=== PATIENT | male | born 1945 | race Caucasian/White ===

== ENCOUNTER 2024-11-07 07:56 | Outpatient (CLI) | payer MEDICARE, SELFPAY ==
--- NOTE | ~2024-11-07 | CT_ITS ---
History: Paresthesias PROCEDURE: CT cervical spine without intravenous contrast. COMPARISON: None TECHNIQUE: Multiple contiguous axial images of the cervical spine were performed without the administration of i ntravenous contrast. DLP: 521 mGy-cm FINDINGS: Straightening of the normal curvature of the cervical spine is identified, likely muscular in origin. Degenerative disease is noted, specifically at the T1/C2 interface, with sclerosis of the dens and th e ring of C1. Disc space narrowing is also noted, along with facet arthropathy. No acute fractures are present. The bilateral lung apices are unremarkable. Circumferential thickening of the distal cervical esophagus. The airway is patent. Impression: Straightening of the normal curvature of the cervical spine, likely muscular in origin. Degenerative disease, without acute fracture. Reviewed, dictated and finalized at location A. Impression: Straightening of the normal curvature of the cervical spine, likely muscular in origin. Degenerative disease, without acute fracture.
--- NOTE | ~2024-11-07 | CT_ITS ---
Noncontrast CT scan of the lumbar spine CLINICAL HISTORY: Spondylosis TECHNIQUE: Axial noncontrast imaging of the lumbar spine was performed. Sagittal and coronal reformat bhavya images were constructed. Dose reduction technique was used on this scan by utilizing automated ex posure control and iterative reconstruction technique. The dose-length product (DLP) was 1150.52 mGy- cm. FINDINGS: There is no fracture or subluxation lumbar spine. Vertebral bodies maintain normal height a nd alignment. Intervertebral disc spaces are well preserved. At L1-L2, there is no disc bulge or herniation. No spinal canal stenosis or distinct neural foraminal narrowing. At L2-L3, there is mild diffuse disc bulge with mild facet hypertrophy. No daniela central canal stenos is. Neural foramina are preserved. At L3-L4, there is mild diffuse disc bulge with mild to moderate facet arthropathy. There is probable mild central canal stenosis. Neural foramina are preserved. At L4-L5, there is disc bulge with moderate facet arthropathy. There is moderate to advanced spinal c anal stenosis/thecal sac compression. There is moderate bilateral neural foraminal narrowing. At L5-S1, there is minimal disc bulge. No spinal canal stenosis or neural foraminal narrowing. Paravertebral soft tissues are unremarkable. Impression: Moderate to advanced degenerative spondylosis at L4-L5, as above. Mild to moderate degenerative spondylosis at L3-L4, as above. Reviewed, dictated and finalized at [facility]. Impression: Moderate to advanced degenerative spondylosis at L4-L5, as above. Mild to moderate degenerative spondylosis at L3-L4, as above.
--- OUTSIDE RECORDS SUMMARY | 2024-11-07 07:59 | XMS_ITS ---
Author Name [facility] [place] Address [address] [place] [address] Care Team Providers Care Secretary To Board Of Commissioners Name Role Phone BEBETO DURAND Primary Care Provider Unavailjennifer e MELISSA SOLER WILLIAM Primary Care Provider Unavailabl e Insurance Providers: All historical and current Section Date Range: From patient's date of to the date document was created. This section includes the names of all active insurance providers for the patient. Insurance Provider Type of Coverage Plan Name Start of Policy Coverage End of Policy Coverage Group Number Member ID Insurance Provider's Telephone Number Policy Curtis's Name Patient's Relationship to Policy Curtis [facility] (WNR) MEDICARE ADVANTAGE [facility](W NR) Feb 02, 2018 [id number] IVAN FREEMAN HN PATIENT MEDICARE PART D (WNR) MEDICARE (M) PART D May 05, 2016 PART D [id number] [phone] IVAN FREEMAN HN PATIENT MEDICARE PART D (WNR) MEDICARE (M) PART D May 05, 2016 PART D [id number] IVAN FREEMAN HN PATIENT [facility] (WNR) MEDICARE ADVANTAGE [facility] (WNR) May 05, 2016 [id number] 56 IVAN FREEMAN HN PATIENT [facility] (WNR) MEDICARE ADVANTAGE [facility] (WNR) May 05, 2016 [id number] 56 IVAN FREEMAN HN PATIENT [facility] (WNR) MEDICARE ADVANTAGE M[facility] (WNR) May 05, 2016 [id number] 56 IVAN FREEMAN HN PATIENT Selected Encounter This section includes the information on record at [place] for the Encounter. Date/Time Encounter Type Encounter Description Reason Provider Source Feb 02, 2024 11:59 AM Outpatient Encounter ADMIN PAT ACTIVTIES ([facility]CT) DL FRANCOIS Encounter Template Text not used by [place] Plan of Treatment: Future Appointments (+ 6 months) and Future Tests (+/- 45 days) The Plan of Treatment section includes future care activities for the patient from all [place] treatment[facility]. This section includes future appointments and future orders which are active, pending or scheduled. Future Appointments This section includes appointments that were scheduled to occur 6 months from the date of the Encounter, up to a maximum of 20 appointments. The data comes from all [place] treatment facilities. Appointment Date/Time Appointment Type Appointme nt Facility Name Feb 05, 2024 11:00 AM AMBULATORY - NONE [facility] Feb 11, 2024 11:30 AM AMBULATORY - MEDICINE [facility] Mar 24, 2024 11:00 AM AMBULATORY - NEUROLOGY . [facility] Mar 24, 2024 01:15 PM AMBULATORY - MEDICINE . [facility] Apr 12, 2024 10:00 AM AMBULATORY - MEDICINE [facility] Apr 23, 2024 10:00 AM AMBULATORY - MEDICINE [facility] May 04, 2024 09:30 AM AMBULATORY - SURGERY [facility] May 18, 2024 10:00 AM AMBULATORY - SUR[facility]ERY [facility] Jun 02, 2024 11:00 AM AMBULATORY - NEUROLOGY [facility] Jun 09, 2024 09:30 AM AMBULATORY - SURGERY [facility] Jul 13, 2024 11:30 AM AMBULATORY - NONE [facility] Jul 14, 2024 02:15 PM AMBULATORY - MEDICINE [facility] Lab Results: +/- 30 days of the encounter This section includes the Chemistry and Hematology Lab Results on record with [place] for the patient. Radiology Reports and Pathology Reports are provided separately, in subsequent sections. Lab Results This section contains the Chemistry/Hematology Results that were resulted 30 days before or 30 daysafter the date of the Encounter. Date/Time Source Result Type Result - Unit Interpretation Reference Range Specimen Type Comment Feb 05, 2024 10:54 AM [facility] URINALYSIS URINE Specimen Type: URINE No comment entered. Ordering Provider: PALOMO NAYAK Report Released Date/Time: Feb 02, 2024 12:01 PM Reporting Lab: [address] [place] [address] Performing Lab: [address] [place] [address] URINE BILIRUBIN Negative Negative URINE KETONES Negative Negative URINE GLUCOSE NORMAL Negative URINE PROTEIN Trace H Negative URINE EPITH CELLS NoneObs URINE BACTERIA 2+ /[HPF] H Negative URINE COLOR LIGHT YELLOW <Venessa URINE BLOOD Trace H Negative URINE NITRITE 2+ H Negative URINE S.G. 1.012 1.003-1.030 URINE pH 6.5 5.0-9.0 URINE LEUKOCYTE ESTERASE 3+ H Negativ e URINE CLARITY Turbid H <Slightly-Cloudy URINE RBCS/HPF NoneObs /[HPF] 0-2 URINE WBCS/HPF 50-100 /[HPF] H 0-5 Feb 05, 2024 10:54 AM [facility] CBC BLOOD Specimen Type: BLOOD No comment entered. Ordering Provider: PALOMO NAYAK Report Released Date/Time: Feb 02, 2024 12:02 PM Reporting Lab: [address] [place] [address] Performing Lab: [address] [place] [address] WBC 12.6 10*3/uL H 4.8-10.8 RBC 5.01 10*6/uL 4.7-6.1 HGB 15.0 g/dL 14-18 HCT 45.6 42-52 MCV 91.1 fL 80-94 MCH 30.0 pg 27-31 MCHC 32.9 g/dL 32-36 PLT 307 10*3/uL 130-400 MPV 8.9 fL 7.4-10.4 MONOCYTE (AUTO) 9.9 4-12 EOSINOPHIL (AUTO) 2.0 0-11.0 BASOPHIL (AUTO) 0.6 0.0-2.0 RDW 12.9 11.5-14.5 LYMPH (AUTO) 18.8 L 20.5-51.1 NEUTROPHIL (AUTO) 68.7 42.2-75.2 LYMPH ABSOLUTE 2.4 10*3/uL 1.2-3.4 MONO ABSOLUTE 1.2 10*3/uL H 0.1-0.7 NEUTRO ABSOLUTE 8.7 10*3/uL H 1.4-6.5 EOSIN ABSOLUTE 0.2 10*3/uL 0.0-0.7 BASO ABSOLUTE 0.1 10*3/uL 0.0-0.2 Social History: Smoking Status (Most current) and Tobacco Use (All prior to encounter date) This section includes the most current, and the historical, smoking and tobacco- related health factors from the [place] facility where the Encounter took place. Current Smoking Status This section includes the most current smoking, or tobacco-related health factor, from the [place] facility where the Encounter took place. Date/Time Current Smoking Status Comment Leon mars Aug 06, 2023 02:30 PM VA-TOBACCO FORMER USER [facility] Tobacco Use History This section includes a history of the smoking, or tobacco-related health factors, that were collected on or before the date of the Encounter. The data comes from the [place] facility where the Encounter took place. Date/Time Smoking Status/Tobacco Use Comment Ezequiel rome Aug 06, 2023 02:30 PM VA-TOBACCO QUIT 15 YRS OR MORE [facility] Aug 02, 2022 03:30 PM VA-TOBACCO FORMER USER [facility] Aug 02, 2022 03:30 PM VA-TOBACCO QUIT 15 YRS OR MORE [facility] May 08, 2021 01:00 PM VA-TOBACCO NEVER USED [facility] Mar 29, 2020 09:00 AM VA-TOBACCO NEVER USED [facility] September 23, 2018 09:22 AM VA-TOBACCO FORMER USER [facility] September 23, 2018 09:22 AM VA-TOBACCO QUIT 15 YRS OR MORE [facility] Feb 20, 2018 10:25 AM VA-TOBACCO NEVER USED [facility] Pathology Reports: +/- 30 days of the encounter Pathology Reports For cases when an order for pathology services may have been completed prior to the date of the Encounter, the report list includes the Pathology Reports that were completed up to 30 days before dateof the Encounter. For cases when an order for pathology services may have been completed after the date of the Encounter, the report list also includes the Pathology Reports that were completed up to30 days after date of the Encounter. The data comes from all [place] treatment facilities. Date/Time Pathology Report Provider Source Feb 05, 2024 10:54 AM LR MICROBIOLOGY RE PORT: Accession [UID]: [id number] [[id number]] Received: Feb 05, 2024@10:54 Collection sample: URINE (CLEAN CATCH) Collection date: Feb 05, 2024 10:54 Site/Specimen: URINE Provider: PALOMO NAYAK Test(s) ordered: CULTURE, URINE................ completed: Feb 09, 2024 * BACTERIOLOGY FINAL REPORT => Feb 09, 2024 13:34 TECH CODE: [id number] CULTURE RESULTS: PSEUDOMONAS AERUGINOSA - Quantity: >100,000 COL/ML ANTIBIOTIC SUSCEPTIBILITY TEST RESULTS: PSEUDOMONAS AERUGINOSA : SUSC INTP AZTREONAM..................... S S FORMULARY CEFEPIME...................... S S FORMULARY CEFTAZIDIME................... S S FORMULARY CIPROFLOXACIN................. S S FORMULARY GENTAMICIN.................... I I FORMULARY LEVOFLOXACIN.................. S S FORMULARY MEROPENEM..................... S S FORMULARY PIP/TAZOBACTAM................ S S FORMULARY TOBRAMYCIN.................... S S FORMULARY Bacteriology Remark(s): FINAL REPORT: 02-09-24 [facility] Encounter Notes: All associated encounter notes This section contains the clinical notes associated to the Encounter. Date/Time Encounter Note(s) Provider Source Feb 02, 2024 12:03 PM PRIMARY CARE SALT WASHER NOTE: LOCAL TITLE: PC NURSE TRAINING PERSONNEL SUPERVISOR-TELEPHONE STANDARD TITLE: PRIMARY CARE SALT WASHER NOTE DATE OF NOTE: FEB 02, 2024@12:03 ENTRY DATE: FEB 02, 2024@12:04:42 AUTHOR: DL FRANCOIS COSIGNER: URGENCY: STATUS: COMPLETED NURSE TRAINING PERSONNEL SUPERVISOR - TELEPHONE Patient Identity Verified by two of the following prior to providing care. Full name SSN# Suicide Screening Not Due GENERAL VISIT INFORMATION: PACT RN returned patient call. Patient is C/O worsening Neuropathy, which is increasing falls. He states he went to Podiatry and they did nothing and Gabapentin was not helpful. He would like to discuss this in detail at his Feb 10 appt. He would like a repeat UA and CBC to check on his previous UTI to ensure it was treated. Labs ordered. There were no further questions or concerns. PRIMARY CARE/MEDICINE Last Visit Dt: Dec 26, 2023@10:00 RECENT VITAL SIGNS No data available Active Outpatient Medications (including Supplies): Active Outpatient Medications Status 1) BARRIER,OSTOMY,NEW IMAGE H#[id number] USE 1 BARRIER ACTIVE EVERY OTHER DAY 2) CHOLECALCIF 50MCG (D3-2,000UNIT) TAB TAKE ONE TABLET ACTIVE BY MOUTH DAILY FOR VITAMIN D3 SUPPLEMENTATION 3) GABAPENTIN 100MG CAP TAKE ONE CAPSULE BY MOUTH AT ACTIVE BEDTIME 4) LOSARTAN 50MG TAB TAKE ONE TABLET BY MOUTH DAILY FOR ACTIVE HEART AND BLOOD PRESSURE 5) POUCH,UROSTOMY,NEW IMAGE H#73896 USE 1 POUCH ACTIVE TOPICALLY EVERY OTHER DAY 6) ROSUVASTATIN CA 20MG TAB TAKE ONE TABLET BY MOUTH ACTIVE DAILY FOR CHOLESTEROL 7) URINARY DRAINAGE SYSTEM H#9276 USE ONE EVERY WEEK ACTIVE Active Non-VA Medications Status 1) Non-VA CHOLECALCIF 50MCG (D3-2,000UNIT) TAB 2000UNIT ACTIVE MOUTH DAILY 2) Non-VA CYANOCOBALAMIN 250MCG TAB 500MCG MOUTH DAILY ACTIVE 9 Total Medications RECENT LABS HEMOGLOBIN A1C 12/19/2023@0821 5.6 LDL DIRECT - NONE FOUND Collection DT Spec CHOL 07/25/2023 07:54 PLASM 158 / STATUS No data on file No data on file PATIENT IS BEING SEEN FOR THE FOLLOWING CONDITIONS: Other Time spent engaged with during this encounter:10 minutes /es/ DL FRANCOIS REGISTERED NURSE Signed: 02/02/2024 12:07 DL FRANCOIS [facility]
--- OUTSIDE RECORDS SUMMARY | 2024-11-07 08:00 | XMS_ITS | Encounter Summary ---
Author Name [facility] [place] Address [address] [place] [address] Care Team Providers Care Cold Storage Worker Name Role Phone BEBETO DURAND Primary Care Provider Unavailabl e MELISSA SOLER WILLIAM Primary Care Provider [...] Curtis's Name Patient's Relationship to Policy Curtis [facility] (WNR) MEDICARE ADVANTAGE [facility](W NR) Feb 02, 2018 [id number] 56 IVAN FREEMAN HN PATIENT MEDICARE PART D (WNR) MEDICARE (M) PART D May 05, 2016 PART D [id number] [phone] [id number] IVAN FREEMAN HN PATIENT MEDICARE PART D (WNR) MEDICARE (M) PART D May 05, 2016 PART D [id number] IVAN FREEMAN HN PATIENT [facility] (WNR) MEDICARE ADVANTAGE [facility] (WNR) May 05, 2016 [id number] 56 IVAN FREEMAN HN PATIENT [facility] (WNR) MEDICARE [facility] (WNR) May 05, 2016 [id number] 56 IVAN FREEMAN HN PATIENT [facility] MCR (WNR) MEDICARE ADVANTAGE MCR (WNR) May 05, 2016 [id number] 56 IVAN FREEMAN PATIENT Selected Encounter This section includes the information on record at [place] for the Encounter. Date/Time Encounter Type Encounter Description Reason Provider Source Mar 11, 2024 07:33 PM CASE MANAGEMENT ADMIN PAT ACTIVTIES [facility] ISABELA BRIZUELA Zaheer Encounter Template Text not used by [place] Plan of Treatment: Future Appointments (+ 6 months) and Future Tests (+/- 45 days) The Plan of Treatment section includes future care activities for the patient from all [place] [facility]. This section includes future appointments and future orders which are active, pending or scheduled. Future Appointments This section includes appointments that were scheduled to occur 6 months from the date of the Encounter, up to a maximum of 20 appointments. The data comes from all [place] treatment facilities. Appointment Date/Time Appointment Type Appointme nt Facility Name Mar 24, 2024 11:00 AM AMBULATORY - NEUROLOGY [facility] Mar 24, 2024 01:15 PM AMBULATORY - MEDICINE [facility] Apr 12, 2024 10:00 AM AMBULATORY - MEDICINE [facility] Apr 23, 2024 10:00 AM AMBULATORY - MEDICINE [facility] May 04, 2024 09:30 AM AMBULATORY - SURGERY [facility] May 18, 2024 10:00 AM AMBULATORY - SURGERY [facility] Jun 02, 2024 11:00 AM AMBULATORY - NEUROLOGY [facility] Jun 09, 2024 09:30 AM AMBULATORY - SURGERY [facility] Jul 13, 2024 11:30 AM AMBULATORY - NONE [facility] Jul 14, 2024 02:15 PM AMBULATORY - MEDICINE [facility] Active, Pending, and Scheduled Orders This section includes a listing of several types of active, pending, and scheduled orders, including clinic medications orders, diagnostic test orders, procedure orders and consult orders; where the start date of the order is 45 days before the date of the Encounter or 45 days after the date of theEncounter. The data comes from all [facility]. Test Date/Time Test Type Test Details Facility Name Mar 24, 2024 12:00 AM Laboratory - Chemistry Order PHOSPHOROUS GREEN LI/HEP BLD/PLAS PLASMA SP [facility] Mar 24, 2024 12:00 AM Laboratory - Chemistry Order MAGNESIUM GREEN LI/HEP BLD/PLAS PLASMA [facility] Mar 24, 2024 12:00 AM Laboratory - Chemistry Order LIPID PANEL (STL) GREEN LI/HEP BLD/PLAS PLASMA [facility] Mar 24, 2024 12:00 AM Laboratory - Chemistry Order CPK GREEN LI/HEP BLD/PLAS PLASMA [facility] Mar 24, 2024 12:00 AM Laboratory - Chemistry Order TSH W/ REFLEX FT4 (STL) GREEN LI-HEP PLASMA [facility] Mar 24, 2024 12:00 AM Laboratory - Chemistry Order CBC BLOOD [facility] Mar 24, 2024 12:00 AM Laboratory - Chemistry Order COMPREHENSIVE METABOLIC PANEL GREEN LI/HEP BLD/PLAS PLASMA [facility] Mar 25, 2024 12:00 AM Laboratory - Chemistry Order VITAMIN D, 25-HYDROXY GOLD/RED SST SERUM SP [facility] Lab Results: +/- 30 days of the encounter This section includes the Chemistry and Hematology Lab Results on record with [place] for the patient. Radiology Reports and Pathology Reports are provided separately, in subsequent sections. Lab Results This section contains the Chemistry/Hematology Results that were resulted 30 days before or 30 daysafter the date of the Encounter. Date/Time Source Result Type Result - Unit Interpretation Reference Range Specimen Type Comment Mar 24, 2024 11:52 AM [facility] HGA1C BLOOD Specimen Type: BLOOD No comment entered. Ordering Provider: JENNIFER BELTRÁN Report Released Date/Time: Mar 24, 2024 11:10 AM Reporting Lab: [facility] [address] [address] Performing Lab: [address] [address] HGA1C 5.7 4.0-6.0 Mar 24, 2024 11:52 AM [facility] B12 SERUM Specimen Type: SERUM No comment entered. Ordering Provider: JENNIFER BELTRÁN Report Released Date/Time: Mar 24, 2024 11:10 AM Reporting Lab: [facility] [address] [facility] [address] Performing Lab: [facility] [address] [address] B12 >2000 pg/mL H 213-816 Radiology Reports: +/- 30 days of the encounter Radiology Reports For cases when an order for radiology services may have been completed prior to the date of the Encounter, the report list includes the Radiology Reports that were completed up to 30 days before dateof the Encounter. For cases when an order for radiology services may have been completed after the date of the Encounter, the report list also includes the Radiology Reports that were completed up to30 days after date of the Encounter. The data comes from all [facility] facilities. Date/Time Radiology Report Provider Source Mar 24, 2024 11:[address] LUMBAR SPINE W/ O CONT: XANDER FREEMAN MARISOL [id number] M Exm Date: MAR 24, 2024@11:57 Req Phys: JENNIFER BELTRÁN Pat Loc: [facility]-NEUROLOGY [facility] (Req'g Img Loc: [facility]-CT IMAGING [facility] Service: [address] [address] (Case [id number] COMPLETE) CT LUMBAR SPINE W/O CONT (CT Detailed) CPT:81936 Reason for Study: lumbar spinal stenosis Clinical History: Responsible Attending: Jennifer Beltrán M.D Attending Contact Number: [phone] Resident Contact Number: Allergies listed in CPRS chart: No Allergy Assessment Creatinine: No CREATININE EO data found/eGFR: STL EGFR (within one year). *No Lab Data Found* Wt: History of: Renal failure, chronic or acute renal disease: NO Report Status: Verified Date Reported: MAR 25, 2024 Date Verified: MAR 25, 2024 Nurse Instructor E-Sig:/ES/INNA HURTADO MD Report: CT scanning through the lumbosacral spine was performed with sagittal and coronal reconstructions L1-L2 : No disc herniation or spinal canal stenosis L2-L3: No disc herniation or spinal canal stenosis L3-L4: Mild diffuse circumferential disc bulging, borderline spinal canal stenosis, left facet joint arthritis L4-L5: Moderate diffuse circumferential disc bulging, mild to moderate spinal canal stenosis L5-S1: No disc herniation or spinal canal stenosis 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 Date/Time Encounter Note(s) Provider Source Mar 11, 2024 07:33 PM NURSING NOTE: LOCAL TITLE: [facility] PCMM NOTE STANDARD TITLE: NURSING NOTE DATE OF NOTE: MAR 11, 2024@19:33 ENTRY DATE: MAR 11, 2024@19:34:29 AUTHOR: ISABELA BRIZUELA EXP COSIGNER: URGENCY: STATUS: COMPLETED PCM clinical review complete. Confirmed has permanently relocated. No future PACT appointments in [facility]. Approved for re- assignment. /[place]/ ISABELA BRIZUELA RN Signed: 03/11/2024 19:34 ISABELA BRIZUELA [facility]
--- OUTSIDE RECORDS SUMMARY | 2024-11-07 08:00 | XMS_ITS ---
Author Name [facility] Organization [facility] Address [address] [place] [address] Care Team Providers Care Seal Mixer Name Role Phone BEBETO DURAND Primary Care [...] Curtis's Name Patient's Relationship to Policy Curtis [facility] (WNR) MEDICARE ADVANTAGE [facility](W NR) Feb 02, 2018 [id number] IVAN FREEMAN HN PATIENT MEDICARE PART D (WNR) MEDICARE (M) PART D May 05, 2016 PART D [id number] 68 IVAN FREEMAN HN PATIENT MEDICARE PART D (WNR) MEDICARE (M) PART D May 05, 2016 PART D [id number] [phone] 4 IVAN FREEMAN HN PATIENT [facility] (WNR) MEDICARE ADVANTAGE [facility] (WNR) May 05, 2016 [id number] 56 IVAN FREEMAN HN PATIENT [facility] (WNR) MEDICARE ADVANTAGE [facility] (WNR) May 05, 2016 [id number] 56 IVAN FREEMAN HN PATIENT [facility] (WNR) MEDICARE ADVANTAGE [facility] (WNR) May 05, 2016 [id number] 56 IVAN FREEMAN HN PATIENT Selected Encounter This section includes the information on record at OR for the Encounter. Date/Time Encounter Type Encounter Description Reason Provider Source Mar 24, 2024 01:15 PM OFFICE O/P NEW MOD 45 MIN PRIMARY CARE/MEDICINE ICD-10-CM R53.1 RONI Osman Encounter Template Text not used by OR Assessments - Encounter Diagnoses This section includes the primary and secondary diagnoses documented for the Encounter. Date/Time Primary/Secondary Diagnosis Diagnosis Name Provider Source Mar 25, 2024 10:33 AM PRIMARY Weakness MELISSA SOLER [facility] Mar 25, 2024 10:33 AM SECONDARY Contact with and exposure to other hazardous substances MELISSA SOLER [facility] Mar 25, 2024 10:33 AM SECONDARY Encounter for immunization NYLA ALSTON [facility] Mar 25, 2024 10:33 AM SECONDARY Essential (primary) hypertension MELISSA SOLER [facility] Mar 25, 2024 10:33 AM SECONDARY Hypothyroidism, unspecified MELISSA SOLER [facility] Plan of Treatment: Future Appointments (+ 6 months) and Future Tests (+/- 45 days) The Plan of Treatment section includes future care activities for the patient from all OR treatmentfacilities. This section includes future appointments and future orders which are active, pending or scheduled. Future Appointments This section includes appointments that were scheduled to occur 6 months from the date of the Encounter, up to a maximum of 20 appointments. The data comes from all OR treatment [facility]. Appointment Date/Time Appointment Type Appointme nt Facility Name Apr 12, 2024 10:00 AM AMBULATORY - MEDICINE [facility] Apr 23, 2024 10:00 AM AMBULATORY - MEDICINE [facility] May 04, 2024 09:30 AM AMBULATORY - SURGERY [facility] May 18, 2024 10:00 AM AMBULATORY - SURGERY [facility] Jun 02, 2024 11:00 AM AMBULATORY - NEUROLOGY [facility] Jun 09, 2024 09:30 AM AMBULATORY - SURGERY . Cesar [facility]STILL[facility] Jul 13, 2024 11:30 AM AMBULATORY - NONE [facility] Jul 14, 2024 02:15 PM AMBULATORY - MEDICINE [facility] Active, Pending, and Scheduled Orders This section includes a listing of several types of active, pending, and scheduled orders, including clinic medications orders, diagnostic test orders, procedure orders and consult orders; where the start date of the order is 45 days before the date of the Encounter or 45 days after the date of theEncounter. The data comes from all [facility] facilities. Test Date/Time Test Type Test Details Facility Name Mar 24, 2024 12:00 AM Laboratory - Chemistry Order PHOSPHOROUS GREEN LI/HEP BLD/PLAS PLASMA [facility] Mar 24, 2024 12:00 AM Laboratory - Chemistry Order MAGNESIUM GREEN LI/HEP BLD/PLAS PLASMA [facility] Mar 24, 2024 12:00 AM Laboratory - Chemistry Order LIPID PANEL (STL) GREEN LI/HEP BLD/PLAS PLASMA [facility] Mar 24, 2024 12:00 AM Laboratory - Chemistry Order CPK GREEN LI/HEP BLD/PLAS PLASMA [facility] Mar 24, 2024 12:00 AM Laboratory - Chemistry Order TSH W/ REFLEX FT4 (STL) GREEN LI-HEP PLASMA [facility] Mar 24, 2024 12:00 AM Laboratory - Chemistry Order CBC BLOOD [facility] Mar 24, 2024 12:00 AM Laboratory - Chemistry Order COMPREHENSIVE METABOLIC PANEL GREEN LI/HEP BLD/PLAS PLASMA [facility] Mar 25, 2024 12:00 AM Laboratory - Chemistry Order VITAMIN D, 25-HYDROXY GOLD/RED SST SERUM [facility] Lab Results: +/- 30 days of the encounter This section includes the Chemistry and Hematology Lab Results on record with [facility] for the [facility]. Radiology Reports and Pathology Reports are provided separately, in subsequent sections. Lab Results This section contains the Chemistry/Hematology Results that were resulted 30 days before or 30 daysafter the date of the Encounter. Date/Time Source Result Type Result - Unit Interpretation Reference Range Specimen Type Comment Mar 24, 2024 11:52 AM [facility] HGA1C BLOOD Specimen Type: BLOOD No comment entered. Ordering Provider: JENNIFER SOTO Report Released Date/Time: Mar 24, 2024 11:10 AM Reporting Lab: [facility] [address] [facility] [id number] Performing Lab: [facility] [address] [facility] [address] HGA1C 5.7 4.0-6.0 Mar 24, 2024 11:[address] [facility] B12 SERUM Specimen Type: SERUM No comment entered. Ordering Provider: JENNIFER SOTO Report Released Date/Time: Mar 24, 2024 11:10 AM Reporting Lab: [address] [address] Performing Lab: [place] [id number] [facility] [id number] B12 >2000 pg/mL H 213-816 Vital Signs: All taken on the encounter date This section contains inpatient and outpatient Vital Signs collected on the date of the Encounter. Date/Time Temperature Pulse Blood Pressure Respiratory Rate SP02 Pain Height Weight Body Mass Index Source Mar 24, 2024 01:20 PM 4 [facility] Mar 24, 2024 01:18 PM 97.6 68 127/71 16 97 4 71 246.2 34 [facility] Immunizations: All administered on the encounter date This section contains immunizations associated to the Encounter. Immunization Series Date Issued Administered By Site Reaction Lot Number CVX Code Drug Applications Project Manager Comment(s) Source INFLUENZA, HIGH-DOSE, TRIVALENT, PF Mar 24, 2024 NYLA ALSTON LEFT DELTO ID [id number] [facility] Social History: Smoking Status (Most current) and Tobacco Use (All prior to encounter date) This section includes the most current, and the historical, smoking and tobacco- related health factors from the OR facility where the Encounter took place. Current Smoking Status This section includes the most current smoking, or tobacco-related health factor, from the OR facility where the Encounter took place. Date/Time Current Smoking Status Comment Leon mars Mar 24, 2024 01:15 PM VA-TOBACCO NEVER U SED CIGARETTES [facility] Tobacco Use History This section includes a history of the smoking, or tobacco-related health factors, that were collected on or before the date of the Encounter. The data comes from the OR facility where the Encounter took place. Date/Time Smoking Status/Tobacco Use Comment F acdaryl Mar 24, 2024 01:15 PM VA-TOBACCO NEVER U SED OTHER TYPE [facility] Radiology Reports: +/- 30 days of the [...] the Encounter. The data comes from all OR treatment facilities. Date/Time Radiology Report Provider Source Mar 24, 2024 11:[address] LUMBAR SPINE W/ O CONT: XANDER FREEMAN [id number] -[id number] M Exm Date: MAR 24, 2024@11:57 Req Phys: JENNIFER SOTO Pat Loc: [facility] (Req'g Img Loc: [facility]AGING Service: [address] [address] (Case [id number] COMPLETE) CT LUMBAR SPINE W/O CONT (CT Detailed) CPT:38456 Reason for Study: lumbar spinal stenosis Clinical History: Responsible Attending: Jennifer Soto M.D Attending Contact Number: [phone] Resident Contact Number: Allergies listed in CPRS chart: No Allergy Assessment Creatinine: No CREATININE EO data found/eGFR: STL EGFR (within one year). *No Lab Data Found* Wt: History of: Renal failure, chronic or acute renal disease: NO Report Status: Verified Date Reported: MAR 25, 2024 Date Verified: MAR 25, 2024 Stitching Machine Feeder Or Offbearer E-Sig:/APOLONIA/INNA HURTADO MD Report: CT scanning through the [...] Primary Interpreting Staff: INNA HURTADO MD, Radiologist (Stitching Machine Feeder Or Offbearer) /CPG INNA HURTADO [facility] Encounter Notes: All associated encounter notes This section contains the clinical notes associated to the Encounter. Date/Time Encounter Note(s) Provider Source Mar 28, 2024 03:33 AM ADDENDUM: LOCAL TITLE: Addendum STANDARD TITLE: ADDENDUM DATE OF NOTE: MAR 28, 2024@03:33:18 ENTRY DATE: MAR 28, 2024@03:33:19 AUTHOR: MARISA SAVAGE EXP COSIGNER: URGENCY: STATUS: COMPLETED The Psyllium Caps (Metamucil) is Non-Formulary and will need a PADR consult approval prior to us filling. /apolonia/ MARISA SAVAGE Signed: 03/28/2024 03:34 Receipt Acknowledged By: 03/31/2024 15:35 /apolonia/ Melissa Soler DO Resident Physician --- Original Document --- 03/24/24 PRIMARY CARE PROVIDER NEW VISIT STL: PRIMARY CARE - NEW PATIENT ESTABLISH CARE HPI: Marcelo Freeman is a 78 year old MALE with a PMHx of HTN, Hypothyroid, HLD, recurrent cystitis s/p bladder diversion surgery (2019), hernia repair who presents to primary care clinic to establish care after moving from [place] to be closer to family. He is accompanied by his . Acute Concerns: Worsening bilateral foot/leg weakness initially thought to be neuropathy. This has been ongoing for the past 4 years but has worsened in the past 3 months. Feet feel swollen and sore. Very frequent falls, however patient knows when he's about to fall becasue his legs will hurt and he tries to soften the fall or catch himself. Denies any chest pain or palpitations during these falls. No major injuries from falls yet. Now requires cane, walker, and sometimes wheelchair. Trial of gabapentin did not provide any relief in symptoms. Had a visit with OR Neurology prior to today's appointment for this weakness. This significantly impacts quality of life, had to sell his boat due to this. Mild improvement in strength with home eliptical training Also has a what appears to be a dark skin-tag type lesion on his right chest that notes has significantly increased in size over the past few months. Notable sun exposure history. Has never seen dermatology. Chronic Concerns: Bladder division - no concerns. Has plenty of ostomy supplies from refilling before moving. Needs to get established with OR for follow up. MEDICAL HISTORY: HTN HLD Hypothyroidism SURGICAL HISTORY: Hernia Repair Multiple TURPs with bladder diversion surgery 04/[address] Alvarado Bilateral Cateract SOCIAL HISTORY: Living situation: Lives with . Just bought a home with a pool. Moved from [place] to be closer to family Substance hx: - tobacco: Smoked 1.5 packs per day age 17 to 51. (~50 pack year history) Quit 1996 - etoh: Rare, ~ once every month - illicits: Never Retired [employer] for 3 years, served in [employer] Enjoys being around family, growing plants. Boating and fishing as well as diving - has dove all over the [place], [place], [place] FAMILY HISTORY: Dad had aorta problem Big brother kidney cancer Little brother bladder cancer and colon cancer Mother 86 [place] and CAD ACTIVE OUTPATIENT MEDS: Losartan 50 Rosuva 20 Levothyrox 25 mcg Centrum Silver B12 D3 Vital Signs: Pulse: 68 (03/24/2024 13:18) BP: 127/71 (03/24/2024 13:18) RESP: 16 (03/24/2024 13:18) Pain: 4 (03/24/2024 13:20) Weight: 246.2 lb [111.67 kg] (03/24/2024 13:18) PHYSICAL EXAM: General: cooperative, well appearing, no acute distress, has cane HEENT: atraumatic, symmetric, sclera anicteric, EOMI CV: RRR Lungs: CTAB, no distress on room air Abd: nontender, nondistended, nml bowel sounds, diverting urostomy in RLQ Skin: Dark brown growth to R chest wall, appears to be on small stalk Neuro: A&O x3, follows commands, no focal deficits, CN II-XII grossly intact Ext: Feet are significantly cooler than lower legs, delayed cap refill ~4 seconds, absent senation to monofilament testing in all areas, DP pulses still palpable, no observed lesions on plantar aspect IMPRESSION/PLAN: #BLE Weakness - Based on my exam, high concern for PVD/claudication, ABIs ordered. Already taking HI statin and ASA 81mg daily. No evidence or concern for critical limb ischemia - Following with OR neurology, ordered lumbar MRI and EMG. May have pseudoclaudication? - Based on foot exam above, patient is HIGH RISK for injury and would benefit from podiatry for routine care - B12 > 2000, recommended he stop vitamin B supplementation - Pending above may benefit from structured exercise program - A1c 5.7%, not diabetic #History of Bladder Diversion Surgery (2019) - Establish with here, no acute concerns at this time #Skin lesion - Appears to be similar to skin tag, however with dark color and growing size in the context of sun exposure history would appreciate if dermatology could evalute. #Hypothyroidism - Repeat TSH - Continue levothyroxine 25mcg #HTN - Reports good BP control on Losartan 50mg, will continue for now - Can discuss BP log at next visit #Exposure to [place] - Toxic exposure registry Healthcare Maintenance - CRC screening: Colonoscopy 07/2023 in [place], said to repeat in 5 years. Can work on obtaining records. No history of abnormal colonoscopies - Lung cancer screening: Does not qualify since he quit in 1996 - AAA screening: Reports complete, will look for records - Prostate cancer screening: Shared decision making at next OV - ID screening: Will discuss at next OV [ ] HIV [ ] HCV - Vaccinations: [x] Pneumococcal - 2019 [ ] TDAP - Unclear, clarify at next OV [x] Influenza - Today [x] Zoster - 2019 Labs ordered: CBC, CMP, Mg, TSH, Imaging ordered: ALE Consults ordered: , Dermatology RTC in 3 months. Patient discussed with attending, Dr. Hair. Toxic Exposure Screening - CP,DI,L,NS,P,PH,S,U: The [place]/caregiver was asked if they believe the experienced any toxic exposure(s), such as Airborne Hazards and Open Burn Pit, [place] related exposures, [place], Radiation, contaminated water at [place] or other such exposures, while serving in the [employer]. /caregiver believes the [place] was exposed to the following while serving in the Armed [employer]: [place]: [place]/caregiver was made aware of educational resources that includes information on the Registry Program, presumptive conditions and how to file a claim. Printed information was offered and provided if desired. /caregiver has health or medical concerns related to their concern of environmental exposure. Concern: Bladder issues, neuropathy Benefits/Claims Questions /caregiver was informed of local point of contact. No questions at this time /caregiver was informed of local points of contact. Contact information for local resources: [facility] Registry Exam Program: [phone] Eligibility: [phone] [id number] The following connections were provided to the [place]/caregiver: Consult/Referral to Registry Program [employer] Benefits Administration (VBA) for Benefits/claims: Homelessness/Food Insecurity Screen - DI,L,N,P,PH,PS,S,U: In the past 2 months, have you been living in stable housing that you own, rent, or stay in as part of a household? Yes - Living in stable housing. Are you worried or concerned that in the next 2 months you may NOT have stable housing that you own, rent, or stay in as part of a household? No - Not worried about housing near future The reports the following: Within the past 12 months, you worried whether your food would run out before you got money to buy more. Never true Within the past 12 months, the food you bought just didn't last and you didn't have money to get more. Never true Frail/Elderly Screen: Falls Screen: Two or more falls within the last 12 months. Falls evaluation: (Must be completed by PROVIDER after Positive Falls Screen!) Circumstances of Fall: (I.e. how fall(s) occurred; patient injury sustained; treatment required for injury.) 2/2 worsening LE condition Medications patient is taking: (Review of medications which MAY have contributed to patient fall or mobility disorder.) No medications were identified which contributed to patient fall or mobility disorder. Relevant Chronic Conditions (diseases disorders likely to contribute to fall risk, e.g. DJD both hips with stiffness and pain): The patient has chronic diseases or disorders which likely contributed to fall risk. Please specify: Which conditions? Possible HTN Diagnostic Plans/Therapeutic Recommendations (Check all that apply): Use of Adaptive/Assistive Equipment. Please Specify: Cane, walker, wheelchair Actions Taken (to implement above diagnostic plans): Referrals/Consults: Those ordered: Seeing neurology /apolonia/ Melissa Soler DO Resident Physician Signed: 03/25/2024 10:33 /apolonia/ TOMÁS HAIR MD STAFF PHYSICIAN Cosigned: 03/26/2024 15:44 MARISA SAVAGE [facility] Mar 24, 2024 04:19 PM PRIMARY CARE INITI AL EVALUATION NOTE: LOCAL TITLE: PRIMARY CARE PROVIDER NEW VISIT [facility] STANDARD TITLE: PRIMARY CARE INITIAL EVALUATION NOTE DATE OF NOTE: MAR 24, 2024@16:19 ENTRY DATE: MAR 24, 2024@08:52:04 AUTHOR: MELISSA SOLER COSIGNER: TOMÁS HAIR URGENCY: STATUS: COMPLETED PRIMARY CARE PROVIDER NEW VISIT ST Has ADDENDA PRIMARY CARE - NEW PATIENT ESTABLISH CARE HPI: Marcelo Freeman is a 78 year old MALE with a PMHx of HTN, Hypothyroid, HLD, recurrent cystitis s/p bladder diversion surgery (2019), hernia repair who presents to primary care clinic to establish care after moving from [place] to be closer to family. He is accompanied by his . Acute Concerns: Worsening bilateral foot/leg weakness initially thought to be neuropathy. This has been ongoing for the past 4 years but has worsened in the past 3 months. Feet feel swollen and sore. Very frequent falls, however patient knows when he's about to fall becasue his legs will hurt and he tries to soften the fall or catch himself. Denies any chest pain or palpitations during these falls. No major injuries from falls yet. Now requires cane, walker, and sometimes wheelchair. Trial of gabapentin did not provide any relief in symptoms. Had a visit with OR Neurology prior to today's appointment for this weakness. This significantly impacts quality of life, had to sell his boat due to this. Mild improvement in strength with home eliptical training Also has a what appears to be a dark skin-tag type lesion on his right chest that notes has significantly increased in size over the past few months. Notable sun exposure history. Has never seen dermatology. Chronic Concerns: Bladder division - no concerns. Has plenty of ostomy supplies from refilling before moving. Needs to get established with OR for follow up. MEDICAL HISTORY: HTN HLD Hypothyroidism SURGICAL HISTORY: Hernia Repair Multiple TURPs with bladder diversion surgery 04/[address] Alvarado Bilateral Cateract SOCIAL HISTORY: Living situation: Lives with . Just bought a home with a pool. Moved from [place] to be closer to family Substance hx: - tobacco: Smoked 1.5 packs per day age 17 to 51. 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 Boating and fishing as well as diving - has dove all over the [facility], [place], [place] FAMILY HISTORY: Dad had aorta problem Big brother kidney cancer Little brother bladder cancer and colon cancer Mother 86 [place] and CAD ACTIVE OUTPATIENT MEDS: Losartan 50 Rosuva 20 Levothyrox 25 mcg Centrum Silver B12 D3 Vital Signs: Pulse: 68 (03/24/2024 13:18) BP: 127/71 (03/24/2024 13:18) RESP: 16 (03/24/2024 13:18) Pain: 4 (03/24/2024 13:20) Weight: 246.2 lb [111.67 kg] (03/24/2024 13:18) PHYSICAL EXAM: General: cooperative, well appearing, no acute distress, has cane HEENT: atraumatic, symmetric, sclera anicteric, EOMI CV: RRR Lungs: CTAB, no distress on room air Abd: nontender, nondistended, nml bowel sounds, diverting urostomy in RLQ Skin: Dark brown growth to R chest wall, appears to be on small stalk Neuro: A&O x3, follows commands, no focal deficits, CN II-XII grossly intact Ext: Feet are significantly cooler than lower legs, delayed cap refill ~4 seconds, absent senation to monofilament testing in all areas, DP pulses still palpable, no observed lesions on plantar aspect IMPRESSION/PLAN: #BLE Weakness - Based on my exam, high concern for PVD/claudication, ABIs ordered. Already taking HI statin and ASA 81mg daily. No evidence or concern for critical limb ischemia - Following with OR neurology, ordered lumbar MRI and EMG. May have pseudoclaudication? - Based on foot exam above, patient is HIGH RISK for injury and would benefit from podiatry for routine care - B12 > 2000, recommended he stop vitamin B supplementation - Pending above may benefit from structured exercise program - A1c 5.7%, not diabetic #History of Bladder Diversion Surgery (2019) - Establish with here, no acute concerns at this time #Skin lesion - Appears to be similar to skin tag, however with dark color and growing size in the context of sun exposure history would appreciate if dermatology could evalute. #Hypothyroidism - Repeat TSH - Continue levothyroxine 25mcg #HTN - Reports good BP control on Losartan 50mg, will continue for now - Can discuss BP log at next visit #Exposure to [place] - Toxic exposure registry Healthcare Maintenance - CRC screening: Colonoscopy 07/2023 in [place], said to repeat in 5 years. Can work on obtaining records. No history of abnormal colonoscopies - Lung cancer screening: Does not qualify since he quit in 1996 - AAA screening: Reports complete, will look for records - Prostate cancer screening: Shared decision making at next OV - ID screening: Will discuss at next OV [ ] HIV [ ] HCV - Vaccinations: [x] Pneumococcal - 2019 [ ] TDAP - Unclear, clarify at next OV [x] Influenza - Today [x] Zoster - 2019 Labs ordered: CBC, CMP, Mg, TSH, Imaging ordered: ALE Consults ordered: , Dermatology RTC in 3 months. Patient discussed with attending, Dr. Hair. Toxic Exposure Screening - CP,DI,L,NS,P,PH,S,U: The [place]/caregiver was asked if they believe the experienced any toxic exposure(s), such as Airborne Hazards and Open Burn [place], [place] related exposures, [place], Radiation, contaminated water at [place] or other such exposures, while serving in the Armed Forces. [place]/caregiver believes the was exposed to the following while serving in the Armed Forces: [place]: /caregiver was made aware of educational resources that includes information on the Registry Program, presumptive conditions and how to file a claim. Printed information was offered and provided if desired. /caregiver has health or medical concerns related to their concern of environmental exposure. Concern: Bladder issues, neuropathy Benefits/Claims Questions [place]/caregiver was informed of local point of contact. No questions at this time [place]/caregiver was informed of local points of contact. Contact information for local resources: [facility] Registry Exam Program: [phone] Eligibility: [phone] ELANA [id number] [facility] [id number] The following connections were provided to the /caregiver: Consult/Referral to Registry Program [employer] ([employer]) for Benefits/claims: Homelessness/Food Insecurity Screen - DI,L,N,P,PH,PS,S,U: In the past 2 months, have you been living in stable housing that you own, rent, or stay in as part of a household? Yes - Living in stable housing. Are you worried or concerned that in the next 2 months you may NOT have stable housing that you own, rent, or stay in as part of a household? No - Not worried about housing near future [facility] [place] reports the following: Within the past 12 months, you worried whether your food would run out before you got money to buy more. Never true Within the past 12 months, the food you bought just didn't last and you didn't have money to get more. Never true Frail/Elderly Screen: Falls Screen: Two or more falls within the last 12 months. Falls evaluation: (Must be completed by PROVIDER after Positive Falls Screen!) Circumstances of Fall: (I.e. how fall(s) occurred; patient injury sustained; treatment required for injury.) 2/2 worsening LE condition Medications patient is taking: (Review of medications which MAY have contributed to patient fall or mobility disorder.) No medications were identified which contributed to patient fall or mobility disorder. Relevant Chronic Conditions (diseases disorders likely to contribute to fall risk, e.g. DJD both hips with stiffness and pain): The patient has chronic diseases or disorders which likely contributed to fall risk. Please specify: Which conditions? Possible HTN Diagnostic Plans/Therapeutic Recommendations (Check all that apply): Use of Adaptive/Assistive Equipment. Please Specify: Cane, walker, wheelchair Actions Taken (to implement above diagnostic plans): Referrals/Consults: Those ordered: Seeing neurology /apolonia/ Melissa Soler DO Resident Physician Signed: 03/25/2024 10:33 /es/ TOMÁS HAIR MD STAFF PHYSICIAN Cosigned: 03/26/2024 15:44 03/28/2024 ADDENDUM STATUS: COMPLETED The Psyllium Caps (Metamucil) is Non-Formulary and will need a PADR consult approval prior to us filling. /apolonia/ MARISA SAVAGE Signed: 03/28/2024 03:34 Receipt Acknowledged By: * AWAITING SIGNATURE * MELISSA SOLER RACHEL R [facility] Mar 24, 2024 01:19 PM NURSING NOTE: LOCAL TITLE: V15 PACT FACE TO FACE NOTE STL STANDARD TITLE: NURSING NOTE DATE OF NOTE: MAR 24, 2024@13:19 ENTRY DATE: MAR 24, 2024@13:19:17 AUTHOR: NYLA ALSTON EXP COSIGNER: URGENCY: STATUS: COMPLETED Provider Visit: Patient Identifiers : Full Name Date of Reason for visit: Established Follow-Up Mode of Arrival: Ambulatory Allergy Review: Patient has answered NKA Allergy list reviewed and remains current. Recent Vital Signs: Temperature: 97.6 F [36.4 C] (03/24/2024 13:18) Pulse: 68 (03/24/2024 13:18) Respiration: 16 (03/24/2024 13:18) B/P: 127/71 (03/24/2024 13:18) Pain: 4 (03/24/2024 13:18) Wt: 246.2 lb [111.67 kg] (03/24/2024 13:18) Ht: 71 in [180.3 cm] (03/24/2024 13:18) BMI: 34.4 POX: 97% (03/24/2024 13:18) Would you like to discuss any personal problem, family problem, alcohol use, drug use, or a mental or emotional illness? No Pain Interview Verbal patient Pain Rating Score: 4 Plan of Care: Will inform physician/provider of patient's pain. Contact provided Primary Care phone number and encouraged to call if any questions or concerns. Review that after hours nurse line [phone] and emergency room are available 25/11 for patient use. Contact verbalized good understanding. Cigarette Pack Year History: The patient has never smoked cigarettes or smoked fewer than 100 cigarettes/lifetime. Suicide Screen - V: C-SSRS Screening [place] Suicide Severity Rating Scale (C-SSRS) screener 1. Over the past month, have you wished you were or wished you could go to sleep and not wake up? No 2. Over the past month, have you had any actual thoughts of killing yourself? No 3. Over the past month, have you been thinking about how you might do this? Response not required due to responses to other questions. 4. Over the past month, have you had these thoughts and had some intention of acting on them? Response not required due to responses to other questions. 5. Over the past month, have you started to work out or worked out the details of how to kill yourself? Response not required due to responses to other questions. 6. If yes, at any time in the past month did you intend to carry out this plan? Response not required due to responses to other questions. 7. In your lifetime, have you ever done anything, started to do anything, or prepared to do anything to end your life (for example, collected pills, obtained a gun, gave away valuables, went to the roof but didn't jump)? No 8. If YES, was this within the past 3 months? Response not required due to responses to other questions. Alcohol Use Screen (AUDIT-C) - V: Alcohol Screen: SCREEN FOR ALCOHOL (AUDIT-C) An alcohol screening test (AUDIT-C) was negative (score=2). 1. How often did you have a drink containing alcohol in the past year? Consider a drink to be a 12 ounce can or bottle of regular beer, 8 ounces of malt liquor, a 5 ounce glass of table wine, or a 1.5 ounce shot of liquor (like scotch, gin, or vodka). Two to four times a month 2. How many drinks containing alcohol did you have on a typical day when you were drinking in the past year? One or two drinks 3. How often did you have six or more drinks on one occasion in the past year? Never Depression Screening - V: Perform PHQ-2 A PHQ-2 screen was performed. The score was 2 which is a negative screen for depression. Over the past two weeks, how often have you been bothered by the following problems? 1. Little interest or pleasure in doing things Not at all 2. Feeling down, depressed, or hopeless More than half the days Influenza Immunization - L,N,P,PH,U: Influenza, High-Dose, Trivalent, Preservative Free (Fluzone-Syringe) Administered: INFLUENZA, HIGH-DOSE, TRIVALENT, PF Date Administered: Mar 24, 2024 13:15 Series: (None selected) Applications Project Manager: SANOFI PASTEUR Lot: [id number] Exp Date: Nov 01, 2024 [facility]: [phone] Admin Route/Site: INTRAMUSCULAR/LEFT DELTOID Dosage: 0.5mL Vaccine Information Statement(s): INFLUENZA(FLU) VACC(INACTIVATED OR RECOMBINANT)VIS Dec 08, 2020 ([place]) Order By: Policy Administered By: Nyla Alston The Influenza Vaccine Information Statement (VIS) was reviewed with the patient/caregiver which lists the benefits and risks of the vaccine and the risks of not receiving the Influenza vaccine. The patient/caregiver denied any prior severe reaction to this vaccine or its components or a severe allergic reaction, such as anaphylaxis, to any vaccine or any injectable therapy. The patient/caregiver gave verbal consent to receive the vaccine. Tobacco Use Screening - U,L,N,S,PS,M,DE,PH,P: The patient has never smoked cigarettes. The patient has never used other types of tobacco. /apolonia/ NYLA ALSTON LPN LICENSED PRACTICAL NURSE Signed: 03/24/2024 13:24 NYLA ALSTON [facility]
--- OUTSIDE RECORDS SUMMARY | 2024-11-07 08:00 | XMS_ITS | Encounter Summary ---
Author Name [facility] [place] [facility] [place] Address [address] [place] [address] Care Team Providers Care Public Health Director Name Role Phone BEBETO DURAND Primary Care Provider Unavailjennifer e MELISSA BURRELL WILLIAM Primary Care Provider Unavailabl e Insurance [...] Curtis's Name Patient's Relationship to Policy Curtis [facility] (WNR) MEDICARE ADVANTAGE [facility](W NR) Feb 02, 2018 [id number] [phone] IVAN FREEMAN HN PATIENT MEDICARE PART D (WNR) MEDICARE (M) PART D May 05, 2016 PART D [id number] IVAN FREEMAN HN PATIENT MEDICARE PART D (WNR) MEDICARE (M) PART D May 05, 2016 PART D [id number] [phone] IVAN FREEMAN HN PATIENT [facility] (WNR) MEDICARE ADVANTAGE [facility] (WNR) May 05, 2016 [id number] [phone] IVAN FREEMAN HN PATIENT [facility] (WNR) MEDICARE ADVANTAGE [facility] (WNR) May 05, 2016 [id number] IVAN FREEMAN HN PATIENT [facility] (WNR) MEDICARE ADVANTAGE [facility] (WNR) May 05, 2016 [id number] IVAN FREEMAN PATIENT Selected Encounter This section includes the information on record at [place] for the Encounter. Date/Time Encounter Type Encounter Description Reason Provider Source Jul 14, 2024 02:15 PM OFFICE O/P EST MOD 30 MIN PRIMARY CARE/MEDICINE ICD-10-CM M48.07 Spinal stenosis, lumbosacral region ARTURO BUSTAMANTE IHZaheer Encounter Template Text not used by [place] Assessments - Encounter Diagnoses This section includes the primary and secondary diagnoses documented for the Encounter. Date/Time Primary/Secondary Diagnosis Diagnosis Name Provider Source Jul 15, 2024 09:02 AM PRIMARY Spinal stenosis, lumbosacral region MELISSA BURRELL [facility] Jul 15, 2024 09:02 AM SECONDARY Essential (primary) hypertension [facility] Jul 15, 2024 09:02 AM SECONDARY Hyperlipidemia, unspecified KARLENEMELISSA Narinder [facility] Jul 15, 2024 09:02 AM SECONDARY Obesity, unspecified [facility] Plan of Treatment: Future Appointments (+ 6 months) and Future Tests (+/- 45 days) The Plan of Treatment section includes future care activities for the patient from all [place] [facility]. This section includes future appointments and future orders which are active, pending or scheduled. Future Appointments This section includes appointments that were scheduled to occur 6 months from the date of the Encounter, up to a maximum of 20 appointments. The data comes from all [place] treatment [facility]. Appointment Date/Time Appointment Type Appointme nt Facility Name Dec 08, 2024 11:00 AM AMBULATORY - SURGERY [facility] Active, Pending, and Scheduled Orders This section includes a listing of several types of active, pending, and scheduled orders, including clinic medications orders, diagnostic test orders, procedure orders and consult orders; where the start date of the order is 45 days before the date of the Encounter or 45 days after the date of theEncounter. The data comes from all [place] treatment facilities. Test Date/Time Test Type Test Details Facility Name Jun 27, 2024 12:00 AM Laboratory - Chemistry Order COMPREHENSIVE METABOLIC PROFILE LT GREEN PLASMA SP [facility] Lab Results: +/- 30 days of the encounter This section includes the Chemistry and Hematology Lab Results on record with [place] for the patient. Radiology Reports and Pathology Reports are provided separately, in subsequent sections. Lab Results This section contains the Chemistry/Hematology Results that were resulted 30 days before or 30 daysafter the date of the Encounter. Date/Time Source Result Type Result - Unit Interpretation Reference Range Specimen Type Comment Jul 13, 2024 11:16 AM [facility] I-STAT, CREAT (STL-MA) BLOOD Specimen Type: BLOOD Comment: Test Performed by: [id number] Meter #: [id number] Ordering Provider: GUERLINE DEGROOT Report Released Date/Time: Jul 13, 2024 03:42 PM Reporting Lab: [place] [id number] [facility] [id number] Performing Lab: [address] [address] I-STAT, CREAT (STL-MA) 1.1 mg/dL 0.7-1.3 Vital Signs: All taken on the encounter date This section contains inpatient and outpatient Vital Signs collected on the date of the Encounter. Date/Time Temperature Pulse Blood Pressure Respiratory Rate SP02 Pain Height Weight Body Mass Index Source Jul 14, 2024 02:07 PM 98.2 87 137/80 18 93 0 [facility] Social History: Smoking Status (Most current) and Tobacco Use (All prior to encounter date) This section includes the most current, and the historical, smoking and tobacco- related health factors from the [place] facility where the Encounter took place. Current Smoking Status This section includes the most current smoking, or tobacco-related health factor, from the [place] facility where the Encounter took place. Date/Time Current Smoking Status Comment Leon mars Mar 24, 2024 01:15 PM VA-TOBACCO NEVER U SED CIGARETTES [facility] Tobacco Use History This section includes a history of the smoking, or tobacco-related health factors, that were collected on or before the date of the Encounter. The data comes from the [place] facility where the Encounter took place. Date/Time Smoking Status/Tobacco Use Comment F acdaryl Mar 24, 2024 01:15 PM [place]-TOBACCO NEVER U SED OTHER TYPE [facility] Radiology Reports: +/- 30 days of the [...] the Encounter. The data comes from all [place] treatment facilities. Date/Time Radiology Report Provider Source Jul 13, 2024 11:[address] UROGRAM-P: XANDER FREEMAN [id number] -[id number] M Exm Date: JUL 13, 2024@11:04 Req Phys: JANEL LIGHT Pat Loc: [facility]-UROLOGY 1 (Req'g Loc) Img Loc: [facility]-CT IMAGING Service: Unknown [address] [address] (Case [id number] COMPLETE) CT ABDOMEN AND PELVIS WITH AND WI(CT Detailed) CPT:03516 Contrast Media : Non-ionic Iodinated Reason for Study: hematuria Clinical History: Responsible Attending: Laura Attending Contact Number: [phone] Resident Contact Number: Allergies listed in CPRS chart: Patient has answered NKA Creatinine: No CREATININE EO data found/eGFR: STL EGFR (within one year). *No Lab Data Found* Wt: 248.3 lb [112.63 kg] (06/09/2024 09:30) History of: Renal failure, chronic or acute renal disease: NO Report Status: Verified Date Reported: JUL 13, 2024 Date Verified: JUL 13, 2024 Haul Driver E-Sig:/ES/INNA HURTADO MD Report: Spiral axial imaging through the abdomen and pelvis was performed with and without IV contrast with multiplanar and 3-D reconstructions. Comparison: none Liver: normal Spleen: normal Pancreas: normal Kidneys, ureters, bladder: Ileal conduit with ileostomy. There is a structure in the anterior pelvis that has an appearance typical of a collapsed bladder. No suspicious filling defects in the collecting systems Adrenal glands: No significant abnormality Retroperitoneum/aorta : Calcified plaque, caliber does not exceed 2.9 cm Peritoneum: No ascites. Diverticulosis, mostly in the right colon Skeleton: Unremarkable. The term unremarkable may include mild to moderate arthritic changes that would not be considered unusual for the patient's age The non urologic pelvic structures are unremarkable. Impression: Ileal conduit. No filling defects in the collecting systems of the kidneys Primary Interpreting Staff: INNA HURTADO MD, Radiologist (Haul Driver) /CPG INNA HURTADO [facility] Encounter Notes: All associated encounter notes This section contains the clinical notes associated to the Encounter. Date/Time Encounter Note(s) Provider Source Jul 14, 2024 04:29 PM PRIMARY CARE NOTE: LOCAL TITLE: PRIMARY CARE PROVIDER ESTABLISHED VISIT ST STANDARD TITLE: PRIMARY CARE NOTE DATE OF NOTE: JUL 14, 2024@16:29 ENTRY DATE: JUL 14, 2024@16:29:18 AUTHOR: MELISSA BURRELL COSIGNER: ARTURO BUSTAMANTE URGENCY: STATUS: COMPLETED PRIMARY CARE PROVIDER ESTABLISHED VISIT STL Has ADDENDA PRIMARY CARE PROGRESS NOTE ESTABLISHED PATIENT Interval History: Pt is a 79 year old MALE with a PMHx of HTN, Hypothyroid, HLD, recurrent cystitis s/p bladder diversion surgery (2019), hernia repair, severe lumbar spinal stenosis who presents to primary care clinic for follow-up. Last PCP appt was 03/24/2024 when he established care. He has seen , neurology in the interim. Additionally has seen a provider at [facility] ([facility] for [facility]) and had his RLE arteries cleaned out with plans for the L leg next week. He reports warmth improved immediately to the distal LE but still has symptoms of weakness, swelling, and giving out. ACUTE ISSUES: Recent UTI that knocked him down. Had symptoms of flank pain, weakness. Was seen at Urgent Care and prescribed 7 days of Cipro. Symptoms have resolved but now he's trying to get his strength back. Currently wheelchair bound. Motivated to get back out of wheelchair. CHRONIC FOLLOW-UP: Discussed spinal stenosis, encouraged EBX of bilateral legs. Patient putting it off because it's uncomfortable. Encouraged him to go to appointment in the next month. Vet and ask about medication for weight loss. Discussed non-pharmacologic therapies including diet and exercise. 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 SOCIAL HISTORY: Living situation: Lives with . Just bought a home with a pool. Moved from [place] to be closer to family Substance hx: - tobacco: Smoked 1.5 packs per day age 17 to 51. (~50 pack year history) Quit 1996 - etoh: Rare, ~ once every month - illicits: Never Retired [employer] for 3 years, served in [employer] Enjoys being around family, growing plants. Boating and fishing as well as diving - has dove all over the [facility], [place], [place], [place] and more MEDICAL HISTORY: 1) Skin Lesion ([facility] [id number]) 2) Hypothyroidism ([facility] [id number]) 3) HTN - Hypertension ([facility] [id number]) 4) Hyperlipidemia ([facility] [id number]) 5) Bilateral cataracts 6) Exposure to potentially hazardous substance ACTIVE OUTPATIENT MEDS: Active Outpatient Medications (including Supplies): Active Outpatient Medications Status 1) HYDROPHILIC (EQV EUCERIN) TOP CREAM APPLY LIBERALLY TO ACTIVE AFFECTED AREA(S) ONCE A DAY (EXTERNAL USE ONLY) Indication: FOR SKIN CARE 2) LEVOTHYROXINE NA 25MCG TAB TAKE ONE TABLET BY MOUTH EVERY HOLD MORNING BEFORE A MEAL TAKE 30 MINUTES BEFORE FOOD. TAKE SEPARATELY FROM ALL OTHER MEDICATIONS. Indication: FOR HYPOTHYROIDISM 3) ROSUVASTATIN CA 40MG TAB TAKE ONE-HALF TABLET BY MOUTH EVERY HOLD EVENING Indication: FOR HIGH CHOLESTEROL Vital Signs: Pulse: 87 (07/14/2024 14:07) BP: 137/80 (07/14/2024 14:07) RESP: 18 (07/14/2024 14:07) Pain: 0 (07/14/2024 14:07) Weight: 248.3 lb [112.63 kg] (06/09/2024 09:30) PHYSICAL EXAM: General: cooperative, well appearing, no acute distress, in wheelchair HEENT: atraumatic, symmetric, sclera anicteric, MMM Neck: Supple, good ROM CV: RRR Lungs: No respiratory distress on room air Skin: no rashes or lesions, warm, dry Neuro: A&O x3, follows commands, no focal deficits, CN II-XII grossly intact Ext: 2+ pulses, no significant peripheral edema, distal BLE cool but warmer than previous exam LAB DATA: SODIUM 140 mEq/L 06/09/2024 10:19 POTASSIUM 4.3 mEq/L 06/09/2024 10:19 CHLORIDE 105 mEq/L 06/09/2024 10:19 UREA NITROGEN 19.0 mg/dL 06/09/2024 10:19 CREATININE 1.02 mg/dL 06/09/2024 10:19 CALCIUM 9.9 mg/dL 06/09/2024 10:19 CARBON DIOXIDE 24 mEq/L 06/09/2024 10:19 GLUCOSE 124 H mg/dL 06/09/2024 10:19 EGFR (CKD-EPI 2020) 75.7 06/09/2024 10:19 WBC 10.9 10*3/uL 06/09/2024 10:19 RBC 5.07 10*6/uL 06/09/2024 10:19 HGB 15.4 g/dL 06/09/2024 10:19 HCT 46.8 % 06/09/2024 10:19 MCV 92.3 fL 06/09/2024 10:19 MCH 30.4 pg 06/09/2024 10:19 MCHC 32.9 L g/dL 06/09/2024 10:19 RDW 12.0 % 06/09/2024 10:19 PLT 298 10*3/uL 06/09/2024 10:19 MPV 9.6 fL 06/09/2024 10:19 NEUTROPHILS, AUTO % 73 % 06/09/2024 10:19 LYMPHOCYTES, AUTO % 13 % 06/09/2024 10:19 MONOCYTES, AUTO % 10 % 06/09/2024 10:19 EOSINOPHILS, AUTO % 2 % 06/09/2024 10:19 BASOPHILS, AUTO % 1 % 06/09/2024 10:19 NEUTROPHILS, ABSOLUTE 7.93 10*3/uL 06/09/2024 10:19 LYMPHOCYTES, ABSOLUTE 1.37 10*3/uL 06/09/2024 10:19 MONOCYTES, ABSOLUTE 1.13 H 10*3/uL 06/09/2024 10:19 EOSINOPHILS, ABSOLUTE 0.19 10*3/uL 06/09/2024 10:19 BASOPHILS, ABSOLUTE 0.07 10*3/uL 06/09/2024 10:19 IMPRESSION/PLAN: #Lumbar Severe Spinal and Neuroforaminal Stenosis #BLE Weakness #PVD ? per simone QUEZADA - ABIs WNL at 1.3 bilaterally, s/p endovascular treament with simone IR (@[facility]). Already taking HI statin and ASA 81mg daily if component of PVD. - Following with [place] neurology, encouraged vet to complete EMG - Based on foot exam above, patient is HIGH RISK for injury and would benefit from podiatry for routine care - Patient agreeable to PT if it's close to his home - [place] Handicap form filled out today for handicap [place]sey #Obesity - Encouraged Registered Dietician or MOVE program enrollment - Once started with that, will consider pharmacologic medications including but not limited to Qysmia or GLP-1 #History of Bladder Diversion Surgery (2019) - Established with here, recent CTU for hematuria - Will need to re-order supplies. Unclear if urostomy pouch is Trish or Genairex. Will attempt to look in JLV or have patient bring in old supplies. #Hypothyroidism - Continue levothyroxine 25mcg #HTN - Reports good BP control on Losartan 50mg, will continue #Skin lesion - Appears to be similar to skin tag, however with dark color and growing size in the context of sun exposure history would appreciate if dermatology could evalute. #Exposure to Agent [place] - Following with toxic exposure registry Healthcare Maintenance - CRC screening: Colonoscopy 07/2023 in [place], said to repeat in 5 years. Can [...] Today [x] Zoster - 2019 Labs ordered: None Imaging ordered: None Consults ordered: None RTC in 6 months. In the interim will follow up on PT/OT, symptom improvement, weight loss efforts. Currently wheelchair bound, goal to ambulate independently again and fall less. /apolonia/ Melissa Burrell DO Resident Physician Signed: 07/14/2024 16:54 /apolonia/ ARTURO BUSTAMANTE MD Staff Physician Cosigned: 07/15/2024 09:02 07/15/2024 ADDENDUM STATUS: COMPLETED The patient was discussed with the resident and I have independently reviewed the chart and relevant labs and imaging. I agree with the assessment and plan as documented in the resident's note. /apolonia/ ARTURO BUSTAMANTE MD Staff Physician Signed: 07/15/2024 09:03 MELISSA BURRELL [facility] Jul 14, 2024 02:10 PM NURSING NOTE: LOCAL TITLE: V15 PACT FACE TO FACE NOTE ST STANDARD TITLE: NURSING NOTE DATE OF NOTE: JUL 14, 2024@14:10 ENTRY DATE: JUL 14, 2024@14:10:47 AUTHOR: MABEL ESPINAL EXP COSIGNER: URGENCY: STATUS: COMPLETED Provider Visit: Patient Identifiers : Full Name Date of Reason for visit: Established Follow-Up Mode of Arrival: Wheelchair Allergy Review: Patient has answered NKA Allergy list reviewed and remains current. Recent Vital Signs: Temperature: 98.2 F [36.8 C] (07/14/2024 14:07) Pulse: 87 (07/14/2024 14:07) Respiration: 18 (07/14/2024 14:07) B/P: 137/80 (07/14/2024 14:07) Pain: 0 (07/14/2024 14:07) Wt: 248.3 lb [112.63 kg] (06/09/2024 09:30) Ht: 72 in [182.9 cm] (06/09/2024 09:30) BMI: 33.7 POX: 93% (07/14/2024 14:07) PERSONAL HEALTH INVENTORY Notes: No data available for PHI note titles PERSONAL HEALTH INVENTORY - MAP: No data available for PHI MAP What matters most to you in your life right now? --- Terlton's Response: dog and fishing Would you like to discuss any personal problem, family problem, alcohol use, drug use, or a mental or emotional illness? No Contact provided Primary Care phone number and encouraged to call if any questions or concerns. Review that after hours nurse line [phone] and emergency room are available 25/11 for patient use. Contact verbalized good understanding. PTSD Screening - V: PC-PTSD-5 A PTSD screening test (PC-PTSD-5) was negative (score=0). IN THE PAST MONTH, have you ever had any experience that was so frightening, horrible or traumatic. For example: A serious accident or fire a physical or sexual assault or abuse An earthquake or flood A war Seeing someone be killed or seriously injured Having a loved one through homicide or suicide 1. Have you ever experienced this kind of event? NO 2. Had nightmares about the event(s) or thought about the event(s) when you did not want to? Response not required due to responses to other questions. 3. Tried hard not to think about the event(s) or went out of your way to avoid situations that reminded you of the event(s)? Response not required due to responses to other questions. 4. Been constantly on guard, watchful, or easily startled? Response not required due to responses to other questions. 5. Myrtle numb or detached from people, activities, or your surroundings? Response not required due to responses to other questions. 6. Myrtle guilty or unable to stop blaming yourself or others for the event(s) or any problems the event(s) may have caused? Response not required due to responses to other questions. Frail/Elderly Screen: ADL Screen - Jimenez Index of [place] in Activities of Daily Living Bathing: (3 Points) Receives no assistance (gets in and out of tub by self, if tub is usual means of bathing) Dressing: (3 Points) Gets clothes and gets completely dressed without assistance. Toileting: (3 Points) Goes to toilet room, cleans self, and arranges clothes without assistance (may use object for support such as cane, walker, or wheelchair, and may manage own night bedpan or commode, emptying same next morning) Transferring: (3 Points) Moves in and out of bed and in and out of chair without assistance (may be using object for support, such as cane or walker) Continence: (3 Points) Controls urination and bowel movement completely by self Feeding: (3 Points) Feeds self without assistance Total Score: 18 Points 18 = High (patient independent) 6 = Low (patient very dependent) IADL [facility] [place] Instrumental Activities of Daily Living Scale Ability to use telephone: (1 point) Operates Telephone on own initiative; looks up and dials numbers. Shopping: (0 points) Needs to be accompanied on any shopping trip. Food preparation: (0 points) Needs to have meals prepared and served. Housekeeping: (0 points) Does not participate in any housekeeping tasks. Laundry: (0 points) All laundry must be done by others. Mode of transportation: (0 points) Travel limited to taxi or automobile with assistance of another. Responsibility for own medications: (1 point) Is responsible for taking medications in correct dosages at correct times. Ability to handle finances: (1 point) Manages day-to-day purchases, but needs help with banking, major purchases, etc. Total score: 2 points 8 = High function, independent 0 = Low function, dependent Learning Assessment: - * This patient's learning ABILITIES, BARRIERS to learning, CULTURAL and QUAKER beliefs, and learning PREFERENCES were assessed. Following are findings of note: Patient reads well. Patient has the following hearing/auditory barrier(s) to consider when teaching: No hearing barrier identified. Patient has the following speech barrier to consider when teaching: No speech barrier identified. LANGUAGE Patient reports that Greenlandic is preferred language for healthcare. Patient has the following language barrier to consider when teaching: No language barrier has been identified. Patient has the following vision barrier(s) to consider when teaching: Requires glasses/contacts for reading Patient has the following dexterity/mobility barrier(s) to consider when teaching: Patient ambulates with the assistance of a cane, Patient uses wheelchair, Otherwalker Patient has the following cognitive/memory barrier(s) to consider when teaching: No cognitive/memory barrier has been identified. Patient has the following emotional/psychological barrier(s) to consider when teaching: No emotional/psychosocial barrier has been identified. Patient has the following social support deficit(s) to consider when teaching: No social support issues have been identified. Patient reports learning preference is attending one-to-one or group demonstrations. /apolonia/ MBAEL ESPINAL Licensed Practical Nurse Signed: 07/14/2024 14:16 [facility]
--- OUTSIDE RECORDS SUMMARY | 2024-11-07 08:00 | XMS_ITS | Encounter Summary ---
Author Name [facility] [place] Address [address] [place] [address] Care Team Providers Care Manager Library Name Role Phone BEBETO DURAND Primary Care [...] Curtis's Name Patient's Relationship to Policy Curtis AARP [facility] (WNR) MEDICARE ADVANTAGE [facility](W NR) Feb 02, 2018 [id number] 56 IVAN FREEMAN HN PATIENT MEDICARE PART D (WNR) MEDICARE (M) PART D May 05, 2016 PART D [id number] [phone] [id number] IVAN FREEMAN HN PATIENT MEDICARE PART D (WNR) MEDICARE (M) PART D May 05, 2016 PART D [id number] IVAN FREEMAN HN PATIENT [facility] (WNR) MEDICARE ADVANTAGE [facility] (WNR) May 05, 2016 [id number] 56 IVAN FREEMAN HN PATIENT [facility] (WNR) MEDICARE ADVANTAGE [facility] (WNR) May 05, 2016 [id number] IVAN FREEMAN HN PATIENT [facility] MCR (WNR) MEDICARE ADVANTAGE MCR (WNR) May 05, 2016 [id number] 56 IVAN FREEMAN HN PATIENT Selected Encounter This section includes the information on record at [place] for the Encounter. Date/Time Encounter Type Encounter Description Reason Pro vider Source Feb 10, 2024 09:27 AM Outpatient Encounter ADMIN PAT ACTIVTIES (MASNONCT) IHE Encounter Template Text not used by [facility] Plan of Treatment: Future Appointments (+ 6 months) and Future Tests (+/- 45 days) The Plan of Treatment section includes future care activities for the patient from all [place] treatmentfacilities. This section includes future appointments and future orders which are active, pending or scheduled. Future Appointments This section includes appointments that were scheduled to occur 6 months from the date of the Encounter, up to a maximum of 20 appointments. The data comes from all [place] treatment facilities. Appointment Date/Time Appointment Type Appointme nt Facility Name Feb 11, 2024 11:30 AM AMBULATORY - MEDICINE [facility] Mar 24, 2024 11:00 AM AMBULATORY - NEUROLOGY [facility] Mar 24, 2024 01:15 PM AMBULATORY - MEDICINE [facility] Apr 12, 2024 10:00 AM AMBULATORY - MEDICINE [facility] Apr 23, 2024 10:00 AM AMBULATORY - MEDICINE [facility] May 04, 2024 09:30 AM AMBULATORY - SURGERY [facility] May 18, 2024 10:00 AM AMBULATORY - SURGERY [facility] Jun 02, 2024 11:00 AM AMBULATORY - NEUROLOGY [facility] Jun 09, 2024 09:30 AM AM[facility]ULATORY - SURGERY [facility] Jul 13, 2024 11:30 AM AMBULATORY - NONE . [facility] Jul 14, 2024 02:15 PM AMBULATORY - MEDICINE [facility] Active, Pending, and Scheduled Orders This section includes a listing of several types of active, pending, and scheduled orders, including clinic medications orders, diagnostic test orders, procedure orders and consult orders; where the start date of the order is 45 days before the date of the Encounter or 45 days after the date of theEncounter. The data comes from all [facility]. Test Date/Time Test Type Test Details Facility Name Mar 24, 2024 12:00 AM Laboratory - Chemistry Order PHOSPHOROUS GREEN LI/HEP BLD/PLAS PLASMA SP [facility] Mar 24, 2024 12:00 AM Laboratory - Chemistry Order MAGNESIUM GREEN LI/HEP BLD/PLAS PLASMA [facility] Mar 24, 2024 12:00 AM Laboratory - Chemistry Order LIPID PANEL (STL) GREEN LI/HEP BLD/PLAS PLASMA [facility] Mar 24, 2024 12:00 AM Laboratory - Chemistry Order CPK GREEN LI/HEP BLD/PLAS PLASMA [facility] Mar 24, 2024 12:00 AM Laboratory - Chemistry Order TSH W/ REFLEX FT4 (STL) GREEN LI-HEP PLASMA [facility] Mar 24, 2024 12:00 AM Laboratory - Chemistry Order CBC BLOOD [facility] Mar 24, 2024 12:00 AM Laboratory - Chemistry Order COMPREHENSIVE METABOLIC PANEL GREEN LI/HEP BLD/PLAS PLASMA [facility] Mar 25, 2024 12:00 AM Laboratory - Chemistry Order VITAMIN D, 25-HYDROXY GOLD/RED SST SERUM [facility] Lab Results: +/- 30 days of the encounter This section includes the Chemistry and Hematology Lab Results on record with [place] for the patient. Radiology Reports and Pathology Reports are provided separately, in subsequent sections. Lab Results This section contains the Chemistry/Hematology Results that were resulted 30 days before or 30 daysafter the date of the Encounter. Date/Time Source Result Type Result - Unit Interpretation Reference Range Specimen Type Comment Feb 05, 2024 10:54 AM [facility] URINALYSIS URINE Specimen Type: URINE No comment entered. Ordering Provider: PALOMO NAYAK Report Released Date/Time: Feb 02, 2024 12:01 PM Reporting Lab: [address] [place] [address] Performing Lab: [address] [place] [address] URINE BILIRUBIN Negative Negative URINE KETONES Negative [...] H 0-5 Feb 05, 2024 10:54 AM [facility] CBC BLOOD Specimen Type: BLOOD No comment entered. Ordering Provider: PALOMO NAYAK Report Released Date/Time: Feb 02, 2024 12:02 PM Reporting Lab: [facility] [address] [place] [address] Performing Lab: [facility] [address] [place] [address] WBC 12.6 10*3/uL H 4.8-10.8 RBC 5.01 [...] 10*3/uL 0.0-0.7 BASO ABSOLUTE 0.1 10*3/uL 0.0-0.2 Pathology Reports: +/- 30 days of the [...] the Encounter. The data comes from all [place] treatment facilities. Date/Time Pathology Report Provider Source Feb 05, 2024 10:54 AM LR MICROBIOLOGY RE PORT: Accession [UID]: [id number] [[id number]] Received: Feb 05, 2024@10:54 Collection sample: URINE (CLEAN CATCH) Collection date: Feb 05, 2024 10:54 Site/Specimen: URINE Provider: PALOMO NAYAK Test(s) ordered: CULTURE, URINE................ completed: Feb 09, 2024 * BACTERIOLOGY FINAL REPORT => Feb 09, 2024 13:34 TECH CODE: [id number] CULTURE RESULTS: PSEUDOMONAS AERUGINOSA - Quantity: >100,000 COL/ML ANTIBIOTIC SUSCEPTIBILITY TEST RESULTS: PSEUDOMONAS AERUGINOSA : SUSC INTP AZTREONAM..................... S S FORMULARY CEFEPIME...................... S S FORMULARY CEFTAZIDIME................... S S FORMULARY CIPROFLOXACIN................. S S FORMULARY GENTAMICIN.................... I I FORMULARY LEVOFLOXACIN.................. S S FORMULARY MEROPENEM..................... S S FORMULARY PIP/TAZOBACTAM................ S S FORMULARY TOBRAMYCIN.................... S S FORMULARY Bacteriology Remark(s): FINAL REPORT: 02-09-24 [facility] Encounter Notes: All associated encounter notes This section contains the clinical notes associated to the Encounter. Date/Time Encounter Note(s) Provider Source Feb 10, 2024 09:27 AM INFECTION CONTROL NOTE: LOCAL TITLE: INFECTION CONTROL NOTE STANDARD TITLE: INFECTION CONTROL NOTE DATE OF NOTE: FEB 10, 2024@09:27 ENTRY DATE: FEB 10, 2024@09:27:18 AUTHOR: STERLING FITCH EXP COSIGNER: URGENCY: STATUS: COMPLETED Report ---- MICROBIOLOGY ---- Accession [UID]: [facility] [id number] [[id number]] Received: Feb 05, 2024@10:54 Collection sample: URINE (CLEAN CATCH) Collection date: Feb 05, 2024 10:54 Site/Specimen: URINE Provider: PALOMO NAYAK Test(s) ordered: CULTURE, URINE................ completed: Feb 09, 2024 * BACTERIOLOGY FINAL REPORT => Feb 09, 2024 13:34 TECH CODE: [id number] CULTURE RESULTS: PSEUDOMONAS AERUGINOSA - Quantity: >100,000 COL/ML ANTIBIOTIC SUSCEPTIBILITY TEST RESULTS: PSEUDOMONAS AERUGINOSA : SUSC INTP AZTREONAM.................... . S S FORMULARY CEFEPIME..................... . S S FORMULARY CEFTAZIDIME.................. . S S FORMULARY CIPROFLOXACIN................ . S S FORMULARY GENTAMICIN................... . I I FORMULARY LEVOFLOXACIN................. . S S FORMULARY MEROPENEM.................... . S S FORMULARY PIP/TAZOBACTAM............... . S S FORMULARY TOBRAMYCIN................... . S S FORMULARY Bacteriology Remark(s): FINAL REPORT: 02-09-24 CT Facility: [facility] Forwarding for awareness. /apolonia/ USHA FITCH INFECTION CONTROL NURSE Signed: 02/10/2024 09:28 Receipt Acknowledged By: 02/11/2024 11:41 /apolonia/ PALOMO NAYAK D.O. PRIMARY CARE PHYSICIAN USHA FITCH [facility]
--- OUTSIDE RECORDS SUMMARY | 2024-11-07 08:00 | XMS_ITS | Encounter Summary ---
Author Name [place] Address [address] [place] [address] Care Team Providers Care Quality Review Specialist Name Role Phone BEBETO DURAND Primary Care [...] Curtis's Name Patient's Relationship to Policy Curtis [facility] (WNR) MEDICARE ADVANTAGE [facility](W NR) Feb 02, 2018 [id number] 56 IVAN FREEMAN HN PATIENT MEDICARE PART D (WNR) MEDICARE (M) PART D May 05, 2016 PART D [id number] 68 IVAN FREEMAN HN PATIENT MEDICARE PART D (WNR) MEDICARE (M) PART D May 05, 2016 PART D [id number] IVAN FREEMAN HN PATIENT [facility] (WNR) MEDICARE ADVANTAGE [facility] (WNR) May 05, 2016 [id number] 56 IVAN FREEMAN HN PATIENT [facility] (WNR) MEDICARE ADVANTAGE [facility] (WNR) May 05, 2016 [id number] 56 IVAN FREEMAN HN PATIENT [facility] MCR (WNR) MEDICARE ADVANTAGE MCR (WNR) May 05, 2016 [id number] 56 IVAN FREEMAN HN PATIENT Selected Encounter This section includes the information on record at [place] for the Encounter. Date/Time Encounter Type Encounter Description Reason Provider Source Jun 09, 2024 09:30 AM OFFICE O/P EST MOD 30 MIN UROLOGY CLINIC ICD-10-CM 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 JOHN MERRITT [facility] Encounter Template Text not used by [place] Assessments - Encounter Diagnoses This section includes the primary and secondary diagnoses documented for the Encounter. Date/Time Primary/Secondary Diagnosis Diagnosis Name Provider Source Jun 09, 2024 10:09 AM PRIMARY Interstitial cystitis (chronic) with hematuria JANEL LIGHT [facility] Plan of Treatment: Future Appointments (+ 6 months) and Future Tests (+/- 45 days) The Plan of Treatment section includes future care activities for the patient from all [place] [facility] This section includes future appointments and future orders which are active, pending or scheduled. Future Appointments This section includes appointments that were scheduled to occur 6 months from the date of the Encounter, up to a maximum of 20 appointments. The data comes from all [place] treatment [facility]. Appointment Date/Time Appointment Type Appointme nt Facility Name Jul 13, 2024 11:30 AM AMBULATORY - NONE [facility] Jul 14, 2024 02:15 PM AMBULATORY - MEDICINE [facility] Active, Pending, and Scheduled Orders This section includes a listing of several types of active, pending, and scheduled orders, including clinic medications orders, diagnostic test orders, procedure orders and consult orders; where the start date of the order is 45 days before the date of the Encounter or 45 days after the date of theEncounter. The data comes from all [place] treatment [facility]. Test Date/Time Test Type Test Details Facility Name Jun 27, 2024 12:00 AM Laboratory - Chemistry Order COMPREHENSIVE METABOLIC PROFILE LT GREEN PLASMA SP [facility] Lab Results: +/- 30 days of the encounter This section includes the Chemistry and Hematology Lab Results on record with [place] for the patient. Radiology Reports and Pathology Reports are provided separately, in subsequent sections. Lab Results This section contains the Chemistry/Hematology Results that were resulted 30 days before or 30 daysafter the date of the Encounter. Date/Time Source Result Type Result - Unit Interpretation Reference Range Specimen Type Comment Jun 09, 2024 10:19 AM [facility] BASIC METABOLIC PANEL PLASMA Specimen Type: PLASMA Comment: No hemolysis noted. Ordering Provider: JANEL LIGHT Report Released Date/Time: Jun 09, 2024 10:00 AM Reporting Lab: [address] [address] Performing Lab: [address] [address] CREATININE 1.02 mg/dL 0.7-1.3 UREA NITROGEN 19.0 mg/dL 9.0-25.0 GLUCOSE 124 mg/dL H 72-99 SODIUM 140 meq/L 136-145 POTASSIUM 4.3 meq/L 3.5-5 CHLORIDE 105 meq/L 98-107 CARBON DIOXIDE 24 meq/L 22-31 CALCIUM 9.9 mg/dL 8.4-10.4 EGFR (CKD-EPI 2020) 75.7 >60 Jun 09, 2024 10:19 AM [facility] CBC BLOOD Specimen Type: BLOOD No comment entered. Ordering Provider: JANEL LIGHT Report Released Date/Time: Jun 09, 2024 10:00 AM Reporting Lab: [address] [address] Performing Lab: [address] [address] WBC 10.9 10*3/uL 3.6-11.2 RBC 5.07 10*6/uL 4.10-5.70 HGB 15.4 g/dL 13.1-16.8 HCT 46.8 38.2-48.4 MCV 92.3 fL 80.0-100.0 MCH 30.4 pg 27.0-34.0 MCHC 32.9 g/dL L 33.0-36.0 PLT 298 10*3/uL 150-400 MPV 9.6 fL 7.5-11.2 RDW 12.0 11.8-15.1 LYMPHOCYTES, AUTO % 13 MONOCYTES, AUTO % 10 NEUTROPHILS, AUTO % 73 EOSINOPHILS, AUTO % 2 BASOPHILS, AUTO % 1 LYMPHOCYTES, ABSOLUTE 1.37 10*3/uL 0.77- 4.50 MONOCYTES, ABSOLUTE 1.13 10*3/uL H 0.19-0. 80 NEUTROPHILS, ABSOLUTE 7.93 10*3/uL 2.10- 8.00 EOSINOPHILS, ABSOLUTE 0.19 10*3/uL 0.00- 0.60 BASOPHILS, ABSOLUTE 0.07 10*3/uL 0.00-0. 20 Vital Signs: All taken on the encounter date This section contains inpatient and outpatient Vital Signs collected on the date of the Encounter. Date/Time Temperature Pulse Blood Pressure Respiratory Rate SP02 Pain Height Weight Body Mass Index Source Jun 09, 2024 09:30 AM 97.9 60 147/68 18 97 0 72 248.3 34 [facility] Social History: Smoking Status (Most current) and Tobacco Use (All prior to encounter date) This section includes the most current, and the historical, smoking and tobacco- related health factors from the [place] facility where the Encounter took place. Current Smoking Status This section includes the most current smoking, or tobacco-related health factor, from the [place] facility where the Encounter took place. Date/Time Current Smoking Status Comment Facil ity Mar 24, 2024 01:15 PM VA-TOBACCO NEVER U SED CIGARETTES [facility] Tobacco Use History This section includes a history of the smoking, or tobacco-related health factors, that were collected on or before the date of the Encounter. The data comes from the [place] facility where the Encounter took place. Date/Time Smoking Status/Tobacco Use Comment F acility Mar 24, 2024 01:15 PM VA-TOBACCO NEVER U SED OTHER TYPE [facility] Encounter Notes: All associated encounter notes This section contains the clinical notes associated to the Encounter. Date/Time Encounter Note(s) Provider Source Jun 09, 2024 12:33 PM UROLOGY CONSULT: LOCAL TITLE: UROLOGY CONSULT [facility] STANDARD TITLE: UROLOGY CONSULT DATE OF NOTE: JUN 09, 2024@12:33 ENTRY DATE: JUN 09, 2024@12:33:17 AUTHOR: BRENDA MERRITT EXP COSIGNER: URGENCY: STATUS: COMPLETED Please see Urology Note dated 06/09/2024 for completion of this consult. /apolonia/ BRENDA MERRITT MD Staff Physician, Urology Signed: 06/09/2024 12:33 BRENDA MERRITT 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 He appears to have urostomy Reports his bladder is still in place, no problems with leakage or bleeding per urethra Had a hernia repair(describes parastomal) in the past Currently he is doing fine He will have occasional mucus in the urostomy bag but denies pain reports he has a scant amount of blood in urostomy sometimes. ROS/PMH Denies F/C/N/V/CP/SOB Remainder of PMH listed below and reviewed? Yes TARGETED PHYSICAL EXAM: Gen: NAD HEENT: NC/AT Resp: NLB Abd: s/nt/nd, no rebound or guarding, urostomy with clear yellow urine Back: No CVAT bilaterally Ext: WWP MSK: MAEW Neuro: non-focal Skin: warm and dry CREATININE:No CREATININE EO data found PSA: No PSA EO data found IMAGING: none ASSESS MENT AND PLAN ---- 78 yo M with hx of urinary diversion in 2019 with [place] bladder still in place. He is doing well overall. reports occasional blood in urostomy. We will order a CTU to evaluate his anatomy and complete a hematuria workup. He will continue to follow with us for supplies. Counseled on his risk of pyocystitis if his [place] bladder is in place. FOLLOW-UP: RTC 6months (MORE INFORMATION) --- * LABS----- PSA Trend: No PSA (LAST 10 5Y) EO data found BMP: No BASIC METABOLIC PANEL (BMP) EO data found CBC: No CBC EO data found UA: No URINALYSIS EO data found PAST MEDICAL, SOCIAL, FAMILY HX AND ROS 1) Skin Lesion ([facility] [id number]) 2) Hypothyroidism ([facility] [id number]) 3) HTN - Hypertension ([facility] [id number]) 4) Hyperlipidemia ([facility] [id number]) 5) Bilateral cataracts 6) Exposure to potentially hazardous substance MEDICATIONS: Active Outpatient Medications (including Supplies): Active Outpatient Medications Status 1) HYDROPHILIC (EQV EUCERIN) TOP CREAM APPLY LIBERALLY TO ACTIVE AFFECTED AREA(S) ONCE A DAY (EXTERNAL USE ONLY) Indication: FOR SKIN CARE 2) LEVOTHYROXINE NA 25MCG TAB TAKE ONE TABLET BY MOUTH EVERY HOLD MORNING BEFORE A MEAL TAKE 30 MINUTES BEFORE FOOD. TAKE SEPARATELY FROM ALL OTHER MEDICATIONS. Indication: FOR HYPOTHYROIDISM 3) LOSARTAN 100MG TAB TAKE ONE-HALF TABLET BY MOUTH ONCE A DAY HOLD Indication: FOR HIGH BLOOD PRESSURE 4) ROSUVASTATIN CA 40MG TAB TAKE ONE-HALF TABLET BY MOUTH EVERY HOLD EVENING Indication: FOR HIGH CHOLESTEROL Allergies: Patient has answered NKA /apolonia/ JANEL LIGHT MD Resident Physician, Urology Signed: 06/09/2024 10:09 /apolonia/ BRENDA MERRITT MD Staff Physician, Urology Cosigned: 06/09/2024 12:32 JANEL LIGHT [facility]
--- OUTSIDE RECORDS SUMMARY | 2024-11-07 08:00 | XMS_ITS ---
Author Name [facility] [place] Address [address] [place] [address] Care Team Providers Care Production Assembler Name Role Phone BEBETO DURAND Primary Care [...] Curtis's Name Patient's Relationship to Policy Curtis [facility] (WNR) MEDICARE ADVANTAGE [facility](W NR) Feb 02, 2018 [id number] IVAN FREEMAN HN PATIENT MEDICARE PART D (WNR) MEDICARE (M) PART D May 05, 2016 PART D [id number] [phone] IVAN FREEMAN HN PATIENT MEDICARE PART D (WNR) MEDICARE (M) PART D May 05, 2016 PART D [id number] IVAN FREEMAN HN PATIENT [facility] (WNR) MEDICARE ADVANTAGE [facility] (WNR) May 05, 2016 [id number] [phone] [id number] IVAN FREEMAN HN PATIENT [facility] (WNR) MEDICARE [facility] (WNR) May 05, 2016 [id number] IVAN FREEMAN HN PATIENT [facility] MCR (WNR) MEDICARE ADVANTAGE MCR (WNR) May 05, 2016 [id number] IVAN FREEMAN PATIENT Selected Encounter This section includes the information on record at [place] for the Encounter. Date/Time Encounter Type Encounter Description Reason Provider Source Mar 05, 2024 08:50 AM TARGETED CASE MANAGEMENT ADMIN PAT ACTIVTIES (MASNONCT) ANGE ROSENBERG Zaheer Encounter Template Text not used by [place] Plan of Treatment: Future Appointments (+ 6 months) and Future Tests (+/- 45 days) The Plan of Treatment section includes future care activities for the patient from all [place] [facility]. This section includes future appointments and future orders which are active, pending or scheduled. Future Appointments This section includes appointments that were scheduled to occur 6 months from the date of the Encounter, up to a maximum of 20 appointments. The data comes from all [place] treatment facilities. Appointment Date/Time Appointment Type Appointme nt Facility Name Mar 24, 2024 11:00 AM AMBULATORY - NEUROLOGY [facility] Mar 24, 2024 01:15 PM AMBULATORY - MEDICINE [facility] Apr 12, 2024 10:00 AM AMBULATORY - MEDICINE [facility] Apr 23, 2024 10:00 AM AMBULATORY - MEDICINE [facility] May 04, 2024 09:30 AM AMBULATORY - SURGERY [facility] May 18, 2024 10:00 AM AMBULATORY - SURGERY . [facility] Jun 02, 2024 11:00 AM AMBULATORY - NEUROLOGY [facility] Jun 09, 2024 09:30 AM AMBULATORY - SURGERY [facility] Jul 13, 2024 11:30 AM AMBULATORY - NONE . [facility] Jul 14, 2024 02:15 PM AMBULATORY - MEDICINE [facility] Active, Pending, and Scheduled Orders This [...] Order PHOSPHOROUS GREEN LI/HEP BLD/PLAS PLASMA SP [facility] Mar 24, 2024 12:00 AM Laboratory - Chemistry Order MAGNESIUM GREEN LI/HEP BLD/PLAS PLASMA [facility] Mar 24, 2024 12:00 AM Laboratory - Chemistry Order LIPID PANEL (STL) GREEN LI/HEP BLD/PLAS PLASMA [facility] Mar 24, 2024 12:00 AM Laboratory - Chemistry Order CPK GREEN LI/HEP BLD/PLAS PLASMA [facility] Mar 24, 2024 12:00 AM Laboratory - Chemistry Order TSH W/ REFLEX FT4 (STL) GREEN LI-HEP PLASMA [facility] Mar 24, 2024 12:00 AM Laboratory - Chemistry Order CBC BLOOD [facility] Mar 24, 2024 12:00 AM Laboratory - Chemistry Order COMPREHENSIVE METABOLIC PANEL GREEN LI/HEP BLD/PLAS PLASMA [facility] Mar 25, 2024 12:00 AM Laboratory - Chemistry Order VITAMIN D, 25-HYDROXY GOLD/RED SST SERUM SP [facility] Lab Results: +/- 30 days of the encounter This section includes the Chemistry and Hematology Lab Results on record with [place] for the patient. Radiology Reports and Pathology Reports are provided separately, in subsequent sections. Lab Results This section contains the Chemistry/Hematology Results that were resulted 30 days before or 30 daysafter the date of the Encounter. Date/Time Source Result Type Result - Unit Interpretation Reference Range Specimen Type Comment Mar 24, 2024 11:52 AM [facility] HGA1C BLOOD Specimen Type: BLOOD No comment entered. Ordering Provider: JENNIFER BELTRÁN Report Released Date/Time: Mar 24, 2024 11:10 AM Reporting Lab: [facility] [address] [facility] [place] [address] Performing Lab: [address] [address] HGA1C 5.7 4.0-6.0 Mar 24, 2024 11:52 AM [facility] B12 SERUM Specimen Type: SERUM No comment entered. Ordering Provider: JENNIFER BELTRÁN Report Released Date/Time: Mar 24, 2024 11:10 AM Reporting Lab: [facility] [address] [facility] [address] Performing Lab: [facility] [address] [facility] [place] [place] [place] [address] B12 >2000 pg/mL H 213-816 Feb 05, 2024 10:54 AM [facility] URINALYSIS URINE Specimen Type: URINE No comment entered. Ordering Provider: PALOMO NAYAK Report Released Date/Time: Feb 02, 2024 12:01 PM Reporting Lab: [address] [place] [address] Performing Lab: [address] [place] [address] URINE BILIRUBIN Negative Negative URINE KETONES Negative [...] 0-5 Feb 05, 2024 10:54 AM [facility] CBC BLOOD Specimen Type: BLOOD No comment entered. Ordering Provider: PALOMO NAYAK Report Released Date/Time: Feb 02, 2024 12:02 PM Reporting Lab: [address] [place] [address] Performing Lab: [address] [place] [address] WBC 12.6 10*3/uL H 4.8-10.8 RBC 5.01 [...] 10*3/uL 0.0-0.7 BASO ABSOLUTE 0.1 10*3/uL 0.0-0.2 Radiology Reports: +/- 30 days of the [...] the Encounter. The data comes from all [place] treatment facilities. Date/Time Radiology Report Provider Source Mar 24, 2024 11:[address] LUMBAR SPINE W/ O CONT: XANDER FREEMAN [id number] -[id number] M Ex Date: MAR 24, 2024@11:57 Req Phys: JENNIFER BELTRÁN Pat Loc: [facility]UR[facility] (Req'g Img Loc: [facility]-CT IMAGING [facility] Service: [address] [address] (Case [id number] COMPLETE) CT LUMBAR SPINE W/O CONT (CT Detailed) CPT:41684 Reason for Study: lumbar spinal stenosis Clinical History: Responsible Attending: Jennifer Beltrán M.D Attending Contact Number: [phone] Resident Contact Number: Allergies listed in CPRS chart: No Allergy Assessment Creatinine: No CREATININE EO data found/eGFR: STL EGFR (within one year). *No Lab Data Found* Wt: History of: Renal failure, chronic or acute renal disease: NO Report Status: Verified Date Reported: MAR 25, 2024 Date Verified: MAR 25, 2024 Medical Authorization Specialist E-Sig:/ES/INNA HURTADO MD Report: CT scanning through [...] Primary Interpreting Staff: INNA HURTADO MD, Radiologist (Giovany) /INNA VERGARA [facility] Pathology Reports: +/- 30 days of the [...] the Encounter. The data comes from all [place] treatment facilities. Date/Time Pathology Report Provider Source Feb 05, 2024 10:54 AM LR MICROBIOLOGY RE PORT: Accession [UID]: [id number] [[id number]] Received: Feb 05, 2024@10:54 Collection sample: URINE (CLEAN CATCH) Collection date: Feb 05, 2024 10:54 Site/Specimen: URINE Provider: PALOMO NAYAK Test(s) ordered: CULTURE, URINE................ completed: Feb 09, 2024 * BACTERIOLOGY FINAL REPORT => Feb 09, 2024 13:34 TECH CODE: [id number] CULTURE RESULTS: PSEUDOMONAS AERUGINOSA - Quantity: >100,000 COL/ML ANTIBIOTIC SUSCEPTIBILITY TEST RESULTS: PSEUDOMONAS AERUGINOSA : SUSC INTP AZTREONAM..................... S S FORMULARY CEFEPIME...................... S S FORMULARY CEFTAZIDIME................... S S FORMULARY CIPROFLOXACIN................. S S FORMULARY GENTAMICIN.................... I I FORMULARY LEVOFLOXACIN.................. S S FORMULARY MEROPENEM..................... S S FORMULARY PIP/TAZOBACTAM................ S S FORMULARY TOBRAMYCIN.................... S S FORMULARY Bacteriology Remark(s): FINAL REPORT: 02-09-24 [facility] Encounter Notes: All associated encounter notes This section contains the clinical notes associated to the Encounter. Date/Time Encounter Note(s) Provider Source Mar 05, 2024 08:50 AM CONSULT: LOCAL TITLE: TRAVELING CONSULT STL STANDARD TITLE: CONSULT DATE OF NOTE: MAR 05, 2024@08:50 ENTRY DATE: MAR 05, 2024@08:50:44 AUTHOR: ANGE ROSENBERG EXP COSIGNER: URGENCY: STATUS: COMPLETED TRAVELING CONSULT STL Has ADDENDA Traveling/Relocating [place] Care Coordination Consult -Appointment schedule Appointment: SCHEDULED 02/24/24 14:44 VICTORIA CHOWDARY ARNETTA [facility] Consult Appt. on 03/24/24 @ 11:00 PID 03/10/24 #SCRAP IRON LOADER# #VETPREF# has been made aware and agrees with plans. For additional care coordination please submit a new consult. /flash ROSENBERG REGISTERED NURSE, HOME TELEHEALTH COORDINATOR Signed: 03/05/2024 08:51 03/05/2024 ADDENDUM STATUS: COMPLETED LVM to call to establish care with a PCP at [phone]. /es/ ANGE ROSENBERG REGISTERED NURSE, HOME TELEHEALTH COORDINATOR Signed: 03/05/2024 08:56 ANGE ROSENBERG [facility]
--- OUTSIDE RECORDS SUMMARY | 2024-11-07 08:00 | XMS_ITS | Data Portability ---
Author Organization ALAYNA - 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 Plan of Treatment Reminders Order Date Submit Date Provider Last Modified By Organization Details Last Modified Time Details Appointments None recorded. Lab lipid panel, serum 2022 023 [facility], [address], [address], [place], [address], 4 13:12:27 CBC w/ auto diff 2022 023 [facility], [address], [address], [place], [address], 4 13:12:24 TSH, ultra-sens itive, serum 2022 023 [facility], [address], [address], [place], [address], 4 13:12:28 CMP, serum or plasma 2022 023 [facility], [address], [address], [place], [address], 4 13:12:25 urinalysis , complete 2022 023 [facility], [address], [address], [place], [address], 4 13:12:26 HbA1c (hemoglobi n A1c), blood 2022 023 [facility], [address], [address], [place], [address], 3 08:18:55 TSH, ultra-sens itive, serum 2022 023 [facility], [address], [address], [place], [address], 3 08:18:55 lipid panel, serum 2022 023 [facility], [address], [address], [place], [address], 3 08:18:54 hemoglobin A1C/hemogl obin total, QN, blood 2022 023 [facility], [address], [place], [address], 3 14:24:13 thyrotropi n, QN, serum or plasma 2022 023 [facility], [address], [place], [address], 3 14:24:12 lipid panel, serum 2022 023 [facility], [address], [place], [address], 3 14:24:13 CMP, serum or plasma 2022 023 [facility], [address], [place], [address], 3 14:24:13 CBC w/ auto diff 2022 023 [facility], [address], [place], [address], 3 13:20:45 urinalysis , dipstick, reflex micro 2022 023 [facility], [address], [place], [address], 3 14:24:14 Referral gastroente rologist referral 2022 023 [email or web address] [facility], [address], [address] [facility], [place], [address], 3 09:27:04 Procedures colonoscop y procedure (PROC) 2022 023 [facility], [address], [place], [address], 3 15:07:06 Surgeries None recorded. Imaging US, screening for abdominal aortic aneurysm 2022 023 [facility], [address], [place], [address], 3 10:32:55 Medication Orders levothyrox ine 25 mcg tablet 2023 024 [facility] #[id number], [address], [place], [place], [id number], 4 14:06:27 rosuvastat in 20 mg tablet 2023 024 [facility], [address], [place], [place], [id number], 4 20:20:37 losartan 50 mg tablet 2023 024 [facility] #27866, [address], [place], [place], [id number], 4 14:06:27 Plenvu 140 gram-9 gram-5.2 gram powder packs [email or web address] [place] [address] [facility] #68796, [address], [place], [place], [id number], 4 10:16:15 losartan 50 mg tablet [email or web address] [facility][id number], [address], [place], [place], [id number], 3 10:44:35 rosuvastat in 20 mg tablet 2022 023 [facility] #14871, [address], [place], [place], [id number], 3 14:09:42 losartan 50 mg tablet 2022 023 [facility] #09535, [address], [place], [place], [id number], 3 14:09:42 losartan 50 mg tablet 2022 023 [facility] #94499, [address], [place], [place], [id number], 3 14:23:50 rosuvastat in 20 mg tablet 2022 023 [facility] #48270, [address], [place], [place], [id number], 14:23:48 Patient TargetsNo targets recorded. Patient Instructions Encounter Date Encounter Id Patient Instructions Last Modified By Organization Details Last Modified Time 06/12/2022 [id number] A healthy lifestyle: care instructions [email or web address] Not available 06/12/2022 14:23:35 learning about healthy weight [email or web address] Not available 06/12/2022 14:23:35 Chart reviewed a nd updated. Medications reviewed and updated. Counseled on activity, nutrition, skin care, sleep hygiene, exercise. Counseled on dementia, fall risk, living will. HMR reviewed and updated at today's visit. Call for any medical needs. Counseled with understanding. [email or web address] Not available 06/12/2022 13:10:25 12/11/2022 [id number] Chart reviewed a nd updated. Medications reviewed and updated. Call for any medical needs. Counseled with understanding. Orders for labs/ referrals and tests done for this appt reviewed with patient and has understanding. Not available 12/11/2022 14:07:39 12/18/2022 [id number] Chart reviewed a nd updated. Medications reviewed and updated. Call for any medical needs. Counseled with understanding. Orders for labs/ referrals and tests done for this appt reviewed with patient and has understanding. Labs reviewed with understanding. [email or web address] Not available 12/18/2022 10:45:32 01/16/2023 [id number] COLONOSCOPY: I have recommended a diagnostic or possibly therapeutic colonoscopy, with possible biopsy, polypectomy, and/or other maneuvers. INFORMED CONSENT-COLONOSCOP Y: The indications, techniques, benefits, risks and possible complications of colonoscopy were discussed in detail with The Patient and/or health care surrogate. Risks discussed include bleeding, transfusion, infection, perforation, and possible surgery, and risks associated with sedation, such as respiratory failure, pneumonia, respiratory intubation, heart complications, and complications up to and including . The patient and/or surrogate voiced an understanding, asked appropriate questions answered to their stated satisfaction, and directed we proceed. MISSED LESIONS: The patient and/or surrogate has also been made aware that although colonoscopy (and EGD, if also planned) is an accurate procedure, it does have some limitations. As a result, some lesions, including cancer, may be missed by colonoscopy. Ample time was given to answer all questions. MAC: This Endoscopic Procedure will be scheduled with Monitored Anesthesia Care for the sedation INSTRUCTIONS (COLONOSCOPY) were given for the patient to prepare for the upcoming procedure. In this patient, careful attention was given to instructions for the bowel prep prior to the procedure, including adequate amounts of oral intake for both fluid intake and caloric intake. Appropriate precautions with instructions were provided to the patient. Appropriate changes in the activities of the patient and dosing of medications were discussed. The patient voiced an understanding. Also, instructions were given regarding their needs prior to, during, and following the procedure, with need for someone to not only drive them home but remain with them following the procedure. Also, instructions were given for provision for nutrition and medication dosing following the procedure. PATH: The Patient or Designee will be notified of any pathology results following the procedure. Plan is to schedule colonoscopy. He will follow-up as needed. [email or web address] Not available 01/16/2023 09:41:26 06/16/2023 [id number] A healthy lifestyle: care instructions Not available 06/16/2023 14:06:09 learning about healthy weight Not available 06/16/2023 14:06:09 Chart reviewed a nd updated. Medications reviewed and updated. Call for any medical needs. Counseled with understanding. Orders for labs/ referrals and tests done for this appt reviewed with patient and has understanding. Fasting labs prior appt. 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 Referral for Screening for malignant neoplasm of colon Referring Physician: Major Ca, Family Medicine, Encounter Date: 12/18/2022 Results Created Date Observation Date Name Description Value Unit Range Abnormal Flag Note LastModifiedBy Organization Detail LastModifiedTime 12/14/1912/14/2022 LIPID PANEL cholesterol, total 145 mg/dL 100-19 9 Not Available [facility] ([facility]) [address] [facility], [place], [address], 12/14/2022 08:18:54 12/14/1912/14/2022 LIPID PANEL triglyceride s 206 mg/dL 0-149 above high normal Not Available [facility] ([facility]) [address] [facility] [place], [address], 12/14/2022 08:18:54 12/14/19 23 12/14/2022 LIPID PANEL HDL cholesterol 30 mg/dL >39 below low normal Not Available [facility] ([facility]) [address] [facility] [place], [address], 12/14/2022 08:18:54 12/14/19 23 12/14/2022 LIPID PANEL VLDL cholesterol elysia 35 mg/dL 5-40 Not Available [facility] ([facility]) [address] [facility] [place], [address], 12/14/2022 08:18:54 12/14/19 23 12/14/2022 LIPID PANEL LDL chol calc ([facility]) 80 mg/dL 0-99 Not Available [facility] ([facility]) [address] [place], [address], 12/14/2022 08:18:54 12/14/19 23 12/14/2022 LIPID PANEL comment: JERSEY KNITTER Not Available [facility] ([facility]) [address] [place], [address], 12/14/2022 08:18:54 12/14/19 23 12/14/2022 HEMOG LOBIN A1C hemoglobin A1C 5.8 % 4.8-5. 6 above high normal Predi abete s: 5.7 - 6.4 Diabe lenny: >6.4 Glyce jose luis contr ol for adult s with diabe lenny: <7.0 Not Available [facility] ([facility]) [address] [place], [address], 12/14/2022 08:18:55 12/14/1912/14/2022 TSH TSH 4.890 uIU/m L 0.450- 4.500 above high normal Not Available [facility] ([facility]) [address] [place], [address], 12/14/2022 08:18:55 06/03/19 24 06/04/2023 CBC WITH DIFFE RENTI AL/PL ATELE T WBC 11.8 x10e3 /uL 3.4-10 .8 above high normal Not Available [facility] ([facility]) [address] [facility], [place], [address], 06/04/2023 13:12:24 06/03/19 24 06/04/2023 CBC WITH DIFFE RENTI AL/PL ATELE T RBC 4.95 x10e6 /uL 4.14-5 .80 Not Available [facility] ([facility]) [address] [facility], [place], [address], 06/04/2023 13:12:24 06/03/19 24 06/04/2023 CBC WITH DIFFE RENTI AL/PL ATELE T hemoglobin 15.0 g/dL 13.0-1 7.7 Not Available [facility] ([facility]) [address] [facility], [place], [address], 06/04/2023 13:12:24 06/03/19 24 06/04/2023 CBC WITH DIFFE RENTI AL/PL ATELE T hematocrit 46.4 % 37.5-5 1.0 Not Available [facility] ([facility]) [address] [place], [address], 06/04/2023 13:12:24 06/03/19 24 06/04/2023 CBC WITH DIFFE RENTI AL/PL ATELE T MCV 94 fL 79-97 Not Available [facility] ([facility]) [address] [place], [address], 06/04/2023 13:12:24 06/03/19 24 06/04/2023 CBC WITH DIFFE RENTI AL/PL ATELE T MCH 30.3 pg 26.6-3 3.0 Not Available [facility] ([facility]) [address] [place], [address], 06/04/2023 13:12:24 06/03/19 24 06/04/2023 CBC WITH DIFFE RENTI AL/PL ATELE T MCHC 32.3 g/dL 31.5-3 5.7 Not Available [facility] ([facility]) [address] [facility], [place], [address], 06/04/2023 13:12:24 06/03/19 24 06/04/2023 CBC WITH DIFFE RENTI AL/PL ATELE T RDW 11.5 % 11.6-1 5.4 below low normal Not Available [facility] ([facility]) [address] [facility], [place], [address], 06/04/2023 13:12:24 06/03/19 24 06/04/2023 CBC WITH DIFFE RENTI AL/PL ATELE T platelets 287 x10e3 /uL 150-45 0 Not Available [facility] ([facility]) [address] [facility], [place], [address], 06/04/2023 13:12:24 06/03/19 24 06/04/2023 CBC WITH DIFFE RENTI AL/PL ATELE T neutrophils 61 % not estab. Not Available [facility] ([facility]) [address] [facility], [place], [address], 06/04/2023 13:12:24 06/03/19 24 06/04/2023 CBC WITH DIFFE RENTI AL/PL ATELE T lymphs 21 % not estab. Not Available [facility] ([facility]) [address] [facility], [place], [address], 06/04/2023 13:12:24 06/03/19 24 06/04/2023 CBC WITH DIFFE RENTI AL/PL ATELE T monocytes 11 % not estab. Not Available [facility] ([facility]) [address] [facility], [place], [address], 06/04/2023 13:12:24 06/03/19 24 06/04/2023 CBC WITH DIFFE RENTI AL/PL ATELE T eos 4 % not estab. Not Available [facility] ([facility]) [address] [facility], [place], [address], 06/04/2023 13:12:24 06/03/19 24 06/04/2023 CBC WITH DIFFE RENTI AL/PL ATELE T basos 1 % not estab. Not Available [facility] ([facility]) [address] [facility], [place], [address], 06/04/2023 13:12:24 06/03/19 24 06/04/2023 CBC WITH DIFFE RENTI AL/PL ATELE T immature cells JERSEY KNITTER Not Available [facility] ([facility]) [address] [facility], [place], [address], 06/04/2023 13:12:24 06/03/19 24 06/04/2023 CBC WITH DIFFE RENTI AL/PL ATELE T neutrophils (absolute) 7.3 x10e3 /uL 1.4-7. 0 above high normal Not Available [facility] ([facility]) [address] [facility], [place], [address], 06/04/2023 13:12:24 06/03/19 24 06/04/2023 CBC WITH DIFFE RENTI AL/PL ATELE T lymphs (absolute) 2.4 x10e3 /uL 0.7-3. 1 Not Available [facility] ([facility]) [address] [place], [address], 06/04/2023 13:12:24 06/03/19 24 06/04/2023 CBC WITH DIFFE RENTI AL/PL ATELE T monocytes(ab solute) 1.3 x10e3 /uL 0.1-0. 9 above high normal Not Available [facility] ([facility]) [address] [place], [address], 06/04/2023 13:12:24 06/03/19 24 06/04/2023 CBC WITH DIFFE RENTI AL/PL ATELE T eos (absolute) 0.4 x10e3 /uL 0.0-0. 4 Not Available [facility] ([facility]) [address] [facility], [place], [address], 06/04/2023 13:12:24 06/03/19 24 06/04/2023 CBC WITH DIFFE RENTI AL/PL ATELE T baso (absolute) 0.1 x10e3 /uL 0.0-0. 2 Not Available [facility] ([facility]) [address] [facility], [place], [address], 06/04/2023 13:12:24 06/03/19 24 06/04/2023 CBC WITH DIFFE RENTI AL/PL ATELE T immature granulocytes 2 % not estab. Not Available [facility] ([facility]) [address] [facility], [place], [address], 06/04/2023 13:12:24 06/03/19 24 06/04/2023 CBC WITH DIFFE RENTI AL/PL ATELE T immature grans (abs) 0.2 x10e3 /uL 0.0-0. 1 above high normal (An eleva bhavya perce ntage of Immat ure Granu locyt es has not been found to be clini ray signi fican t as a sole clini elysia predi ctor of disea se. Does NOT inclu de bands or blast cells . Pregn cruzito assoc iated physi ologi elysia leuko cytos is may also show incre ased immat ure granu locyt es witho ut clini elysia signi fican ce.) Not Available [facility] ([facility]) [address] [place], [address], 06/04/2023 13:12:24 06/03/19 24 06/04/2023 CBC WITH DIFFE RENTI AL/PL ATELE T NRBC JERSEY KNITTER Not Available [facility] ([facility]) [address] [facility], [facility] [place], [address], 06/04/2023 13:12:24 06/03/19 24 06/04/2023 CBC WITH DIFFE GUSTAVO AL/MIRANDA Aguirre hematology comments: JERSEY KNITTER Not Available [facility] ([facility]) [address], [place], [address], 06/04/2023 13:12:24 06/03/19 24 06/04/2023 COMP. METAB OLIC PANEL (14) glucose 103 mg/dL 70-99 above high normal Not Available [facility] ([facility]) [address], [place], [address], 06/04/2023 13:12:25 06/03/19 24 06/04/2023 COMP. METAB OLIC PANEL (14) BUN 22 mg/dL 8-27 Not Available [facility] ([facility]) [address] [facility], [place], [address], 06/04/2023 13:12:25 06/03/19 24 06/04/2023 COMP. METAB OLIC PANEL (14) creatinine 1.22 mg/dL 0.76-1 .27 Not Available [facility] ([facility]) [address] [facility], [place], [address], 06/04/2023 13:12:25 06/03/19 24 06/04/2023 COMP. METAB OLIC PANEL (14) eGFR 61 mL/mi n/1.7 3 >59 Not Available [facility] ([facility]) [address] [facility], [place], [address], 06/04/2023 13:12:25 06/03/19 24 06/04/2023 COMP. METAB OLIC PANEL (14) BUN/creatini ne ratio 18 10-24 Not Available [facility] ([facility]) [address] [facility], [place], [address], 06/04/2023 13:12:25 06/03/19 24 06/04/2023 COMP. METAB OLIC PANEL (14) sodium 139 mmol/ L 134-14 4 Not Available [facility] ([facility]) [address] [facility] [place], [address], 06/04/2023 13:12:25 06/03/19 24 06/04/2023 COMP. METAB OLIC PANEL (14) potassium 4.5 mmol/ L 3.5-5. 2 Not Available [facility] ([facility]) [address] [facility] [place], [address], 06/04/2023 13:12:25 06/03/19 24 06/04/2023 COMP. METAB OLIC PANEL (14) chloride 100 mmol/ L 96-106 Not Available [facility] ([facility]) [address] [facility], [place], [address], 06/04/2023 13:12:25 06/03/19 24 06/04/2023 COMP. METAB OLIC PANEL (14) carbon dioxide, total 23 mmol/ L 20-29 Not Available [facility] ([facility]) [address] [facility] [place], [address], 06/04/2023 13:12:25 06/03/19 24 06/04/2023 COMP. METAB OLIC PANEL (14) calcium 9.5 mg/dL 8.6-10 .2 Not Available [facility] ([facility]) [address] [facility] [place], [address], 06/04/2023 13:12:25 06/03/19 24 06/04/2023 COMP. METAB OLIC PANEL (14) protein, total 6.8 g/dL 6.0-8. 5 Not Available [facility] ([facility]) [address] [facility] [place], [address], 06/04/2023 13:12:25 06/03/19 24 06/04/2023 COMP. METAB OLIC PANEL (14) albumin 4.2 g/dL 3.8-4. 8 Not Available [facility] ([place] [facility]) [address] [facility], [place], [address], 06/04/2023 13:12:25 06/03/19 24 06/04/2023 COMP. METAB OLIC PANEL (14) globulin, total 2.6 g/dL 1.5-4. 5 Not Available [facility] ([place] [facility]) [address] [facility] [place] [address], 06/04/2023 13:12:25 06/03/19 24 06/04/2023 COMP. METAB OLIC PANEL (14) A/G ratio 1.6 1.2-2. 2 Not Available [facility] ([place] [facility]) [address] [facility], [place], [address], 06/04/2023 13:12:25 06/03/19 24 06/04/2023 COMP. METAB OLIC PANEL (14) bilirubin, total 0.5 mg/dL 0.0-1. 2 Not Available [facility] ([place] [facility]) [address] [facility] [place], [address], 06/04/2023 13:12:25 06/03/19 24 06/04/2023 COMP. METAB OLIC PANEL (14) alkaline phosphatase 82 IU/L 44-121 Not Available [facility]) [address] [facility] [place], [address], 06/04/2023 13:12:25 06/03/19 24 06/04/2023 COMP. METAB OLIC PANEL (14) AST (SGOT) 19 IU/L 0-40 Not Available [facility] ([place] [facility]) [address] [facility] [place], [address], 06/04/2023 13:12:25 06/03/19 24 06/04/2023 COMP. METAB OLIC PANEL (14) ALT (SGPT) 12 IU/L 0-44 Not Available [facility] ([place] [facility]) [address] [facility], [place], [address], 06/04/2023 13:12:25 06/03/19 24 06/04/2023 URINA LYSIS , COMPL ETE specific gravity 1.013 1.005- 1.030 Not Available [facility] ([facility]) [address] [facility], [place], [address], 06/04/2023 13:12:26 06/03/19 24 06/04/2023 URINA LYSIS , COMPL ETE pH 6.5 5.0-7. 5 Not Available [facility] ([facility]) [address] [facility], [place], [address], 06/04/2023 13:12:26 06/03/19 24 06/04/2023 URINA LYSIS , COMPL ETE urine-color Yellow yellow Not Available [facility] ([facility]) [address] [facility], [place], [address], 06/04/2023 13:12:26 06/03/19 24 06/04/2023 URINA LYSIS , COMPL ETE appearance Clear clear Not Available [facility] ([facility]) [address] [facility], [place], [address], 06/04/2023 13:12:26 06/03/19 24 06/04/2023 URINA LYSIS , COMPL ETE WBC esterase 3+ negati ve abnormal Not Available [facility] ([facility]) [address] [place], [address], 06/04/2023 13:12:26 06/03/19 24 06/04/2023 URINA LYSIS , COMPL ETE protein Trace negati ve/tra ce Not Available [facility] ([facility]) [address] [place], [address], 06/04/2023 13:12:26 06/03/19 24 06/04/2023 URINA LYSIS , COMPL ETE glucose Negati ve negati ve Not Available [facility] ([facility]) [address] [facility], [place], [address], 06/04/2023 13:12:26 06/03/19 24 06/04/2023 URINA LYSIS , COMPL ETE ketones Negati ve negati ve Not Available [facility] ([facility]) [address] [facility], [place], [address], 06/04/2023 13:12:26 06/03/19 24 06/04/2023 URINA LYSIS , COMPL ETE occult blood Trace negati ve abnormal Not Available [facility] ([facility]) [address] [facility], [place], [address], 06/04/2023 13:12:26 06/03/19 24 06/04/2023 URINA LYSIS , COMPL ETE bilirubin Negati ve negati ve Not Available [facility] ([facility]) [address] [facility], [place], [address], 06/04/2023 13:12:26 06/03/19 24 06/04/2023 URINA LYSIS , COMPL ETE urobilinogen ,semi-qn 0.2 mg/dL 0.2-1. 0 Not Available [facility] ([facility]) [address] [facility], [place], [address], 06/04/2023 13:12:26 06/03/19 24 06/04/2023 URINA LYSIS , COMPL ETE nitrite, urine Positi ve negati ve abnormal Not Available [facility] ([facility]) [address] [facility], [place], [address], 06/04/2023 13:12:26 06/03/19 24 06/04/2023 URINA LYSIS , COMPL ETE microscopic examination See below: Micro scopi c was indic ated and was perfo rmed. Not Available [facility] ([facility]) [address] [facility], [place], [address], 06/04/2023 13:12:26 06/03/19 24 06/04/2023 URINA LYSIS , COMPL ETE WBC 11-30 /hpf 0 - 5 abnormal Not Available [facility] ([facility]) [address] [facility], [place], [address], 06/04/2023 13:12:26 06/03/19 24 06/04/2023 URINA LYSIS , COMPL ETE RBC None seen /hpf 0 - 2 Not Available [facility] ([facility]) [address] [facility], [place], [address], 06/04/2023 13:12:26 06/03/19 24 06/04/2023 URINA LYSIS , COMPL ETE epithelial cells (non renal) 0-10 /hpf 0 - 10 Not Available [facility] ([facility]) [address] [facility], [place], [address], 06/04/2023 13:12:26 06/03/19 24 06/04/2023 URINA LYSIS , COMPL ETE epithelial cells (renal) JERSEY KNITTER Not Available [facility] [facility] [address] [facility], [place], [address], 06/04/2023 13:12:26 06/03/19 24 06/04/2023 URINA LYSIS , COMPL ETE casts None seen /lpf none seen Not Available [facility] ([facility]) [address] [facility], [place], [address], 06/04/2023 13:12:26 06/03/19 24 06/04/2023 URINA LYSIS , COMPL ETE cast type JERSEY KNITTER Not Available [facility] ([facility]) [address] [facility], [place], [address], 06/04/2023 13:12:26 06/03/19 24 06/04/2023 URINA LYSIS , COMPL ETE crystals JERSEY KNITTER Not Available [facility] ([facility]) [address] [facility], [place], [address], 06/04/2023 13:12:26 06/03/19 24 06/04/2023 URINA LYSIS , COMPL ETE crystal type JERSEY KNITTER Not Available [facility] ([facility]) [address] [facility], [place], [address], 06/04/2023 13:12:26 06/03/19 24 06/04/2023 URINA LYSIS , COMPL ETE mucus threads JERSEY KNITTER Not Available [facility] ([facility]) [address] [facility], [place], [address], 06/04/2023 13:12:26 06/03/19 24 06/04/2023 URINA LYSIS , COMPL ETE bacteria Many none seen/f ew abnormal Not Available [facility] ([facility]) [address] [facility], [place], [address], 06/04/2023 13:12:26 06/03/19 24 06/04/2023 URINA LYSIS , COMPL ETE yeast JERSEY KNITTER Not Available [facility] ([facility]) [address] [facility], [place], [address], 06/04/2023 13:12:26 06/03/19 24 06/04/2023 URINA LYSIS , COMPL ETE trichomonas JERSEY KNITTER Not Available [facility] ([facility]) [address] [facility], [place], [address], 06/04/2023 13:12:26 06/03/19 24 06/04/2023 URINA LYSIS , COMPL ETE comment JERSEY KNITTER Not Available [facility] ([facility]) [address] [facility], [place], [address], 06/04/2023 13:12:26 06/03/19 24 06/04/2023 URINA LYSIS , COMPL ETE microscopic examination JERSEY KNITTER Not Available [facility] ([facility]) [address] [facility], [place], [address], 06/04/2023 13:12:26 06/03/19 24 06/04/2023 LIPID PANEL cholesterol, total 151 mg/dL 100-19 9 Not Available [facility] ([facility]) [address], [place], [address], 06/04/2023 13:12:27 06/03/19 24 06/04/2023 LIPID PANEL triglyceride s 178 mg/dL 0-149 above high normal Not Available [facility] ([facility]) [address] [facility], [place], [address], 06/04/2023 13:12:27 06/03/19 24 06/04/2023 LIPID PANEL HDL cholesterol 36 mg/dL >39 below low normal Not Available [facility] ([facility]) [address] [facility], [place], [address], 06/04/2023 13:12:27 06/03/19 24 06/04/2023 LIPID PANEL VLDL cholesterol elysia 31 mg/dL 5-40 Not Available [facility] ([facility]) [address] [facility], [place], [address], 06/04/2023 13:12:27 06/03/19 24 06/04/2023 LIPID PANEL LDL chol calc ([facility]) 84 mg/dL 0-99 Not Available [facility] ([facility]) [address] [facility], [place], [address], 06/04/2023 13:12:27 06/03/19 24 06/04/2023 LIPID PANEL comment: JERSEY KNITTER Not Available [facility] ([facility]) [address] [facility], [place], [address], 06/04/2023 13:12:27 06/03/19 24 06/04/2023 TSH TSH 5.170 uIU/m L 0.450- 4.500 above high normal Not Available [facility] ([facility]) [address] [facility], [place], [address], 06/04/2023 13:12:28 07/10/19 23 07/09/2022 US, bob john for abdom inal aorti c aneur ysm No observ ation record ed. [email or web address] [address], [place], [address], 07/09/2022 15:27:25 07/17/19 24 07/16/2023 colon oscop y proce dure (PROC ) No observ ation record ed. [email or web address] [facility] [address], [place], [address], 08/05/2023 10:15:22 Result Notes None recorded. 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 292266990 Active 2021 Dorothy Molina [facility] 4 10:15:47 Chronic interstiti al cystitis 811152798 Active 2021 Dorothy Molina [facility] 4 10:15:47 Blood in urine 49102276 Active 2020 Dorothysavage Molina [facility] 4 10:15:47 Chronic kidney disease stage 2 941140155 Active 2020 Eugenia Martell [facility] 3 09:58:29 Essential hypertensi on 34062194 Active 2020 Eugenia Martell [facility] 3 09:58:27 Urolithias is 50697382 Active 2020 Dorothy Molina [facility] 4 10:15:47 Hypothyroi dism 95521611 Active 2022 Eugenia Martell [facility] 3 09:58:59 History of adenomatou s polyp of colon 985118552 Active 2022 Eugenia Martell [facility] 3 10:01:14 Diverticul ar disease of colon 843401535 Active 2022 Eugeniainga Martell [facility] 3 10:01:22 Diverticul osis of colon 998368508 Active 2023 Dorothy Molina [facility] 4 10:16:01 Metabolic syndrome X 299714488 Active 2010 Metabolic syndrome (PMHx) Dorothy Molina [facility] 4 10:15:47 Hyperlipid emia 74979205 Active 2021 Eugeniainga Martell [facility] 3 09:58:32 Problem Notes None recorded. Procedures Surgical History Date Name Laterality Status Provider Name and Address Organization Details Recorded Time 4 Colonoscopy completed [facility] 08/05/2023 10:16:53 9 colonoscopy completed [facility] 01/15/2023 10:01:01 hernia repair completed [facility] 01/16/2023 09:13:07 Imaging Results None recorded. Procedure Notes None recorded. Medical Equipment None Reported. Allergies Allergen ID Allergen Name Allergen Category Reaction Reaction Severity Criticality Documentation Date Start Date Code Code System Note Provider Name and Address Organization Details Recorded Time 123488 No Allergy Informati on Available Not available Not available Not available Not available 10/31/2019 77759 UNK Ganesh Magana RN [facility] 3 14:03:40 779944 No known allergy (situatio n) Not available Not available Not available Not available 06/12/2022 67572 6003 SNOMED [facility] 3 09:09:59 No known drug allergies Medications Name Sig Start Date Stop Date Status Note LastModified by Organization Details LastModified Time losartan 50 mg tablet Take 1 tablet(s) by oral route for 90 days. active Not Available Not Available No t Available ondansetron HCl 8 mg tablet TAKE 1 TABLET BY MOUTH EVERY 8 HOURS FOR 10 DAYS NEEDED FOR NAUSEA/VO MITING 06/12 completed Not Available Not Available Not Available levothyroxi ne 25 mcg tablet TAKE 1 TABLET BY MOUTH EVERY DAY active Not Available Not Available No t Available cyanocobala min (vit B-12) 50 mcg tablet 1 {tbl} by oral route. active Not Available Not Available No t Available oxycodone-a cetaminophe n 5 mg-325 mg tablet TAKE 1 TO 2 TABLETS BY MOUTH EVERY 4 HOURS FOR 3 DAYS NEEDED FOR PAIN 06/12 completed Not Available Not Available Not Available tamsulosin 0.4 mg capsule 1 {capsule} by oral route. 10/22 completed Not Available Not Available Not Available cephalexin 500 mg capsule TAKE 1 CAPSULE BY MOUTH EVERY 12 HOURS FOR 7 DAYS 12/11 completed Not Available Not Available Not Available simvastatin 20 mg tablet 1 {tbl} by oral route. 10/22 completed Not Available Not Available Not Available cephalexin 500 mg tablet Take 1 tablet every 12 hours by oral route for 7 days. 12/11 completed Not Available Not Available Not Available finasteride 5 mg tablet Take 1 {tbl} by oral route. 06/12 completed Not Available Not Available Not Available cholecalcif fanta (vitamin D3) 25 mcg (1,000 unit) capsule 1 {tbl} by oral route. active Not Available Not Available No t Available rosuvastati n 20 mg tablet active Not Available Not Available Not Available multivitami n active Not Available Not Available Not Available Azo Cranberry 250 mg chewable tablet Take 1 tablet every day by oral route. active Not Available Not Available No t Available Plenvu 140 gram-9 gram-5.2 gram powder packs TAKE DIRECTED 08/04 completed Not Available Not Available Not Available d-mannose 500 mg capsule Take 1 {capsule} by oral route. 06/12 completed Not Available Not Available Not Available Vitals Date Recorded Body mass index (BMI) Body weight Provider Name and Address Organization Details Last Updated DateTime 06/12/2022 32.6 kg/m2 790497.61 g MAJOR CA, DO [address] [place] [address], [place], [address], [place] [facility] 06/12/2022 14:11:33 Date Recorded Body height Oxygen saturation Oxygen saturation in Arterial blood by Pulse oximetry Heart rate Respiratory rate Systolic And Diastolic Provider Name and Address Organization Details Last Updated DateTime 3 180.34 cm 96 % 96 % 64 /min 16 /min 168/80 mm[Hg] Ganesh Magana RN [facility] 3 13:59:05 Date Recorded Body height Body mass index (BMI) Body weight Respiratory rate Oxygen saturation Oxygen saturation in Arterial blood by Pulse oximetry Heart rate Systolic And Diastolic Provider Name and Address Organization Details Last Updated DateTime 4 180.34 cm 33.4 kg/m2 002425. 45 g 16 /min 97 % 97 % 70 /min 124/70 mm[Hg] Ganesh Magana RN [facility] 4 13:59:12 Date Recorded Body height Body mass index (BMI) Body weight Heart rate Oxygen saturation Oxygen saturation in Arterial blood by Pulse oximetry Respiratory rate Systolic And Diastolic Provider Name and Address Organization Details Last Updated DateTime 3 180.34 cm 32.7 kg/m2 642511. 77 g 88 /min 95 % 95 % 18 /min 164/86 mm[Hg] Ganesh Magana RN [facility] 3 13:59:54 Date Recorded Body height Body mass index (BMI) Body weight Heart rate Oxygen saturation Oxygen saturation in Arterial blood by Pulse oximetry Respiratory rate Body temperature Systolic And Diastolic Provider Name and Address Organization Details Last Updated DateTime 3 180.34 cm 32.6 kg/m2 081130. 61 g 88 /min 98 % 98 % 16 /min 98 [degF] 142/84 mm[Hg] MAJOR DELANEY, DO [address] [facility], [place], [address] [place] [address] 3 10:35:58 Date Recorded Body height Body mass index (BMI) Body weight Heart rate Systolic And Diastolic Provider Name and Address Organization Details Last Updated DateTime 01/16/2023 180.34 cm 32.8 kg/m2 997771.6 4 g 84 /min 130/74 mm[Hg] Eugenia Martell [facility] 01/16/2023 09:16:32 Social History Question Answer Notes LastModified by Sanergyat ion Details LastModified Time Tobacco Smoking Status Former Smoker Ganesh Magana RN [facility] 06/12/2022 14:05:54 What Is Your Level Of Caffeine Consumption? Moderate Information not available 06/12/2022 What Type Of Diet Are You Following? REGULAR Information not available 06/12/2022 What Is The Highest Grade Or Level Of School You Have Completed Or The Highest Degree You Have Received? [id number] Information not available 06/12/2022 What Was The Date Of Your Most Recent Tobacco Screening? 06/12/2022 Information not available 06/12/2022 Have You Ever Been Counseled For Unhealthy Alcohol Use? No Information not available 06/12/2022 What Is Your Relationship Status? Information not available 06/12/2022 Sex: Male Functional Status Question Answer Note LastModified by Organizat ion Details LastModified Time Do you use any illicit or recreational drugs? No Information not available 06/12/2022 Do you or have you ever used any other forms of tobacco or nicotine? No Information not available 06/12/2022 What is your level of alcohol consumption? Occasional Information not available 06/12/2022 Are you able to walk? YESWOREST Information not available 06/12/2022 Are you able to care for yourself? Yes Information n ot available 06/12/2022 What is your exercise level? Moderate Information not available 06/12/2022 Mental Status None recorded. Family History Nothing Reported Notes:01/08/2011: Father: Ab dominal aneurysm Uncle: Abdominal aneurysm Negative family HX GI malignancy Medical History Condition Response Coronary Artery Disease N Gout N Claustrophobia N Kidney Stones N Hyperthyroidism N Hernia N Hypothyroidism Y Skin Problems N Pacemaker N MRSA exposure N Heart Attack ([place]) N Seasonal Allergies N Diabetes N Anxiety Disorder N Bleeding Disorder N Arthritis N Heart Murmur N Blood Clot N Mental Disorder N Tuberculosis N AIDS/HIV N Acid Reflux (GERD) N Cancer N Diverticulitis N Stroke N Asthma N Polio N High Cholesterol Y Liver Disease N Pulmonary Embolism N Dialysis N Fibromyalgia N Hypertension Y Leg/Foot Ulcers N Osteoporosis N Kidney Disease Y Immunizations Vaccine Type Date Status Note Provider Nam e and Address Organization Details Recorded Time influenza, unspecified formulation 4 completed Ganesh Magana RN null, [facility] 06/16/2023 13:56:50 COVID-19, mRNA, LNP-S, PF, 30 mcg/0.3 mL dose 1 completed Not Available [facility] 01/15/2023 01:02:53 COVID-19, mRNA, LNP-S, PF, 30 mcg/0.3 mL dose 1 completed Not Available [facility] 01/15/2023 01:02:53 COVID-19, mRNA, LNP-S, PF, 30 mcg/0.3 mL dose 1 completed [facility], [facility] 12/10/2022 08:49:52 pneumococcal conjugate PCV 7 9 completed Not Available [facility] 01/15/2023 01:02:53 pneumococcal polysaccharide PPV23 8 completed Not Available [facility] 01/15/2023 01:02:53 Influenza, split virus, trivalent, preservative 1 completed Ganesh Magana RN null, [facility] 06/16/2023 13:56:50 Influenza, split virus, trivalent, preservative 0 completed Not Available [facility] 01/15/2023 01:02:53 Influenza, high-dose, quadrivalent, PF 0 completed Carmen gregory, [facility] 12/10/2022 08:49:52 Influenza, adjuvanted, quadrivalent, PF 2 completed Carmen gregory, [facility] 12/10/2022 08:49:52 Influenza, adjuvanted, quadrivalent, PF 1 completed Carmen gregory, [facility] 12/10/2022 08:49:52 COVID-19, mRNA, LNP-S, PF, 30 mcg/0.3 mL dose 1 completed Carmen Nieto null, [facility] 12/10/2022 08:49:52 COVID-19, mRNA, LNP-S, PF, 30 mcg/0.3 mL dose 1 completed Carmen Nieto null, [facility] 12/10/2022 08:49:52 Influenza, high-dose, trivalent, PF 5 completed Carmen Nieto null, [facility] 12/10/2022 08:49:52 Influenza, high-dose, trivalent, PF 4 completed Carmen Nieto null, [facility] 12/10/2022 08:49:52 Influenza, split virus, trivalent, preservative 4 completed Carmen Nieto null, [facility] 12/10/2022 08:49:52 Influenza, adjuvanted, quadrivalent, PF 3 completed Ganesh Magana RN null, [facility] 06/16/2023 13:56:50 Past Encounters Encounter ID Performer Location Encounter Start Date Encounter Closed Date Diagnosis/Indication Diagnosis SNOMED-CT Code Diagnosis ICD10 Code Diagnosis Note [id number] MAJOR Bach DO [facility] [address] [address] 06/12/2022 13:20:41 06/12/2022 14:50:37 Adult health examination 895801969 Z00.00 Z13.6 For [employer] patients, R reviewed and updated, please see separate documentat ion for complete details. Screening for malignant neoplasm of colon 023634113 Z12.11 Due for colon cancer in 2023. Abdominal aortic aneurysm screening 531634050 Z13.6 Screening order placed. Body mass index 30+ - obesity 087917548 Z68.32 Ileostomy present 911761 002 Z93.2 Sees urology and is stable. Patient has an ileostomy on physical exam. Hyperlipidemia 31797176 E78.5 Benign ess ential hypertension 4745500 I10 [id number] MAJOR Bach DO [facility] [place] [address] 12/11/2022 13:54:08 12/11/2022 14:24:10 Atherosclerosis of aorta 63085730 I70.0 US, screening for abdominal aortic aneurysm performed on 07-09-2022 ; Impression stated Atheroscle rosis of aorta also negative for aneurysm. Benign ess ential hypertension 8191488 I10 Has been counseled on checking blood pressure at home and provided a blood pressure log to keep blood pressure. Instructed to drop off in the next several weeks for review. Hyperlipidemia 25334003 E78.5 Recheck fasting labs. Impaired f asting glycemia 668891185 R73.01 Recheck fasting labs. Hypothyroidism 19987513 E03.9 Recheck as was elevated last draw. [id number] MAJOR Bach DO [facility]_ [address] [address] 12/18/2022 10:29:35 12/18/2022 11:02:24 Ileostomy present 862151087 Z93.2 Sees urology and is stable yearly seen. Patient has an ileostomy on physical exam. Hyperlipidemia 45961420 E78.5 [facility] Benign ess ential hypertension 2661901 I10 Stable on medication s. Hypothyroidism 72046343 E03.9 Recheck as was elevated last draw. Asymptomat ic at this time and will monitir and repeat in 6 months. Screening for malignant neoplasm of colon 697218379 Z12.11 Screening order placed. [id number] Chaz Starr MD [facility] [address] [facility] [place] [address] 01/16/2023 08:42:05 01/16/2023 09:49:51 Diverticular disease of colon 720887160 K57.30 History of polyp of colon 734178887 Z86.516 [id number] MAJOR Bach DO [facility] [place] [address] [place] [address] 06/16/2023 13:48:21 06/16/2023 17:47:20 Adult health examination 893176926 Z00.00 Z13.6 For [employer] patients, HMR reviewed and updated, please see separate documentat ion for complete details. Screening for malignant neoplasm of colon 649758878 Z12.11 it has be scheduled on 07-16-2023 . Body mass index 30+ - obesity 380848113 Z68.32 Benign ess ential hypertension 5115086 I10 Stable on medication s. Hyperlipidemia 92683165 E78.5 Controlled with medication . Hypothyroidism 90163511 E03.9 Will start low dose levothyrox ine to help with fatigue. Recheck thyroid in three months. Health Concerns Section Related Observation LastModified by Organization Detai ls LastModified Time None Recorded Concern Status LastModified by Organization Details LastModified Time None Recorded Advance Directives Directive None Recorded Payers Insurance Date Sequence Insurance Name Policy Number Policy Curtis Covered Member ID Curtis Member ID Guarantor Name 07/21/2023 1 [employer] [employer] (MEDICARE REPLACEMENT/A DVANTAGE - PPO) [id number] Azar Juan [id number] Azar Juan Notes Date Note Type Note Provider Name and Address Organization Details Recorded Time 06/12/2022 text/html Annual Medicare [id number] yr old male presents as a new patient. Has a urostomy. Had a TURP and for bladder issues. Sees urology and nephrology. Former smoker. Colonoscopy 2019. Younger brother had colon and bladder cancer. Older brother had kidney cancer. [place]. Had an ileostomy. Had TURP due to BPH. Father had an aneurysm. Scheduled for a bladder US. Getting labs for rivet sticker next week. and POA. No family close by. Children in [place]. Denies fall issues. Independent. Will be getting a living well. MEDICARE ANNUAL WELLNESS VISIT [id number] (See Also additional/separate AWV chart documentation completed prior to or after the visit by 25/11 Connect.) Please also see additional paperwork completed after the visit as referenced in the assessment/plan section if applicable. FUNCTIONAL ABILITY/SAFETY SCREEN BASED UPON DIRECT OBSERVATION: The following answers are from a telephone interview conducted prior to the visit.Can the patient get up out of a chair and be steady in 30 seconds: Please see 25/11 Connect documentation. The risk factors that attributed to the patient's current medical problems, along with the risk factors for potential future medical problems, were reviewed/discussed by 25/11 Connect. Interventions/options for prevention and treatment of medical illnesses pertinent to this patient were discussed by 25/11 Richard as appropriate. Personal health advice based upon this patient's individual situation was given to the patient by 25/11 Richard to include any counseling, community based programs, and self-management strategies as appropriate. A written schedule for preventive services including immunizations based upon the [place] Preventative Services Task Force recommendations was created and reviewed with the patient by 25/11 Richard. A copy of this 5 year plan is provided by 25/11 Richard. MAJOR CA, [address] [place] [address], [place], [address], On license of [facility] 06/12/2022 14:28:29 12/11/2022 text/html Pt is a 77yr pat ient that presents for a 6 month f/u. Does not check blood pressure at home. MAJOR CA, [address] [place] [address], [place], [address], On license of [facility] 12/11/2022 14:09:32 12/18/2022 text/html 77 yr old male presents for a follow-up. Sees urology yearly. Brought a blood pressure log and averages about 135/80 at home. Feels good overall. [facility] Had [facility] 6 months ago through them . Former smoker. Feels due for colonoscopy. MAJOR CA, [address] [place] [address], [place], [address], On license of [facility] 12/18/2022 10:47:54 01/16/2023 text/html He denies recent weight loss. This is 77-year-old male referred by Dr. Major Ca for a surveillance colonoscopy. Patient's last colonoscopy was 05/13/[address] Cole. It revealed diverticulosis in the left colon and 3 polyps that were found to be adenomatous on path and he was asked to repeat in 3 years. He denies family history of GI or colon cancer. He denies current GI complaint to include melena, medication constipation, diarrhea, abdominal pain, nausea, reflux, or dysphagia. He does not take any prescription blood thinning medication. His weight is stable SUMI AMAYA NP [address] [facility], [place], [address], [facility] - [facility] 01/16/2023 09:41:43 06/16/2023 text/html 77 year old male patient presenting to the clinic for a physical exam. Patient came alone. Patient doesn't need cane or walker for ambulation. Patient managed his routine chores indepandently. he lives alone.Patient has a living will and power of commercial attorney. Labs have been reviewed with patients' understanding. Raised TSH have been mentioned.Levothyroxi ne 25 mcg have been started at this visit. Patient has a urinary tract infection and currently denied for any medication. Medication have been provided as per his request. Illness Prevention : Colonoscopy - Due, already scheduled in july,. Flu vaccine - UTDPneumonia vaccine - UTDCovid vaccine - UTD Annual Medicare Wellness MEDICARE ANNUAL WELLNESS VISIT [id number] (See Also additional/separate AWV chart documentation completed prior to or after the visit by Mychal.) Please also see additional paperwork completed after the visit as referenced in the assessment/plan section if applicable. FUNCTIONAL ABILITY/SAFETY SCREEN BASED UPON DIRECT OBSERVATION: The following answers are from a telephone interview conducted prior to the visit.Can the patient get up out of a chair and be steady in 30 seconds: Please see [employer] documentation. The risk factors that attributed to the patient's current medical problems, along with the risk factors for potential future medical problems, were reviewed/discussed by ChartSmaciej. Interventions/options for prevention and treatment of medical illnesses pertinent to this patient were discussed by ChartSmaciej as appropriate. Personal health advice based upon this patient's individual situation was given to the patient by ChartSmaciej to include any counseling, community based programs, and self-management strategies as appropriate. A written schedule for preventive services including immunizations based upon the [place] Preventative Services Task Force recommendations was created and reviewed with the patient by Mychal. A copy of this 5 year plan is provided by ChartSmaciej. 77 year old female patient presenting to the clinic for a physical exam. Patient came alone. Patient doesn't need cane or walker for ambulation. Patient managed his routine chores indepandently. he lives alone.Patient has a living will and power of commercial attorney. Illness Prevention : Colonoscopy - Due, Order placed. Flu vaccine - UTDPneumonia vaccine - UTDCovid vaccine - UTDShingle vaccine - UTD Annual Medicare Wellness MEDICARE ANNUAL WELLNESS VISIT G0439 (See Also additional/separate AWV chart documentation completed prior to or after the visit by Mychal.) Please also see additional paperwork completed after the visit as referenced in the assessment/plan section if applicable. FUNCTIONAL ABILITY/SAFETY SCREEN BASED UPON DIRECT OBSERVATION: The following answers are from a telephone interview conducted prior to the visit.Can the patient get up out of a chair and be steady in 30 seconds: Please see ChartSpan documentation. The risk factors that attributed to the patient's current medical problems, along with the risk factors for potential future medical problems, were reviewed/discussed by Mychal. Interventions/options for prevention and treatment of medical illnesses pertinent to this patient were discussed by Mychal as appropriate. Personal health advice based upon this patient's individual situation was given to the patient by Mychal to include any counseling, community based programs, and self-management strategies as appropriate. A written schedule for preventive services including immunizations based upon the [place] Preventative Services Task Force recommendations was created and reviewed with the patient by Mychal. A copy of this 5 year plan is provided by Mychal. MAJOR CA DO [address] [place] [address], [phone], On license of [facility] 06/18/2023 12:14:22
--- OUTSIDE RECORDS SUMMARY | 2024-11-07 08:00 | XMS_ITS | Encounter Summary ---
Author Name [facility] [place] [facility] [place] [facility] [place] Address [address] [place] [address] Care Team Providers Care Treasury Consultant Name Role Phone BEBETO DURAND Primary Care [...] Name Patient's Relationship to Policy Curtis AARP [facility] (WNR) MEDICARE ADVANTAGE [facility](W NR) Feb 02, 2018 [id number] [phone] IVAN FREEMAN HN PATIENT MEDICARE PART D (WNR) MEDICARE (M) PART D May 05, 2016 PART D [id number] 68 IVAN FREEMAN HN PATIENT MEDICARE PART D (WNR) MEDICARE (M) PART D May 05, 2016 PART D [id number] [phone] IVAN FREEMAN HN PATIENT [facility] (WNR) MEDICARE ADVANTAGE [facility] (WNR) May 05, 2016 [id number] [phone] IVAN FREEMAN HN PATIENT [facility] (WNR) MEDICARE ADVANTAGE [facility] (WNR) May 05, 2016 [id number] IVAN FREEMAN HN PATIENT [facility] (WNR) MEDICARE ADVANTAGE [facility] (WNR) May 05, 2016 [id number] IVAN FREEMAN HN PATIENT Selected Encounter This section includes the information on record at [place] for the Encounter. Date/Time Encounter Type Encounter Description Reason Pro vider Source Dec 22, 2023 08:34 AM Outpatient Encounter ADMIN PAT ACTIVTIES (MASNONCT) IHE Encounter Template Text not used by [facility] Plan of Treatment: Future Appointments (+ 6 months) and Future Tests (+/- 45 days) The Plan of Treatment section includes future care activities for the patient from all [place] treatmentfacilities. This section includes future appointments and future orders which are active, pending or scheduled. Future Appointments This section includes appointments that were scheduled to occur 6 months from the date of the Encounter, up to a maximum of 20 appointments. The data comes from all [place] treatment facilities. Appointment Date/Time Appointment Type Appointme nt Facility Name Dec 26, 2023 10:00 AM AMBULATORY - MEDICINE [facility] Feb 05, 2024 11:00 AM AMBULATORY - NONE [facility] Feb 11, 2024 11:30 AM AMBULATORY - MEDICINE [facility] Mar 24, 2024 11:00 AM AMBULATORY - NEUROLOGY [facility] Mar 24, 2024 01:15 PM AMBULATORY - MEDICINE [facility] Apr 12, 2024 10:00 AM AMBULATORY - MEDICINE [facility] Apr 23, 2024 10:00 AM AMBULATORY - MEDICINE [facility] May 04, 2024 09:30 AM AMBULATORY - SURGERY [facility] May 18, 2024 10:00 AM AMBULATORY - SURGERY [facility] Jun 02, 2024 11:00 AM AMBULATORY - NEUROLOGY [facility] Jun 09, 2024 09:30 AM AMBULATORY - SURGERY [facility] Lab Results: +/- 30 days of [...] Unit Interpretation Reference Range Specimen Type Comment Dec 19, 2023 12:27 PM [facility] ALBUMIN/CREATININE RATIO, URINE URINE Specime n Type: URINE Comment: Normal: 0 - 29 Moderately increased: 30 - 300 Severely increased: >300 [facility]: [address] [place] [id number] Ordering Provider: WU CRISTOBAL Report Released Date/Time: Dec 19, 2023 12:27 PM Reporting Lab: [facility] [address] [facility] [address] Performing Lab: [facility] [address] [facility] [address] CREATININE, URINE ([facility] ONLY) 88.8 mg/dL Not Estab. ALBUMIN, URINE 14.2 ug/mL Not Estab. ALBUMIN/CREATININE RATIO 16 mg/g{creat} 0-29 Dec 19, 2023 08:21 AM [facility] HEMOGLOBIN A1C BLOOD Specimen Type: BLOOD Comment: Values obtained from A1C measurements can vary. For typical A1C assays, a reported value of 7.0 could actually be between 6.72 and 7.28 if measured by a reference method. A reported value of 9.0 could actually be between 8.73 and 9.27. Ref: [email or web address]://ngsp.org/CAPdata.asp Ordering Provider: WU CRISTOBAL Report Released Date/Time: Aug 06, 2023 02:54 PM Reporting Lab: [facility] [address] [facility] [address] Performing Lab: [facility] [address] [facility] [address] HEMOGLOBIN A1C 5.6 4.5-5.7 Dec 19, 2023 08:21 AM [facility] VITAMIN B12 SERUM Specimen Type: SERUM No comment entered. Ordering Provider: WU CRISTOBAL Report Released Date/Time: Aug 06, 2023 02:54 PM Reporting Lab: [facility] [address] [facility] [place] [address] Performing Lab: [place] [address] [facility] [place] [address] VITAMIN B12 >1500 pg/mL H 211-911 Dec 19, 2023 08:21 AM [facility] PSA (HYBRITECH) SERUM Specimen Type: SERUM No comment entered. Ordering Provider: WU CRISTOBAL Report Released Date/Time: Aug 06, 2023 02:54 PM Reporting Lab: [place] [address] [facility] [place] [address] Performing Lab: [address] [address] PSA (HYBRITECH) 0.91 ng/mL 0.00-4.00 Dec 19, 2023 08:21 AM [facility] TSH SERUM Specimen Type: SERUM No comment entered. Ordering Provider: WU CRISTOBAL Report Released Date/Time: Aug 06, 2023 02:54 PM Reporting Lab: [address] [address] Performing Lab: [address] [address] TSH 2.75 u[IU]/mL 0.34-5.6 Dec 19, 2023 08:21 AM [facility] CBC BLOOD Specimen Type: BLOOD Comment: Values obtained from A1C measurements can vary. For typical A1C assays, a reported value of 7.0 could actually be between 6.72 and 7.28 if measured by a reference method. A reported value of 9.0 could actually be between 8.73 and 9.27. Ref: https://ngsp.org/CAPdata.asp Ordering Provider: WU CRISTOBAL Report Released Date/Time: Aug 06, 2023 02:54 PM Reporting Lab: [facility] [address] [facility] [place] [address] Performing Lab: [address] [place] [address] WBC 11.3 10*3/uL H 4.8-10.8 RBC 4.92 10*6/uL 4.7-6.1 HGB 14.8 g/dL 14-18 HCT 45.1 42-52 MCV 91.6 fL 80-94 MCH 30.0 pg 27-31 MCHC 32.7 g/dL 32-36 PLT 275 10*3/uL 130-400 MPV 9.3 fL 7.4-10.4 MONOCYTE (AUTO) 9.7 4-12 EOSINOPHIL (AUTO) 2.6 0-11.0 BASOPHIL (AUTO) 0.5 0.0-2.0 RDW 12.9 11.5-14.5 LYMPH (AUTO) 16.1 L 20.5-51.1 NEUTROPHIL (AUTO) 71.1 42.2-75.2 LYMPH ABSOLUTE 1.8 10*3/uL 1.2-3.4 MONO ABSOLUTE 1.1 10*3/uL H 0.1-0.7 NEUTRO ABSOLUTE 8.1 10*3/uL H 1.4-6.5 EOSIN ABSOLUTE 0.3 10*3/uL 0.0-0.7 BASO ABSOLUTE 0.1 10*3/uL 0.0-0.2 Dec 19, 2023 08:21 AM [facility] DRUG SCREEN, ABUSE (URINE) URINE Specimen Typ e: URINE No comment entered. Ordering Provider: WU CRISTOBAL Report Released Date/Time: Aug 06, 2023 02:54 PM Reporting Lab: [address] [address] Performing Lab: [facility] [address] [facility] [address] BARBITUATES, SCREEN NEG ng/mL Dlwcfv=683 AMPHETAMINES, SCREEN NEG ng/mL Cutoff=10 00 COCAINE, SCREEN NEG ng/mL Ipdyxc=474 BENZODIAZEPINES, SCREEN NEG ng/mL Cutoff =200 CANNABINOIDS, SCREEN NEG ng/mL Cutoff=50 OPIATES, SCREEN NEG ng/mL Rcxahy=608 PHENCYCLIDINE, SCREEN NEG ng/mL Cutoff=2 5 Dec 19, 2023 08:21 AM [facility] VITAMIN D, 25-HYDROXY SERUM Specimen Type: SE RUM No comment entered. Ordering Provider: WU CRISTOBAL Report Released Date/Time: Aug 06, 2023 02:54 PM Reporting Lab: [place] [address] [facility] [address] Performing Lab: [address] [address] VITAMIN D, 25-HYDROXY 70.8 ng/mL 32.0-10 0.0 Dec 19, 2023 08:21 AM [facility] URINALYSIS URINE Specimen Type: URINE Comment: MICROSCOPIC TO FOLLOW URINE MICROSCOPIC COMPLETED Ordering Provider: WU CRISTOBAL Report Released Date/Time: Aug 06, 2023 02:54 PM Reporting Lab: [facility] [address] [facility] [place] [address] Performing Lab: [facility] [address] [facility] [place] [address] URINE BILIRUBIN Negative Negative URINE KETONES Negative Negative URINE GLUCOSE NORMAL Negative URINE PROTEIN Negative Negative URINE COLOR LIGHT YELLOW URINE BLOOD Negative Negative URINE NITRITE 2+ H Negative URINE S.G. 1.012 1.003-1.030 URINE pH 6.5 5.0-9.0 URINE LEUKOCYTE ESTERASE 2+ H Negativ e URINE CLARITY Clear URINE EPITH CELLS Observed URINE BACTERIA 2+ /[HPF] H Negative SQUAMOUS EPITHELIAL CELLS Few /[HPF] H URINE RBCS/HPF 0-2 /[HPF] H 0-2 URINE WBCS/HPF 10-20 /[HPF] H 0-5 Pathology Reports: +/- 30 days of the [...] the Encounter. The data comes from all [facility] facilities. Date/Time Pathology Report Provider Source Dec 19, 2023 08:21 AM LR MICROBIOLOGY RE PORT: Accession [UID]: [id number] [[id number]] Received: Dec 19, 2023@08:21 Collection sample: URINE (CLEAN CATCH) Collection date: Dec 19, 2023 08:21 Site/Specimen: URINE Provider: WU CRISTOBAL Test(s) ordered: CULTURE, URINE................ completed: Dec 21, 2023 * BACTERIOLOGY FINAL REPORT => Dec 21, 2023 09:51 TECH CODE: [id number] CULTURE RESULTS: KLEBSIELLA PNEUMONIAE - Quantity: >100,000 COL/ML ANTIBIOTIC SUSCEPTIBILITY TEST RESULTS: KLEBSIELLA PNEUMONIAE : SUSC INTP AMP/SULBACTAM................. S S RESTRICTED AZTREONAM..................... S S FORMULARY CEFAZOLIN..................... S S FORMULARY CEFEPIME...................... S S FORMULARY CEFTAZIDIME................... S S FORMULARY CEFTRIAXONE................... S S FORMULARY CEFUROXIME.................... S S FORMULARY CIPROFLOXACIN................. S S FORMULARY ERTAPENEM..................... S S FORMULARY GENTAMICIN.................... S S FORMULARY LEVOFLOXACIN.................. S S FORMULARY MEROPENEM..................... S S FORMULARY NITROFURANTOIN................ S S URINE ONLY PIP/TAZOBACTAM................ S S FORMULARY TETRACYCLINE.................. S S FORMULARY-PO ONLY TOBRAMYCIN.................... S S FORMULARY TRIMETH/SULFA................. S S FORMULARY ESBL.......................... NEG Negative Bacteriology Remark(s): FINAL REPORT: 12/21/23 BY [facility] Encounter Notes: All associated encounter notes This section contains the clinical notes associated to the Encounter. Date/Time Encounter Note(s) Provider Source Dec 24, 2023 03:06 PM ADDENDUM: LOCAL TITLE: Addendum STANDARD TITLE: ADDENDUM DATE OF NOTE: DEC 24, 2023@15:06:37 ENTRY DATE: DEC 24, 2023@15:06:38 AUTHOR: WU CRISTOBAL EXP COSIGNER: URGENCY: STATUS: COMPLETED ABX ordered. Will tag PCP on note. /apolonia/ WU CRISTOBAL NURSE PRACTITIONER Signed: 12/24/2023 15:07 Receipt Acknowledged By: 02/04/2024 07:05 /apolonia/ PALOMO NAYAK D.O. PRIMARY CARE PHYSICIAN --- Original Document --- 12/22/23 INFECTION CONTROL NOTE: Report ---- MICROBIOLOGY ---- Accession [UID]: [facility] [id number] [[id number]] Received: Dec 19, 2023@08:21 Collection sample: URINE (CLEAN CATCH) Collection date: Dec 19, 2023 08:21 Site/Specimen: URINE Provider: WU CRISTOBAL Test(s) ordered: CULTURE, URINE................ completed: Dec 21, 2023 * BACTERIOLOGY FINAL REPORT => Dec 21, 2023 09:51 TECH CODE: [id number] CULTURE RESULTS: KLEBSIELLA PNEUMONIAE - Quantity: >100,000 COL/ML ANTIBIOTIC SUSCEPTIBILITY TEST RESULTS: KLEBSIELLA PNEUMONIAE : SUSC INTP AMP/SULBACTAM................ . S S RESTRICTED AZTREONAM.................... . S S FORMULARY CEFAZOLIN.................... . S S FORMULARY CEFEPIME..................... . S S FORMULARY CEFTAZIDIME.................. . S S FORMULARY CEFTRIAXONE.................. . S S FORMULARY CEFUROXIME................... . S S FORMULARY CIPROFLOXACIN................ . S S FORMULARY ERTAPENEM.................... . S S FORMULARY GENTAMICIN................... . S S FORMULARY LEVOFLOXACIN................. . S S FORMULARY MEROPENEM.................... . S S FORMULARY NITROFURANTOIN............... . S S URINE ONLY PIP/TAZOBACTAM............... . S S FORMULARY TETRACYCLINE................. . S S FORMULARY-PO ONLY TOBRAMYCIN................... . S S FORMULARY TRIMETH/SULFA................ . S S FORMULARY ESBL......................... . NEG Negative Bacteriology Remark(s): FINAL REPORT: 12/21/23 BY JOSHUA. Facility: [facility] Forwarding for awareness. /apolonia/ USHA FITCH INFECTION CONTROL NURSE Signed: 12/22/2023 08:35 Receipt Acknowledged By: 12/24/2023 15:06 /es/ WU CRISTOBAL NURSE PRACTITIONER WU CRISTOBAL [facility] Dec 22, 2023 08:34 AM INFECTION CONTROL NOTE: LOCAL TITLE: INFECTION CONTROL NOTE STANDARD TITLE: INFECTION CONTROL NOTE DATE OF NOTE: DEC 22, 2023@08:34 ENTRY DATE: DEC 22, 2023@08:35:09 AUTHOR: STERLING FITCH EXP COSIGNER: URGENCY: STATUS: COMPLETED INFECTION CONTROL NOTE Has ADDENDA Report ---- MICROBIOLOGY ---- Accession [UID]: [facility] [id number] [[id number]] Received: Dec 19, 2023@08:21 Collection sample: URINE (CLEAN CATCH) Collection date: Dec 19, 2023 08:21 Site/Specimen: URINE Provider: WU CRISTOBAL Test(s) ordered: CULTURE, URINE................ completed: Dec 21, 2023 * BACTERIOLOGY FINAL REPORT => Dec 21, 2023 09:51 TECH CODE: [id number] CULTURE RESULTS: KLEBSIELLA PNEUMONIAE - Quantity: >100,000 COL/ML ANTIBIOTIC SUSCEPTIBILITY TEST RESULTS: KLEBSIELLA PNEUMONIAE : SUSC INTP AMP/SULBACTAM................ . S S RESTRICTED AZTREONAM.................... . S S FORMULARY CEFAZOLIN.................... . S S FORMULARY CEFEPIME..................... . S S FORMULARY CEFTAZIDIME.................. . S S FORMULARY CEFTRIAXONE.................. . S S FORMULARY CEFUROXIME................... . S S FORMULARY CIPROFLOXACIN................ . S S FORMULARY ERTAPENEM.................... . S S FORMULARY GENTAMICIN................... . S S FORMULARY LEVOFLOXACIN................. . S S FORMULARY MEROPENEM.................... . S S FORMULARY NITROFURANTOIN............... . S S URINE ONLY PIP/TAZOBACTAM............... . S S FORMULARY TETRACYCLINE................. . S S FORMULARY-PO ONLY TOBRAMYCIN................... . S S FORMULARY TRIMETH/SULFA................ . S S FORMULARY ESBL......................... . NEG Negative Bacteriology Remark(s): FINAL REPORT: 12/21/23 BY JOSHUA. Facility: [facility] Forwarding for awareness. /apolonia/ USHA FITCH INFECTION CONTROL NURSE Signed: 12/22/2023 08:35 Receipt Acknowledged By: 12/24/2023 15:06 /apolonia/ WU CRISTOBAL NURSE PRACTITIONER 12/24/2023 ADDENDUM STATUS: COMPLETED ABX ordered. Will tag PCP on note. /apolonia/ WU CRISTOBAL NURSE PRACTITIONER Signed: 12/24/2023 15:07 Receipt Acknowledged By: * AWAITING SIGNATURE * PALOMO NAYAK,USHA [facility]
--- OUTSIDE RECORDS SUMMARY | 2024-11-07 08:00 | XMS_ITS | Encounter Summary ---
Author Name [facility] [place] [facility] [place] [facility] [facility] [place] Address [address] [place] [address] Care Team Providers Care Model Photographers' Name Role Phone BEBETO DURAND Primary Care [...] Curtis's Name Patient's Relationship to Policy Curtis [facility] (WNR) MEDICARE ADVANTAGE [facility](W NR) Feb 02, 2018 [id number] IVAN FREEMAN HN PATIENT MEDICARE PART D (WNR) MEDICARE (M) PART D May 05, 2016 PART D [id number] [phone] IVAN FREEMAN HN PATIENT MEDICARE PART D (WNR) MEDICARE (M) PART D May 05, 2016 PART D [id number] [phone] IVAN FREEMAN HN PATIENT [facility] (WNR) MEDICARE ADVANTAGE [facility] (WNR) May 05, 2016 [id number] IVAN FREEMAN HN PATIENT [facility] (WNR) MEDICARE [facility] (WNR) May 05, 2016 [id number] IVAN FREEMAN HN PATIENT [facility] MCR (WNR) MEDICARE ADVANTAGE MCR (WNR) May 05, 2016 [id number] IVAN FREEMAN HN PATIENT Selected Encounter This section includes the information on record at [place] for the Encounter. Date/Time Encounter Type Encounter Description Reason Provider Source Mar 11, 2024 11:37 AM TARGETED CASE MANAGEMENT ADMIN PAT ACTIVTIES (MASNONCT) ANGE ROSENBERG Zaheer Encounter Template Text not used by [place] Plan of Treatment: Future Appointments (+ 6 months) and Future Tests (+/- 45 days) The Plan of Treatment section includes future care activities for the patient from all [place] treatment[facility]. This section includes future appointments and future orders which are active, pending or scheduled. Future Appointments This section includes appointments that were scheduled to occur 6 months from the date of the Encounter, up to a maximum of 20 appointments. The data comes from all [place] treatment facilities. Appointment Date/Time Appointment Type Appointme nt Facility Name Mar 24, 2024 11:00 AM AMBULATORY - NEUROLOGY [facility] Mar 24, 2024 01:15 PM AMBULATORY - MEDICINE [facility] Apr 12, 2024 10:00 AM AMBULATORY - MEDICINE [facility] Apr 23, 2024 10:00 AM AMBULATORY - MEDICINE [facility] May 04, 2024 09:30 AM AMBULATORY - SURGERY [facility] May 18, 2024 10:00 AM AMBULATORY - SURGERY . [facility] Jun 02, 2024 11:00 AM AMBULATORY - NEUROLOGY [facility] Jun 09, 2024 09:30 AM AMBULATORY - SUR[facility]ERY [facility] Jul 13, 2024 11:30 AM AMBULATORY - NONE . [facility] Jul 14, 2024 02:15 PM AMBULATORY - MEDICINE [facility] Active, Pending, and Scheduled Orders This section includes a listing of several types of active, pending, and scheduled orders, including clinic medications orders, diagnostic test orders, procedure orders and consult orders; where the start date of the order is 45 days before the date of the Encounter or 45 days after the date of theEncounter. The data comes from all [facility]. Test Date/Time Test Type Test Details Facility Name Mar 24, 2024 12:00 AM Laboratory - Chemistry Order PHOSPHOROUS GREEN LI/HEP BLD/PLAS PLASMA SP [facility] Mar 24, 2024 12:00 AM Laboratory - Chemistry Order MAGNESIUM GREEN LI/HEP BLD/PLAS PLASMA [facility] Mar 24, 2024 12:00 AM Laboratory - Chemistry Order LIPID PANEL (STL) GREEN LI/HEP BLD/PLAS PLASMA [facility] Mar 24, 2024 12:00 AM Laboratory - Chemistry Order CPK GREEN LI/HEP BLD/PLAS PLASMA [facility] Mar 24, 2024 12:00 AM Laboratory - Chemistry Order TSH W/ REFLEX FT4 (STL) GREEN LI-HEP PLASMA [facility] Mar 24, 2024 12:00 AM Laboratory - Chemistry Order CBC BLOOD [facility] Mar 24, 2024 12:00 AM Laboratory - Chemistry Order COMPREHENSIVE METABOLIC PANEL GREEN LI/HEP BLD/PLAS PLASMA [facility] Mar 25, 2024 12:00 AM Laboratory - Chemistry Order VITAMIN D, 25-HYDROXY GOLD/RED SST SERUM SP [facility] Lab Results: +/- 30 days of the encounter This section includes the Chemistry and Hematology Lab Results on record with [place] for the patient. Radiology Reports and Pathology Reports are provided separately, in subsequent sections. Lab Results This section contains the Chemistry/Hematology Results that were resulted 30 days before or 30 daysafter the date of the Encounter. Date/Time Source Result Type Result - Unit Interpretation Reference Range Specimen Type Comment Mar 24, 2024 11:52 AM [facility] HGA1C BLOOD Specimen Type: BLOOD No comment entered. Ordering Provider: JENNIFER BELTRÁN Report Released Date/Time: Mar 24, 2024 11:10 AM Reporting Lab: [facility] [address] [place] [address] Performing Lab: [address] [address] HGA1C 5.7 4.0-6.0 Mar 24, 2024 11:52 AM [facility] B12 SERUM Specimen Type: SERUM No comment entered. Ordering Provider: JENNIFER BELTRÁN Report Released Date/Time: Mar 24, 2024 11:10 AM Reporting Lab: [facility] [address] [place] [address] Performing Lab: [facility] [address] [address] B12 >2000 pg/mL H [id number] Radiology Reports: [...] the Encounter. The data comes from all [place] treatment facilities. Date/Time Radiology Report Provider Source Mar 24, 2024 11:[address] LUMBAR SPINE W/ O CONT: XANDER FREEMAN MARISOL [id number] -[id number] M Exm Date: MAR 24, 2024@11:57 Req Phys: JENNIFER BELTRÁN Pat Loc: [facility]NEUROLOGY [facility] (Req'g Img Loc: [facility]-CT IMAGING [facility] Service: [address] [address] (Case [id number] COMPLETE) CT LUMBAR SPINE W/O CONT (CT Detailed) CPT:49302 Reason for Study: lumbar spinal stenosis Clinical History: Responsible Attending: Jennifer Beltrán M.D Attending Contact Number: [phone] Resident Contact Number: Allergies listed in CPRS chart: No Allergy Assessment Creatinine: No CREATININE EO data found/eGFR: STL EGFR (within one year). *No Lab Data Found* Wt: History of: Renal failure, chronic or acute renal disease: NO Report Status: Verified Date Reported: MAR 25, 2024 Date Verified: MAR 25, 2024 Counter Installer E-Sig:/ES/CHRISTOPHER P GRAVISS MD Report: CT scanning through the lumbosacral [...] Primary Interpreting Staff: INNA HURTADO MD, Radiologist (Counter Installer) /CPG INNA HURTADO [facility] Encounter Notes: All associated encounter notes This section contains the clinical notes associated to the Encounter. Date/Time Encounter Note(s) Provider Source Mar 11, 2024 11:37 AM PRIMARY CARE NOTE: LOCAL TITLE: [facility] TRAVELING PCMM NOTE [facility] STANDARD TITLE: PRIMARY CARE NOTE DATE OF NOTE: MAR 11, 2024@11:37 ENTRY DATE: MAR 11, 2024@11:37:57 AUTHOR: ANGE ROSENBERG EXP COSIGNER: URGENCY: STATUS: COMPLETED Traveling/Relocating Care Coordination Patient-Centered Management Module (PCMM) New patient PCMM received and approved for permanent relocation of care to: [facility] Per chart review will establish care with a PCP on: 03/24/24 [facility] Please note the alternate [facility] is responsible for care until care is established at the receiving [facility]. /[place]/ ANGE ROSENBERG REGISTERED NURSE, HOME TELEHEALTH COORDINATOR Signed: 03/11/2024 11:38 ANGE ROSENBERG [facility]
--- OUTSIDE RECORDS SUMMARY | 2024-11-07 08:00 | XMS_ITS | Encounter Summary ---
Author Name [facility] [place] Address [address] [place] [address] Care Team Providers Care Flat Breakdown Processor Name Role Phone BEBETO DURAND Primary Care [...] Curtis's Name Patient's Relationship to Policy Curtis [facility] (WNR) MEDICARE ADVANTAGE [facility](W NR) Feb 02, 2018 [id number] IVAN FREEMAN HN PATIENT MEDICARE PART D (WNR) MEDICARE (M) PART D May 05, 2016 PART D [id number] [phone] [id number] IVAN FREEMAN HN PATIENT MEDICARE PART D (WNR) MEDICARE (M) PART D May 05, 2016 PART D [id number] IVAN FREEMAN HN PATIENT [facility] (WNR) MEDICARE ADVANTAGE [facility] (WNR) May 05, 2016 [id number] IVAN FREEMAN HN PATIENT [facility] (WNR) MEDICARE ADVANTAGE [facility] (WNR) May 05, 2016 [id number] IVAN FREEMAN PATIENT [facility] MCR (WNR) MEDICARE ADVANTAGE MCR (WNR) May 05, 2016 [id number] IVAN FREEMAN PATIENT Selected Encounter This section includes the information on record at [place] for the [place]counter. Date/Time Encounter Type Encounter Description Reason Provider Source Dec 26, 2023 10:00 AM OFFICE O/P EST MOD 30 MIN PRIMARY CARE/MEDICINE ICD-10-CM I10 Essential (primary) hypertension ESTRELLITA THACKER Zaheer Encounter Template Text not used by [place] Assessments - Encounter Diagnoses This section includes the primary and secondary diagnoses documented for the Encounter. Date/Time Primary/Secondary Diagnosis Diagnosis Name Provider Source Dec 26, 2023 10:33 AM PRIMARY Essential (primary) hypertension LUIS THACKER [facility] Dec 26, 2023 10:33 AM SECONDARY Anemia, unspecified LUIS THACKER [facility] Dec 26, 2023 10:33 AM SECONDARY History of falling LUIS THACKER [facility] Dec 26, 2023 10:33 AM SECONDARY Urinary tract infection, site not specified LUIS THACKER [facility] Dec 26, 2023 10:33 AM SECONDARY Vitamin D deficiency, unspecified LUIS THACKER [facility] Dec 26, 2023 10:33 AM SECONDARY Weakness LUIS THACKER [facility] Plan of Treatment: Future Appointments (+ 6 months) and Future Tests (+/- 45 days) The Plan of Treatment section includes future care activities for the patient from all [place] treatmentfacilities. This section includes future appointments and future orders which are active, pending or scheduled. Future Appointments This section includes appointments that were scheduled to occur 6 months from the date of the Encounter, up to a maximum of 20 appointments. The data comes from all [place] treatment facilities. Appointment Date/Time Appointment Type Appointme nt Facility Name Feb 05, 2024 11:00 AM AMBULATORY - NONE EGLIN AI R [facility] Feb 11, 2024 11:30 AM AMBULATORY - MEDICINE [facility] [facility] Mar 24, 2024 11:00 AM AMBULATORY - NEUROLOGY [facility] Mar 24, 2024 01:15 PM AMBULATORY - MEDICINE [facility] Apr 12, 2024 10:00 AM AMBULATORY - MEDICINE [facility] Apr 23, 2024 10:00 AM AMBULATORY - MEDICINE [facility] May 04, 2024 09:30 AM AMBULATORY - SURGERY . [facility] May 18, 2024 10:00 AM AMBULATORY - SURGERY . [facility] Jun 02, 2024 11:00 AM AMBULATORY - NEUROLOGY [facility] Jun 09, 2024 09:30 AM AMBULATORY - SURGERY [facility] Lab Results: +/- 30 days of [...] Type Comment Dec 19, 2023 12:27 PM [facility] ALBUMIN/CREATININE RATIO, URINE URINE Specime n Type: URINE Comment: Normal: 0 - 29 Moderately increased: 30 - 300 Severely increased: >300 [facility]: [address] [place] [id number] Ordering Provider: WU CRISTOBAL Report Released Date/Time: Dec 19, 2023 12:27 PM Reporting Lab: [facility] [address] [facility] [address] Performing Lab: [facility] [address] [facility] [address] CREATININE, URINE ([facility] ONLY) 88.8 mg/dL Not Estab. ALBUMIN, URINE 14.2 ug/mL Not Estab. ALBUMIN/CREATININE RATIO 16 mg/g{creat} 0-29 Dec 19, 2023 08:21 AM [facility] HEMOGLOBIN A1C BLOOD Specimen Type: BLOOD Comment: [...] Aug 06, 2023 02:54 PM Reporting Lab: [facility] [address] [facility] [address] Performing Lab: [facility] [address] [facility] [address] HEMOGLOBIN A1C 5.6 4.5-5.7 Dec 19, 2023 08:21 AM [facility] VITAMIN B12 SERUM Specimen Type: SERUM No comment entered. Ordering Provider: WU CRISTOBAL Report Released Date/Time: Aug 06, 2023 02:54 PM Reporting Lab: [address] [address] Performing Lab: [address] [address] VITAMIN B12 >1500 pg/mL H 211-911 Dec 19, 2023 08:21 AM [facility] PSA (HYBRITECH) SERUM Specimen Type: SERUM No comment entered. Ordering Provider: WU CRISTOBAL Report Released Date/Time: Aug 06, 2023 02:54 PM Reporting Lab: [facility] [address] [facility] [address] Performing Lab: [address] [address] PSA (HYBRITECH) 0.91 ng/mL 0.00-4.00 Dec 19, 2023 08:21 AM [facility] TSH SERUM Specimen Type: SERUM No comment entered. Ordering Provider: WU CRISTOBAL Report Released Date/Time: Aug 06, 2023 02:54 PM Reporting Lab: [place] [address] [facility] [address] Performing Lab: [address] [address] TSH 2.75 u[IU]/mL 0.34-5.6 Dec 19, 2023 08:21 AM [facility] CBC BLOOD Specimen Type: BLOOD Comment: Values obtained from A1C measurements can vary. For typical A1C assays, a reported value of 7.0 could actually be between 6.72 and 7.28 if measured by a reference method. A reported value of 9.0 could actually be between 8.73 and 9.27. Ref: [email or web address] Ordering Provider: WU CRISTOBAL Report Released Date/Time: Aug 06, 2023 02:54 PM Reporting Lab: [address] [address] Performing Lab: [address] [address] WBC 11.3 10*3/uL H 4.8-10.8 RBC 4.92 [...] 10*3/uL 0.0-0.2 Dec 19, 2023 08:21 AM [facility] DRUG SCREEN, ABUSE (URINE) URINE Specimen Typ e: URINE No comment entered. Ordering Provider: WU CRISTOBAL Report Released Date/Time: Aug 06, 2023 02:54 PM Reporting Lab: [address] [address] Performing Lab: [address] [address] BARBITUATES, SCREEN NEG ng/mL Firubm=821 AMPHETAMINES, SCREEN NEG ng/mL Cutoff=10 00 COCAINE, SCREEN NEG ng/mL Otzfje=922 BENZODIAZEPINES, SCREEN NEG ng/mL Cutoff =200 CANNABINOIDS, SCREEN NEG ng/mL Cutoff=50 OPIATES, SCREEN NEG ng/mL Eeeahu=488 PHENCYCLIDINE, SCREEN NEG ng/mL Cutoff=2 5 Dec 19, 2023 08:21 AM [facility] VITAMIN D, 25-HYDROXY SERUM Specimen Type: SE RUM No comment entered. Ordering Provider: WU CRISTOBAL Report Released Date/Time: Aug 06, 2023 02:54 PM Reporting Lab: [place] [address] [facility] [address] Performing Lab: [place] [address] [facility] [address] VITAMIN D, 25-HYDROXY 70.8 ng/mL 32.0-10 0.0 Dec 19, 2023 08:21 AM [facility] URINALYSIS URINE Specimen Type: URINE Comment: MICROSCOPIC TO FOLLOW URINE MICROSCOPIC COMPLETED Ordering Provider: WU CRISTOBAL Report Released Date/Time: Aug 06, 2023 02:54 PM Reporting Lab: [facility] [address] [facility] [address] Performing Lab: [facility] [address] [place] [address] URINE BILIRUBIN Negative Negative URINE KETONES Negative [...] 0-2 URINE WBCS/HPF 10-20 /[HPF] H 0-5 Vital Signs: All taken on the encounter date This section contains inpatient and outpatient Vital Signs collected on the date of the Encounter. Date/Time Temperature Pulse Blood Pressure Respiratory Rate SP02 Pain Height Weight Body Mass Index Source Dec 26, 2023 10:20 AM 143/85 [facility] Dec 26, 2023 10:04 AM 98.7 64 147/82 18 95 3 71 241.4 34 [facility] Social History: Smoking Status (Most current) and Tobacco Use (All prior to encounter date) This section includes the most current, and the historical, smoking and tobacco- related health factors from the [place] facility where the Encounter took place. Current Smoking Status This section includes the most current smoking, or tobacco-related health factor, from the [place] facility where the Encounter took place. Date/Time Current Smoking Status Comment Leon mars Aug 06, 2023 02:30 PM VA-TOBACCO FORMER USER [facility] Tobacco Use History This section includes a history of the smoking, or tobacco-related health factors, that were collected on or before the date of the Encounter. The data comes from the [place] facility where the Encounter took place. Date/Time Smoking Status/Tobacco Use Comment Ezequiel acdaryl Aug 06, 2023 02:30 PM VA-TOBACCO QUIT 15 YRS OR MORE [facility] Aug 02, 2022 03:30 PM VA-TOBACCO FORMER USER [facility] Aug 02, 2022 03:30 PM VA-TOBACCO QUIT 15 YRS OR MORE [facility] May 08, 2021 01:00 PM VA-TOBACCO NEVER USED [facility] Mar 29, 2020 09:00 AM VA-TOBACCO NEVER USED [facility] September 23, 2018 09:22 AM VA-TOBACCO FORMER USER [facility] September 23, 2018 09:22 AM VA-TOBACCO QUIT 15 YRS OR MORE [facility] Feb 20, 2018 10:25 AM VA-TOBACCO NEVER USED [facility] Pathology Reports: +/- 30 days of the [...] the Encounter. The data comes from all [place] treatment facilities. Date/Time Pathology Report Provider Source Dec 19, 2023 08:21 AM LR MICROBIOLOGY RE PORT: Accession [UID]: [id number] [[id number]] Received: Dec 19, 2023@08:21 Collection sample: URINE (CLEAN CATCH) Collection date: Dec 19, 2023 08:21 Site/Specimen: URINE Provider: CRISTOBAL,WU J Test(s) ordered: CULTURE, URINE................ completed: Dec 21, 2023 * BACTERIOLOGY FINAL REPORT => Dec 21, 2023 09:51 TECH CODE: [id number] CULTURE RESULTS: KLEBSIELLA PNEUMONIAE - Quantity: >100,000 [...] Negative Bacteriology Remark(s): FINAL REPORT: 12/21/23 BY JRF. [facility] Encounter Notes: All associated encounter notes This section contains the clinical notes associated to the Encounter. Date/Time Encounter Note(s) Provider Source Dec 26, 2023 10:17 AM PRIMARY CARE NAE LEUNG NOTE: LOCAL TITLE: PC NURSE NOTE- [id number] STANDARD TITLE: PRIMARY CARE NURSING NOTE DATE OF NOTE: DEC 26, 2023@10:17 ENTRY DATE: DEC 26, 2023@10:17:44 AUTHOR: KATHY STOVALL EXP COSIGNER: URGENCY: STATUS: COMPLETED Patient identified by two of the following patient identifiers prior to providing care: Full Name, Date of Subjective: Reason for visit: New Problem 78 y/o M presents to the clinic w/spouse requesting neurology consult per recommendation of transportation project manager seen in September. Pt states he also needs medications for a UTI, and would like to have his Rosuvastatin and Losartan prescribed through the [place]. Objective: Recent Vitals: Blood Pressure: 147/82 (12/26/2023 10:04) Pulse: 64 (12/26/2023 10:04) Respirations: 18 (12/26/2023 10:04) Temperature: 98.7 F [37.1 C] (12/26/2023 10:04) Pain Level: 3 (12/26/2023 10:04) Weight: 241.4 lb [109.50 kg] (12/26/2023 10:04) Height: 71 in [180.3 cm] (12/26/2023 10:04) Pulse Ox: 95% (12/26/2023 10:04) Active Outpatient Medications (including Supplies): Active Outpatient Medications Status 1) BARRIER,OSTOMY,NEW IMAGE H#25496 USE 1 BARRIER ACTIVE EVERY OTHER DAY 2) CEPHALEXIN 500MG CAP TAKE ONE CAPSULE BY MOUTH EVERY ACTIVE 6 HOURS FOR BACTERIAL URINARY TRACT INFECTION 3) GABAPENTIN 100MG CAP TAKE ONE CAPSULE BY MOUTH AT ACTIVE BEDTIME 4) POUCH,UROSTOMY,NEW IMAGE H#59120 USE 1 POUCH ACTIVE TOPICALLY EVERY OTHER DAY 5) URINARY DRAINAGE SYSTEM H#9839 USE ONE EVERY WEEK ACTIVE Active Non-VA Medications Status 1) Non-VA CHOLECALCIF 50MCG (D3-2,000UNIT) TAB 2000UNIT ACTIVE MOUTH DAILY 2) Non-VA CYANOCOBALAMIN 250MCG TAB 500MCG MOUTH DAILY ACTIVE 3) Non-VA LOSARTAN 100MG TAB 50MG MOUTH DAILY ACTIVE 4) Non-VA ROSUVASTATIN CA 40MG TAB 20MG MOUTH DAILY ACTIVE 9 Total Medications Allergies / Adverse Reactions: WARNING MESSAGE: Below Allergy/ADR list may not be complete for patients who receive healthcare at both [facility] and a [facility] site. Please review/confirm utilizing Joint Longitudinal Viewer (JLV). JLV provides a comprehensive, integrated, read-only view of EHR data from all [facility] and [facility] sites. Patient has answered NKA Medication Review: [place] provided with a confidential Outpatient Medication List for review. Is the Outpatient Medication List correct? Yes Is the patient taking Non-VA medications, Fjvn-Ewd-Bgxnkts agents, herbals/nutritionals supplements? Yes: See list in CPRS CLINICAL REMINDERS: Stress Screen How is your stress level today? My life is not perfect but not the worst, I have some stress but I can handle it. Other Every day stressors Evidence-based education does not desire to discuss any further at this time. Additional Interventions: Sexual Orientation The patient thinks of their sexual orientation as: Straight or Heterosexual Exercise Screening NOT DUE Depression Screening Not Due Suicide Screening Not Due Alcohol Use Screening Not Due The patient indicated that they and their close contacts have not traveled outside of the [place] in the past 21 days. The patient reports the following symptoms: No symptoms present The patient is not immunocompromised. The patient does not report having a history of Multi Drug Resistant Organism (MDRO) within the last five years. The patient does not report having been exposed to measles, chickenpox, or zoster in last 30 days. TBI Screen Not Due Avg Risk Colorectal Cancer Screen NOT DUE Homelessness/Food Insecurity Screening NOT DUE Has the patient fallen within the past 12 months? Yes If the patient has or is exhibiting any of the following signs or smptoms notify the provider immediately: Tingling, heaviness, weakness, or pain in extremities,incontinence or decreased/loss of genital or guillermo-anal sensation. Mccloud Fall Scale score is 45 or MORE - Patient and/or caregiver given education on safety and fall precautions and voiced understanding. Patient will be monitored at future appointments. Primary Care Provider notified via this clinical reminder that patient is a fall risk. Advance Directive Screening Not Due PAVE Foot Exam Not Due Tobacco Use Screening Not Due Monitor Blood Pressure:* 143/85 Patient is hypertensive. Consult to Circus Train Supervisor for Nutritional Counseling declined at this time. Are you having pain now? Pain scale this visit: 3 (12/26/2023 10:04) Yes Pain Scale 1-3 Pain Details Location: Feet Duration: Constant Onset: Chronic Alleviating Factors: N/A Aggravating Factors: N/A Tolerable level of pain 6/10 Plan Discuss pain with primary care provider at today's appointment. Pressure Ulcer Risk Screen Not Due ABUSE, NEGLECT, OR EXPLOITATION Not Due Dysphagia Screen Not Due MST Screening NOT DUE Screen for PTSD Not Due SCI Functional Assessment and ADL/iADL Screening Not Due NALOXONE OFFER PRESCRIPTION NOT DUE At Risk Eye Exam NOT DUE Immunizations: COVID-19 Immunization (SARS-CoV-2 Vaccine): Refused Moderna Monovalent COVID-19 vaccine Immunization: COVID-19 (MODERNA), MRNA, LNP-S, PF, 50 MCG/0.5 ML (AGES 12+ YEARS) Refusal Reason: OTHER Patient refuses all immunization(s) in the COVID-19 group Comment: N/A in clinic at time of screening Date Documented: 12/26/23 10:21 Refused Pfizer Monovalent COVID-19 vaccine Immunization: COVID-19 (PFIZER), MRNA, LNP-S, PF, MAN-SUCROSE, 30 MCG/0.3 ML (AGES 12+ YEARS) Refusal Reason: OTHER Patient refuses all immunization(s) in the COVID-19 group Comment: N/A in clinic Date Documented: 12/26/23 10:21 Refused Novavax COVID-19 vaccine Immunization: COVID-19 (NOVAVAX), SUBUNIT, RS-NANOPARTICLE, ADJUVANTED, PF, 5 MCG/0.5 ML (AGES 12+ YEARS) Refusal Reason: OTHER Patient refuses all immunization(s) in the COVID-19 group Comment: N/A in clinic Date Documented: 12/26/23 10:22 Influenza Vaccine NOT DUE Pneumococcal Conjugate Vaccine NOT DUE Pneumococcal PPSV23 (Pnemovax) NOT DUE Herpes Zoster (Shingles) Vaccine NOT DUE Td Immunization Not Due Tdap Immunization Not Due TOXIC EXPOSURE SCREEN NOT DUE Does patient require Patient Education Teaching Assessment? No Patient Education provided? Yes Discipline providing the education: YEMI LEARNER: Patient, Spouse READINESS TO LEARN: Patient is receptive to learning. TOPIC/TEACHING NEEDS: Health Promotion/Prevention TEACHING METHOD: Explanation LEARNER'S RESPONSE TO EDUCATION: Verbalizes/Discusses essential concepts Assessment: To be determined by provider Plan: Appointment with provider as scheduled /apolonia/ KATHY STOVALL LPN Signed: 12/26/2023 10:22 KATHY STOVALL [facility] Dec 26, 2023 10:05 AM PRIMARY CARE NOTE: LOCAL TITLE: PROVIDER CLINIC NOTE STANDARD TITLE: PRIMARY CARE NOTE DATE OF NOTE: DEC 26, 2023@10:05 ENTRY DATE: DEC 26, 2023@10:05:28 AUTHOR: RADHA THACKER EXP COSIGNER: URGENCY: STATUS: COMPLETED PRIMARY CARE TEMPLATE Type of Visit: FACE TO FACE Patient is a 78 year old male. Chief Complaint:Presents today for Primary Care Follow-up Visit, hypertension and lab follow-up discussion. History of present illness symptoms:[place] c/o numbness and weakness in bilateral legs and feet ongoing for 4 years but worsening over the last 2 years. He reports frequently losing the ability to hold himself up due to his legs weakening and giving out. He states that on Friday, his legs gave out and he had to ease himself down the best he could. He reports that he walks with a cane most of the time, but feels he may now need a walker. He is requesting a neurology consult. We discussed bp elevations over time and states that he was not always taking his bp med, but states that he will consistently take it and keep a log of his bp and bring to his next pcp appointment. Review of symptoms/systems: No reports of blurred vision or floaters No reports of mental status change c/o Numbness and weakness in papo lower exts no abdominal pain slight discomfort in left flank region when standing No calf tenderness no bruising denies urinary symptoms, no dysuria, no daniela bleeding reported, has a urostomy bag PAST MEDICAL HISTORY: Frequent falls HTN Anemia Hypercholesterol Hypothyroidism TURP surgery urostomy bag vit d deficiency Active Problem List: ALEXA - Active Problems 12 Active Problems PROBLEM LAST MOD PROVIDER Hypothyroidism ([facility] [id number]) (ICD-10-CM E03.9) 08/06/2023 WU CRISTOBAL Foot pain ([facility] [id number]) (ICD-10-CM M79.673) 08/06/2023 WU CRISTOBAL Exposure to potentially hazardous substance ([facility] 06/24/2023 YUECONRAD V [id number]) (ICD-10-CM Z77.29) SYLVIA Hernia of anterior abdominal wall ([facility] 09/26/2020 DHARA SEARS [id number]) (ICD-10-CM K43.9) Anemia ([facility] [id number]) (ICD-10-CM D64.9) 09/26/2020 DHARA SEARS Cobalamin deficiency ([facility] [id number]) (ICD-10-CM 03/29/2020 DHARA SEARS L D51.8) Hyperlipidemia ([facility] [id number]) (ICD-10-CM E78.5) 09/23/2018 DHARA SEARS Chronic interstitial cystitis ([facility] [id number]) 06/19/2018 QUIANA WALLACE (ICD-10-CM N30.11) Retention of urine ([facility] [id number]) (ICD-10-CM 03/27/2018 DHARA SEARS N39.9) Hypertensive disorder ([facility] [id number]) (ICD-10-CM 03/27/2018 DHARA SEARS I10.) Impaired fasting glycaemia ([facility] [id number]) 03/27/2018 DHARA SEARS (ICD-10-CM R73.01) Immunization advised ([facility] [id number]) (ICD-10-CM 03/27/2018 DHARA SEARS Z23.) Current medications: Active Outpatient Medications (including Supplies): BARRIER,OSTOMY,NEW IMAGE H#71394 USE 1 BARRIER EVERY ACTIVE OTHER DAY CEPHALEXIN 500MG CAP TAKE ONE CAPSULE BY MOUTH EVERY 6 ACTIVE HOURS FOR BACTERIAL URINARY TRACT INFECTION GABAPENTIN 100MG CAP TAKE ONE CAPSULE BY MOUTH AT BEDTIME ACTIVE POUCH,UROSTOMY,NEW IMAGE H#17795 USE 1 POUCH TOPICALLY ACTIVE EVERY OTHER DAY URINARY DRAINAGE SYSTEM H#9839 USE ONE EVERY WEEK ACTIVE Non-VA CHOLECALCIF 50MCG (D3-2,000UNIT) TAB 2000UNIT MOUTH ACTIVE DAILY Non-VA CYANOCOBALAMIN 250MCG TAB 500MCG MOUTH DAILY ACTIVE Non-VA LOSARTAN 100MG TAB 50MG MOUTH DAILY ACTIVE Non-VA ROSUVASTATIN CA 40MG TAB 20MG MOUTH DAILY ACTIVE Medication allergies: Patient has answered NKA Social history:Hx of tobacco use years ago Family history:unknown Objective findings: Lab results: 12/19/23 WBC 11.3 H K/cmm 4.8-10.8 12/19/23 MPV 9.3 fL 7.4-10.4 12/19/23 MONOCYTE (AUTO) 9.7 % 4-12 12/19/23 EOSINOPHIL (AUTO) 2.6 % 0-11.0 12/19/23 BASOPHIL (AUTO) 0.5 % 0.0-2.0 12/19/23 NEUTROPHIL (AUTO) 71.1 % 42.2-75.2 12/19/23 LYMPH ABSOLUTE 1.8 K/cmm 1.2-3.4 12/19/23 MONO ABSOLUTE 1.1 H K/cmm 0.1-0.7 12/19/23 NEUTRO ABSOLUTE 8.1 H K/cmm 1.4-6.5 12/19/23 EOSIN ABSOLUTE 0.3 K/cmm 0.0-0.7 12/19/23 BASO ABSOLUTE 0.1 K/cmm 0.0-0.2 12/19/23 HEMOGLOBIN A1C 5.6 % 4.5-5.7 12/19/23 RBC 4.92 M/cmm 4.7-6.1 12/19/23 HGB 14.8 g/dL 14-18 12/19/23 HCT 45.1 % 42-52 12/19/23 RDW 12.9 % 11.5-14.5 12/19/23 MCV 91.6 fL 80-94 12/19/23 LYMPH (AUTO) 16.1 L % 20.5-51.1 12/19/23 MCH 30.0 pg 27-31 12/19/23 MCHC 32.7 g/dL 32-36 12/19/23 PLT 275 K/cmm 130-400 12/19/23 VITAMIN B12 >1500 H pg/mL 211-911 12/19/23 PSA (HYBRITECH) 0.91 ng/mL 0.00-4.00 12/19/23 TSH 2.75 uIU/mL 0.34-5.6 12/19/23 VITAMIN D, 25-HYDROXY 70.8 ng/mL 32.0-100.0 12/19/23 BARBITUATES, SCREEN NEG ng/mL Fsppsg=412- 12/19/23 AMPHETAMINES, SCREEN NEG ng/mL Bgmwwe=3244- 12/19/23 COCAINE, SCREEN NEG ng/mL Uyosts=293- 12/19/23 BENZODIAZEPINES, SCREEN NEG ng/mL Ykjomg=087- 12/19/23 CANNABINOIDS, SCREEN NEG ng/mL Cutoff=50- 12/19/23 OPIATES, SCREEN NEG ng/mL Kdyjvf=551- 12/19/23 PHENCYCLIDINE, SCREEN NEG ng/mL Cutoff=25- 12/19/23 URINE BLOOD Negative Negative- 12/19/23 URINE NITRITE 2+ H Negative- 12/19/23 URINE BILIRUBIN Negative Negative- 12/19/23 URINE KETONES Negative Negative- 12/19/23 URINE GLUCOSE NORMAL Negative- 12/19/23 URINE PROTEIN Negative Negative- 12/19/23 URINE EPITH CELLS Observed - 12/19/23 URINE BACTERIA 2+ H /HPF Negative- 12/19/23 URINE S.G. 1.012 1.003-1.030 12/19/23 URINE pH 6.5 5.0-9.0 12/19/23 URINE LEUKOCYTE ESTERASE 2+ H Negative- 12/19/23 URINE CLARITY Clear <Slightly-Cloudy- 12/19/23 URINE COLOR LIGHT YELL <Venessa- 12/19/23 MANUAL MICRO? (YES ONLY) YES - 12/19/23 SQUAMOUS EPITHELIAL CELL Few H /HPF <Few- 12/19/23 URINE RBCS/HPF 0-2 H /HPF 0-2 12/19/23 URINE WBCS/HPF 10-20 H /HPF 0-5 12/19/23 CREATININE, URINE (CBOC 88.8 mg/dL Not Estab.- 12/19/23 ALBUMIN, URINE 14.2 ug/mL Not Estab.- 12/19/23 ALBUMIN/CREATININE RATI 16 mg/g cre 0-29 MICROBIOLOGY: Test: CULTURE, URINE Completed: DEC 21, 2023@09:51 ORGANISMS: KLEBSIELLA PNEUMONIAE Qty: >100,000 COL/ML Vital signs and BMI: Date Vital Measurement Qualifiers 12/26/2023 10:04 Temp F (C) 98.7 (37.1) Pulse 64 Respir 18 BP 147/82 Ht in (cm) 71 (180.34) Wt lbs (kg)[BMI] 241.4 (109.50)[34*] Pain 3 POx (L/Min)(%) 95 BODY MASS INDEX - DEC 26, 2023@10:04:54 33.7 Physical examination: GENERAL: 78 y/o neatly groomed male in NAD. HEENT: SANDEEP, EOMI, sclera white NECK: Supple no lymphadenopathy, no thyroidmegaly No bruits. NO JVD Heart: RRR, S1 + S2, no murmur. RESP: CTA Papo, A&P. No rhonchi or wheezes. EXT: Self-ambulatory with a cane, gait-wobbly, no tremors observed, -qasim INTEGUMENTARY/ SKIN: WNL. No bruising or petichiae noted OVERHEAD DISTRIBUTION ENGINEER: AAOx3, no motor deficit. Preventive: VACCIM - Immunizations ADMINISTERED Immunization Series Date Facility Reaction Info COVID-19 (MODERNA), MRNA, LNP-S,* 2 06/09/2020 [facility] COVID-19 (MODERNA), MRNA, LNP-S,* 1 05/19/2020 [facility]* COVID-19 (PFIZER), MRNA, LNP-S, * 5 02/08/2021 [facility] COVID-19 (PFIZER), MRNA, LNP-S, * 4 06/20/2020 [facility] COVID-19 (PFIZER), MRNA, LNP-S, * 3 06/09/2020 [facility] COVID-19 (PFIZER), MRNA, LNP-S, * 2 05/21/2020 [facility] COVID-19 (PFIZER), MRNA, LNP-S, * 1 05/19/2020 [facility] HEPATITIS A/B (HISTORICAL) [facility]/27[facility] INFLUENZA, ADJUVANTED, QUADRIVAL* 1 02/21/2023 [facility] INFLUENZA, ADJUVANTED, QUADRIVAL* 1 02/21/2022 [facility] INFLUENZA, ADJUVANTED, QUADRIVAL* 1 03/01/2021 [facility] INFLUENZA, ADJUVANTED, TRIVALENT* 03/16/[facility] INFLUENZA, ADJUVANTED, TRIVALENT* 03/27/[facility] INFLUENZA, HIGH-DOSE, QUADRIVALE* 1 02/16/2020 [facility] INFLUENZA, HIGH-DOSE, TRIVALENT,* 1 01/24/2015 [facility] INFLUENZA, HIGH-DOSE, TRIVALENT,* 1 01/27/2014 [facility] INFLUENZA, SPLIT VIRUS, TRIVALEN* 03/06/2020 [facility] INFLUENZA, SPLIT VIRUS, TRIVALEN* 02/04/2014 [facility] INFLUENZA, UNSPECIFIED FORMULATI* 02/21/2022 [facility]* INFLUENZA, UNSPECIFIED FORMULATI* [facility]* PNEUMOCOCCAL CONJUGATE PCV 13 03/27/2018 [facility] PNEUMOCOCCAL CONJUGATE PCV 7 03/27/2019 [facility] PNEUMOCOCCAL POLYSACCHARIDE PPV23 03/29/2019 [facility]* PNEUMOCOCCAL POLYSACCHARIDE PPV23 1 03/05/2018 [facility] TDAP 09/26/2020 [facility]* ZOSTER RECOMBINANT 2 03/29/2019 [facility]* ZOSTER RECOMBINANT 1 09/23/2018 [facility]* SHF - Health Factor Select Immunization 05/08/2021 Influenza Imm Refused 02/08/2021 Sars-Cov-2 Vaccine Deferred 03/29/2019 Refused Pneumoc Vaccine Ppsv23 Immunization Factors 03/16/2019 Influenza GIven Influenza Rt Deltoid 03/27/2018 Hep A/B GIven And Discussed Hep A/B Initial Injection Hep A/B Lt Deltoid Influenza GIven Influenza Rt Deltoid Zoster Immunization 03/29/2019 Declines Herpes Zoster Immunization vaccines discussed:This provider recommended the high dose flu vaccine for those over age 65. was assessed for current vaccine status and he accepts the opportunity for flu vaccination from the vaccine clinic here at [facility] when it is available. ASSESSMENT/PLAN 1.Anemia: Recent hemoglobin 14.8, hematocrit 45.1. 2.Hyperlipidemia: LDL 92 on July 25, 2023. Diet and exercise discussed with . Currently taking Rosuvastatin, [place] 3.Hypertension: Currently taking losartan. BP today is 143/85. Diet and exercise discussed with . 4.Hypothyroidism: His newest TSH is 2.75. He takes Levothyroid medicine from non [place] provider. He does not know how much. 5.weakness in legs/ hx multiple falls- consulted neurology/ consult KT for walker necessity evaluation 6.Neuropathy: chronic pain and numbness in both feet. Was seen by podiatry. 7. Vit D deficiency-cont. vit d3 supplement 8. UTI found on lab but patient states he is asymptomatic, wbc elevated and positive nitrite on urinalysis, vet states that he has the antibiotic at [place] that was [place] from [place] to treat [place] uti, however, he states that he wants me to contact his urologist first because he was told not to take an antibiotic for uti. The provider ordered keflex for to treat his uti, will try to contact charlie's urologist at his request. discussed need to report any unresolved symptoms to his pact team. Laboratory- none ordered X-rays n/a Medications, prescribed or changed today:[facility]: Losartan 50 mg orally daily for bp. Rosuvastatin 20 mg po daily for cholesterol. vitamin d3 supplement 50 mcg daily Patient education:Counseled on diet-decrease fried foods Other:RTC to your Pact Team for scheduled appt Time spent 30 min /apolonia/ RADHA THACKER NURSE PRACTITIONER Signed: 12/26/2023 12:32 RADHA THACKER [facility]
--- OUTSIDE RECORDS SUMMARY | 2024-11-07 08:00 | XMS_ITS | Data Portability ---
Author Organization [email or web address] and, [facility]) Address [address] [place] [address] Assessment Encounter Date Assessment Date Assessment LastModified by Organization Details LastModified Time 07/02/2024 07/02/2024 79-year-old male with history of peripheral vascular disease status post right lower extremity revascularization on 06/23/2024 presenting with acute concerns including pain edema to the right foot/ ankle. Limited right lower extremity venous ultrasound was negative for DVT given lower extremity edema postprocedure. Limited right lower extremity arterial ultrasound was normal. Pre-procedure Biphasic waveforms were seen which are now triphasic. Normal velocities were seen throughout the right lower extremity. I suspect what he is likely experiencing is reperfusion syndrome post-procedure. I explained to the patient and his during his visit today he had underlying venous insufficiency as displayed on venous reflux ultrasound which is likely exacerbated by improving his arterial flow post-procedure. I have recommended him to wear compression stockings to the right lower extremity and elevate the leg. I suspect his pain and edema will improve over time. We will follow up with him in 1 week or sooner if needed. Not available 07/02/2024 11:04:10 07/30/2024 07/30/2024 79 year old male with symptomatic PVD, s/p bilateral lower extremity interventions. 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 He continues to have lower extremity edema. He is not wearing compression therapy. I suspect left foot pain will improve as pain is similar the patient experienced post procedure to the right lower extremity. We discussed treatment options including venous closure as reflux ultrasound was largely abnormal concerning for venous insufficiency, in addition to compression, elevation and venous closure. He would like to be complaint with compression therapy daily prior to venous closure. We will follow up with him in one month or sooner if needed. Not available 07/30/2024 21:01:29 09/17/2024 09/17/2024 79 year old male with symptomatic PVD, s/p bilateral lower extremity interventions presenting with concerns for lower extremity edema. He sits for long periods of time without elevating the lower extremities. He has been wearing compression therapy. Edema is worse to the right foot. I again recommended to him and his during his visit venous closure as venous reflux ultrasound was significantly abnormal with reflux to the bilateral saphenofemoral junctions, GSV's and SSV's. He would like to think about his decision moving forward with venous procedures at this time. Of note, he has an ulcer to the tip of the right 2nd toe nail bed. Lower extremity arterial ultrasound was normal on 06/2024. We will follow up with him in one month or sooner if needed. I also encouraged him to wear compression stockings daily in addition to elevation as he sits all day with his legs in a dependent position. Not available 09/19/2024 01:26:45 Plan of Treatment Reminders Order Date Submit Date Provider Last Modified By Organization Details Last Modified Time Details Appointments None recorded. Lab None recorded. Referral None recorded. Procedures None recorded. Surgeries None recorded. Imaging None recorded. Medication Orders Adult Low Dose Aspirin 81 mg tablet,de layed release 025 [employer] [facility] #[id number], [address] [place] [address], [id number], 5 14:58:10 Plavix 75 mg tablet 025 025 [facility] #[id number], [address] [place] [address], [id number], 14:58:11 Patient TargetsNo targets recorded. Patient InstructionsNo instructions recorded. Reason for Referral None Reported. Results Created Date Observation Date Name Description Value Unit Range Abnormal Flag Note LastModifiedBy Organization Detail LastModifiedTime 06/14/19 25 06/11/2024 US, doppl er, arter ial No observ ation record ed. [email or web address] Not Available 2024 08:51:02 06/14/19 25 06/11/2024 US, yoanle x, venou s, lower extre mity, limit ed No observ ation record ed. [email or web address] Not Available 2024 08:51:22 07/06/19 25 07/02/2024 US, doppl er, arter ial No observ ation record ed. [email or web address] Not Available 2024 09:06:49 07/06/19 25 07/02/2024 US, duple x, venou s, lower extre mity, limit ed No observ ation record ed. [email or web address] Not Available 2024 09:07:05 Result Notes None recorded. Problems Name Problem SNOMED Code Status Onset Date Resolution Date Notes Provider Name and Address Organization Details Recorded Time Peripheral vascular disease 685029665 Active 2024 Gwendolyn gregory, [place] - [facility] 20:13:54 History of male genital disorder 058295028 Active 2024 Gwendolyn [place]regory[place] [facility] and 20:18:31 Chronic interstitia l cystitis 446609783 Active 2024 Gwendolyn gregory[place] [facility] 20:18:47 Chronic kidney disease stage 2 353285741 Active 2024 Gwendolyn gregory[place] [facility] 20:19:21 Essential hypertensio n 38122956 Active 2024 Gwendolyn gregory[place] [facility] 20:19:31 Urolithiasi s 23201010 Active 2024 Gwendolyn gregory[place] [facility] 20:19:45 Hypothyroid ism 53196853 Active 2024 Gwendolyn gregoyr[place] [facility] 5 20:19:54 History of polyp of colon 084640537 Active 2024 Gwendolyn [place]reg[place] [facility] 20:20:07 Metabolic syndrome X 958123433 Active 2024 Gwendolyn Camacho [place] [facility] 20:20:17 Hyperlipide jackie 18081955 Active 2024 Gwendolyn Camacho [place] [facility] 5 20:20:27 Bilateral lower limb pain at rest due to atheroscler osis 5586808596938 9103 Active 2024 Gwendolyn gregory[place] [facility] 21:29:19 Edema of lower extremity 306239388 Active 2024 Gwendolyn gregory[place] [facility] 21:29:23 Pain at rest of right lower limb due to atheroscler osis 0281438279649 9107 Active 2024 Gwendolyn gregory[place] [facility] 15:07:17 Problem Notes None recorded. Procedures Surgical History Date Name Laterality Status Provider Name and Address Organization Details Recorded Time 025 OA [place] [address], [address], [place] [facility] 08/11/2024 14:25:22 025 OA limited LE ultrasound venous completed Gwendolyn Doug [place] [facility] 07/02/2024 15:06:55 025 OA limited LE ultrasound arterial completed Gwendolyn Wongy [place] [facility] and 07/02/2024 15:06:57 025 [place] [address] [email or web address] [address], [address], [place] - [facility] and 06/23/2024 13:42:09 025 OALEArterialUS1 completed Gwendolyn BALLARD [facility] and 06/11/2024 21:29:05 025 OALEVenousUSreflux completed Gwendolyn [facility] Jesus [facility] 06/11/2024 21:29:06 000 Other completed Gwendolyn BALLARD [facility] 06/11/2024 20:17:49 hernia repair completed Gwendolyn BALLARD - [facility] 06/11/2024 20:20:49 Imaging Results None recorded. Procedure Notes None recorded. Medical Equipment None Reported. Allergies No known drug allergies Medications Name Sig Start Date Stop Date Status Note LastModified by Organization Details LastModified Time losartan 50 mg tablet 50 mg every day by oral route. active Not Available Not Available No t Available ondansetron HCl 8 mg tablet Take 1 tablet twice a day by oral route. active Not Available Not Available No t Available Plavix 75 mg tablet Take 1 tablet every day by oral route for 90 days. 2024 active Not Available Not Available Not Avai lable levothyroxin e 25 mcg tablet 25 micrograms every day by oral route. active Not Available Not Available No t Available oxycodone-ac etaminophen 5 mg-325 mg tablet Take 1 tablet every 6 hours by oral route. active Not Available Not Available Not Available tamsulosin 0.4 mg capsule Take 1 capsule every day by oral route. active Not Available Not Available No t Available cephalexin 500 mg capsule Take 1 capsule every 6 hours by oral route. active Not Available Not Available Not Available simvastatin 20 mg tablet Take 1 tablet every day by oral route. active Not Available Not Available No t Available finasteride 5 mg tablet Take 1 tablet every day by oral route. active Not Available Not Available No t Available cholecalcife rol (vitamin D3) 25 mcg (1,000 unit) capsule Take by oral route. active Not Available Not Available Not Available Adult Low Dose Aspirin 81 mg tablet,delay ed release Take 1 tablet every day by oral route for 90 days. 2024 active Not Available Not Available Not Avai lable rosuvastatin 20 mg tablet Take 1 tablet every day by oral route. active Not Available Not Available No t Available multivitamin active Not Available Not Available Not Available Azo Cranberry 250 mg chewable tablet Take by oral route. active Not Available Not Available Not Available Plenvu 140 gram-9 gram-5.2 gram powder packs Take by oral route. active Not Available Not Available Not Available d-mannose 500 mg capsule Take by oral route. active Not Available Not Available Not Available Vitals Date Recorded Body height Body mass index (BMI) Body weight Systolic And Diastolic Provider Name and Address Organization Details Last Updated DateTime 07/02/2024 177.8 cm 35.3 kg/m2 033059.72 g 133/73 mm[Hg] kota wing [facility] 07/02/2024 08:59:07 Date Recorded Body height Body mass index (BMI) Body weight Heart rate Oxygen saturation Oxygen saturation in Arterial blood by Pulse oximetry Body temperature Respiratory rate Systolic And Diastolic Provider Name and Address Organization Details Last Updated DateTime 177.8 cm 35.3 kg/m2 916165. 72 g 79 /min 96 % 96 % 98.6 [degF] 15 /min 145/86 mm[Hg] Kamilla Proctor [facility] 10:24:22 Date Recorded Body height Body mass index (BMI) Body weight Provider Name and Address Organization Details Last Updated DateTime 07/30/2024 177.8 cm 35.3 kg/m2 100346.72 g [employer] [facility] 07/30/2024 12:38:20 Date Recorded Body height Body mass index (BMI) Body weight Provider Name and Address Organization Details Last Updated DateTime 09/17/2024 177.8 cm 35.3 kg/m2 214812.72 g [employer] [facility] 09/17/2024 11:49:43 Social History Question Answer Notes LastModified by Organizat ion Details LastModified Time Tobacco Smoking Status Former Smoker Gwendolyn gregory [facility] 06/11/2024 20:17:46 Which Illicit Or Recreational Drugs Have You Used? None [email or web address] Information not available 06/11/2024 What Is The Highest Grade Or Level Of School You Have Completed Or The Highest Degree You Have Received? HS52762-9 [email or web address] Information not available 06/11/2024 What Was The Date Of Your Most Recent Tobacco Screening? 06/11/2024 [email or web address] Information not available 06/11/2024 How Much Tobacco Do You Smoke? 1 PPD [email or web address] Information not available 06/11/2024 How Many Years Have You Smoked Tobacco? 20 [email or web address] Information not available 06/11/2024 Sex: Male Functional Status Question Answer Note LastModified by Organizat ion Details LastModified Time What is your level of alcohol consumption? 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 Family History Relationship Description Onset Age of this Age Resolved Age Notes LastModified by Organization Details LastModified Time Mother Myocardial infarction 85 [email or web address] Not available 11/2024 20:17:31 Brother Malignant neoplastic disease 45 50 [email or web address] Not available 11/2024 20:17:31 Brother Malignant neoplastic disease 55 [email or web address] Not available 11/2024 20:17:31 Medical History Condition Response Coronary Artery Disease N COPD N Anxiety Disorder N Stroke N Neurologic Disorder N Kidney Disease N Asthma N Pulmonary Embolism N Clotting Disorder N Pacemaker N Anemia N Diabetes N Hyperlipidemia Y Heart Disease N Hypertension Y Gastrointestinal Disease N Cancer N Ulcers N Bleeding Disorder N Hepatitis N Genitourinary Disease Y Deep Vein Thrombosis N Varicose Veins Y Anticoagulation therapy N Past Encounters Encounter ID Performer Location Encounter Start Date Encounter Closed Date Diagnosis/Indication Diagnosis SNOMED-CT Code Diagnosis ICD10 Code Diagnosis Note [id number] Lexy Villanueva MD [address] [address] 06/11/2024 12:32:08 06/14/2024 10:25:34 Pre-surgery testing 828583666 Z01.89 Raynaud's disease 822385 006 I73.00 Bilateral lower limb pain at rest due to atherosclerosis 6892166922 3540805 I70.223 Edema of l ower extremity 175892045 R60.0 [id number] MD LASHONDA Zamora [facility] [address] [facility] [place] [address] 06/11/2024 21:28:28 06/15/2024 09:24:05 Bilateral lower limb pain at rest due to atherosclerosis 4418474494 5548201 I70.223 Edema of l ower extremity 013591738 R60.0 [id number] Lexy Villanueva MD [facility] ( [facility] ) [address] [place] [address] 06/23/2024 10:53:08 06/23/2024 20:10:02 Atherosclerosis 60420198 I70.221 [id number] Lexy Villanueva MD [place] [address] [address] 07/02/2024 08:42:01 07/02/2024 12:00:45 Pain at rest of right lower limb due to atherosclerosis 1007125752 5013238 I70.221 Edema of l ower extremity 368684955 R60.0 [id number] Lexy Villanueva MD [place] [address] [address] [place] [phone] 07/02/2024 10:17:18 07/05/2024 10:15:53 Pain at rest of right lower limb due to atherosclerosis 1033065921 8652614 I70.221 [id number] Lexy Villanueva MD [facility] ( [facility] ) [address] [place] [address] 07/21/2024 10:22:54 07/22/2024 20:32:43 Atherosclerosis 67942146 I70.222 [id number] MD MENDEZ Zamora [facility] [address] [place] [address] 07/30/2024 12:34:27 07/30/2024 21:06:14 Bilateral lower limb pain at rest due to atherosclerosis 9630297382 0402158 I70.223 Edema of l ower extremity 570469127 R60.0 [id number] Lexy Villanueva MD [facility] [address] [place] [address],[place] [address] ( [place] [address] 09/17/2024 11:21:10 09/19/2024 18:11:46 Edema of lower extremity 010084394 R60.0 Varicose v eins of lower extremity 97860201 I83.893 Ischemic u lcer of toe of right foot due to atherosclerotic disease 2600971004 9478922 I70.235 L97.519 Health Concerns Section Related Observation LastModified by Organization Detai ls LastModified Time None Recorded Concern Status LastModified by Organization Details LastModified Time None Recorded Advance Directives Directive None Recorded Payers Insurance Date Sequence Insurance Name Policy Number Policy Curtis Covered Member ID Curtis Member ID Guarantor Name 09/14/2024 1 [facility] (MEDICARE REPLACEMENT/A DVANTAGE - PPO) [id number] Azar Juan [id number] Azar Juan Notes Date Note Type Note Provider Name and Address Organization Details Recorded Time 07/02/2024 text/html Patient presents today complaining of right foot pain and swelling. He stated that this has been going on for about a week. He has swelling in his foot and ankle. It is painful for him to put any pressure on and walking around. He says that the [place] [address], [address], [facility] 07/02/2024 11:04:22 07/21/2024 text/html Patient with a history of leftrest pain, presenting for angiogram [place] [address], [address], [facility] and 08/11/2024 14:25:31 07/30/2024 text/html 79 yo with symptomatic PVD, presenting for follow up after lower extremity intervention. He complains of lower extremity edema. He is not currently wearing compression therapy. He often dangles the right foot of the side of the bed due to getting hot not due to pain. He does not elevate the lower extremities. He complains of left foot pain to the dorsal and lateral aspect of the foot. His admits he is more active. [facility] [place] [address] [facility], [address], [address], [facility] and 07/30/2024 21:01:38 09/17/2024 text/html He complains of heaviness and edema worse to the right foot. He sits for long durations without elevating the lower extremities. He recently got a motorized wheelwalker. He has recently developed a very small ulcer to the right 2nd toe. He previously declined vein closure treatment. He has been complaint with compression therapy with no improvement to his edema. [place] [address] [facility], [address], [address], [facility] and 09/19/2024 01:27:37
--- OUTSIDE RECORDS SUMMARY | 2024-11-07 08:00 | XMS_ITS | Encounter Summary ---
Author Name [facility] [place] [facility] [place] [facility] [place] Address [address] [place] [address] Care Team Providers Care Med Surg Rn Name Role Phone BEBETO DURAND Primary Care [...] Curtis's Name Patient's Relationship to Policy Curtis [facility] (WNR) MEDICARE ADVANTAGE [facility](W NR) Feb 02, 2018 [id number] IVAN FREEMAN HN PATIENT MEDICARE PART D (WNR) MEDICARE (M) PART D May 05, 2016 PART D [id number] 68 IVAN FREEMAN HN PATIENT MEDICARE PART D (WNR) MEDICARE (M) PART D May 05, 2016 PART D [id number] [id number] IVAN FREEMAN HN PATIENT [facility] (WNR) MEDICARE ADVANTAGE [facility] (WNR) May 05, 2016 [id number] 56 IVAN FREEMAN HN PATIENT [facility] (WNR) MEDICARE ADVANTAGE [facility] (WNR) May 05, 2016 [id number] 56 IVAN FREEMAN HN PATIENT [facility] (WNR) MEDICARE ADVANTAGE [facility] (WNR) May 05, 2016 [id number] 56 IVAN FREEMAN HN PATIENT Selected Encounter This section includes the information on record at NH for the Encounter. Date/Time Encounter Type Encounter Description Reason Pro vider Source Feb 12, 2024 11:32 AM Outpatient Encounter ADMIN PAT ACTIVTIES (MASNONCT) IHE Encounter Template Text not used by [facility] Plan of Treatment: Future Appointments (+ 6 months) and Future Tests (+/- 45 days) The Plan of Treatment section includes future care activities for the patient from all [place] treatmentfacilities. This section includes future appointments and future orders which are active, pending or scheduled. Future Appointments This section includes appointments that were scheduled to occur 6 months from the date of the Encounter, up to a maximum of 20 appointments. The data comes from all [place] treatment facilities. Appointment Date/Time Appointment Type Appointme nt Facility Name Mar 24, 2024 11:00 AM AMBULATORY - NEUROLOGY [facility] Mar 24, 2024 01:15 PM AMBULATORY - MEDICINE [facility] Apr 12, 2024 10:00 AM AMBULATORY - MEDICINE [facility] Apr 23, 2024 10:00 AM AMBULATORY - MEDICINE [facility] May 04, 2024 09:30 AM AMBULATORY - SURGERY [facility] May 18, 2024 10:00 AM AMBULATORY - SURGERY [facility] Jun 02, 2024 11:00 AM AMBULATORY - NEUROLOGY [facility] Jun 09, 2024 09:30 AM AMBULATORY [facility]ERY [facility] Jul 13, 2024 11:30 AM AMBULATORY - NONE . [facility] Jul 14, 2024 02:15 PM AMBULATORY - MEDICINE [facility] Active, Pending, and Scheduled Orders This section includes a listing of several types of active, pending, and scheduled orders, including clinic medications orders, diagnostic test orders, procedure orders and consult orders; where the start date of the order is 45 days before the date of the Encounter or 45 days after the date of theEncounter. The data comes from all [facility]. Test Date/Time Test Type Test Details Facility Name Mar 24, 2024 12:00 AM Laboratory - Chemistry Order PHOSPHOROUS GREEN LI/HEP BLD/PLAS PLASMA SP [facility] Mar 24, 2024 12:00 AM Laboratory - Chemistry Order MAGNESIUM GREEN LI/HEP BLD/PLAS PLASMA [facility] Mar 24, 2024 12:00 AM Laboratory - Chemistry Order LIPID PANEL (STL) GREEN LI/HEP BLD/PLAS PLASMA [facility] Mar 24, 2024 12:00 AM Laboratory - Chemistry Order CPK GREEN LI/HEP BLD/PLAS PLASMA [facility] Mar 24, 2024 12:00 AM Laboratory - Chemistry Order TSH W/ REFLEX FT4 (STL) GREEN LI-HEP PLASMA [facility] Mar 24, 2024 12:00 AM Laboratory - Chemistry Order CBC BLOOD [facility] Mar 24, 2024 12:00 AM Laboratory - Chemistry Order COMPREHENSIVE METABOLIC PANEL GREEN LI/HEP BLD/PLAS PLASMA [facility] Mar 25, 2024 12:00 AM Laboratory - Chemistry Order VITAMIN D, 25-HYDROXY GOLD/RED SST SERUM [facility] Lab Results: +/- 30 days of the [...] Type Comment Feb 05, 2024 10:54 AM [facility] URINALYSIS URINE Specimen Type: URINE No comment entered. Ordering Provider: PALOMO NAYAK Report Released Date/Time: Feb 02, 2024 12:01 PM Reporting Lab: [address] [place] [address] Performing Lab: [address] [place] [address] URINE BILIRUBIN Negative Negative URINE KETONES Negative [...] H 0-5 Feb 05, 2024 10:54 AM [facility] CBC BLOOD Specimen Type: BLOOD No comment entered. Ordering Provider: PALOMO NAYAK Report Released Date/Time: Feb 02, 2024 12:02 PM Reporting Lab: [facility] [address] [facility] [place] [address] Performing Lab: [facility] [address] [place] [place] [address] WBC 12.6 10*3/uL H 4.8-10.8 RBC 5.01 [...] and tobacco- related health factors from the [place] facility where the Encounter took place. Current Smoking Status This section includes the most current smoking, or tobacco-related health factor, from the [place] facility where the Encounter took place. Date/Time Current Smoking Status Comment Leon andreay Aug 06, 2023 02:30 PM VA-TOBACCO QUIT 15 YRS OR MORE [facility] Tobacco Use History This section includes a history of the smoking, or tobacco-related health factors, that were collected on or before the date of the Encounter. The data comes from the [place] facility where the Encounter took place. Date/Time Smoking Status/Tobacco Use Comment F acdaryl Aug 06, 2023 02:30 PM VA-TOBACCO QUIT 15 YRS OR MORE [facility] Aug 02, 2022 03:30 PM VA-TOBACCO FORMER USER [facility] Aug 02, 2022 03:30 PM VA-TOBACCO QUIT 15 YRS OR MORE [facility] May 08, 2021 01:00 PM VA-TOBACCO NEVER USED [facility] Mar 29, 2020 09:00 AM VA-TOBACCO NEVER USED [facility] September 23, 2018 09:22 AM VA-TOBACCO FORMER USER [facility] September 23, 2018 09:22 AM VA-TOBACCO QUIT 15 YRS OR MORE [facility] Feb 20, 2018 10:25 AM VA-TOBACCO NEVER USED [facility] Pathology Reports: +/- 30 days of [...] the Encounter. The data comes from all [facility] facilities. Date/Time Pathology Report Provider Source Feb 05, 2024 10:54 AM LR MICROBIOLOGY RE PORT: Accession [UID]: [id number] [[id number]] Received: Feb 05, 2024@10:54 Collection sample: URINE (CLEAN CATCH) Collection date: Feb 05, 2024 10:54 Site/Specimen: URINE Provider: PALOMO NAYAK Test(s) ordered: CULTURE, URINE................ completed: Feb 09, 2024 * BACTERIOLOGY FINAL REPORT => Feb 09, 2024 13:34 TECH CODE: [id number] CULTURE RESULTS: PSEUDOMONAS AERUGINOSA - Quantity: >100,000 COL/ML ANTIBIOTIC SUSCEPTIBILITY TEST RESULTS: PSEUDOMONAS AERUGINOSA : SUSC INTP AZTREONAM..................... S S FORMULARY CEFEPIME...................... S S FORMULARY CEFTAZIDIME................... S S FORMULARY CIPROFLOXACIN................. S S FORMULARY GENTAMICIN.................... I I FORMULARY LEVOFLOXACIN.................. S S FORMULARY MEROPENEM..................... S S FORMULARY PIP/TAZOBACTAM................ S S FORMULARY TOBRAMYCIN.................... S S FORMULARY Bacteriology Remark(s): FINAL REPORT: 02-09-24 [facility] Encounter Notes: All associated encounter notes This section contains the clinical notes associated to the Encounter. Date/Time Encounter Note(s) Provider Source Feb 12, 2024 11:32 AM ADMINISTRATIVE NOT E: LOCAL TITLE: ADMIN NOTE STANDARD TITLE: ADMINISTRATIVE NOTE DATE OF NOTE: FEB 12, 2024@11:32 ENTRY DATE: FEB 12, 2024@11:33:02 AUTHOR: DL CERVANTES EXP COSIGNER: URGENCY: STATUS: COMPLETED Attempted to contact patient to confirm new address. No answer. HIPAA appropriate VM left w/ nurse callback # [phone], PACT 8. /es/ DL CERVANTES REGISTERED NURSE Signed: 02/12/2024 11:42 DL CERVANTES [facility]
--- OUTSIDE RECORDS SUMMARY | 2024-11-07 08:01 | XMS_ITS | Clinical Summary ---
Author Organization [facility] Address [address] [place] [address] Phone Care Team Providers Care Production Supv Name Role Phone Major Perez DO Primary Care Provid er Allergies No known active allergies Medications losartan (COZAAR) 50 MG tablet Take 1 tablet by mouth 1 (one) time each day Active Cholecalciferol (Vitamin D3) 25 MCG (1000 UT) capsule Take 1 tablet by mouth 1 (one) time each day Active cyanocobalamin (VITAMIN B-12) 50 MCG tablet Take 1 tablet by mouth 1 (one) time each day Active Cranberry-Vitami n C-Probiotic (AZO CRANBERRY PO) Take 1 tablet by mouth 1 (one) time each day Active rosuvastatin (CRESTOR) 20 MG tablet Take 20 mg by mouth 1 (one) time each day Active Active Problems Problem Noted Date Diagnosed Date Blood chemistry outside reference range 07/01/19 23 CSU = abnormal 07/01/2022 Hypertension 07/01/2022 Chronic kidney disease stage 2 09/26/2020 Resolved Problems Problem Noted Date Diagnosed Date Resolved Date Chronic primary bladder pain syndrome 10/22/2021 07/01/2022 H/O: male genital disorder 10/22/2021 0 07/01/2022 Hyperlipidemia 10/22/2021 07/01/2022 Blood in urine 09/26/2020 07/01/2022 Essential hypertension 09/26/202007/01 Urolithiasis 09/26/2020 07/01/2022 Immunizations Immunization Administration Dates Next Due Influenza TIV (IM) 03/01/2021,03/06/2020 Influenza, Unspecified 02/03/2023,02/02/2022,07/2013 Pfizer SARS-COV-2 02/08/2021,06/09/2020,05/19/19 21 Pneumococcal Conjugate 03/27/2019 Pneumococcal Polysaccharide 03/05/2018 Family History Medical History Relation Comments Kidney disease Sibling 1 Cancer Sibling 2 Relation Status Comments Father Mother Sibling 1 Sibling 2 Social History Tobacco Use Types Packs/Day Years Used Date Smoking Tobacco: Never Smokeless Tobacco: Never Tobacco Cessation:Counseling Given: Not Answered Alcohol Use Standard Drinks/Week Comments Yes 2 (1 standard drink = 0.6 oz pure alcohol) Alcoholic Drinks/day: Occasional social drink Sex and Gender Information Value Date Recorded Sex Assigned at Not on file Legal Sex Male 1:09 PM EST Gender Identity Not on file Sexual Orientation Not on file Last Filed Vital Signs Vital Sign Reading Time Taken Comments Blood Pressure 142/70 03/03/2023 8:53 AM CDT Pulse 70 03/03/2023 8:53 AM CDT Temperature 36.4 C (97.6 F) 10/22/2021 10:01 AM CDT Respiratory Rate - - Oxygen Saturation 96% 03/03/2023 8:53 AM CDT Inhaled Oxygen Concentration - - Weight 107 kg (236 lb 14.4 oz) 03/03/2023 8:53 A M CDT Height 180.3 cm (5' 11) 03/03/2023 8:53 AM CDT Body Mass Index 33.04 03/03/2023 8:53 AM CDT Plan of Treatment Health Maintenance Due Date Last Done Comments Pneumococcal Vaccine: 50+ Years (2 of 2 - PCV) 03/27/2020 03/27/2019, 03/05/2018 Influenza Vaccine (Season Ended) 2025 02/03/2023, 02/02/2022, 03/01/2021, Additional history exists Pneumococcal Vaccine: Peds (0 to 5 Years) and At-Risk Patients (6 to 49 Years) Discontinued 03/27/2019, 03/05/2018 Hepatitis B Vaccine Aged Out No longe r eligible based on patient's age to complete this topic Insurance [facility] [employer] 1,2,3 (VACCN) Care Teams Production Supv Relationship Specialty Start Date End Date Major Perez DO [address] [place] [id number] PCP - General Family Medicine 07/01/22
--- OUTSIDE RECORDS SUMMARY | 2024-11-07 08:01 | XMS_ITS | Encounter Summary ---
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 Name Role Phone BEBETO DURAND Primary Care [...] Curtis's Name Patient's Relationship to Policy Curtis [facility] (WNR) MEDICARE ADVANTAGE [facility](W NR) Feb 02, 2018 [id number] 56 IVAN FREEMAN HN PATIENT MEDICARE PART D (WNR) MEDICARE (M) PART D May 05, 2016 PART D [id number] 68 IVAN FREEMAN HN PATIENT MEDICARE PART D (WNR) MEDICARE (M) PART D May 05, 2016 PART D [id number] IVAN FREEMAN HN PATIENT [facility] (WNR) MEDICARE ADVANTAGE [facility] (WNR) May 05, 2016 [id number] [phone] [id number] IVAN FREEMAN HN PATIENT [facility] (WNR) MEDICARE ADVANTAGE [facility] (WNR) May 05, 2016 [id number] 56 IVAN FREEMAN HN PATIENT [facility] MCR (WNR) MEDICARE ADVANTAGE [facility] (WNR) May 05, 2016 [id number] 56 IVAN FREEMAN HN PATIENT Selected Encounter This section includes the information on record at [place] for the Encounter. Date/Time Encounter Type Encounter Description Reason Provider Source Jun 02, 2024 11:00 AM OFFICE O/P EST HI 40 MIN NEUROLOGY ICD-10-CM M48.061 Spinal stenosis, lumbar region without neurogenic frank JANNET BELTRÁN [facility] Encounter Template Text not used by [place] Assessments - Encounter Diagnoses This section includes the primary and secondary diagnoses documented for the Encounter. Date/Time Primary/Secondary Diagnosis Diagnosis Name Provider Source Jun 02, 2024 11:40 AM PRIMARY Spinal stenosis, lumbar region without neurogenic frank JANNET BELTRÁN [facility] Plan of Treatment: Future Appointments (+ 6 months) and Future Tests (+/- 45 days) The Plan of Treatment section includes future care activities for the patient [facility] [place] [facility] This section includes future appointments and future orders which are active, pending or scheduled. Future Appointments This section includes appointments that were scheduled to occur 6 months from the date of the Encounter, up to a maximum of 20 appointments. The data comes from all [place] treatment [facility]. Appointment Date/Time Appointment Type Appointme nt Facility Name Jun 09, 2024 09:30 AM AMBULATORY - SURGERY [facility] Jul 13, 2024 11:30 AM AMBULATORY - NONE [facility] Jul 14, 2024 02:15 PM AMBULATORY - MEDICINE [facility] Active, Pending, and Scheduled Orders This section includes a listing of several types of active, pending, and scheduled orders, including clinic medications orders, diagnostic test orders, procedure orders and consult orders; where the start date of the order is 45 days before the date of the Encounter or 45 days after the date of theEncounter. The data comes from all [place] treatment [facility]. Test Date/Time Test Type Test Details Facility Name Jun 27, 2024 12:00 AM Laboratory - Chemistry Order COMPREHENSIVE METABOLIC PROFILE LT GREEN PLASMA SP [facility] Lab Results: +/- 30 days of [...] Type Comment Jun 09, 2024 10:19 AM [facility] BASIC METABOLIC PANEL PLASMA Specimen Type: PLASMA Comment: No hemolysis noted. Ordering Provider: JANEL LIGHT Report Released Date/Time: Jun 09, 2024 10:00 AM Reporting Lab: [address] [address] Performing Lab: [address] [address] CREATININE 1.02 mg/dL 0.7-1.3 UREA NITROGEN 19.0 mg/dL 9.0-25.0 GLUCOSE 124 mg/dL H 72-99 SODIUM 140 meq/L 136-145 POTASSIUM 4.3 meq/L 3.5-5 CHLORIDE 105 meq/L 98-107 CARBON DIOXIDE 24 meq/L 22-31 CALCIUM 9.9 mg/dL 8.4-10.4 EGFR (CKD-EPI 2020) 75.7 >60 Jun 09, 2024 10:19 AM [facility] CBC BLOOD Specimen Type: BLOOD No comment entered. Ordering Provider: JANEL LIGHT Report Released Date/Time: Jun 09, 2024 10:00 AM Reporting Lab: [address] [address] Performing Lab: [address] [address] WBC 10.9 10*3/uL 3.6-11.2 RBC 5.07 10*6/uL [...] 0.60 BASOPHILS, ABSOLUTE 0.07 10*3/uL 0.00-0. 20 Social History: Smoking Status (Most current) and Tobacco Use (All prior to encounter date) This section includes the most current, and the historical, smoking and tobacco- related health factors from the [place] facility where the Encounter took place. Current Smoking Status This section includes the most current smoking, or tobacco-related health factor, from the [place] facility where the Encounter took place. Date/Time Current Smoking Status Comment Leon mars Mar 24, 2024 01:15 PM VA-TOBACCO NEVER U SED CIGARETTES [facility] Tobacco Use History This section includes a history of the smoking, or tobacco-related health factors, that were collected on or before the date of the Encounter. The data comes from the [place] facility where the Encounter took place. Date/Time Smoking Status/Tobacco Use Comment F latricia Mar 24, 2024 01:15 PM VA-TOBACCO NEVER U SED OTHER TYPE [facility] Encounter Notes: All associated encounter notes This section contains the clinical notes associated to the Encounter. Date/Time Encounter Note(s) Provider Source Jun 02, 2024 11:09 AM NEUROLOGY OUTPATIE NT NOTE: LOCAL TITLE: NEUROLOGY OUTPATIENT FOLLOW UP [facility] STANDARD TITLE: NEUROLOGY OUTPATIENT NOTE DATE OF NOTE: JUN 02, 2024@11:09 ENTRY DATE: JUN 02, 2024@11:09:25 AUTHOR: JENNIFER BELTRÁN EXP COSIGNER: URGENCY: STATUS: COMPLETED Neurology established patient's Note Date of Visit: 06/02/24 last visit was on 03/24/24 11:00 XANDER FREEMAN MARISOL is a 78 year old WHITE MALE CC: lumbar spinal stenosis and Neuropathy Since last visit, patient had CT of the L spine showing SS and NF stenosis. he declined PT. he did not tolerate neurontin previously at low dose and he reports the pain is not severe to warrant referral to pain management. he reports no change to the falling frequency. he said :my legs collapse. he does not fall hard as he says but he go down. no injuries. he is making comments about ending it all. he said his does not allow him to have access to his gun when asked if he has a plan. he reports his feet are swollen and red. he had vascular lab evaluation and results are normal. he is adamant that his issue is related to vascular insufficiency based on 2 friends who have same presentation. he continues to report tingling in the feet and legs. he reports no changes to the pain in the feet. he reports no changes to the cramps in the calves. he reports no changes to his weakness. dizziness with position at times. he has chronic vertigo he had bladder diversion surgery. PAST MEDICAL HISTORY:bladder disorder, kidney stones, HTN, HLD, hypothyroidism, PAST SURGICAL HISTORY: TURP, bladder diversion surgery, hernia repair, , otherwise negative. SOCIAL HISTORY: no tobacco since age 51. no etoh, no drug use. FAMILY HISTORY: Reviewed and not contributory. ALLERGIES: No Allergy Assessment MEDICATIONS: Active Outpatient Medications (including Supplies): losartan statin L-thyroxin vitamin B12 REVIEW OF SYSTEMS: CONSTITUTIONAL: No fever. No chills. occasional dizziness. EYES: No pain, erythema, or discharge. No blurring of vision. ENT: No sore throat, URI symptoms. No epistaxis. No tinnitus. CARDIOVASCULAR: No chest pain. No palpitations. No lower extremity edema. RESPIRATORY: No shortness of breath, cough, pain with respiration, pleuritic chest pain. No hemoptysis. No dyspnea. No paroxysmal nocturnal dyspnea. GASTROINTESTINAL: Normal appetite. No nausea, vomiting, diarrhea. No pain. No bloating. No melena. GENITOURINARY: bladder diversion. MUSCULOSKELETAL: No arthralgias or myalgias. INTEGUMENTARY: No swelling. No bruising. No contusions. No abrasions. No lymphangitis. NEUROLOGIC: Per HPI, otherwise unremarkable. PSYCHIATRIC: No confusion. ENDOCRINE: No fatigue. No history of diabetes or adrenal problems. HEMATOLOGICAL: No bleeding. No petechiae. No bruising. Exam PHYSICAL EXAM: Physical Exam General - Appears stated age, NAD, afebrile, noncachectic HEENT - NC/AT, PERRL, EOMI, clear conjunctivae, nares patent, throat without erythema or exudate, moist mucous membranes, normal dentition Neck - Supple, Musculoskeletal - Moves all four extremities Ext - No c/c/e Skin - No rashes, lesions, petichiae/ecchymoses, or jaundice Psych - Appropriate mood and affect Neurological exam: Cortical Functions: Mental status: Alert, awake, responsive, oriented to time and place and person, attentive Memory: Normal recent and remote memory Normal attention span and normal concentration Fund of knowledge: Nl overall awareness to current events and past history, vocabulary. Language: Fluent, coherent, good naming and good repetition, No dysarthria and no aphasia. VF: Intact to confrontation test Neglect: No visual neglect,, no tactile neglect. Cranial nerves: CN II: Pupils are normal 3mm BRTL, reactive to light. Normal visual acuity. CN III- through : EOM: full, normal visual mccarty, no VF cut No ptosis, no nystagmus CN V: Normal facial sensation to the 3 divisions bilaterally, and good masseter bilaterally. CN VII: No facial weakness or asymmetry bilaterally. Normal eyes closure and smile and normal eyebrows elevation bilaterally. CN VIII: Normal hearing voice bilaterally and to the finger rubs bilaterally. CN IX, X: Normal (symmetric) palate elevation and sensation. Normal shoulder shrugging bilaterally and head turning to the sides with resistance. CNXII: Normal tongue protrusion, No tongue weakness or fasciculations or atrophy. Motor: Abnormal movements: None. No Fasciculations, no TD and no tremors. Tone: Normal tone No spasticity or rigidity in the arms No spasticity or rigidity in the legs. Bulk: Normal muscle bulk, no atrophy or hypertrophy. No contractures. Muscle strength Neck Flexors 5 Neck extensors 5 Right Left UE: SA 5 5 EF 5 5 EE 5 5 WE 5 5 WF 5 5 APB 5 5 LE: HF 4 4 KE 5 5 KF 5 5 ADF 5 5 DTR or Muscle Stretch Reflexes: Right Left BI 2 2 Tri 2 2 BR 2 2 Xiao No Pat 3 3 Ach 2 2 Sensory exam: Uexts: normal position, proprioception, and vibration distally bilaterally. Normal touch bilaterally. LExts: normal position, proprioception, and reduced vibration in the toes bilaterally. Normal touch and pinprick bilaterally Cerebellar exam: Normal rapid alternative movements in the hands Normal finger nose finger in the hands bilaterally, No tremors noted Gait: on wc Impression: This is a 78 y/o man with confirmed lumbar spinal stenosis per history and exam and CT of the L spine. 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 Plan: he is scheduled to have EDX legs for neuropathy and radiculopathy. continue falls precautions he declined physical therapy and referral to pain management. he stated suicidal comments. no plan and no access to weapon, he declined plan to go to the ED to discuss his SI. supported his decision as he is just having a bad day he did not tolerate low dose neurontin and he has history of kidney stone so topamax is not an option. we will assess after above. Time spent with patient/proxy: I personally spent 50 minutes on today's date preparing to see the patient (e.g. reviewing chart, review of tests), obtaining and/or reviewing the separately obtained history, performing a medically necessary and appropriate examination and evaluation, counseling and educating the patient/family/caregiver, ordering medications, tests, or procedures, documenting in the patient record, and communicating results to the patient/family/caregiver. Jennifer Beltrán M.D Neurology // Jennifer Beltrán M.D Neurology Attending Signed: 06/02/2024 11:40 JENNIFER BELTRÁN [facility]
--- OUTSIDE RECORDS SUMMARY | 2024-11-07 08:01 | XMS_ITS | Encounter Summary ---
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 Name Role Phone BEBETO DURAND Primary [...] Curtis's Name Patient's Relationship to Policy Curtis [facility] (WNR) MEDICARE ADVANTAGE [facility](W NR) Feb 02, 2018 [id number] IVAN FREEMAN HN PATIENT MEDICARE PART D (WNR) MEDICARE (M) PART D May 05, 2016 PART D [id number] [phone] [id number] IVAN FREEMAN HN PATIENT MEDICARE PART D (WNR) MEDICARE (M) PART D May 05, 2016 PART D [id number] [phone] [id number] IVAN FREEMAN HN PATIENT [facility] (WNR) MEDICARE ADVANTAGE [facility] (WNR) May 05, 2016 [id number] [phone] [id number] IVAN FREEMAN HN PATIENT [facility] (WNR) MEDICARE ADVANTAGE [facility] (WNR) May 05, 2016 [id number] IVAN FREEMAN HN PATIENT [facility] (WNR) MEDICARE ADVANTAGE [facility] (WNR) May 05, 2016 [id number] IVAN FREEMAN HN PATIENT Selected Encounter This section includes the information on record at DC for the Encounter. Date/Time Encounter Type Encounter Description Reason Provider Source Apr 12, 2024 10:00 AM OFFICE O/P [place] 60 MIN GENERAL INTERNAL MEDICINE ICD-10-CM Z77.29 Contact with and exposure to other hazardous substances SHAHBAZ MORGAN Zaheer Encounter Template Text not used by DC Assessments - Encounter Diagnoses This section includes the primary and secondary diagnoses documented for the Encounter. Date/Time Primary/Secondary Diagnosis Diagnosis Name Provider Source Apr 12, 2024 11:31 AM PRIMARY Contact with and exposure to other hazardous substances SHAHBAZ MORGAN [facility] Plan of Treatment: Future Appointments (+ 6 months) and Future Tests (+/- 45 days) The Plan of Treatment section includes future care activities for the patient [facility] [place] [facility] [place] This section includes future appointments and future orders which are active, pending or scheduled. Future Appointments This section includes appointments that were scheduled to occur 6 months from the date of the Encounter, up to a maximum of 20 appointments. The data comes from all [place] treatment facilities. Appointment Date/Time Appointment Type Appointme nt Facility Name Apr 23, 2024 10:00 AM AMBULATORY - MEDICINE [facility] May 04, 2024 09:30 AM AMBULATORY - SURGERY . [facility] May 18, 2024 10:00 AM AMBULATORY - SURGERY [facility] Jun 02, 2024 11:00 AM AMBULATORY - NEUROLOGY [facility] Jun 09, 2024 09:30 AM AMBULATORY - SURGERY [facility] Jul 13, 2024 11:30 AM AMBULATORY - NONE [facility] Jul 14, 2024 02:15 PM AMBULATORY - MEDICINE [facility] Active, Pending, and Scheduled Orders This section includes a listing of several types of active, pending, and scheduled orders, including clinic medications orders, diagnostic test orders, procedure orders and consult orders; where the start date of the order is 45 days before the date of the Encounter or 45 days after the date of theEncounter. The data comes from all [facility]. Test Date/Time Test Type Test Details Facility Name Mar 24, 2024 12:00 AM Laboratory - Chemistry Order PHOSPHOROUS GREEN LI/HEP BLD/PLAS PLASMA SP [facility] Mar 24, 2024 12:00 AM Laboratory - Chemistry Order MAGNESIUM GREEN LI/HEP BLD/PLAS PLASMA [facility] Mar 24, 2024 12:00 AM Laboratory - Chemistry Order LIPID PANEL (STL) GREEN LI/HEP BLD/PLAS PLASMA [facility] Mar 24, 2024 12:00 AM Laboratory - Chemistry Order CPK GREEN LI/HEP BLD/PLAS PLASMA [facility] Mar 24, 2024 12:00 AM Laboratory - Chemistry Order TSH W/ REFLEX FT4 (STL) GREEN LI-HEP PLASMA [facility] Mar 24, 2024 12:00 AM Laboratory - Chemistry Order CBC BLOOD [facility] Mar 24, 2024 12:00 AM Laboratory - Chemistry Order COMPREHENSIVE METABOLIC PANEL GREEN LI/HEP BLD/PLAS PLASMA [facility] Mar 25, 2024 12:00 AM Laboratory - Chemistry Order VITAMIN D, 25-HYDROXY GOLD/RED SST SERUM [facility] Lab Results: +/- 30 days of the encounter This section includes the Chemistry and Hematology Lab Results on record with DC for the patient. Radiology Reports and Pathology Reports are provided separately, in subsequent sections. Lab Results This section contains the Chemistry/Hematology Results that were resulted 30 days before or 30 daysafter the date of the Encounter. Date/Time Source Result Type Result - Unit Interpretation Reference Range Specimen Type Comment Mar 24, 2024 11:52 AM [facility] HGA1C BLOOD Specimen Type: BLOOD No comment entered. Ordering Provider: JENNIFER BELTRÁN Report Released Date/Time: Mar 24, 2024 11:10 AM Reporting Lab: [place] [address] [facility] [id number] Performing Lab: [address] [address] HGA1C 5.7 4.0-6.0 Mar 24, 2024 11:52 AM [facility] B12 SERUM Specimen Type: SERUM No comment entered. Ordering Provider: JENNIFER BELTRÁN Report Released Date/Time: Mar 24, 2024 11:10 AM Reporting Lab: [place] [address] [facility] [id number] Performing Lab: [place] [address] [facility] [id number] B12 >2000 pg/mL H 213-816 Vital Signs: All taken on the encounter date This section contains inpatient and outpatient Vital Signs collected on the date of the Encounter. Date/Time Temperature Pulse Blood Pressure Respiratory Rate SP02 Pain Height Weight Body Mass Index Source Apr 12, 2024 10:09 AM 98.1 86 128/83 20 97 [facility] Apr 12, 2024 10:05 AM 98.1 92 152/89 20 96 6 72 240 33 [facility] Social History: Smoking Status (Most current) and Tobacco Use (All prior to encounter date) This section includes the most current, and the historical, smoking and tobacco- related health factors from the DC facility where the Encounter took place. Current Smoking Status This section includes the most current smoking, or tobacco-related health factor, from the DC facility where the Encounter took place. Date/Time Current Smoking Status Comment Leon ity Mar 24, 2024 01:15 PM VA-TOBACCO NEVER U SED CIGARETTES [facility] Tobacco Use History This section includes a history of the smoking, or tobacco-related health factors, that were collected on or before the date of the Encounter. The data comes from the [place] facility where the Encounter took place. Date/Time Smoking Status/Tobacco Use Comment F acdaryl Mar 24, 2024 01:15 PM DC-TOBACCO NEVER U SED OTHER TYPE [facility] Radiology Reports: +/- 30 days of [...] the Encounter. The data comes from all [place] treatment facilities. Date/Time Radiology Report Provider Source Mar 24, 2024 11:[address] LUMBAR SPINE W/ O CONT: XANDER FREEMAN [id number] -[phone] M Exm Date: MAR 24, 2024@11:57 Req Phys: JENNIFER BELTRÁN Pat Loc: [facility]-NEUROLOGY BRITTANY (Req'g Img Loc: [facility]-CT IMAGING [facility] Service: [facility], [address] [address] (Case [id number] COMPLETE) CT LUMBAR SPINE W/O CONT (CT Detailed) CPT:56435 Reason for Study: lumbar spinal stenosis Clinical History: Responsible Attending: Jennifer Beltrán M.D Attending Contact Number: [phone] Resident Contact Number: Allergies listed in CPRS chart: No Allergy Assessment Creatinine: No CREATININE EO data found/eGFR: STL EGFR (within one year). *No Lab Data Found* Wt: History of: Renal failure, chronic or acute renal disease: NO Report Status: Verified Date Reported: MAR 25, 2024 Date Verified: MAR 25, 2024 Ethernet Network Architect E-Sig:/ES/INNA HURTADO MD Report: CT scanning through [...] Primary Interpreting Staff: INNA HURTADO MD, Radiologist (Ethernet Network Architect) /INNA VERGARA [facility] Encounter Notes: All associated encounter notes This section contains the clinical notes associated to the Encounter. Date/Time Encounter Note(s) Provider Source Apr 12, 2024 10:12 AM ENVIRONMENTAL HEALTH CONSULT: LOCAL TITLE: ENVIRONMENTAL REGISTRY CONSULT NOTE STL STANDARD TITLE: ENVIRONMENTAL HEALTH CONSULT DATE OF NOTE: APR 12, 2024@10:12 ENTRY DATE: APR 12, 2024@10:12:56 AUTHOR: SHAHBAZ MORGAN COSIGNER: URGENCY: STATUS: COMPLETED AGENT ORANGE ENVIRONMENTAL EXAM Prior to the exam, the nature of the environmental exam was discussed, that it was an independent medical exam for research registry purposes and that the exam was not intended for diagnosis, treatment, or treatment recommendations. The [place] voiced understanding and all questions relating to the exam-type and content were addressed. The Agent [place] Environmental Exam is based on the history given by the . No Medical record review, chart review, or other supportive documentation was sought or used for the evaluation. The exam may include review of the chest X-ray, blood work, and EKG ordered as part of the documentation for the [place] exam. The is advised to follow up with a medical provider to discuss any potential or actual abnormalities in the test results (if completed) for possible diagnosis, treatment, or recommendations. Consent for this evaluation was signed by the . Privacy statement was provided to . (An 'X' indicates the presence of the condition, unchecked indicates the absence of the condition.) XANDER FREEMAN [id number] [address] [place], [place] [address] Current status: outpatient Sex:MALE Race:WHITE Ethnicity:NOT OR Age:78 Marital status: [ X ] [ ] [ ] [ ] [ ] Single, never [ ] Other: Branch of Service: [ X ] [employer] [ ] [employer] [ ] [employer] [ ] [employer] [ ] [employer] [ ] [employer] Other: Location Description: Location Served: [ X ] [place] [ ] [place] (1967 or 1970) [ ] [place] [ ] Other: Battalion/ Units Served With: [facility] [employer] Location in country: [facility]; [facility], Exposure Period for Agent [place] (may be more than one) start and end dates: 07/1966 to 02/1968 Dates of Service: Entry into active duty date (start date): 02/11/1966 Discharge date (end date): 02/10/1969 Inducted at: [facility] List Bases where served: [employer] [place], 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 Discharged from: 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 (specify dates) [ ] CORPS I Dates: to [ ] CORPS II Dates: to [ X ] CORPS III Dates: 07/1966 to 02/1968 [ ] CORPS IV Dates: to [ ] Sea Duty Dates: to [ ] Other: Dates: 07/1966 to 02/1968 Social History: Physical Activity: Do you routinely participate in any physical activities or exercises? Yes Which physical activities or exercises do you routinely participate? rides an elliptical bicycle, 30 minutes How often do you usually participate in this physical activity or exercise? [ ] 1x/week [ ] 2x/week [ ] 3x/week [ X ] > 3x/week How long do you usually participate in this physical activity or exercise (hours)? 0.5 (30 minutes) Habits: Tobacco Use: Do you currently smoke? No How many cigarettes do you smoke each day? 0 How old were you when you began smoking? age 17 Have you ever smoked cigarettes even occasionally? Yes When did you last stop? 1997 Do you use any other form(s) of tobacco? no If so, which one(s)? Do you live in a household where someone else smokes (second hand smoke exposure)? No Alcohol use: In the past year, how often did you drink any type of alcoholic beverage (included are liquors such as whiskey or gin, beer, wine coolers, and any other type of alcoholic beverage)per week? [ X ] <1x/week [ ] 1x/week [ ] 2x/week [ ] 3x/week [ ] > 3x/week On average how may days did you drink? By a drink we mean at least half an ounce of absolute alcohol (e.g. 12 ounce can of beer, 5 ounce glass of wine, or a drink containing at least 1 shot of liquor) 0 Illicit or Recreational Substance Use: Do you currently use any substance, illegal or prescription, that is not prescribed by your medical doctor (i.e. marijuana, opioid, prescription medications)? 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 [facility], [employer], 2011-01/2016, unknown Family History (age, health diagnosis, occupation): Mother: age 86, CAD/NM. occupation-homemaker Father: age 72, farm tractor acccident. 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 Definitely yes 2. Not Sure 3. Definitely no While in [place]/Sepior service the : 1. Was involved in handling/spraying Agent [place] 3 2. Was in a recently sprayed area 1 3. Was in contact with other herbicides 2 Specify: 4. Was directly sprayed with Agent [place] 1 5. Ate food/drank water that may have been contaminated w/ Agent [place] 3 Self-assessment/describe veterans health [ ] Very good [ ] Good [ ] Fair [ X ] Poor [ ] Very Poor What is/are your chief complaint/exposure(s) of most concern and related to this registry exam? Claimed Conditions (already claimed or to be claimed): [ ] Amyloid light-chain amyloidosis [ ] Chronic B-cell leukemia [ ] Diabetes type 2 [ ] Hodgkins disease [ ] Ischemic heart disease [ ] Multiple Myeloma [ ] Non-Hodgkins lymphoma [ ] Parkinsons Disease/Parkinsonism [ ] Prostate cancer [ ] Bladder cancer [ X ] Hypothyroidism [ ] Monoclonal gammopathy of undetermined significance (MGUS) [ X ] Hypertension [ ] Respiratory cancers (Lung, trachea, larynx, bronchus) Specify: [ ] Soft tissue sarcoma (not osteosarcoma, chondrosarcoma, Kaposis sarcoma or mesothelioma) Specify: Within 1 year of exposure: [ ] Peripheral neuropathy, early-onset [ ] Porphyria Cutanea Tarda [ ] Chloracne Current Diagnoses: Current medical history: 1) Skin Lesion (SCT 06480724) 2) Hypothyroidism (SCT 70639576) 3) HTN - Hypertension (SCT 11463368) 4) Hyperlipidemia (SCT 06272967) 5) Bilateral cataracts comment: Surgery 11/[address] Luna in [place] 6) Exposure to potentially hazardous substance comment: [place]- [place] [ ] COPD [ ] DM 2 [ ] CAD [ ] NM [ X ] HTN [ ] Prostate cancer [ ] CVA [ ] CKD [ ] Dialysis [ ] GERD [ ] AFib [ ] CHF [ ] Hepatitis - Type: [ ] History of blood transfusion [ ] History of STDs [ X ] BPH [ X ] hypercholesterolemia [ ] allergic rhinitis Past medical and surgical history: history of bladder diversion surgery in 04/2020 ileostomy/pouch, s/p TURP x 4, has interstim device implanted but power has been cut of from the device Past medical history: 1) Skin Lesion (SCT 90935946) 2) Hypothyroidism (SCT 22426034) 3) HTN - Hypertension (SCT 77487691) 4) Hyperlipidemia (SCT 31635852) 5) Bilateral cataracts comment: Surgery 11/[address] Luna in [place] 6) Exposure to potentially hazardous substance comment: [place]- [place] [ ] COPD [ ] DM 2 [ ] CAD [ ] NM [ X ] HTN [ ] Prostate cancer [ ] CVA [ ] CKD [ ] Dialysis [ ] GERD [ ] AFib [ ] CHF [ ] Hepatitis - Type: [ ] History of blood transfusion [ ] History of STDs [ X ] BPH [ X ] hypercholesterolemia [ ] allergic rhinitis Surgeries: [ ] Tonsillectomy [ ] Appendectomy [ X ] Herniorrhaphy [ ] CABG [ ] bunionectomy Data: Number of biological children: 2 Have any of the Veterans children showed signs of defects? No If yes, please specify: Number born BEFORE service in [place]: 0 What year? Any defects? Spina bifida? Maternal age at conception(s): Paternal age at conception(s): Number born DURING/AFTER service in [place]:2 What year? 1968; 1972 Any defects? No Spina bifida? No Maternal age at conception(s): child #1 maternal age 22 ( #1, Melissa) child #2 maternal age 24 ( #2, Shelby) Paternal age at conception(s): child #1 paternal age 22 child #2 paternal age 26 TOTAL number of children with evidence of defects: 0 Any stillborn or miscarriages? Yes 1 Any infertility? No Any ? No 0 (Include age of mother for any + above) Symptoms: Symptoms Vet feels are related to Agent [place]: 1. Hypertension Year it started: 2015 Is it still present? Yes Duration (months): 2. Hypothyroidism Year it started: 2021 Is it still present? Yes Duration (months): 3. Year it started: Is it still present? Duration (months): 4. Year it started: Is it still present? Duration (months): 5. Year it started: Is it still present? Duration (months): ===== MEDICAL HISTORY: Allergies: Patient has answered NKA Childhood illnesses: [ ] Asthma [ ] Measles [ ] Cancers [ X ] Other: mumps + [ ] Other: Serious Injuries: 1. none 2. 3. Current Medications: MRP - MEDICATION RECONCILIATION Alphabetized list of outpatient Rx's, inpatient orders, remote and Non-VA meds Legend: OPT = VA issued outpatient prescription, INP = VA issued inpatient order Non-VA Meds Last Documented On: Data not found Remote BARRIER,OSTOMY,NEW IMAGE H#[id number] USE 1 BARRIER EVERY OTHER DAY SUPPLY ITEM DELIVERY TIME VARIES. PLEASE CALL PHARMACY AT [phone] IF URGENT NEED OR CONCERNS. Last Filled: 02/27/24 (Active at [facility]) Days Supply: 90 Rx Expiration Date: 02/10/25 Refills Remainin Remote CHOLECALCIFEROL 50MCG (2,000UNIT) TAB TAKE ONE TABLET BY MOUTH DAILY FOR VITAMIN D3 SUPPLEMENTATION Last Filled: 12/26/23 (Active at [facility]) Days Supply: 90 Rx Expiration Date: 12/26/24 Refills Remainin OPT LEVOTHYROXINE NA (SYNTHROID) 25MCG TAB (Status = HOLD) TAKE ONE TABLET BY MOUTH EVERY MORNING BEFORE A MEAL FOR HYPOTHYROIDISM TAKE 30 MINUTES BEFORE FOOD. TAKE SEPARATELY FROM ALL OTHER MEDICATIONS. Last Released: Days Supply: 90 Rx Expiration Date: 03/26/25 Refills Remainin OPT LOSARTAN 100MG TAB (Status = HOLD) TAKE ONE-HALF TABLET BY MOUTH ONCE A DAY FOR HIGH BLOOD PRESSURE Last Released: Days Supply: 90 Rx Expiration Date: 06/23/24 Refills Remainin Remote LOSARTAN 50MG TAB TAKE ONE TABLET BY MOUTH DAILY FOR HEART AND BLOOD PRESSURE Last Filled: 12/26/23 (Active at [facility]) Days Supply: 90 Rx Expiration Date: 12/26/24 Refills Remainin Remote POUCH,UROSTOMY,NEW IMAGE H#[id number] USE 1 POUCH TOPICALLY EVERY OTHER DAY Last Filled: 02/10/24 (Active at [facility]) Days Supply: 90 Rx Expiration Date: 07/03/24 Refills Remainin Remote ROSUVASTATIN CA 20MG TAB TAKE ONE TABLET BY MOUTH DAILY FOR CHOLESTEROL Last Filled: 03/15/24 (Active at [facility]) Days Supply: 90 Rx Expiration Date: 05/11/24 Refills Remainin OPT ROSUVASTATIN CA 40MG TAB (Status = HOLD) TAKE ONE-HALF TABLET BY MOUTH EVERY EVENING FOR HIGH CHOLESTEROL Last Released: Days Supply: 90 Rx Expiration Date: 03/26/25 Refills Remainin Remote URINARY DRAINAGE SYSTEM H#[id number] USE ONE EVERY WEEK Last Filled: 02/10/24 (Active at [facility]) Days Supply: 90 Rx Expiration Date: 07/03/24 Refills Remainin Other medications previously dispensed in the last year: ===== REVIEW OF SYSTEMS: General Health: [ ] Denies current issues [ ] Unintended weight loss [ ] Unexplained fevers [ ] Feels well [ X ] Other: has swelling of lower extremities, falls x multiple, worsening neuropathy/legs collapse out from uner him, the past 6 months HEENT: [ ] Denies current issues [ X ] Other: wears bifocal glasses; bilateral cataracts removed in 2023 Respiratory: [ X ] Denies current issues [ ] Dyspnea [ ] Chronic cough [ ] Other: Cardiovascular: [ X ] Denies current issues [ ] Angina [ ] Other: GI: [ X ] Denies current issues [ ] Other: : [ ] Denies current issues [ X ] Other: history of TURP x 4; 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 Hemopoietic: [ X ] Denies current issues [ ] Bleeding [ ] Other: Lymphatic: [ X ] Denies current issues [ ] Swollen lymph nodes [ ] Other: Musculo-skeletal: [ ] Denies current issues [ X ] Chronic pain [ ] Arthritis [ X ] Other: bilateral foot pain; uses a cane and wheelchair Psychiatric: [ ] Denies current issues [ ] PTSD [ X ] Depression [ ] Other: Other: PHYSICAL EXAM: Vitals: Temp:98.1 F [36.7 C] (04/12/2024 10:09) BP:128/83 (04/12/2024 10:09) Pulse: 86 (04/12/2024 10:09) Resp: 20 (04/12/2024 10:09) Weight: 240 lb [108.86 kg] (04/12/2024 10:05) Height:72 in [182.9 cm] (04/12/2024 10:05) inches Pulse ox: 97% (04/12/2024 10:09)% General: [ X ] Alert, NAD, appears stated age. [ X ] No rashes or skin conditions noted on exam. [ X ] No cachexia or other abnormal weight/constitutional findings. [ ] Abnormal Findings: [ ] Not examined HEENT: [ X ] Normocephalic, nose, throat, TMs, and ear canals are clear. [ X ] No lymphadenopathy, no thyromegaly. [ X ] No JVD. [ ] Abnormal Findings: [ ] Not examined Cardiovascular: [ X ] Reg rate and rhythm [ X ] No murmur, no rub, no gallop. [ X ] No peripheral edema [ ] Peripheral radial pulses are normal. [ x ] Abnormal Findings: no palpable pedal pulses/feet cold to touch [ ] Not examined Pulmonary: [ X ] Lung mccarty are clear; No wheezes or rubs. [ X ] Aeration is normal. [ ] Abnormal Findings: [ ] Not examined Abdomen: [ X ] Nontender [ X ] No masses, no organomegaly [ X ] No ascites or distension [ ] Abnormal Findings: [ ] Not examined Extremities: [ ] No edema [ X ] No clubbing or cyanosis. [ X ] Abnormal Findings: + 1 edema of lower legs L>R [ ] Not examined Neurologic: [ ] No focal motor weakness [ ] No sensory loss or change. [ ] Gait is normal and unassisted. [ X ] Yghtbo-if-gsab is normal [ X ] No nystagmus [ X ] Normal Romberg [ X ] Normal ELLI [ X ] No tremor [ ] Abnormal Findings: [ ] Not examined : Deferred to the [place]'s own provider(s) Other: ===== Results of EKG, CXR, and all labs were reviewed with the . All questions answered. No data available for: EKG CONSULT STL EKG CONSULTS PB EKG RESULTS MA No Impressions found No CBC EO data found Collection DT Specimen Test Name Result Units Ref Range 03/24/2024 11:52 BLOOD HGA1C 5.7 % 4.0 - 6.0 03/24/2024 11:52 SERUM B12 >2000 H pg/mL 213 - 816 No TSH (1YR) EO data found HEP C ANTIBODY 30D No data available for: HEP C Ab HCV Ab (STL) PSA PC STL No data available for: PROST. SPECIFIC AG.(PB-STL) No LIPID PANEL EO data found No data available for: PROTEIN ALBUMIN TOTAL BILIRUBIN ALKALINE PHOSPHATASE AST/SGOT ALT/SGPT GLOBULIN CONJ. BILIRUBIN A/G RATIO (PB-MA) No URINALYSIS EO data found ======= Assessment/Plan for administrative exam for Agent [place] Registry 1. Diagnosis: ICD-10 code 1. HTN, on Losartan I10 2. Hypothyroidism started 2021 on Levothyroxine. E03.9 3. 4. 5. - [facility] [facility]/Regional office asset protection representative to file a claim for illnesses that are presumed due to Agent [place] exposure. 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 M51.86 [ ] [ ] [ ] [ ] 3.Lab, CXR, EKG [ ] None ordered [ ] All are normal [ X ] Abnormal findings: B12 I advised that the contact their medical provider to arrange for follow up on the abnormal findings and for routine medical care/follow up on known conditions. [ ] Copies of lab results given to the (GEOVANNA form signed). [ ] Copies of EKG results given to the (GEOVANNA form signed). [ ] Copies of CXR results given to the (GEOVANNA form signed). [ X ] GEOVANNA form signed [ ] Consent form signed 4. Consults: 1= no work up, no consultation done 2= work up, unexplained illness. Has sxs/diagnosis undetermined 3= work up, diagnosis established 4= work up/consultation done. No symptoms/no illness evident. 5= work up in progress, results pending 6= work up scheduled, vet no show [ ] Allergy/Immunology 1 [ ] Audiology 1 [ ] Behavioral Health 1 [ ] Cardiology 1 [ ] Dentistry 3 [ ] Dermatology 2 [ ] ENT 1 [ ] Endocrinology 1 [ ] Gastroenterology 3 [ ] Hematology/Oncology 1 [ ] Infectious Disease 1 [ ] Neurology 3 [ ] Nephrology 1 [ ] Occupational medicine 1 [ ] Orthopedic 1 [ ] Pulmonary 1 [ ] Reproductive Health 1 [ ] Rheumatology 1 [ ] Urology 3 [ ] Other 0 [ X ] No consults were ordered as part of today's registry exam [ ] Hepatitis C negative [ ] Hepatitis C positive [ X ] Hepatitis C Not done Biopsy: No Type: [place] voiced understanding of instructions and agrees to follow up with his regular medical care provider for routine care and follow up on labs/test results. (An 'X' indicates the presence of the condition, unchecked indicates the absence of the condition.) (X) GEOVANNA signed at start of appt. (X) echocardiogram ordered for mild lower extremity swelling (X) labs drawn 03/24/2024, no results available (X) has numerous consults to specialists placed by PCP. /apolonia/ SHAHBAZ MORGAN MSN DIESEL LOCOMOTIVE FIRER ANP-BC Nurse Practitioner Primary Care Signed: 04/12/2024 11:31 SHAHBAZ MORGAN [facility]
--- OUTSIDE RECORDS SUMMARY | 2024-11-07 08:01 | XMS_ITS | Encounter Summary ---
Author Name [facility] Address [address] [place] [address] Care Team Providers Care Ui Designer Name Role Phone BEBETO DURAND Primary Care [...] Curtis's Name Patient's Relationship to Policy Curtis [facility] (WNR) MEDICARE ADVANTAGE [facility](W NR) Feb 02, 2018 [id number] IVAN FREEMAN HN PATIENT MEDICARE PART D (WNR) MEDICARE (M) PART D May 05, 2016 PART D [id number] [phone] IVAN FREEMAN HN PATIENT MEDICARE PART D (WNR) MEDICARE (M) PART D May 05, 2016 PART D [id number] IVAN FREEMAN HN PATIENT [facility] (WNR) MEDICARE ADVANTAGE [facility] (WNR) May 05, 2016 [id number] IVAN FREEMAN HN PATIENT [facility] (WNR) MEDICARE [facility] (WNR) May 05, 2016 [id number] IVAN FREEMAN HN PATIENT [facility] MCR (WNR) MEDICARE ADVANTAGE [facility] (WNR) May 05, 2016 [id number] IVAN FREEMAN HN PATIENT Selected Encounter This section includes the information on record at NH for the Encounter. Date/Time Encounter Type Encounter Description Reason Pro vider Source Apr 12, 2024 11:40 AM Outpatient Encounter GENERAL INTERNAL MEDICINE IHE Encounter Template Text not used by NH Plan of Treatment: Future Appointments (+ 6 months) and Future Tests (+/- 45 days) The Plan of Treatment section includes future care activities for the patient [facility] This section includes future appointments and future orders which are active, pending or scheduled. Future Appointments This section includes appointments that were scheduled to occur 6 months from the date of the Encounter, up to a maximum of 20 appointments. The data comes from all [facility]. Appointment Date/Time Appointment Type Appointme nt Facility Name Apr 23, 2024 10:00 AM AMBULATORY - MEDICINE [facility] May 04, 2024 09:30 AM AMBULATORY - SURGERY . [facility] May 18, 2024 10:00 AM AMBULATORY - SURGERY [facility] Jun 02, 2024 11:00 AM AMBULATORY - NEUROLOGY [facility] Jun 09, 2024 09:30 AM AMBULATORY - SURGERY [facility] Jul 13, 2024 11:30 AM AMBULATORY - NONE [facility] Jul 14, 2024 02:15 PM AMBULATORY - MEDICINE [facility] Active, Pending, and Scheduled Orders This section includes a listing of several types of active, pending, and scheduled orders, including clinic medications orders, diagnostic test orders, procedure orders and consult orders; where the start date of the order is 45 days before the date of the Encounter or 45 days after the date of theEncounter. The data comes from all [facility]. Test Date/Time Test Type Test Details Facility Name Mar 24, 2024 12:00 AM Laboratory - Chemistry Order PHOSPHOROUS GREEN LI/HEP BLD/PLAS PLASMA SP [facility] Mar 24, 2024 12:00 AM Laboratory - Chemistry Order MAGNESIUM GREEN LI/HEP BLD/PLAS PLASMA SP [facility] Mar 24, 2024 12:00 AM Laboratory - Chemistry Order LIPID PANEL (STL) GREEN LI/HEP BLD/PLAS PLASMA SP [facility] Mar 24, 2024 12:00 AM Laboratory - Chemistry Order CPK GREEN LI/HEP BLD/PLAS PLASMA SP [facility] Mar 24, 2024 12:00 AM Laboratory - Chemistry Order TSH W/ REFLEX FT4 (STL) GREEN LI-HEP PLASMA SP [facility] Mar 24, 2024 12:00 AM Laboratory - Chemistry Order CBC BLOOD SP [facility] Mar 24, 2024 12:00 AM Laboratory - Chemistry Order COMPREHENSIVE METABOLIC PANEL GREEN LI/HEP BLD/PLAS PLASMA SP [facility] Mar 25, 2024 12:00 AM Laboratory - Chemistry Order VITAMIN D, 25-HYDROXY GOLD/RED SST SERUM SP [facility] Lab Results: +/- 30 days of the encounter This section includes the Chemistry and Hematology Lab Results on record with NH for the patient. Radiology Reports and Pathology Reports are provided separately, in subsequent sections. Lab Results This section contains the Chemistry/Hematology Results that were resulted 30 days before or 30 daysafter the date of the Encounter. Date/Time Source Result Type Result - Unit Interpretation Reference Range Specimen Type Comment Mar 24, 2024 11:52 AM [facility] HGA1C BLOOD Specimen Type: BLOOD No comment entered. Ordering Provider: JENNIFER BELTRÁN Report Released Date/Time: Mar 24, 2024 11:10 AM Reporting Lab: [facility] [address] [facility] [id number] Performing Lab: [facility] [address] [facility] [id number] HGA1C 5.7 4.0-6.0 Mar 24, 2024 11:52 AM [facility] B12 SERUM Specimen Type: SERUM No comment entered. Ordering Provider: JENNIFER BELTRÁN Report Released Date/Time: Mar 24, 2024 11:10 AM Reporting Lab: [facility] [address] [place] [address] Performing Lab: [facility] [address] [facility] [facility] [id number] B12 >2000 pg/mL H 213-816 Vital Signs: All taken on the encounter date This section contains inpatient and outpatient Vital Signs collected on the date of the Encounter. Date/Time Temperature Pulse Blood Pressure Respiratory Rate SP02 Pain Height Weight Body Mass Index Source Apr 12, 2024 10:09 AM 98.1 86 128/83 20 97 [facility] Apr 12, 2024 10:05 AM 98.1 92 152/89 20 96 6 72 240 33 [facility] Social History: Smoking Status (Most current) [...] 01:15 PM VA-TOBACCO NEVER U SED CIGARETTES [facility] Tobacco Use History This section includes a history of the smoking, or tobacco-related health factors, that were collected on or before the date of the Encounter. The data comes from the [place] facility where the Encounter took place. Date/Time Smoking Status/Tobacco Use Comment F acility Mar 24, 2024 01:15 PM NH-TOBACCO NEVER U SED OTHER TYPE [facility] Radiology Reports: +/- 30 days of the [...] the Encounter. The data comes from all NH treatment facilities. Date/Time Radiology Report Provider Source Mar 24, 2024 11:[address] LUMBAR SPINE W/ O CONT: XANDER FREEMAN [id number] -[phone] M Exm Date: MAR 24, 2024@11:57 Req Phys: JENNIFER BELTRÁN Pat Loc: [facility]-NEUROLOGY [facility] (Req'g Img Loc: [facility]-CT IMAGING [facility] Service: Unknown [facility], [address] [place] [address] (Case [id number] COMPLETE) CT LUMBAR SPINE W/O CONT (CT Detailed) CPT:26011 Reason for Study: lumbar spinal stenosis Clinical History: Responsible Attending: Jennifer Beltrán M.D Attending Contact Number: [phone] Resident Contact Number: Allergies listed in CPRS chart: No Allergy Assessment Creatinine: No CREATININE EO data found/eGFR: STL EGFR (within one year). *No Lab Data Found* Wt: History of: Renal failure, chronic or acute renal disease: NO Report Status: Verified Date Reported: MAR 25, 2024 Date Verified: MAR 25, 2024 Jump Roll Operator E-Sig:/ES/INNA HURTADO MD Report: CT scanning through [...] Primary Interpreting Staff: INNA HURTADO MD, Radiologist (Jump Roll Operator) /INNA VERGARA [facility] Encounter Notes: All associated encounter notes This section contains the clinical notes associated to the Encounter. Date/Time Encounter Note(s) Provider Source Apr 12, 2024 11:39 AM PRIMARY CARE MADI RS: LOCAL TITLE: AGENT ORANGE FOLLOW UP LETTER STL STANDARD TITLE: PRIMARY CARE LETTERS DATE OF NOTE: APR 12, 2024@11:39 ENTRY DATE: APR 12, 2024@11:39:21 AUTHOR: SHAHBAZ MORGAN EXP COSIGNER: URGENCY: STATUS: COMPLETED [facility] [address] [place] [address] APR 12, 2024 XANDER FREEMAN [address] [place] [address] [place], [place] [address] Dear Xander Freeman, We wish to thank you for your recent participation in the Department of Veterans Affairs ([place]) [place] Health Registry. This effort assists us to serve you and other veterans who are concerned about the possible health problems which might have resulted from service in the [place] during the era (between 1961 and 1974). The examination has revealed that you have a medical condition which may be presumptively service connected to [place] exposure. Remember, this examination does not automatically initiate a claim for VA benefits. Also, this exam does not establish or concede exposure to [place] during your service. If you wish to file a claim for compensation to establish possible service connection, contact your nearest [place] Regional Office. NH may pay compensation for current disability due to any injury or disease that was incurred, or was aggravated, during service. The condition does not have to be related to combat. If you need any further assistance, you may call one of the following toll-free numbers: 1. Veterans' Human Capital Analyst: (for information on filing claims); 2. [facility]: 3-749-814-HEIU ([phone]); or 3. [place] Helpline: . To receive health care, veterans generally must be enrolled with NH. You may enroll at any time, if eligible. Additional information on enrollment, including enrollment forms and online applications can also be found on the Internet at http://www.pr.gov/elig/, or contact a Veterans Benefit Unclaimed Property Officer by calling the NH toll-free number . An outreach program has been implemented in which NH notifies all individuals listed in the [place] Registry of significant VA activities, including the health consequences of service during the era. You are now automatically included in our [place] Registry and are to receive a quarterly newsletter published periodically by VA's [facility]. If you wish to obtain and/or read this publication via Internet, or if you have a change of address, please log on to the [employer] Web page [email or web address] . We trust this information is helpful to you. Once again, your participation in the [place] Registry is appreciated. Respectfully, SHAHBAZ MORGAN MSN DONOR SERVICES COORDINATOR ANP-BC Nurse Practitioner Primary Care Environmental Health Clinician SHAHBAZ MORGAN [facility]
--- OUTSIDE RECORDS SUMMARY | 2024-11-07 08:01 | XMS_ITS | Continuity of Care Document ---
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 It does not include entries that were removed or entered in error. Problem Status Onset Date Problem Type Date of Resolution Comments Source Anemia Active Condition [facility] Bilateral cataracts Active Condition Mar 24, 2024 Entered By: DONI SOLER Comment: Surgery 11/[address] Luna in [facility] Cobalamin deficiency Active Condition [facility] Exposure to potentially hazardous substance Active Condition Jun 24, 2023 Entered By: ALPESH TURNER V Comment: [facility] Exposure to potentially hazardous substance Active Condition Mar 24, 2024 Entered By: DONI SOLER Comment: Agent [place] [facility] Foot pain Active Condition [facility] HTN - Hypertension ([facility] [id number]) Active Condition [facility] Hyperlipidemia Active Condition [facility] Hyperlipidemia (SCT 16172178) Active Condition [facility] Hypertension Active Condition [facility] Hypothyroidism Active Condition [facility] Hypothyroidism (SCT 46277958) Active Condition [facility] IC - Interstitial cystitis Active Condition [facility] Immunization advised Active Condition [facility] Impaired fasting glucose Active Condition [facility] Neuropathy Active Condition [facility] Retention of urine Active Condition [facility] Skin Lesion ([facility] [id number]) Active Condition [facility] Ventral hernia Active Condition [facility] Diagnosis: ICD-10-CM M48.07 Spinal stenosis, lumbosacral region Active Diagnosis [facility] Diagnosis: ICD-10-CM 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 Active Diagnosis [facility] Diagnosis: ICD-10-CM M48.061 Spinal stenosis, lumbar region without neurogenic frank Active Diagnosis [facility] Diagnosis: ICD-10-CM M79.671 Pain in right foot Active Diagnosis [facility] Diagnosis: ICD-10-CM Z77.29 Contact with and exposure to other hazardous substances Active Diagnosis [facility] Diagnosis: ICD-10-CM R53.1 Weakness Active Diagnosis [facility] Diagnosis: ICD-10-CM N39.0 Urinary tract infection, site not specified Active Diagnosis [facility] Diagnosis: ICD-10-CM I10 Essential (primary) hypertension Active Diagnosis [facility] Diagnosis: ICD-10-CM Z71.89 Other specified counseling Active Diagnosis [facility] Diagnosis: ICD-10-CM D64.9 Anemia, unspecified Active Diagnosis [facility] Diagnosis: ICD-10-CM Z43.6 Encounter for attn to oth artif openings of urinary tract Active Diagnosis [facility] Medications Combined list of outpatient medications from Department of Defense and [facility] Affairs facilities.Medications provided include 1) outpatient medications from the last 15 months, and 2) patient-reported medications. Medication Details Route Status Patient Instructions Prescription Expires Prescription Number Last Dispense Date Ordering Provider Order Date Order Qty Source CEPHALEXIN 500MG CAP TAKE ONE CAPSULE BY MOUTH EVERY 6 HOURS FOR BACTERIA L URINARY TRACT INFECTIO N ORAL 01/23/2024 [id number] DAYRON CRISTOBAL 2023 40 [facility] CHOLECALCIF TERESA 50MCG (2,000UNIT) TAB TAKE ONE TABLET BY MOUTH DAILY FOR VITAMIN D3 SUPPLEME NTATION ORAL ACTIVE 12/26/2024 [id number] RADHA THACKER 2023 100 [facility] CHOLECALCIF TERESA 50MCG (2,000UNIT) TAB TAKE ONE TABLET BY MOUTH DAILY ORAL ACTIVE ROMANA SEARS 2017 [facility] CYANOCOBALA MIN 250MCG TAB TAKE TWO TABLETS BY MOUTH DAILY ORAL ACTIVE FION,GLAD YS L 2017 [facility] GABAPENTIN 100MG CAP TAKE ONE CAPSULE BY MOUTH AT BEDTIME ORAL DISCONT INUED BY PARKER Barcenas 10/31/2024 [id number] DAYRNO CRISTOBAL 2023 30 [facility] HYDROPHILIC (EQV EUCERIN) CREAM,TOP APPLY LIBERALL Y TO AFFECTED AREA(S) ONCE A DAY FOR SKIN CARE (EXTERNA L USE ONLY) TOPICA L ACTIVE 05/05/2025 [id number] YULY KIARRAE 2024 454 [facility] LEVOTHYROXI NE NA 25MCG TAB (SYNTHROID) TAKE ONE TABLET BY MOUTH EVERY MORNING BEFORE A MEAL FOR HYPOTHYR OIDISM TAKE 30 MINUTES BEFORE FOOD. TAKE SEPARATE LY FROM ALL OTHER MEDICATI ONS. ORAL HOLD 03/26/2025 [id number] RA CHINYERE SOLER R 2023 90 [facility] LOSARTAN 50MG TAB TAKE ONE TABLET BY MOUTH DAILY FOR HEART AND BLOOD PRESSURE ORAL ACTIVE 12/26/2024 [id number] 4 RAHDA THACKER 2023 90 [facility] [place] POTASSIUM 100MG TAB TAKE ONE-HALF TABLET BY MOUTH ONCE A DAY FOR HIGH BLOOD PRESSURE ORAL ACTIVE 07/15/2025 [id number] RA CHINYERE SOLER R 2024 45 [facility] [place] POTASSIUM 100MG TAB TAKE ONE-HALF TABLET BY MOUTH ONCE A DAY FOR HIGH BLOOD PRESSURE ORAL DISCONT INUED 06/23/2024 [id number] RA CHINYERE SOLER R 2023 45 [facility] ROSUVASTATI N CA 20MG TAB TAKE ONE TABLET BY MOUTH DAILY FOR CHOLESTE ROL ORAL DISCONT INUED 03/25/2024 [id number] RADHA THACKER 2023 90 [facility] ROSUVASTATI N CA 20MG TAB TAKE ONE TABLET BY MOUTH DAILY FOR CHOLESTE ROL ORAL 05/11/2024 [id number] JUANITA NAYAK R 2023 90 [facility] ROSUVASTATI N CA 40MG TAB TAKE ONE-HALF TABLET BY MOUTH EVERY EVENING FOR HIGH CHOLESTE ROL ORAL HOLD 03/26/2025 [id number] CHERYLRA CHINYERE OCONNOR R 2023 45 [facility] Immunizations Combined list of available immunizations from the Department of Defense and [facility] Affairs facilities. Immunization Series Date Given Administered By Site Reaction Lot Number CVX Code Drug Licensed Physical Therapist Status Comments Source INFLUENZA, HIGH-DOSE, TRIVALENT, PF 2023 [facility] [place] LEFT DELTO ID [id number] 135 complet ed [facility] INFLUENZA VACCINE, QUADRIVALENT, ADJUVANTED 1 2022 205 complet ed HISTORICA L INFORMATI ON - FROM OTHER REGISTRY, [facility] INFLUENZA VACCINE, QUADRIVALENT, ADJUVANTED 1 2021 205 complet ed HISTORICA L INFORMATI ON - FROM OTHER REGISTRY, [facility] INFLUENZA, UNSPECIFIED FORMULATION 2021 88 complet ed HISTORICA L INFORMATI ON - FROM PATIENT'S WRITTEN RECORD, [facility] INFLUENZA VACCINE, QUADRIVALENT, ADJUVANTED 1 2020 205 complet ed HISTORICA L INFORMATI ON - FROM OTHER REGISTRY, [facility] COVID-19 (PFIZER), MRNA, LNP-S, PF, 30 MCG/0.3 ML DOSE 5 2020 208 complet ed HISTORICA L INFORMATI ON - FROM OTHER REGISTRY, [facility] TDAP 2020 115 complet ed [facility] COVID-19 (PFIZER), MRNA, LNP-S, PF, 30 MCG/0.3 ML DOSE 4 2020 208 complet ed HISTORICA L INFORMATI ON - FROM OTHER REGISTRY, [facility] COVID-19 (MODERNA), MRNA, LNP-S, PF, 100 MCG/0.5ML DOSE OR 50 MCG/0.25ML DOSE 2 2020 207 complet ed HISTORICA L INFORMATI ON - FROM PATIENT'S WRITTEN RECORD, [facility] COVID-19 (PFIZER), MRNA, LNP-S, PF, 30 MCG/0.3 ML DOSE 3 2020 208 complet ed HISTORICA L INFORMATI ON - FROM OTHER REGISTRY, [facility] COVID-19 (PFIZER), MRNA, LNP-S, PF, 30 MCG/0.3 ML DOSE 2 2020 208 complet ed HISTORICA L INFORMATI ON - FROM OTHER REGISTRY, [facility] COVID-19 (MODERNA), MRNA, LNP-S, PF, 100 MCG/0.5ML DOSE OR 50 MCG/0.25ML DOSE 1 2020 207 complet ed HISTORICA L INFORMATI ON - FROM PATIENT'S WRITTEN RECORD, [facility] COVID-19 (PFIZER), MRNA, LNP-S, PF, 30 MCG/0.3 ML DOSE 1 2020 208 complet ed HISTORICA L INFORMATI ON - FROM OTHER REGISTRY, [facility] INFLUENZA, SEASONAL, INJECTABLE 2019 141 complet ed HISTORICA L INFORMATI ON - FROM OTHER REGISTRY, [facility] INFLUENZA, HIGH-DOSE, QUADRIVALENT 1 2019 197 complet ed HISTORICA L INFORMATI ON - FROM OTHER REGISTRY, [facility] INFLUENZA, UNSPECIFIED FORMULATION 2019 88 complet ed [facility] PNEUMOCOCCAL POLYSACCHARID E PPV23 2018 33 complet ed [facility] ZOSTER RECOMBINANT 2 2018 187 complet ed [facility] PNEUMOCOCCAL CONJUGATE PCV 7 2018 100 complet ed HISTORICA L INFORMATI ON - FROM OTHER REGISTRY, [facility] INFLUENZA, TRIVALENT, ADJUVANTED 2018 168 complet ed [facility] HEP A-HEP B 2 2018 104 complet ed [facility] ZOSTER RECOMBINANT 1 2018 187 complet [facility] HEPATITIS A/B (HISTORICAL) 2017 NONE 104 complet [facility] INFLUENZA, TRIVALENT, ADJUVANTED 2017 168 complet ed [facility] PNEUMOCOCCAL CONJUGATE PCV 13 2017 133 complet ed [facility] ZOSTER RECOMBINANT 1 2017 187 complet ed [facility] PNEUMOCOCCAL POLYSACCHARID E PPV23 1 2017 33 complet ed HISTORICA L INFORMATI ON - FROM OTHER REGISTRY, [facility] INFLUENZA, HIGH DOSE SEASONAL 1 2014 135 complet ed HISTORICA L INFORMATI ON - FROM OTHER REGISTRY, [facility] INFLUENZA, SEASONAL, INJECTABLE 2013 141 complet ed HISTORICA L INFORMATI ON - FROM OTHER REGISTRY, [facility] INFLUENZA, HIGH DOSE SEASONAL 1 2013 135 complet ed HISTORICA L INFORMATI ON - FROM OTHER REGISTRY, [facility] Results Combined list of recent chemistry, hematology and other laboratory results from Department of Defense and Veterans Affairs, ranging from 15 months to all on record, depending upon the facility. Order Name Results Value Reference Range Date Interpretation Specimen Comments Source I-STAT, CREAT ([facility] CREATININE [MASS/VOLU ME] IN BLOOD 1.1 mg/dL 0.7 - 1.3 07/13 Specimen Type: BLOOD Comment: Test Performed by: [id number] Meter #: [id number] Ordering Provider: GUERLINE DEGROOT Report Released Date/Time: Jul 13, 2024 03:42 PM Reporting Lab: [facility] [address] [place] [phone] Performing Lab: [facility] [address] [place] [phone] [facility] BASIC METABOLI C PANEL CREATININE [MASS/VOLU ME] IN SERUM OR PLASMA 1.02 mg/dL 0.7 - 1.3 06/09 Specimen Type: PLASMA Comment: No hemolysis noted. Ordering Provider: JANEL LIGHT Report Released Date/Time: Jun 09, 2024 10:00 AM Reporting Lab: [facility] [address] [place] [phone] Performing Lab: [facility] [address] [place] [phone] [facility] BASIC METABOLI C PANEL UREA NITROGEN [MASS/VOLU ME] IN SERUM OR PLASMA 19.0 mg/dL 9.0 - 25.0 06/09 Specimen Type: PLASMA Comment: No hemolysis noted. Ordering Provider: JANEL LIGHT Report Released Date/Time: Jun 09, 2024 10:00 AM Reporting Lab: [address] [address] Performing Lab: [address] [address] [facility] BASIC METABOLI C PANEL GLUCOSE [MASS/VOLU ME] IN SERUM OR PLASMA 124 mg/dL 72 - 99 06/09 H Specimen Type: PLASMA Comment: No hemolysis noted. Ordering Provider: JANEL LIGHT Report Released Date/Time: Jun 09, 2024 10:00 AM Reporting Lab: [address] [address] Performing Lab: [address] [address] [facility] BASIC METABOLI C PANEL SODIUM [MOLES/VOL UME] IN SERUM OR PLASMA 140 meq/L 136 - 145 06/09 Specimen Type: PLASMA Comment: No hemolysis noted. Ordering Provider: JANEL LIGHT Report Released Date/Time: Jun 09, 2024 10:00 AM Reporting Lab: [address] [address] Performing Lab: [address] [address] [facility] BASIC METABOLI C PANEL POTASSIUM [MOLES/VOL UME] IN SERUM OR PLASMA 4.3 meq/L 3.5 - 5 06/09 Specimen Type: PLASMA Comment: No hemolysis noted. Ordering Provider: JANEL LIGHT Report Released Date/Time: Jun 09, 2024 10:00 AM Reporting Lab: [address] [address] Performing Lab: [address] [address] [facility] BASIC METABOLI C PANEL CHLORIDE [MOLES/VOL UME] IN SERUM OR PLASMA 105 meq/L 98 - 107 06/09 Specimen Type: PLASMA Comment: No hemolysis noted. Ordering Provider: JANEL LIGHT Report Released Date/Time: Jun 09, 2024 10:00 AM Reporting Lab: [place] [address] [facility] [phone] Performing Lab: [place] [address] [facility] [address] [facility] BASIC METABOLI C PANEL CARBON DIOXIDE, TOTAL [MOLES/VOL UME] IN SERUM OR PLASMA 24 meq/L 22 - 31 06/09 Specimen Type: PLASMA Comment: No hemolysis noted. Ordering Provider: JANEL LIGHT Report Released Date/Time: Jun 09, 2024 10:00 AM Reporting Lab: [place] [address] [facility] [address] Performing Lab: [place] [address] [facility] [address] [facility] BASIC METABOLI C PANEL CALCIUM [MASS/VOLU ME] IN SERUM OR PLASMA 9.9 mg/dL 8.4 - 10.4 06/09 Specimen Type: PLASMA Comment: No hemolysis noted. Ordering Provider: JANEL LIGHT Report Released Date/Time: Jun 09, 2024 10:00 AM Reporting Lab: [place] [address] [facility] [address] Performing Lab: [address] [address] [facility] BASIC METABOLI C PANEL GLOMERULAR FILTRATION RATE/1.73 SQ M.PREDICTE D [VOLUME RATE/AREA] IN SERUM, PLASMA OR BLOOD BY CREATININE -BASED FORMULA (CKD-EPI 2020) 75.7 60 06/09 Specimen Type: PLASMA Comment: No hemolysis noted. Ordering Provider: JANEL LIGHT Report Released Date/Time: Jun 09, 2024 10:00 AM Reporting Lab: [address] [place] [address] Performing Lab: [facility] [address] [place] [phone] [facility] CBC LEUKOCYTES [#/VOLUME] IN BLOOD BY AUTOMATED COUNT 10.9 10*3/uL 3.6 - 11.2 06/09 Specimen Type: BLOOD No comment entered. Ordering Provider: JANEL LIGHT Report Released Date/Time: Jun 09, 2024 10:00 AM Reporting Lab: [place] [address] [facility] [address] Performing Lab: [address] [address] [facility] CBC ERYTHROCYT ES [#/VOLUME] IN BLOOD BY AUTOMATED COUNT 5.07 10*6/uL 4.10 - 5.70 06/09 Specimen Type: BLOOD No comment entered. Ordering Provider: JANEL LIGHT Report Released Date/Time: Jun 09, 2024 10:00 AM Reporting Lab: [place] [address] [facility] [address] Performing Lab: [address] [address] [facility] CBC HEMOGLOBIN [MASS/VOLU ME] IN BLOOD 15.4 g/dL 13.1 - 16.8 06/09 Specimen Type: BLOOD No comment entered. Ordering Provider: JANEL LIGHT Report Released Date/Time: Jun 09, 2024 10:00 AM Reporting Lab: [place] [address] [facility] [address] Performing Lab: [address] [address] [facility] CBC HEMATOCRIT [VOLUME FRACTION] OF BLOOD 46.8 38.2 - 48.4 06/09 Specimen Type: BLOOD No comment entered. Ordering Provider: JANEL LIGHT Report Released Date/Time: Jun 09, 2024 10:00 AM Reporting Lab: [place] [id number] [facility] [address] Performing Lab: [address] [address] [facility] CBC MCV [ENTITIC VOLUME] BY AUTOMATED COUNT 92.3 fL 80.0 - 100.0 06/09 Specimen Type: BLOOD No comment entered. Ordering Provider: JANEL LIGHT Report Released Date/Time: Jun 09, 2024 10:00 AM Reporting Lab: [address] [address] Performing Lab: [address] [address] [facility] CBC MCH [ENTITIC MASS] BY AUTOMATED COUNT 30.4 pg 27.0 - 34.0 06/09 Specimen Type: BLOOD No comment entered. Ordering Provider: JANEL LIGHT Report Released Date/Time: Jun 09, 2024 10:00 AM Reporting Lab: [address] [address] Performing Lab: [address] [address] [facility] CBC MCHC [MASS/VOLU ME] BY AUTOMATED COUNT 32.9 g/dL 33.0 - 36.0 06/09 L Specimen Type: BLOOD No comment entered. Ordering Provider: JANEL LIGHT Report Released Date/Time: Jun 09, 2024 10:00 AM Reporting Lab: [address] [address] Performing Lab: [address] [address] [facility] CBC PLATELETS [#/VOLUME] IN BLOOD BY AUTOMATED COUNT 298 10*3/uL 150 - 400 06/09 Specimen Type: BLOOD No comment entered. Ordering Provider: JANEL LIGHT Report Released Date/Time: Jun 09, 2024 10:00 AM Reporting Lab: [place] [address] [facility] [address] Performing Lab: [facility] [address] [facility] [address] [facility] CBC PLATELET MEAN VOLUME [ENTITIC VOLUME] IN BLOOD BY AUTOMATED COUNT 9.6 fL 7.5 - 11.2 06/09 Specimen Type: BLOOD No comment entered. Ordering Provider: JANEL LIGHT Report Released Date/Time: Jun 09, 2024 10:00 AM Reporting Lab: [place] [address] [facility] [address] Performing Lab: [place] [address] [facility] [phone] [facility] CBC ERYTHROCYT E DISTRIBUTI ON WIDTH [RATIO] BY AUTOMATED COUNT 12.0 11.8 - 15.1 06/09 Specimen Type: BLOOD No comment entered. Ordering Provider: JANEL LIGHT Report Released Date/Time: Jun 09, 2024 10:00 AM Reporting Lab: [place] [address] [facility] [address] Performing Lab: [place] [address] [facility] [address] [facility] CBC LYMPHOCYTE S/100 LEUKOCYTES IN BLOOD BY AUTOMATED COUNT 13 06/09 Specimen Type: BLOOD No comment entered. Ordering Provider: JANEL LIGHT Report Released Date/Time: Jun 09, 2024 10:00 AM Reporting Lab: [place] [address] [facility] [address] Performing Lab: [place] [address] [facility] [address] [facility] CBC MONOCYTES/ 100 LEUKOCYTES IN BLOOD BY AUTOMATED COUNT 10 06/09 Specimen Type: BLOOD No comment entered. Ordering Provider: JANEL LIGHT Report Released Date/Time: Jun 09, 2024 10:00 AM Reporting Lab: [place] [address] [facility] [address] Performing Lab: [facility] [address] [facility] [address] [facility] CBC NEUTROPHIL S/100 LEUKOCYTES IN BLOOD BY AUTOMATED COUNT 73 06/09 Specimen Type: BLOOD No comment entered. Ordering Provider: JANEL LIGHT Report Released Date/Time: Jun 09, 2024 10:00 AM Reporting Lab: [facility] [address] [facility] [address] Performing Lab: [place] [address] [facility] [address] [facility] CBC EOSINOPHIL S/100 LEUKOCYTES IN BLOOD BY AUTOMATED COUNT 2 06/09 Specimen Type: BLOOD No comment entered. Ordering Provider: JANEL LIGHT Report Released Date/Time: Jun 09, 2024 10:00 AM Reporting Lab: [place] [address] [facility] [address] Performing Lab: [facility] [address] [facility] [address] [facility] CBC BASOPHILS/ 100 LEUKOCYTES IN BLOOD BY AUTOMATED COUNT 1 06/09 Specimen Type: BLOOD No comment entered. Ordering Provider: JANEL LIGHT Report Released Date/Time: Jun 09, 2024 10:00 AM Reporting Lab: [place] [address] [facility] [address] Performing Lab: [place] [address] [facility] [address] [facility] CBC LYMPHOCYTE S [#/VOLUME] IN BLOOD BY AUTOMATED COUNT 1.37 10*3/uL 0.77 - 4.50 06/09 Specimen Type: BLOOD No comment entered. Ordering Provider: JANEL LIGHT Report Released Date/Time: Jun 09, 2024 10:00 AM Reporting Lab: [place] [address] [facility] [address] Performing Lab: [place] [address] [facility] [address] [facility] CBC MONOCYTES [#/VOLUME] IN BLOOD BY AUTOMATED COUNT 1.13 10*3/uL 0.19 - 0.80 06/09 H Specimen Type: BLOOD No comment entered. Ordering Provider: JANEL LIGHT Report Released Date/Time: Jun 09, 2024 10:00 AM Reporting Lab: [place] [address] [facility] [address] Performing Lab: [address] [address] [facility] CBC NEUTROPHIL S [#/VOLUME] IN BLOOD BY AUTOMATED COUNT 7.93 10*3/uL 2.10 - 8.00 06/09 Specimen Type: BLOOD No comment entered. Ordering Provider: JANEL LIGHT Report Released Date/Time: Jun 09, 2024 10:00 AM Reporting Lab: [place] [phone] Performing Lab: [place] [phone] [facility] CBC EOSINOPHIL S [#/VOLUME] IN BLOOD BY AUTOMATED COUNT 0.19 10*3/uL 0.00 - 0.60 06/09 Specimen Type: BLOOD No comment entered. Ordering Provider: JANEL LIGHT Report Released Date/Time: Jun 09, 2024 10:00 AM Reporting Lab: [address] [address] Performing Lab: [address] [address] [facility] CBC BASOPHILS [#/VOLUME] IN BLOOD BY AUTOMATED COUNT 0.07 10*3/uL 0.00 - 0.20 06/09 Specimen Type: BLOOD No comment entered. Ordering Provider: JANEL LIGHT Report Released Date/Time: Jun 09, 2024 10:00 AM Reporting Lab: [place] [address] [facility] [address] Performing Lab: [place] [address] [address] [facility] HGA1C HEMOGLOBIN A1C/HEMOGL OBIN.TOTAL IN BLOOD 5.7 4.0 - 6.0 03/24 Specimen Type: BLOOD No comment entered. Ordering Provider: Narinder SOTO Report Released Date/Time: Mar 24, 2024 11:10 AM Reporting Lab: [place] [phone] Performing Lab: [address] [address] [facility] B12 COBALAMIN (VITAMIN B12) [MASS/VOLU ME] IN SERUM OR PLASMA >2000pg/ mL 213 - 816 03/24 H Specimen Type: SERUM No comment entered. Ordering Provider: Narinder SOTO Report Released Date/Time: Mar 24, 2024 11:10 AM Reporting Lab: [address] [address] Performing Lab: [address] [address] [facility] URINALYS IS BILIRUBIN. TOTAL [MASS/VOLU ME] IN URINE BY TEST STRIP Negative 02/04 Specimen Type: URINE No comment entered. Ordering Provider: ASAD NAYAK AM Report Released Date/Time: Feb 02, 2024 12:01 PM Reporting Lab: [address] [place] [address] Performing Lab: [address] [place] [address] [facility] URINALYS IS KETONES [MASS/VOLU ME] IN URINE BY TEST STRIP Negative 02/04 Specimen Type: URINE No comment entered. Ordering Provider: ASAD NAYAK AM Report Released Date/Time: Feb 02, 2024 12:01 PM Reporting Lab: [address] [place] [address] Performing Lab: [address] [place] [address] [facility] URINALYS IS GLUCOSE [PRESENCE] IN URINE BY TEST STRIP NORMAL 02/04 Specimen Type: URINE No comment entered. Ordering Provider: ASAD NAYAK AM Report Released Date/Time: Feb 02, 2024 12:01 PM Reporting Lab: [facility] [address] [facility] [address] Performing Lab: [facility] [address] [facility] [address] [facility] URINALYS IS PROTEIN [MASS/VOLU ME] IN URINE BY TEST STRIP Trace 02/04 H Specimen Type: URINE No comment entered. Ordering Provider: ASAD NAYAK AM Report Released Date/Time: Feb 02, 2024 12:01 PM Reporting Lab: [facility] [address] [facility] [address] Performing Lab: [facility] [address] [facility] [address] [facility] URINALYS IS EPITHELIAL CELLS [PRESENCE] IN URINE SEDIMENT BY LIGHT MICROSCOPY NoneObs 02/04 Specimen Type: URINE No comment entered. Ordering Provider: ASAD NAYAK AM R Report Released Date/Time: Feb 02, 2024 12:01 PM Reporting Lab: [address] [address] Performing Lab: [facility] [address] [place] [address] [facility] URINALYS IS BACTERIA [#/AREA] IN URINE SEDIMENT BY MICROSCOPY HIGH POWER FIELD 2+/[HPF] 02/04 H Specimen Type: URINE No comment entered. Ordering Provider: ASAD NAYAK AM Report Released Date/Time: Feb 02, 2024 12:01 PM Reporting Lab: [facility] [address] [place] [address] Performing Lab: [facility] [address] [facility] [address] [facility] URINALYS IS COLOR OF URINE LIGHT YELLOW <Venessa 02/04 Specimen Type: URINE No comment entered. Ordering Provider: ASAD NAYAK AM R Report Released Date/Time: Feb 02, 2024 12:01 PM Reporting Lab: [facility] [address] [place] [address] Performing Lab: [facility] [address] [place] [place] [address] [facility] URINALYS IS HEMOGLOBIN [PRESENCE] IN URINE BY TEST STRIP Trace 02/04 H Specimen Type: URINE No comment entered. Ordering Provider: ASAD NAYAK AM R Report Released Date/Time: Feb 02, 2024 12:01 PM Reporting Lab: [facility] [address] [place] [address] Performing Lab: [facility] [address] [place] [address] [facility] URINALYS IS NITRITE [PRESENCE] IN URINE BY TEST STRIP 2+ 02/04 H Specimen Type: URINE No comment entered. Ordering Provider: ASAD NAYAK AM Report Released Date/Time: Feb 02, 2024 12:01 PM Reporting Lab: [facility] [address] [place] [address] Performing Lab: [address] [place] [address] [facility] URINALYS IS SPECIFIC GRAVITY OF URINE BY TEST STRIP 1.012 1.003 - 1.030 02/04 Specimen Type: URINE No comment entered. Ordering Provider: ASAD NAYAK AM Report Released Date/Time: Feb 02, 2024 12:01 PM Reporting Lab: [facility] [address] [place] [address] Performing Lab: [address] [place] [address] [facility] URINALYS IS PH OF URINE BY TEST STRIP 6.5 5.0 - 9.0 02/04 Specimen Type: URINE No comment entered. Ordering Provider: ASAD NAYAK AM R Report Released Date/Time: Feb 02, 2024 12:01 PM Reporting Lab: [facility] [address] [place] [address] Performing Lab: [facility] [address] [facility] [place] [address] [facility] URINALYS IS LEUKOCYTE ESTERASE [PRESENCE] IN URINE BY TEST STRIP 3+ 02/04 H Specimen Type: URINE No comment entered. Ordering Provider: ASAD NAYAK AM R Report Released Date/Time: Feb 02, 2024 12:01 PM Reporting Lab: [address] [place] [address] Performing Lab: [address] [place] [address] [facility] URINALYS IS CLARITY OF URINE Turbid 02/04 H Specimen Type: URINE No comment entered. Ordering Provider: ASAD NAYAK AM R Report Released Date/Time: Feb 02, 2024 12:01 PM Reporting Lab: [address] [place] [address] Performing Lab: [address] [place] [address] [facility] URINALYS IS ERYTHROCYT ES [#/AREA] IN URINE SEDIMENT BY MICROSCOPY HIGH POWER FIELD NoneObs/ [HPF] 0 - 2 02/04 Specimen Type: URINE No comment entered. Ordering Provider: ASAD NAYAK AM R Report Released Date/Time: Feb 02, 2024 12:01 PM Reporting Lab: [address] [place] [address] Performing Lab: [address] [place] [address] [facility] URINALYS IS LEUKOCYTES [#/AREA] IN URINE SEDIMENT BY MICROSCOPY HIGH POWER FIELD 50-100/[ HPF] 0 - 5 02/04 H Specimen Type: URINE No comment entered. Ordering Provider: ASAD NAYAK AM R Report Released Date/Time: Feb 02, 2024 12:01 PM Reporting Lab: [address] [place] [address] Performing Lab: [address] [place] [address] [facility] CBC LEUKOCYTES [#/VOLUME] IN BLOOD BY AUTOMATED COUNT 12.6 10*3/uL 4.8 - 10.8 02/04 H Specimen Type: BLOOD No comment entered. Ordering Provider: ASAD NAYAK AM R Report Released Date/Time: Feb 02, 2024 12:02 PM Reporting Lab: [address] [place] [address] Performing Lab: [address] [place] [address] [facility] CBC ERYTHROCYT ES [#/VOLUME] IN BLOOD BY AUTOMATED COUNT 5.01 10*6/uL 4.7 - 6.1 02/04 Specimen Type: BLOOD No comment entered. Ordering Provider: ASAD NAYAK AM R Report Released Date/Time: Feb 02, 2024 12:02 PM Reporting Lab: [address] [place] [address] Performing Lab: [facility] [address] [place] [address] [facility] CBC HEMOGLOBIN [MASS/VOLU ME] IN BLOOD 15.0 g/dL 14 - 18 02/04 Specimen Type: BLOOD No comment entered. Ordering Provider: ASAD NAYAK AM Report Released Date/Time: Feb 02, 2024 12:02 PM Reporting Lab: [address] [place] [address] Performing Lab: [address] [place] [address] [facility] CBC HEMATOCRIT [VOLUME FRACTION] OF BLOOD BY AUTOMATED COUNT 45.6 42 - 52 02/04 Specimen Type: BLOOD No comment entered. Ordering Provider: ASAD NAYAK AM R Report Released Date/Time: Feb 02, 2024 12:02 PM Reporting Lab: [address] [place] [address] Performing Lab: [address] [place] [address] [facility] CBC MCV [ENTITIC VOLUME] BY AUTOMATED COUNT 91.1 fL 80 - 94 02/04 Specimen Type: BLOOD No comment entered. Ordering Provider: ASAD NAYAK AM R Report Released Date/Time: Feb 02, 2024 12:02 PM Reporting Lab: [address] [place] [address] Performing Lab: [facility] [address] [place] [address] [facility] CBC MCH [ENTITIC MASS] BY AUTOMATED COUNT 30.0 pg 27 - 31 02/04 Specimen Type: BLOOD No comment entered. Ordering Provider: ASAD NAYAK AM R Report Released Date/Time: Feb 02, 2024 12:02 PM Reporting Lab: [facility] [address] [place] [address] Performing Lab: [facility] [address] [facility] [place] [address] [facility] CBC MCHC [MASS/VOLU ME] BY AUTOMATED COUNT 32.9 g/dL 32 - 36 02/04 Specimen Type: BLOOD No comment entered. Ordering Provider: ASAD NAYAK AM R Report Released Date/Time: Feb 02, 2024 12:02 PM Reporting Lab: [facility] [address] [place] [address] Performing Lab: [facility] [address] [place] [place] [address] [facility] CBC PLATELETS [#/VOLUME] IN BLOOD BY AUTOMATED COUNT 307 10*3/uL 130 - 400 02/04 Specimen Type: BLOOD No comment entered. Ordering Provider: ASAD NAYAK AM R Report Released Date/Time: Feb 02, 2024 12:02 PM Reporting Lab: [facility] [address] [facility] [place] [address] Performing Lab: [facility] [address] [place] [place] [address] [facility] CBC PLATELET MEAN VOLUME [ENTITIC VOLUME] IN BLOOD BY AUTOMATED COUNT 8.9 fL 7.4 - 10.4 02/04 Specimen Type: BLOOD No comment entered. Ordering Provider: ASAD NAYAK AM R Report Released Date/Time: Feb 02, 2024 12:02 PM Reporting Lab: [facility] [address] [facility] [place] [address] Performing Lab: [facility] [address] [place] [place] [address] [facility] CBC MONOCYTES/ 100 LEUKOCYTES IN BLOOD BY AUTOMATED COUNT 9.9 4 - 12 02/04 Specimen Type: BLOOD No comment entered. Ordering Provider: ASAD NAYAK AM R Report Released Date/Time: Feb 02, 2024 12:02 PM Reporting Lab: [facility] [address] [facility] [place] [address] Performing Lab: [facility] [address] [place] [place] [address] [facility] CBC EOSINOPHIL S/100 LEUKOCYTES IN BLOOD BY AUTOMATED COUNT 2.0 0 - 11.0 02/04 Specimen Type: BLOOD No comment entered. Ordering Provider: ASAD NAYAK AM R Report Released Date/Time: Feb 02, 2024 12:02 PM Reporting Lab: [facility] [address] [place] [address] Performing Lab: [facility] [address] [place] [address] [facility] CBC BASOPHILS/ 100 LEUKOCYTES IN BLOOD BY AUTOMATED COUNT 0.6 0.0 - 2.0 02/04 Specimen Type: BLOOD No comment entered. Ordering Provider: ASAD NAYAK AM R Report Released Date/Time: Feb 02, 2024 12:02 PM Reporting Lab: [facility] [address] [place] [address] Performing Lab: [address] [address] [facility] CBC ERYTHROCYT E DISTRIBUTI ON WIDTH [RATIO] BY AUTOMATED COUNT 12.9 11.5 - 14.5 02/04 Specimen Type: BLOOD No comment entered. Ordering Provider: ASAD NAYAK AM R Report Released Date/Time: Feb 02, 2024 12:02 PM Reporting Lab: [facility] [address] [place] [address] Performing Lab: [facility] [address] [place] [address] [facility] CBC LYMPHOCYTE S/100 LEUKOCYTES IN BLOOD BY AUTOMATED COUNT 18.8 20.5 - 51.1 02/04 L Specimen Type: BLOOD No comment entered. Ordering Provider: ASAD NAYAK AM R Report Released Date/Time: Feb 02, 2024 12:02 PM Reporting Lab: [facility] [address] [place] [address] Performing Lab: [facility] [address] [place] [address] [facility] CBC NEUTROPHIL S/100 LEUKOCYTES IN BLOOD BY AUTOMATED COUNT 68.7 42.2 - 75.2 02/04 Specimen Type: BLOOD No comment entered. Ordering Provider: ASAD NAYAK AM R Report Released Date/Time: Feb 02, 2024 12:02 PM Reporting Lab: [facility] [address] [place] [address] Performing Lab: [facility] [address] [facility] [place] [address] [facility] CBC LYMPHOCYTE S [#/VOLUME] IN BLOOD BY AUTOMATED COUNT 2.4 10*3/uL 1.2 - 3.4 02/04 Specimen Type: BLOOD No comment entered. Ordering Provider: ASAD NAYAK AM R Report Released Date/Time: Feb 02, 2024 12:02 PM Reporting Lab: [facility] [address] [place] [address] Performing Lab: [facility] [address] [place] [address] [facility] CBC MONOCYTES [#/VOLUME] IN BLOOD BY AUTOMATED COUNT 1.2 10*3/uL 0.1 - 0.7 02/04 H Specimen Type: BLOOD No comment entered. Ordering Provider: ASAD NAYAK AM R Report Released Date/Time: Feb 02, 2024 12:02 PM Reporting Lab: [facility] [address] [place] [address] Performing Lab: [facility] [address] [place] [address] [facility] CBC NEUTROPHIL S [#/VOLUME] IN BLOOD BY AUTOMATED COUNT 8.7 10*3/uL 1.4 - 6.5 02/04 H Specimen Type: BLOOD No comment entered. Ordering Provider: ASAD NAYAK AM R Report Released Date/Time: Feb 02, 2024 12:02 PM Reporting Lab: [facility] [address] [place] [address] Performing Lab: [facility] [address] [place] [address] [facility] CBC EOSINOPHIL S [#/VOLUME] IN BLOOD BY AUTOMATED COUNT 0.2 10*3/uL 0.0 - 0.7 02/04 Specimen Type: BLOOD No comment entered. Ordering Provider: ASAD NAYAK AM R Report Released Date/Time: Feb 02, 2024 12:02 PM Reporting Lab: [facility] [address] [place] [address] Performing Lab: [facility] [address] [facility] [address] [facility] CBC BASOPHILS [#/VOLUME] IN BLOOD BY AUTOMATED COUNT 0.1 10*3/uL 0.0 - 0.2 02/04 Specimen Type: BLOOD No comment entered. Ordering Provider: ASAD NAYAK AM Report Released Date/Time: Feb 02, 2024 12:02 PM Reporting Lab: [address] [address] Performing Lab: [facility] [address] [facility] [address] [facility] ALBUMIN/ CREATINI NE RATIO, URINE CREATININE [MASS/VOLU ME] IN URINE 88.8 mg/dL 12/18 Specimen Type: URINE Comment: Normal: 0 - 29 Moderately increased: 30 - 300 Severely increased: >300 [facility]: [id number] [facility], [place] [address] Ordering Provider: BERTRAM CRISTOBAL Report Released Date/Time: Dec 19, 2023 12:27 PM Reporting Lab: [address] [address] Performing Lab: [facility] [address] [facility] [address] [facility] ALBUMIN/ CREATINI NE RATIO, URINE MICROALBUM IN [MASS/VOLU ME] IN URINE 14.2 ug/mL 12/18 Specimen Type: URINE Comment: Normal: 0 - 29 Moderately increased: 30 - 300 Severely increased: >300 [facility]: [id number] , [place] [address] Ordering Provider: BERTRAM CRISTOBAL Report Released Date/Time: Dec 19, 2023 12:27 PM Reporting Lab: [address] [address] Performing Lab: [facility] [address] [facility] [address] [facility] ALBUMIN/ CREATINI NE RATIO, URINE ALBUMIN/CR EATININE [MASS RATIO] IN URINE 16 mg/g{cre at} 0 - 29 12/18 Specimen Type: URINE Comment: Normal: 0 - 29 Moderately increased: 30 - 300 Severely increased: >300 [facility]: [id number] , [place] [address] Ordering Provider: BERTRAM CRISTOBAL Report Released Date/Time: Dec 19, 2023 12:27 PM Reporting Lab: [facility] [address] [facility] [address] Performing Lab: [facility] [address] [facility] [address] [facility] HEMOGLOB IN A1C HEMOGLOBIN A1C/HEMOGL OBIN.TOTAL IN BLOOD BY HPLC 5.6 4.5 - 5.7 12/18 Specimen Type: BLOOD Comment: Values obtained from A1C measurement s can vary. For typical A1C assays, a reported value of 7.0 could actually be between 6.72 and 7.28 if measured by a reference method. A reported value of 9.0 could actually be between 8.73 and 9.27. Ref: [email or web address] Ordering Provider: BERTRAM CRISTOBAL Report Released Date/Time: Aug 06, 2023 02:54 PM Reporting Lab: [facility] [address] [facility] [address] Performing Lab: [facility] [address] [facility] [address] [facility] VITAMIN B12 COBALAMIN (VITAMIN B12) [MASS/VOLU ME] IN SERUM OR PLASMA >1500pg/ mL 211 - 911 12/18 H Specimen Type: SERUM No comment entered. Ordering Provider: BERTRAM CRISTOBAL Report Released Date/Time: Aug 06, 2023 02:54 PM Reporting Lab: [facility] [address] [facility] [address] Performing Lab: [facility] [address] [facility] [address] [facility] Vital Signs Combined list of inpatient and outpatient Vital Signs from Department of Defense and Veterans Affairs, ranging from 12 months to all on record, depending upon the facility. Vital Sign Value Date Comments Source SYSTOLIC BLOOD PRESSURE 137 07/14/2024 14:07:06 [facility] DIASTOLIC BLOOD PRESSURE 80 07/14/2024 14:07:06 [facility] PULSE OXIMETRY 93 07/14/2024 14:07:06 [facility] PAIN 0 07/14/2024 14:07:06 [facility] TEMPERATURE 98.2 07/14/2024 14:07:06 [facility] PULSE 87 07/14/2024 14:07:06 [facility] RESPIRATION 18 07/14/2024 14:07:06 [facility] SYSTOLIC BLOOD PRESSURE 147 06/09/2024 09:30:56 [facility] DIASTOLIC BLOOD PRESSURE 68 06/09/2024 09:30:56 [facility] PULSE OXIMETRY 97 06/09/2024 09:30:56 S Diane [facility] WEIGHT 248.3 06/09/2024 09:30:56 [facility] BMI 34 kg/m2 06/09/2024 09:30:56 [facility] PAIN 0 06/09/2024 09:30:56 [facility] HEIGHT 72 06/09/2024 09:30:56 [facility] TEMPERATURE 97.9 06/09/2024 09:30:56 [facility] PULSE 60 06/09/2024 09:30:56 [facility] RESPIRATION 18 06/09/2024 09:30:56 [facility] SYSTOLIC BLOOD PRESSURE 152 04/12/2024 10:05:56 [facility] DIASTOLIC BLOOD PRESSURE 89 04/12/2024 10:05:56 [facility] PULSE OXIMETRY 96 04/12/2024 10:05:56 [facility] WEIGHT 240 04/12/2024 10:05:56 [facility] BMI 33 kg/m2 04/12/2024 10:05:56 [facility] PAIN 6 04/12/2024 10:05:56 [facility] HEIGHT 72 04/12/2024 10:05:56 [facility] TEMPERATURE 98.1 04/12/2024 10:05:56 [facility] PULSE 92 04/12/2024 10:05:56 Cesar CASTILLO [facility] RESPIRATION 20 04/12/2024 10:05:56 [facility] SYSTOLIC BLOOD PRESSURE 127 03/24/2024 13:18:01 [facility] DIASTOLIC BLOOD PRESSURE 71 03/24/2024 13:18:01 [facility] PULSE OXIMETRY 97 03/24/2024 13:18:01 S Reji [facility] WEIGHT 246.2 03/24/2024 13:18:01 [facility] BMI 34 kg/m2 03/24/2024 13:18:01 [facility] PAIN 4 03/24/2024 13:18:01 [facility] HEIGHT 71 03/24/2024 13:18:01 [facility] TEMPERATURE 97.6 03/24/2024 13:18:01 [facility] PULSE 68 03/24/2024 13:18:01 [facility] RESPIRATION 16 03/24/2024 13:18:01 [facility] SYSTOLIC BLOOD PRESSURE 148 02/11/2024 11:41:21 [facility] DIASTOLIC BLOOD PRESSURE 65 02/11/2024 11:41:21 [facility] PULSE OXIMETRY 94 02/11/2024 11:41:21 E GLIN [facility] WEIGHT 02/11/2024 11:41:21 [facility] PAIN 5 02/11/2024 11:41:21 [facility] HEIGHT 71 02/11/2024 11:41:21 [facility] TEMPERATURE 98.1 02/11/2024 11:41:[facility] 94 02/11/2024 11:41:21 [facility] RESPIRATION 18 02/11/2024 11:41:21 [facility] Encounters Combined list of: 1) Encounters from Department of Veterans Affairs facilities going backup to the last 18 months, not all VA inpatient encounters are included; 2) Encounters from the Department of [facility] facilities going backup to 280 months. Location Location Details Encounter Type Encounter Number Reason For Visit Attending Provider ADM Date DC Date Status Disposition Source [facility] OFFICE O/P EST LOW 20 MIN [id number] Diagnos is: ICD-10- CM N30.11 Interst itial cystiti s (chroni c) with hematur Brenda Whatley 06/27 [facility] Outpatient Encounter [id number] 07/02 [facility] HC PRO PHONE CALL 21-30 MIN [id number] Diagnos is: ICD-10- CM Z43.6 Encount er for attn to oth artif opening s of urinary tract ROSELIA FLOYD R 07/02 [facility] OFFICE O/P EST MOD 30 MIN [id number] Diagnos is: ICD-10- CM D64.9 Anemia, unspeci figalilea CRISTOBAL,EILEEN ANY J 08/05 [facility] Outpatient Encounter [id number] Carla ACUNA 08/06 [facility] Outpatient Encounter [id number] 09/08 [facility] Outpatient Encounter [id number] 10/30 [facility] HC PRO PHONE CALL 5-10 MIN [id number] Diagnos is: ICD-10- CM 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 ROSARIO Valentin [facility] 10/30 [facility] Outpatient Encounter [id number] 10/30 [facility] Outpatient Encounter [id number] 11/03 [facility] Outpatient Encounter [id number] Олег MOURA 11/03 [facility] Outpatient Encounter [id number] 11/12 [facility] Outpatient Encounter [id number] 11/27 [place] [facility] HC PRO PHONE CALL 5-10 MIN [id number] Diagnos is: ICD-10- CM 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 Олег Funes 11/27 [facility] En[facility] [id number] 12/03 [facility] Outpatient Encounter [id number] 12/03 [facility] [id number] 12/07 [facility] Outpatient Encounter [id number] 12/21 [facility] OFFICE O/P EST MOD 30 MIN [id number] Diagnos is: ICD-10- CM I10 Essenti al (primar y) hyperte mooion RADHA THACKER 12/25 [facility] En[facility] [id number] 12/29 [facility] Outpatient Encounter [id number] 02[facility] Out[facility] Encounter [id number] ROSARIO FRANCOIS [facility] 02/01 [facility] Outpatient Encounter [id number] 02/09 [facility] OFFICE O/P EST MOD 30 MIN [id number] Diagnos is: ICD-10- CM N39.0 Urinary tract infecti on, site not specifi ed BRIT NAYAK PATSY R 02/[address] [facility] Outpatient Encounter [id number] 02/11 [facility] Outpatient Encounter [id number] 02/11 [facility] TARGETED CASE MANAGEMENT [id number] IKER ROSENBERG 02/12 [facility] Outpatient Encounter [id number] 02/18 [facility] TARGETED CASE MANAGEMENT [id number] IKER ROSENBERG 03/05 [facility] Outpatient Encounter [id number] 03/05 [facility] Outpatient Encounter [id number] 03/10 [facility] TARGETED CASE MANAGEMENT [id number] IKER ROSENBERG 03/11 [facility] CASE MANAGEMENT [id number] DONNIE BRIZUELA 03/11 [facility] OFF/OP CONSLTJ NEW/[place] HI 55 [id number] Diagnos is: ICD-10- CM M48.061 Spinal stenosi s, lumbar region without neuroge jermaine JENNIFER Salcido 03/24 [facility] OFFICE O/P NEW MOD 45 MIN [id number] Diagnos is: ICD-10- CM R53.1 TOMÁS Aguilar 03/24 [facility] Outpatient Encounter [id number] 03/25 [facility] Outpatient Encounter [id number] 03/25 [facility] Outpatient Encounter [id number] 03/30 [facility] OFFICE O/P NEW HI 60 MIN [id number] Diagnos is: ICD-10- CM Z77.29 Contact with and exposur e to other hazardo us substan sammi RACHANA MORGAN 04/12 [facility] Outpatient Encounter [id number] 04/12 [facility] THER/PROPH /[place]J [place] PUSH [id number] Diagnos is: ICD-10- CM Z77.29 Contact with and exposur e to other hazardo us substan sammi OU,JIAFU 04/23 [facility] Outpatient Encounter [id number] 04/23 [facility] OFF/OP CNSLTJ NEW/EST MOD 40 [id number] Diagnos is: ICD-10- CM M79.671 Pain in right foot KIARRA EMERY 05/04 [facility] Outpatient Encounter [id number] 05/06 [facility] O/P EST HI 40 MIN [id number] Diagnos is: ICD-10- CM M48.061 Spinal stenosi s, lumbar region without neuroge jermaine JENNIFER Salcido 06/02 [facility] O/P EST MOD 30 MIN [id number] Diagnos is: ICD-10- CM N30.11 Interst itial cystiti s (chroni c) with hematur BRENDA Farr 06/09 [facility] Outpatient Encounter [id number] 06/09 [facility] Outpatient Encounter [id number] 06/27 [facility] O/P EST MOD 30 MIN [id number] Diagnos is: ICD-10- CM M48.07 Spinal stenosi s, lumbosa cral region Hugo BUSTAMANTE 07/14 [facility] Outpatient Encounter [id number] 07/15 [facility] Outpatient Encounter [id number] 07/20 [facility] Social History Combined list of available smoking, tobacco, and other social history from [facility] and [facility] facilities. Social History Type Response Date Comment Sour e Tobacco smoking status NHIS VA-TOBACCO NEVER USED CIGARETTES 03/24/2024 [facility] History of tobacco use VA-TOBACCO NEVER USED OTHER TYPE 03/24/2024 [facility] History of tobacco use VA-TOBACCO QUIT 15 YRS OR MORE 08/06/2023 [facility] History of tobacco use VA-TOBACCO FORMER USER 08/02/2022 [facility] History of tobacco use VA-TOBACCO NEVER USED 05/08/2021 [facility] History of tobacco use VA-TOBACCO NEVER USED 03/29/2020 [facility] History of tobacco use VA-TOBACCO FORMER USER 09[facility]23/2018 [facility] [facility] History of tobacco use VA-TOBACCO NEVER USED 02/20/2018 [facility] Plan of Care List of future care activities from [facility] facilities. Additional future care activities may be listed in the Assessment and Plan section. Date/Time Care Activity Care Activity Detail Facili ty 12/08/2024 AMBULATORY - SURGERY AM[facility]ATORY - SURGERY [facility]
--- OUTSIDE RECORDS SUMMARY | 2024-11-07 08:01 | XMS_ITS | Encounter Summary ---
Author Name [facility] [place] [facility] [place] Address [address] [place] [address] Care Team Providers Care Inorganic Chemistry Teacher Name Role Phone BEBETO DURAND Primary Care [...] Curtis's Name Patient's Relationship to Policy Curtis [facility] (WNR) MEDICARE ADVANTAGE [facility](W NR) Feb 02, 2018 [id number] [phone] IVAN FREEMAN HN PATIENT MEDICARE PART D (WNR) MEDICARE (M) PART D May 05, 2016 PART D [id number] [phone] IVAN FREEMAN HN PATIENT MEDICARE PART D (WNR) MEDICARE (M) PART D May 05, 2016 PART D [id number] IVAN FREEMAN HN PATIENT [facility] (WNR) MEDICARE ADVANTAGE [facility] (WNR) May 05, 2016 [id number] IVAN FREEMAN HN PATIENT [facility] (WNR) MEDICARE ADVANTAGE [facility] (WNR) May 05, 2016 [id number] IVAN FREEMAN HN PATIENT [facility] MCR (WNR) MEDICARE ADVANTAGE MCR (WNR) May 05, 2016 [id number] IVAN FREEMAN HN PATIENT Selected Encounter This section includes the information on record at [place] for the Encounter. Date/Time Encounter Type Encounter Description Reason Provider Source Mar 24, 2024 11:00 AM OFF/OP CONSLTJ NEW/EST HI 55 NEUROLOGY ICD-10-CM M48.061 Spinal stenosis, lumbar region without neurogenic frank JANNET BELTRÁN Zaheer Encounter Template Text not used by [place] Assessments - Encounter Diagnoses This section includes the primary and secondary diagnoses documented for the Encounter. Date/Time Primary/Secondary Diagnosis Diagnosis Name Provider Source Mar 24, 2024 11:09 AM PRIMARY Spinal stenosis, lumbar region without neurogenic frank JANNET BELTRÁN [facility] Mar 24, 2024 11:09 AM SECONDARY Idiopathic progressive neuropathy JANNET BELTRÁN [facility] Plan of Treatment: Future Appointments (+ 6 months) and Future Tests (+/- 45 days) The Plan of Treatment section includes future care activities for the patient from all [place] [facility]. This section includes future appointments and future orders which are active, pending or scheduled. Future Appointments This section includes appointments that were scheduled to occur 6 months from the date of the Encounter, up to a maximum of 20 appointments. The data comes from all [place] treatment facilities. Appointment Date/Time Appointment Type Appointme nt Facility Name Apr 12, 2024 10:00 AM AMBULATORY - MEDICINE [facility] Apr 23, 2024 10:00 AM AMBULATORY - MEDICINE [facility] May 04, 2024 09:30 AM AMBULATORY - SURGERY [facility] May 18, 2024 10:00 AM AMBULATORY - SURGERY [facility] Jun 02, 2024 11:00 AM AMBULATORY - NEUROLOGY [facility] Jun 09, 2024 09:30 AM AMBULATORY - SURGERY [facility] Jul 13, 2024 11:30 AM AMBULATORY - NONE [facility] Jul 14, 2024 02:15 PM AMBULATORY - MEDICINE [facility] Active, Pending, and Scheduled Orders This section includes a listing of several types of active, pending, and scheduled orders, including clinic medications orders, diagnostic test orders, procedure orders and consult orders; where the start date of the order is 45 days before the date of the Encounter or 45 days after the date of theEncounter. The data comes from all [facility]. Test Date/Time Test Type Test Details Facility Name Mar 24, 2024 12:00 AM Laboratory - Chemistry Order PHOSPHOROUS GREEN LI/HEP BLD/PLAS [facility]AS[facility] Mar 24, 2024 12:00 AM Laboratory - Chemistry Order MAGNESIUM GREEN LI/HEP BLD/PLAS PLASMA [facility] Mar 24, 2024 12:00 AM Laboratory - Chemistry Order LIPID PANEL (STL) GREEN LI/HEP BLD/PLAS PLASMA [facility] Mar 24, 2024 12:00 AM Laboratory - Chemistry Order CPK GREEN LI/HEP BLD/PLAS PLASMA [facility] Mar 24, 2024 12:00 AM Laboratory - Chemistry Order TSH W/ REFLEX FT4 (STL) GREEN LI-HEP PLASMA [facility] Mar 24, 2024 12:00 AM Laboratory - Chemistry Order CBC BLOOD [facility] Mar 24, 2024 12:00 AM Laboratory - Chemistry Order COMPREHENSIVE METABOLIC PANEL GREEN LI/HEP BLD/PLAS PLASMA [facility] Mar 25, 2024 12:00 AM Laboratory - Chemistry Order VITAMIN D, 25-HYDROXY GOLD/RED SST SERUM [facility] Lab Results: +/- 30 days of the encounter This section includes the Chemistry and Hematology Lab Results on record with [place] for the patient. Radiology Reports and Pathology Reports are provided separately, in subsequent sections. Lab Results This section contains the Chemistry/Hematology Results that were resulted 30 days before or 30 daysafter the date of the Encounter. Date/Time Source Result Type Result - Unit Interpretation Reference Range Specimen Type Comment Mar 24, 2024 11:52 AM [facility] HGA1C BLOOD Specimen Type: BLOOD No comment entered. Ordering Provider: JENNIFER BELTRÁN Report Released Date/Time: Mar 24, 2024 11:10 AM Reporting Lab: [facility] [address] [facility] [address] Performing Lab: [facility] [address] [facility] [address] HGA1C 5.7 4.0-6.0 Mar 24, 2024 11:52 AM [facility] B12 SERUM Specimen Type: SERUM No comment entered. Ordering Provider: JENNIFER BELTRÁN Report Released Date/Time: Mar 24, 2024 11:10 AM Reporting Lab: [place] [id number] [facility] [id number] Performing Lab: [facility] [address] [facility] [address] B12 >2000 pg/mL H [id number] Vital Signs: All taken on the encounter date This section contains inpatient and outpatient Vital Signs collected on the date of the Encounter. Date/Time Temperature Pulse Blood Pressure Respiratory Rate SP02 Pain Height Weight Body Mass Index Source Mar 24, 2024 01:20 PM 4 [facility] N Mar 24, 2024 01:18 PM 97.6 68 127/71 16 97 4 71 246.2 34 [facility] N Social History: Smoking Status (Most current) and Tobacco Use (All prior to encounter date) This section includes the most current, and the historical, smoking and tobacco- related health factors from the [place] facility where the Encounter took place. Current Smoking Status This section includes the most current smoking, or tobacco-related health factor, from the [place] facility where the Encounter took place. Date/Time Current Smoking Status Comment Facil ity Mar 24, 2024 01:15 PM VA-TOBACCO NEVER U SED CIGARETTES [facility] Tobacco Use History This section includes a history of the smoking, or tobacco-related health factors, that were collected on or before the date of the Encounter. The data comes from the [place] facility where the Encounter took place. Date/Time Smoking Status/Tobacco Use Comment F acility Mar 24, 2024 01:15 PM [place]-TO[place] NEVER U SED OTHER TYPE [facility] Radiology Reports: +/- 30 days of [...] the Encounter. The data comes from all [place] treatment facilities. Date/Time Radiology Report Provider Source Mar 24, 2024 11:[address] LUMBAR SPINE W/ O CONT: XANDER FREEMAN [id number] -[id number] M Exm Date: MAR 24, 2024@11:57 Req Phys: JENNIFER BELTRÁN Loc: [facility] (Req'g Img Loc: [facility] IMAGING [facility] Service: [address] [address] (Case [id number] COMPLETE) CT LUMBAR SPINE W/O CONT (CT Detailed) CPT:46964 Reason for Study: lumbar spinal stenosis Clinical History: Responsible Attending: Jennifer Beltrán M.D Attending Contact Number: [phone] Resident Contact Number: Allergies listed in CPRS chart: No Allergy Assessment Creatinine: No CREATININE EO data found/eGFR: STL EGFR (within one year). *No Lab Data Found* Wt: History of: Renal failure, chronic or acute renal disease: NO Report Status: Verified Date Reported: MAR 25, 2024 Date Verified: MAR 25, 2024 Branch Account Executive E-Sig:/ES/INNA HURTADO MD Report: CT scanning through [...] Primary Interpreting Staff: INNA HURTADO MD, Radiologist (Branch Account Executive) /INNA VERGARA [facility] Encounter Notes: All associated encounter notes This section contains the clinical notes associated to the Encounter. Date/Time Encounter Note(s) Provider Source Mar 24, 2024 10:50 AM NEUROLOGY CONSULT: LOCAL TITLE: NEUROLOGY OUTPATIENT CONSULT [facility] STANDARD TITLE: NEUROLOGY CONSULT DATE OF NOTE: MAR 24, 2024@10:50 ENTRY DATE: MAR 24, 2024@10:50:30 AUTHOR: JENNIFER BELTRÁN COSIGNER: URGENCY: STATUS: COMPLETED NEUROLOGY OUTPATIENT CONSULT ST Has [facility] Neurology Consult Initial Note Date of Visit: 03/24/24 11:00 XANDER FREEMAN is a 78 year old WHITE MALE CC: Neuropathy Onset of symptoms: >4 years Pt reports tinglng and numbness in feet that started in the feet over 4 years ago. The symptoms progressed since early this year to affect the legs. Pt reports burning pain. Pt reports stabbing, shooting, electrical pain in the feet. legs are alseep but no pain.. Pt reports cramps as Manuel horses in the calves: Pt reports weakness in the limbs. he can walk but he has trouble walking for a distance. he uses a walker at home and he uses a wc for distant ambulation. he is falling. last fall was this morning. my legs collapse. he does not fall hard as he says but he go down no injuries in the falls. trouble using the stairs. unsteadiness and tripping dizziness with position at times. he has chronic vertigo he had bladder diversion surgery. treatment used for this condition: he tried neurontin 100 mg and that did not help. he did not tolerate the side effects of it. side effects to the current treatment: he can't recall except constipation. PAST MEDICAL HISTORY:bladder disorder, kidney stones, HTN, [...] rapid alternative movements in the hands Normal rapid alternative movements in the legs Normal finger nose finger in the hands bilaterally, No tremors noted Gait: on wc Impression: This is a 78 y/o man with likely lumbar spinal stenosis per history and exam and possibly neuropathy as well. Plan: MRI of the L spine EDX legs for neuropathy and radiculopathy. continue falls precautions he did not tolerate low dose neurontin [...] to the patient/family/caregiver. Jennifer Beltrán M.D Neurology /[place]/ Jennifer Beltrán M.D Neurology Attending Signed: 03/24/2024 11:09 03/25/2024 ADDENDUM STATUS: COMPLETED I discussed the CT scan results with the patient over the phone and he declined PT for SS. mild-moderate so not advanced enough for surgery. Jennifer Beltrán M.D /[place]/ Jennifer Beltrán M.D Neurology Attending Signed: 03/25/2024 09:35 JENNIFER BELTRÁN [facility]
--- OUTSIDE RECORDS SUMMARY | 2024-11-07 08:01 | XMS_ITS | Continuity of Care Document ---
Author Organization [facility]. If a dditional information is needed, contact Health Information Management at [phone] Address [address] [place] [address] Phone Care Team Providers Care Metal Products Viewer Name Role Phone Unavailable Unavailable Unavailable Unavailable Unavailable Unavailable Unavailable Unavailable Unavailable Unavailable Unavailable Unavailable Unavailable Unavailable Unavailable Unavailable Unavailable Unavailable Unavailable Unavailable Unavailable Unavailable Unavailable Unavailable Unavailable Unavailable Unavailable Unavailable Unavailable Unavailable Problems Urinary catheter in situ Onset:29-Apr-2015 ZZCERER Retention of urine Onset:23-Apr-2015 Paul [facility] MD Lower urinary tract infectio us disease Onset:02-Jun-2014 Complication of urinary cath eter Onset:01-Oct-2013 Hypertensive disorder Onset:30-Sep-2013 Retention of urine Onset:30-Sep-2013 Acute retention of urine Onset:18-Jul-2013 Poor stream of urine Comments:Poor urinary stream Nocturia Comments:Nocturia Increased frequency of urina tion Comments:Frequency of urinat ion Benign prostatic hyperplasia with outflow obstruction Comments:Benign prostatic hyperplasia with lower urinary tract symptoms Urinary tract infection, sit e not specified Comments:Urinary tract infec tion Urgent desire to urinate Comments:Urgency of urinatio n Bladder muscle dysfunction - overactive Comments:Bladder hypertonici ty Mental Status Cognitive function finding 21-Apr-2020 Functional Status Functional finding 21-Apr-2020 Allergies and Adverse Reactions No Known Allergies(Allergy) Onset: 21-Dec-2018 Medications acetaminophen 325 MG / oxyCO DONE hydrochloride 5 MG Oral Tablet [Percocet];1 TABLET PO Q6H PRN Start:28-Apr-2020 Comments:1 TAB PO Q6H PRN As Needed for NONACUTE PAIN cholecalciferol 0.025 MG Ora l Tablet;2000 UNITS ORAL QAM Quantity:2 Jenny Aguirre MD Start:25-Apr-2020 Status:Discontinued Comments:[id number] simvastatin 20 MG Oral Table t;20 MILLIGRAM ORAL BEDTIME Quantity:1 Jenny Alexey T MD Start:24-Apr-2020 Status:Discontinued Comments:[id number] Administration Instructions:= ZOCORDo not drink grapefruit juice while on this medication,or separate the drug and juice by about 6-8 hours. losartan potassium 50 MG Ora l Tablet [Cozaar];50 MILLIGRAM ORAL DAILY Quantity:1 Jenny Aguirre MD Start:24-Apr-2020 Status:Discontinued Comments:[id number] Administration Instructions:THERAPEUTIC ALTERNATE FOR:Atacand 8 mg daily = Cozaar 50 mg dailyAtacand 8 mg bid = Cozaar 50 mg bidAtacand 16 mg daily = Cozaar 100 mg dailyTeveten 600 mg daily = Cozaar 50 mg dailyAvapro 150 mg daily = Cozaar 50 mg dailyAvapro 300 mg daily = Cozaar 100 mg dailyMicardis 40 mg daily = Cozaar 50 mg dailyMicardis 80 mg daily = Cozaar 100 mg dailyBenicar 20 mg daily = Cozaar 50 mg dailyBenicar 40 mg daily = Cozaar 100 mg daily belladonna alkaloids 16.2 MG / opium 30 MG Rectal Suppository;1 SUPPOSITORY RECTAL Q6H PRN Quantity:1 Jenny Aguirre MD Start:24-Apr-2020 Status:Discontinued Comments:[id number] Administration Instructions:= B O SUPP HYDROmorphone hydrochloride 0.2 MG/ML Prefilled Syringe [Dilaudid];10 MILLIGRAM INTRAVENOUS PRN Quantity:1 Jenny Aguirre MD Start:24-Apr-2020 Status:Discontinued Comments:[id number] Administration Instructions:= HYDROmorphone (DILAUDID) 0.2 MG/ML ASSISTANT BUYER SYRINGE* WATCH FOR RESP. DEPRESSION * PYXIS HIGH RISKK DRUG 1 ML naloxone hydrochloride 0.4 MG/ML Injection;0.4 MILLIGRAM INTRAVENOUS ASDIR Quantity:1 Jenny Aguirre MD Start:24-Apr-2020 Status:Discontinued Comments:[id number] Administration Instructions:Give every 3 minutes prn up to a total dose of 10 mgfor respiratory rate < 12Notify admitting physician and stop ASSISTANT BUYER ondansetron 2 MG/ML Injectab le Solution [Zofran];4 MILLIGRAM INTRAVENOUS Q6H PRN Quantity:1 Jenny Aguirre MD Start:24-Apr-2020 Status:Discontinued Comments:[id number] Administration Instructions:USE FIRST CHOICEIV push undiluted over 2 minutes. calcium chloride 0.2 MG/ML / glucose 50 MG/ML / potassium chloride 0.3 MG/ML / sodium chloride 6 MG/ML / sodium lactate 3.1 MG/ML Injectable Solution Jenny Aguirre MD Start:24-Apr-2020 Status:Discontinued 1 ML promethazine hydrochlor bc 25 MG/ML Injection;25 MILLIGRAM INTRAMUSCULAR Q4H PRN Quantity:1 Jenny Aguirre MD Start:24-Apr-2020 Status:Discontinued Comments:[id number] Administration Instructions:USE IF FIRST CHOICE NOT EFFECTIVE acetaminophen 325 MG Oral Tablet;650 MILLIGRAM ORAL Q4H PRN Quantity:2 Jenny Aguirre MD Start:24-Apr-2020 Status:Discontinued Comments:[id number] glycopyrrolate 0.2 MG/ML Injectable Solution [Robinul];Provider Administration Instructions:=ROBINUL*Must be disposed in BLACK AEROSOL buckets-Send to pharmacyin Ziploc bags for proper disposal* Quantity:1 Agata Denney MD Start:24-Apr-2020 Status:Discontinued Comments:Provider Administration Instructions:=ROBINUL*Must be disposed in BLACK AEROSOL buckets-Send to pharmacyin Ziploc bags for proper disposal* neostigmine methylsulfate 1 MG/ML Injectable Solution Quantity:1 Agata Denney MD Start:24-Apr-2020 Status:Discontinued rocuronium bromide 10 MG/ML Injectable Solution [Zemuron];Provider Administration Instructions:= ZEMURON*HIGH RISK DRUG: MAY NOT BE ADMINISTERED OUTSIDE OF CRITICALCARE AREAS* Quantity:1 Agata Denney MD Start:24-Apr-2020 Status:Discontinued Comments:Provider Administration Instructions:= ZEMURON*HIGH RISK DRUG: MAY NOT BE ADMINISTERED OUTSIDE OF CRITICALCARE AREAS* gentamicin 40 MG/ML Injectab le Solution Quantity:1 Agata Denney MD Start:24-Apr-2020 Status:Discontinued gentamicin 40 MG/ML Injectab le Solution Quantity:1 Agata Denney MD Start:24-Apr-2020 Status:Discontinued BUPivacaine hydrochloride 5 MG/ML Injectable Solution Quantity:1 Agata Denney MD Start:24-Apr-2020 Status:Discontinued 1 ML HYDROmorphone hydrochlo ride 2 MG/ML Cartridge;Provider Administration Instructions:DILAUDID 2 MG/ML INJ. WATCH FOR RESP. DEPRESSION THERAPEUTIC ALTERNATE FOR: Demerol Quantity:1 Agata Denney MD Start:24-Apr-2020 Status:Discontinued Comments:Provider Administration Instructions:DILAUDID 2 MG/ML INJ. WATCH FOR RESP. DEPRESSION THERAPEUTIC ALTERNATE FOR: Demerol midazolam 1 MG/ML Injectable Solution;Provider Administration Instructions:= VERSED Quantity:1 Agata Denney MD Start:24-Apr-2020 Status:Discontinued Comments:Provider Administration Instructions:= VERSED phenylephrine hydrochloride 10 MG/ML Injectable Solution;Provider Administration Instructions:= CORKY-SYNEPHRINE*HIGH RISK DRUG: MAY NOT BE ADMINISTERED OUTSIDE OF ICU/ER* Quantity:1 Agata Denney MD Start:24-Apr-2020 Status:Discontinued Comments:Provider Administration Instructions:= CORKY-SYNEPHRINE*HIGH RISK DRUG: MAY NOT BE ADMINISTERED OUTSIDE OF ICU/ER* lidocaine hydrochloride 20 M G/ML Injectable Solution [Xylocaine] Quantity:1 Agata Denney MD Start:24-Apr-2020 Status:Discontinued rocuronium bromide 10 MG/ML Injectable Solution [Zemuron];Provider Administration Instructions:= ZEMURON*HIGH RISK DRUG: MAY NOT BE ADMINISTERED OUTSIDE OF CRITICALCARE AREAS* Quantity:1 Agata Denney MD Start:24-Apr-2020 Status:Discontinued Comments:Provider Administration Instructions:= ZEMURON*HIGH RISK DRUG: MAY NOT BE ADMINISTERED OUTSIDE OF CRITICALCARE AREAS* Succinylcholine 20 MG/ML Injectable Solution [Quelicin];Provider Administration Instructions:FRONT REFRIGERATOR Quantity:1 Agata Denney MD Start:24-Apr-2020 Status:Discontinued Comments:Provider Administration Instructions:FRONT REFRIGERATOR propofol 10 MG/ML Injectable Suspension;Provider Administration Instructions: FOR USE IN OR ONLY HIGH RISK DRUG Must be disposed in GREEN Sewerable buckets* Quantity:1 Jenny Aguirre MD Start:24-Apr-2020 Status:Discontinued Comments:Provider Administration Instructions: FOR USE IN OR ONLY HIGH RISK DRUG Must be disposed in GREEN Sewerable buckets* 5 ML fentaNYL 0.05 MG/ML Injection Quantity:1 Jenny Alexey Aguirre MD Start:24-Apr-2020 Status:Discontinued tamsulosin hydrochloride 0.4 MG Oral Capsule;0.4 MILLIGRAM PO DAILY Start:28-Jul-2019 Status:Discontinued Comments:0.4 MG PO DAILY finasteride 5 MG Oral Tablet Start:28-Jul-2019 Status:Discontinued simvastatin 20 MG Oral Table t [Zocor];20 MILLIGRAM PO DAILY Start:28-Jul-2019 Comments:20 MG PO DAILY sulfamethoxazole 800 MG / trimethoprim 160 MG Oral Tablet;1 TABLET PO BID Start:29-Dec-2018 Status:Discontinued Comments:1 TAB PO BID acetaminophen 325 MG / HYDROcodone bitartrate 7.5 MG Oral Tablet [[place]];1 TABLET PO Q6H PRN Start:29-Dec-2018 Status:Discontinued Comments:1 TAB PO Q6H PRN As Needed for NONACUTE PAIN sulfamethoxazole 800 MG / trimethoprim 160 MG Oral Tablet;1 TABLET PO BID Start:24-Dec-2018 Status:Discontinued Comments:1 TAB PO BID acetaminophen 325 MG / HYDROcodone bitartrate 7.5 MG Oral Tablet [[place]];1 TABLET PO Q6H PRN Start:24-Dec-2018 Status:Discontinued Comments:1 TAB PO Q6H PRN As Needed for ACUTE PAIN EXCEPTION 7DAY vitamin B12 1 MG Oral Tablet;1000 MICROGRAM PO DAILY Start:21-Dec-2018 Comments:1000 MCG PO DAILY cholecalciferol 0.05 MG Oral Capsule;2000 UNITS PO DAILY Start:21-Dec-2018 Comments:2000 UNITS PO DAILY finasteride 5 MG Oral Tablet Start:21-Dec-2018 Status:Discontinued losartan potassium 50 MG Ora l Tablet [Cozaar] Start:21-Dec-2018 gabapentin 300 MG Oral Capsu le [Neurontin];300 MILLIGRAM DAILY Start:21-Dec-2018 Status:Discontinued Comments:300 MG DAILY pentosan polysulfate 100 MG Oral Capsule [[place]miron];100 MILLIGRAM PO TID Start:21-Dec-2018 Status:Discontinued Comments:100 MG PO TID pentosan polysulfate 100 MG Oral Capsule [Elmiron];100 MILLIGRAM PO TID Start:21-Dec-2018 Status:Discontinued Comments:100 MG PO TID rosuvastatin calcium 20 MG O ral Tablet [Crestor];20 MILLIGRAM PO BEDTIME Start:21-Dec-2018 Status:Discontinued Comments:20 MG PO BEDTIME tamsulosin hydrochloride 0.4 MG Oral Capsule;0.4 MILLIGRAM PO DAILY Start:21-Dec-2018 Status:Discontinued Comments:0.4 MG PO DAILY 24 HR Oxybutynin chloride 5 MG Extended Release Oral Tablet [Ditropan];5 MG Orally Once a day, 1 tablet Quantity:30 Refills:2 PALOMO MARTINEZ III Start:03-Mar-2018 Status:Inactive Comments:5 MG Orally Once a day, 1 tablet sodium chloride 9 MG/ML Injectable Solution;[id number] Sukhjinder Redding MD Start:31-May-2014 Comments:[id number] acetaminophen 325 MG / HYDROcodone bitartrate 7.5 MG Oral Tablet [[place]];1 TABLET PO Q4H PRN Start:13-Oct-2013 Comments:1 TAB PO Q4H PRN As Needed for PAIN ondansetron 2 MG/ML Injectab le Solution [Zofran];4 MILLIGRAM INTRAVEN. Q4H PRN Quantity:1 Sukhjinder Redding MD Start:12-Oct-2013 Comments:[id number] ciprofloxacin 500 MG Oral Tablet;500 MILLIGRAM PO Q12H Start:12-Oct-2013 Comments:500 MG PO Q12H rosuvastatin calcium 5 MG Or al Tablet;5 MILLIGRAM PO DAILY Start:08-Oct-2013 Status:Discontinued Comments:5 MG PO DAILY tamsulosin hydrochloride 0.4 MG Oral Capsule;0.4 MILLIGRAM PO DAILY Start:30-Sep-2013 Status:Discontinued Comments:0.4 MG PO DAILY Tamsulosin hydrochloride 0.4 MG Oral Capsule;0.4 MG Orally Once a day, 1 capsule Quantity:30 PALOMO MARTINEZ III Comments:0.4 MG Orally Once a day, 1 capsule Finasteride 5 MG Oral Tablet ;5 MG Orally Once a day, 1 tablet Quantity:30 PALOMO MARTINEZ III Comments:5 MG Orally Once a day, 1 tablet Advil;200 MG Orally Three ti mes a day, 1 tablet with food or milk as needed PALOMO MARTINEZ III Comments:200 MG Orally Three times a day, 1 tablet with food or milk as needed Losartan Potassium;50 MG Ora l Once a day, TK 1 T PO QD PALOMO MARTINEZ III Comments:50 MG Oral Once a d ay, TK 1 T PO QD Rosuvastatin Calcium;20 MG O ral Once a day, TK 1 T PO QD PALOMO MARTINEZ III Comments:20 MG Oral Once a d ay, TK 1 T PO QD Social History Smoking Status Ex-smoker Recorded: 21-Apr-2020 Encounters pre-admission 02-Aug-2019 12:30 Aubrey Veliz MD (Attending) [facility]
--- OUTSIDE RECORDS SUMMARY | 2024-11-07 08:01 | XMS_ITS | Patient Health Record ---
Author Organization [facility] Mustapha barksdale Billing Info Address [address] [place] [address] [place] [id number] Care Team Providers Care Senior Engineering Team Leader Name Role Phone DR INNA DUNCAN Primary Care Provider Emily celeste MARTINEZ PALOMO LARSEN [phone] Reason For Referral No Information Medications Medication SIG (Take, Route, Frequency, Duration) Notes Start Date End Date Status Ditropan XL 5 MG 1 tablet Orally Once a day for 30 day(s) 03/03/2018 Not-Taking Rosuvastatin Calcium 20 MG TK 1 T PO QD Oral Once a day Active Losartan Potassium 50 MG TK 1 T PO QD Or al Once a day Active Advil 200 MG 1 tablet with food o r milk as needed Orally Three times a day Active Finasteride 5 MG 1 tablet Orally Once a day for 30 day(s) Active Tamsulosin HCl 0.4 MG 1 capsule Orally O nce a day for 30 day(s) Active Immunizations Vaccine Route Administration Date Status Comme nts FLU (Past vaccine of unknown type) Unknown 03/03/2018 A dministered Social History Tobacco Use: Social History Observation Description Date Details (start date - stop date) Former Smoker NA - NA Tobacco Status: Question Answer Notes Patient is a former smoker Problems Problem Type SNOMED Code ICD Code Onset Dates Problem Status W/U Status Risk Notes Problem 807540446 Nocturia (R35.1) Active confirmed Problem 509569496 Poor urinary stream (R39.12) Active confirmed Problem 66253260 Urgency of urination (R39.15) Active confirmed Problem 721667862 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) Active confirmed Problem Urinary tract infection (N39.0) Active confirmed Problem 661929689 Frequency of urination (R35.0) Active confirmed Problem 185639013 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) Active confirmed Plan Of Treatment No Information Insurance Providers Payer Name Payer Address Payer Phone Subscriber Number Group Number Insured Name Patient Relationship to Insured Coverage Start Date Coverage End Date [facility] MEDICARE COMPLETE CHOICE [address] [address] [place], [place] [id number] Azar Juan Self - patient is the insured 8 Medical (General) History Medical History History ICD Code Hypertension BPH Interstitial cystitis plasma button vaporization Surgical History Surgery Date(Month/Year) TURP (Plasma button vaporization) 2014,2 015, Cystoscopy, Urodynamics 2017 Hospitalization History Reason Date(Month/Year) See surgical history.
--- OUTSIDE RECORDS SUMMARY | 2024-11-07 08:01 | XMS_ITS | Encounter Summary ---
Author Name [facility] [place] Organization [facility] [place] Address [address] [place] [address] Care Team Providers Care Network Internship Name Role Phone BEBETO DURAND Primary Care [...] Curtis's Name Patient's Relationship to Policy Curtis [facility] (WNR) MEDICARE ADVANTAGE [facility](W NR) Feb 02, 2018 [id number] IVAN FREEMAN HN PATIENT MEDICARE PART D (WNR) MEDICARE (M) PART D May 05, 2016 PART D [phone] [id number] IVAN FREEMAN HN PATIENT MEDICARE PART D (WNR) MEDICARE (M) PART D May 05, 2016 PART D [id number] IVAN FREEMAN HN PATIENT [facility] (WNR) MEDICARE ADVANTAGE [facility] (WNR) May 05, 2016 [id number] 56 IVAN FREEMAN HN PATIENT [facility] (WNR) MEDICARE ADVANTAGE [facility] (WNR) May 05, 2016 [id number] 56 IVAN FREEMAN HN PATIENT [facility] (WNR) MEDICARE ADVANTAGE [facility] (WNR) May 05, 2016 [id number] 56 IVAN FREEMAN HN PATIENT Selected Encounter This section includes the information on record at [place] for the Encounter. Date/Time Encounter Type Encounter Description Reason Provider Source Feb 11, 2024 11:30 AM OFFICE O/P EST MOD 30 MIN PRIMARY CARE/MEDICINE ICD-10-CM N39.0 Urinary tract infection, site not specified PALOMO NAYAK Zaheer Encounter Template Text not used by [place] Assessments - Encounter Diagnoses This section includes the primary and secondary diagnoses documented for the Encounter. Date/Time Primary/Secondary Diagnosis Diagnosis Name Provider Source Feb 12, 2024 01:24 PM PRIMARY Urinary tract infection, site not specified PALOMO NAYAK [facility] Feb 12, 2024 01:24 PM SECONDARY Essential (primary) hypertension PALOMO NAYAK [facility] Feb 12, 2024 01:24 PM SECONDARY Hyperlipidemia, unspecified PALOMO NAYAK [facility] Feb 12, 2024 01:24 PM SECONDARY Hypothyroidism, unspecified PALOMO NAYAK [facility] Feb 12, 2024 01:24 PM SECONDARY Idiopathic progressive neuropathy PALOMO NAYAK [facility] Feb 12, 2024 01:24 PM SECONDARY Weakness [facility] Plan of Treatment: Future Appointments (+ 6 months) and Future Tests (+/- 45 days) The Plan of Treatment section includes future care activities for the patient from all [place] treatmentfacilities. This section includes future appointments and future orders which are active, pending or scheduled. Future Appointments This section includes appointments that were scheduled to occur 6 months from the date of the Encounter, up to a maximum of 20 appointments. The data comes from all [place] treatment facilities. Appointment Date/Time Appointment Type Appointme nt Facility Name Mar 24, 2024 11:00 AM AMBULATORY - NEUROLOGY [facility] Mar 24, 2024 01:15 PM AMBULATORY - MEDICINE [facility] Apr 12, 2024 10:00 AM AMBULATORY - MEDICINE [facility] Apr 23, 2024 10:00 AM AMBULATORY - MEDICINE [facility] May 04, 2024 09:30 AM AMBULATORY - SURGERY [facility] May 18, 2024 10:00 AM AMBULATORY - SURGERY . [facility] Jun 02, 2024 11:00 AM AMBULATORY - NEUROLOGY [facility] Jun 09, 2024 09:30 AM AMBULATORY - SURGERY [facility] Jul 13, 2024 11:30 AM AMBULATORY - NONE . JOSSE Bach [facility] Jul 14, 2024 02:15 PM AMBULATORY - MEDICINE [facility] Active, Pending, and Scheduled Orders This section includes a listing of several types of active, pending, and scheduled orders, including clinic medications orders, diagnostic test orders, procedure orders and consult orders; where the start date of the order is 45 days before the date of the Encounter or 45 days after the date of theEncounter. The data comes from all [facility] facilities. Test Date/Time Test Type Test Details Facility Name Mar 24, 2024 12:00 AM Laboratory - Chemistry Order PHOSPHOROUS GREEN LI/HEP BLD/PLAS [facility]AS[facility] Mar 24, 2024 12:00 AM Laboratory - Chemistry Order MAGNESIUM GREEN LI/HEP BLD/PLAS PLAS[facility] Mar 24, 2024 12:00 AM Laboratory - Chemistry Order LIPID PANEL (STL) GREEN LI/HEP BLD/PLAS [facility]AS[facility] Mar 24, 2024 12:00 AM Laboratory - Chemistry Order CPK GREEN LI/HEP BLD/PLAS PLASMA [facility] Mar 24, 2024 12:00 AM Laboratory - Chemistry Order TSH W/ REFLEX FT4 (STL) GREEN LI-HEP PLASMA [facility] Mar 24, 2024 12:00 AM Laboratory - Chemistry Order CBC BLOOD [facility] Mar 24, 2024 12:00 AM Laboratory - Chemistry Order COMPREHENSIVE METABOLIC PANEL GREEN LI/HEP BLD/PLAS PLASMA [facility] Mar 25, 2024 12:00 AM Laboratory - Chemistry Order VITAMIN D, 25-HYDROXY GOLD/RED [facility]ST [facility] SP [facility] Lab Results: +/- 30 days of the encounter This section includes the Chemistry and Hematology Lab Results on record with [place] for the patient. Radiology Reports and Pathology Reports are provided separately, in subsequent sections. Lab Results This section contains the Chemistry/Hematology Results that were resulted 30 days before or 30 daysafter the date of the Encounter. Date/Time Source Result Type Result - Unit Interpretation Reference Range Specimen Type Comment Feb 05, 2024 10:54 AM [facility] URINALYSIS URINE Specimen Type: URINE No comment entered. Ordering Provider: PALOMO NAYAK Report Released Date/Time: Feb 02, 2024 12:01 PM Reporting Lab: [address] [place] [address] Performing Lab: [address] [place] [address] URINE BILIRUBIN Negative Negative URINE KETONES Negative [...] H 0-5 Feb 05, 2024 10:54 AM [facility] CBC BLOOD Specimen Type: BLOOD No comment entered. Ordering Provider: PALOMO NAYAK Report Released Date/Time: Feb 02, 2024 12:02 PM Reporting Lab: [address] [place] [address] Performing Lab: [address] [place] [address] WBC 12.6 10*3/uL H 4.8-10.8 RBC 5.01 [...] 10*3/uL 0.0-0.7 BASO ABSOLUTE 0.1 10*3/uL 0.0-0.2 Vital Signs: All taken on the encounter date This section contains inpatient and outpatient Vital Signs collected on the date of the Encounter. Date/Time Temperature Pulse Blood Pressure Respiratory Rate SP02 Pain Height Weight Body Mass Index Source Feb 11, 2024 11:50 AM 136/82 [facility] Feb 11, 2024 11:41 AM 98.1 94 148/65 18 94 5 71 [facility] Social History: Smoking Status (Most current) and Tobacco Use (All prior to encounter date) This section includes the most current, and the historical, smoking and tobacco- related health factors from the [place] facility where the Encounter took place. Current Smoking Status This section includes the most current smoking, or tobacco-related health factor, from the [place] facility where the Encounter took place. Date/Time Current Smoking Status Comment Facil ity Aug 06, 2023 02:30 PM VA-TOBACCO QUIT 15 YRS OR MORE [facility] Tobacco Use History This section includes a history of the smoking, or tobacco-related health factors, that were collected on or before the date of the Encounter. The data comes from the [place] facility where the Encounter took place. Date/Time Smoking Status/Tobacco Use Comment F acility Aug 06, 2023 02:30 PM VA-TOBACCO QUIT 15 YRS OR MORE [facility] Aug 02, 2022 03:30 PM VA-TOBACCO FORMER USER [facility] Aug 02, 2022 03:30 PM VA-TOBACCO QUIT 15 YRS OR MORE [facility] May 08, 2021 01:00 PM VA-TOBACCO NEVER USED [facility] Mar 29, 2020 09:00 AM VA-TOBACCO NEVER USED [facility] September 23, 2018 09:22 AM VA-TOBACCO FORMER USER [facility] September 23, 2018 09:22 AM VA-TOBACCO QUIT 15 YRS OR MORE [facility] Feb 20, 2018 10:25 AM VA-TOBACCO NEVER USED [facility] Pathology Reports: +/- 30 days of [...] the Encounter. The data comes from all [facility] facilities. Date/Time Pathology Report Provider Source Feb 05, 2024 10:54 AM LR MICROBIOLOGY RE PORT: Accession [UID]: [facility] [id number] [[id number]] Received: Feb 05, 2024@10:54 Collection sample: URINE (CLEAN CATCH) Collection date: Feb 05, 2024 10:54 Site/Specimen: URINE Provider: PALOMO NAYAK Test(s) ordered: CULTURE, URINE................ completed: Feb 09, 2024 * BACTERIOLOGY FINAL REPORT => Feb 09, 2024 13:34 TECH CODE: [id number] CULTURE RESULTS: PSEUDOMONAS AERUGINOSA - Quantity: >100,000 COL/ML ANTIBIOTIC SUSCEPTIBILITY TEST RESULTS: PSEUDOMONAS AERUGINOSA : SUSC INTP AZTREONAM..................... S S FORMULARY CEFEPIME...................... S S FORMULARY CEFTAZIDIME................... S S FORMULARY CIPROFLOXACIN................. S S FORMULARY GENTAMICIN.................... I I FORMULARY LEVOFLOXACIN.................. S S FORMULARY MEROPENEM..................... S S FORMULARY PIP/TAZOBACTAM................ S S FORMULARY TOBRAMYCIN.................... S S FORMULARY Bacteriology Remark(s): FINAL REPORT: 02-09-24 [facility] Encounter Notes: All associated encounter notes This section contains the clinical notes associated to the Encounter. Date/Time Encounter Note(s) Provider Source Feb 11, 2024 11:44 AM PRIMARY CARE NOTE: LOCAL TITLE: PROVIDER CLINIC NOTE STANDARD TITLE: PRIMARY CARE NOTE DATE OF NOTE: FEB 11, 2024@11:44 ENTRY DATE: FEB 11, 2024@11:44:52 AUTHOR: PALOMO NAYAK COSIGNER: URGENCY: STATUS: COMPLETED PRIMARY CARE TEMPLATE Type of Visit: FACE TO FACE HPI: XANDER FREEMAN is a 78yo MALE who presents for: ACUTE COMPLAINTS Patient permanently moving to [facility] in a few weeks. Did not have address at the time of visit, but states he will call back with it later. SHEAR SCRAPMAN float placed orders for UA and culture. Positive for Pseudomonas. Patient has urostomy. Has some pelvic pain and has felt weak lately. No allergies to antibiotics, and culture shows sensitivity to many antibiotics. UPDATES TO CHRONIC MEDICAL CONDITIONS Neuropathy/weakness: Has neurology consult, but appointment is not scheduled until April, which was the soonest they could get him in. May be able to get neurology through traveling service since he is relocating. Patient has also been seeing a chiropractor, who is doing some kind of sonic therapy on his feet. He thinks that it may be helping a little PROBLEM LIST: Active problems - Computerized Problem List is the source for the following: PROBLEM 1. Hypothyroidism 2. Foot pain 3. Exposure to potentially hazardous substance 4. Ventral hernia 5. Anemia 6. Cobalamin deficiency 7. Hyperlipidemia 8. IC - Interstitial cystitis 9. Retention of urine 10. Hypertension 11. Impaired fasting glucose 12. Immunization advised ALLERGIES: Patient has answered NKA MEDICATIONS: Active Outpatient Medications (including Supplies): Active Outpatient Medications Status 1) CHOLECALCIF 50MCG (D3-2,000UNIT) TAB TAKE ONE TABLET ACTIVE BY MOUTH DAILY FOR VITAMIN D3 SUPPLEMENTATION 2) GABAPENTIN 100MG CAP TAKE ONE CAPSULE BY MOUTH AT ACTIVE BEDTIME 3) LOSARTAN 50MG TAB TAKE ONE TABLET BY MOUTH DAILY FOR ACTIVE HEART AND BLOOD PRESSURE 4) POUCH,UROSTOMY,NEW IMAGE H#[id number] USE 1 POUCH ACTIVE TOPICALLY EVERY OTHER DAY 5) ROSUVASTATIN CA 20MG TAB TAKE ONE TABLET BY MOUTH ACTIVE DAILY FOR CHOLESTEROL 6) URINARY DRAINAGE SYSTEM H#2102 USE ONE EVERY WEEK ACTIVE Pending Outpatient Medications Status 1) BARRIER,OSTOMY,NEW IMAGE H#78163 USE 1 BARRIER PENDING EVERY OTHER DAY SUPPLY ITEM DELIVERY TIME VARIES. PLEASE CALL PHARMACY AT [phone] IF URGENT NEED OR CONCERNS. Active Non-VA Medications Status 1) Non-VA CHOLECALCIF 50MCG (D3-2,000UNIT) TAB 2000UNIT ACTIVE MOUTH DAILY 2) Non-VA CYANOCOBALAMIN 250MCG TAB 500MCG MOUTH DAILY ACTIVE 9 Total Medications SERVICE: LAST BRANCH OF SERVICE - NONE FOUND Eligibilities: NSC, CLINICAL EVALUATION, RATED DISABILITIES - NONE FOUND REVIEW OF SYSTEMS 12 pt review of systems was completed and negative except as listed in HPI. OBJECTIVE VITALS: Date Vital Measurement Qualifiers 02/11/2024 11:41 Temp F (C) 98.1 (36.7) Pulse 94 Respir 18 BP 148/65 Ht in (cm) 71 (180.34) Wt lbs (kg)[BMI] Unavailable Pain 5 POx (L/Min)(%) 94 PHYSICAL EXAM: Appearance: WN, WD, No acute distress Cardiac: RRR, no murmurs, gallops, or rubs. Respiratory: CTAB without rhonchi or wheeze. Abdominal: soft, non-distended, normal bowel sounds. LABS DATE TEST RESULT UNITS RANGE ---- ---- ------ ----- ----- 02/05/24 URINE BLOOD Trace H Negative- 02/05/24 URINE NITRITE 2+ H Negative- 02/05/24 URINE BILIRUBIN Negative Negative- 02/05/24 URINE KETONES Negative Negative- 02/05/24 URINE GLUCOSE NORMAL Negative- 02/05/24 URINE PROTEIN Trace H Negative- 02/05/24 URINE EPITH CELLS NoneObs - 02/05/24 URINE BACTERIA 2+ H /HPF Negative- 02/05/24 URINE S.G. 1.012 1.003-1.030 02/05/24 URINE pH 6.5 5.0-9.0 02/05/24 URINE LEUKOCYTE ESTERASE 3+ H Negative- 02/05/24 URINE CLARITY Turbid H <Slightly-Cloudy- 02/05/24 URINE COLOR LIGHT YELL <Venessa- 02/05/24 MANUAL MICRO? (YES ONLY) YES - 02/05/24 URINE RBCS/HPF NoneObs /HPF 0-2 02/05/24 URINE WBCS/HPF 50-100 H /HPF 0-5 02/05/24 WBC 12.6 H K/cmm 4.8-10.8 02/05/24 MPV 8.9 fL 7.4-10.4 02/05/24 MONOCYTE (AUTO) 9.9 % 4-12 02/05/24 EOSINOPHIL (AUTO) 2.0 % 0-11.0 02/05/24 BASOPHIL (AUTO) 0.6 % 0.0-2.0 02/05/24 NEUTROPHIL (AUTO) 68.7 % 42.2-75.2 02/05/24 LYMPH ABSOLUTE 2.4 K/cmm 1.2-3.4 02/05/24 MONO ABSOLUTE 1.2 H K/cmm 0.1-0.7 02/05/24 NEUTRO ABSOLUTE 8.7 H K/cmm 1.4-6.5 02/05/24 EOSIN ABSOLUTE 0.2 K/cmm 0.0-0.7 02/05/24 BASO ABSOLUTE 0.1 K/cmm 0.0-0.2 02/05/24 RBC 5.01 M/cmm 4.7-6.1 02/05/24 HGB 15.0 g/dL 14-18 02/05/24 HCT 45.6 % 42-52 02/05/24 RDW 12.9 % 11.5-14.5 02/05/24 MCV 91.1 fL 80-94 02/05/24 LYMPH (AUTO) 18.8 L % 20.5-51.1 02/05/24 MCH 30.0 pg 27-31 02/05/24 MCHC 32.9 g/dL 32-36 02/05/24 PLT 307 K/cmm 130-400 MICROBIOLOGY: Test: CULTURE, URINE Completed: FEB 09, 2024@13:34 ORGANISMS: PSEUDOMONAS AERUGINOSA Qty: >100,000 COL/ML Most recent labs were reviewed with the patient, and all questions regarding their significance were answered. ASSESSMENT/PLAN: Problems in HPI addressed in order below: 1. Complicated UTI: Prescription for ciprofloxacin given to patient today along with voucher 2. Neuropathy/weakness: Will attempt to get through traveling vet service since patient is moving. 3. Hypothyroidism: Continue current meds 4. Hypertension: Continue current medications 5. Hyperlipidemia: Continue current medications Shohola agrees that all questions are answered in full, and understands everything discussed today. was advised to contact our PACT via secure messaging or by phone if they require anything else before next visit. /apolonia/ PALOMO NAYAK D.O. PRIMARY CARE PHYSICIAN Signed: 02/12/2024 13:25 PALOMO NAYAK [facility] Feb 11, 2024 11:42 AM PRIMARY CARE NURSI XOCHITL NOTE: LOCAL TITLE: PC NURSE NOTE- [id number] STANDARD TITLE: PRIMARY CARE NURSING NOTE DATE OF NOTE: FEB 11, 2024@11:42 ENTRY DATE: FEB 11, 2024@11:48:22 AUTHOR: KATHY STOVALL EXP COSIGNER: URGENCY: STATUS: COMPLETED Patient identified by two of the following patient identifiers prior to providing care: Full Name, Date of Subjective: Reason for visit: New Problem 78 y/o M presents to the clinic w/spouse for f/u with PCP. Pt c/o daily falls due to neuropathy of the feet and right knee frequently collapsing. Pt states he would like to discuss labs, UTI from last visit. Objective: Recent Vitals: Blood Pressure: 148/65 (02/11/2024 11:41) Pulse: 94 (02/11/2024 11:41) Respirations: 18 (02/11/2024 11:41) Temperature: 98.1 F [36.7 C] (02/11/2024 11:41) Pain Level: 5 (02/11/2024 11:41) Weight: Unavailable (02/11/2024 11:41) Height: 71 in [180.3 cm] (02/11/2024 11:41) Pulse Ox: 94% (02/11/2024 11:41) Active Outpatient Medications (including Supplies): Active Outpatient Medications Status 1) CHOLECALCIF 50MCG (D3-2,000UNIT) TAB TAKE ONE TABLET ACTIVE BY MOUTH DAILY FOR VITAMIN D3 SUPPLEMENTATION 2) GABAPENTIN 100MG CAP TAKE ONE CAPSULE BY MOUTH AT ACTIVE BEDTIME 3) LOSARTAN 50MG TAB TAKE ONE TABLET BY MOUTH DAILY FOR ACTIVE HEART AND BLOOD PRESSURE 4) POUCH,UROSTOMY,NEW IMAGE H#35252 USE 1 POUCH ACTIVE TOPICALLY EVERY OTHER DAY 5) ROSUVASTATIN CA 20MG TAB TAKE ONE TABLET BY MOUTH ACTIVE DAILY FOR CHOLESTEROL 6) URINARY DRAINAGE SYSTEM H#6856 USE ONE EVERY WEEK ACTIVE Pending Outpatient Medications Status 1) BARRIER,OSTOMY,NEW IMAGE H#56991 USE 1 BARRIER PENDING EVERY OTHER DAY SUPPLY ITEM DELIVERY TIME VARIES. PLEASE CALL PHARMACY AT [phone] IF URGENT NEED OR CONCERNS. Active Non-VA Medications Status 1) Non-VA CHOLECALCIF 50MCG (D3-2,000UNIT) TAB 2000UNIT ACTIVE MOUTH DAILY 2) Non-VA CYANOCOBALAMIN 250MCG TAB 500MCG MOUTH DAILY ACTIVE 9 Total Medications WARNING MESSAGE: Below Allergy/ADR list may not be complete for patients who receive healthcare at both [facility] and a [facility] site. Please review/confirm utilizing Joint Longitudinal Viewer (JLV). JLV provides a comprehensive, integrated, read-only view of EHR data from all [facility] and [facility] sites. Allergies / Adverse Reactions: Patient has answered NKA Medication Review: provided with a confidential Outpatient Medication List for review. Is the Outpatient Medication List correct? Yes Is the patient taking Non-VA medications, Kyfp-Pkk-Nsvgpbh agents, herbals/nutritionals supplements? Yes: See list in CPRS CLINICAL REMINDERS: Stress Screen How is your stress level today? My life is not perfect but not the worst, I have some stress but I can handle it. Stress related to illness/appointments Evidence-based education Shohola does not desire to discuss any further [...] Use Screening Not Due Monitor Blood Pressure:* 136/82 Patient is hypertensive. Consult to Cargo Services Coordinator for Nutritional Counseling declined at this time. Are you having pain now? Pain scale this visit: 5 (02/11/2024 11:41) Yes Pain Scale 4-6 Pain Details Location: Feet Duration: Constant Onset: [...] At Risk Eye Exam NOT DUE Immunizations: Influenza Vaccine: Deferral / Refusal The patient declines to receive the recommended dose of seasonal influenza vaccine. Immunization: INFLUENZA, UNSPECIFIED FORMULATION Refusal Reason: PATIENT DECISION Patient refuses all immunization(s) in the FLU group Comment: Pt declined at time of screening Date Documented: 02/11/24 11:50 Pneumococcal Conjugate Vaccine NOT DUE Pneumococcal PPSV23 (Pnemovax) NOT DUE Herpes Zoster (Shingles) Vaccine NOT DUE Td Immunization Not Due Tdap Immunization Not Due TOXIC EXPOSURE SCREEN NOT DUE Does patient require Patient Education Teaching Assessment? No Patient Education provided? Yes Discipline providing the education: STENOTYPE MACHINE OPERATOR LEARNER: Patient, Spouse READINESS TO LEARN: Patient is receptive to learning. TOPIC/TEACHING NEEDS: Health Promotion/Prevention TEACHING METHOD: Explanation LEARNER'S RESPONSE TO EDUCATION: Verbalizes/Discusses essential concepts Assessment: To be determined by provider Plan: Appointment with provider as scheduled /es/ KATHY N WILMAN STENOTYPE MACHINE OPERATOR Signed: 02/11/2024 11:51 KATHY STOVALL [facility]
--- OUTSIDE RECORDS SUMMARY | 2024-11-07 08:01 | XMS_ITS | Encounter Summary ---
Author Name [facility] [place] Address [address] [place] [address] Care Team Providers Care Type Mapper Name Role Phone BEBETO DURAND Primary Care [...] Curtis's Name Patient's Relationship to Policy Curtis [facility] (WNR) MEDICARE ADVANTAGE [facility](W NR) Feb 02, 2018 [id number] 56 IVAN FREEMAN HN PATIENT MEDICARE PART D (WNR) MEDICARE (M) PART D May 05, 2016 PART D [id number] [phone] 4 IVAN FREEMAN HN PATIENT MEDICARE PART D (WNR) MEDICARE (M) PART D May 05, 2016 PART D [id number] IVAN FREEMAN HN PATIENT [facility] (WNR) MEDICARE ADVANTAGE [facility] (WNR) May 05, 2016 [id number] 56 IVAN FREEMAN HN PATIENT [facility] (WNR) MEDICARE [facility] (WNR) May 05, 2016 [id number] IVAN FREEMAN HN PATIENT [facility] MCR (WNR) MEDICARE ADVANTAGE [facility]CR (WNR) May 05, 2016 [id number] 56 IVAN FREEMAN PATIENT Selected Encounter This section includes the information on record at [place] for the Encounter. Date/Time Encounter Type Encounter Description Reason Provider Source Feb 13, 2024 01:01 PM TARGETED CASE MANAGEMENT ADMIN PAT ACTIVTIES (MASNONCT) ANGE ROSENBERG Zaheer Encounter Template Text not used by [place] Plan of Treatment: Future Appointments (+ 6 months) and Future Tests (+/- 45 days) The Plan of Treatment section includes future care activities for the patient from all [place] [facility]. This section includes future appointments and future orders which are active, pending or scheduled. Future Appointments This section includes appointments that were scheduled to occur 6 months from the date of the Encounter, up to a maximum of 20 appointments. The data comes from all [place] treatment facilities. Appointment Date/Time Appointment Type Appointme nt Facility Name Mar 24, 2024 11:00 AM AMBULATORY - NEUROLOGY [facility] Mar 24, 2024 01:15 PM AMBULATORY - MEDICINE [facility] Apr 12, 2024 10:00 AM AMBULATORY - MEDICINE [facility] Apr 23, 2024 10:00 AM AMBULATORY - MEDICINE [facility] May 04, 2024 09:30 AM AMBULATORY - SURGERY . [facility] May 18, 2024 10:00 AM AMBULATORY - SURGERY . [facility] Jun 02, 2024 11:00 AM AMBULATORY - NEUROLOGY [facility] Jun 09, 2024 09:30 AM [facility]UL[facility] - [facility]ERY [facility] Jul 13, 2024 11:30 AM AMBULATORY - NONE . [facility] Jul 14, 2024 02:15 PM AMBULATORY - MEDICINE [facility] Active, Pending, and Scheduled Orders This section includes a listing of several types of active, pending, and scheduled orders, including clinic medications orders, diagnostic test orders, procedure orders and consult orders; where the start date of the order is 45 days before the date of the Encounter or 45 days after the date of theEncounter. The data comes from all [facility]. Test Date/Time Test Type Test Details Facility Name Mar 24, 2024 12:00 AM Laboratory - Chemistry Order PHOSPHOROUS GREEN LI/HEP BLD/PLAS PLASMA SP [facility] Mar 24, 2024 12:00 AM Laboratory - Chemistry Order MAGNESIUM GREEN LI/HEP BLD/PLAS PLASMA [facility] Mar 24, 2024 12:00 AM Laboratory - Chemistry Order LIPID PANEL (STL) GREEN LI/HEP BLD/PLAS PLASMA [facility] Mar 24, 2024 12:00 AM Laboratory - Chemistry Order CPK GREEN LI/HEP BLD/PLAS PLASMA [facility] Mar 24, 2024 12:00 AM Laboratory - Chemistry Order TSH W/ REFLEX FT4 (STL) GREEN LI-HEP PLASMA [facility] Mar 24, 2024 12:00 AM Laboratory - Chemistry Order CBC BLOOD [facility] Mar 24, 2024 12:00 AM Laboratory - Chemistry Order COMPREHENSIVE METABOLIC PANEL GREEN LI/HEP BLD/PLAS PLASMA [facility] Mar 25, 2024 12:00 AM Laboratory - Chemistry Order VITAMIN D, 25-HYDROXY GOLD/RED SST SERUM [facility] Lab Results: +/- 30 days of [...] Type Comment Feb 05, 2024 10:54 AM [facility] URINALYSIS URINE Specimen Type: URINE No comment entered. Ordering Provider: PALOMO NAYAK Report Released Date/Time: Feb 02, 2024 12:01 PM Reporting Lab: [address] [place] [address] Performing Lab: [address] [place] [address] URINE BILIRUBIN Negative Negative URINE KETONES Negative [...] H 0-5 Feb 05, 2024 10:54 AM [facility] CBC BLOOD Specimen Type: BLOOD No comment entered. Ordering Provider: PALOMO NAYAK Report Released Date/Time: Feb 02, 2024 12:02 PM Reporting Lab: [facility] [address] [facility] [place] [address] Performing Lab: [facility] [address] [facility] [place] [address] WBC 12.6 10*3/uL H 4.8-10.8 RBC 5.01 [...] the Encounter. The data comes from all [place] treatment facilities. Date/Time Pathology Report Provider Source Feb 05, 2024 10:54 AM LR MICROBIOLOGY RE PORT: Accession [UID]: [id number] [[id number]] Received: Feb 05, 2024@10:54 Collection sample: URINE (CLEAN CATCH) Collection date: Feb 05, 2024 10:54 Site/Specimen: URINE Provider: PALOMO NAYAK Test(s) ordered: CULTURE, URINE................ completed: Feb 09, 2024 * BACTERIOLOGY FINAL REPORT => Feb 09, 2024 13:34 TECH CODE: [id number] CULTURE RESULTS: PSEUDOMONAS AERUGINOSA - Quantity: >100,000 COL/ML ANTIBIOTIC SUSCEPTIBILITY TEST RESULTS: PSEUDOMONAS AERUGINOSA : SUSC INTP AZTREONAM..................... S S FORMULARY CEFEPIME...................... S S FORMULARY CEFTAZIDIME................... S S FORMULARY CIPROFLOXACIN................. S S FORMULARY GENTAMICIN.................... I I FORMULARY LEVOFLOXACIN.................. S S FORMULARY MEROPENEM..................... S S FORMULARY PIP/TAZOBACTAM................ S S FORMULARY TOBRAMYCIN.................... S S FORMULARY Bacteriology Remark(s): FINAL REPORT: 02-09-24 [facility] Encounter Notes: All associated encounter notes This section contains the clinical notes associated to the Encounter. Date/Time Encounter Note(s) Provider Source Feb 13, 2024 01:01 PM PRIMARY CARE NOTE: LOCAL TITLE: C TRAVELING NOTE [facility] STANDARD TITLE: PRIMARY CARE NOTE DATE OF NOTE: FEB 13, 2024@13:01 ENTRY DATE: FEB 13, 2024@13:01:28 AUTHOR: ANGE ROSENBERG EXP COSIGNER: URGENCY: STATUS: COMPLETED C TRAVELING NOTE [facility] Has ADDENDA Traveling/Relocating [place] Care Coordination Permanent Relocation- [facility] [place] need to establish care at [facility]. IFC reviewed and received for care coordination. Alerted [facility] Dead Mail Checker and Lead to assist with a new patient visit. will be contacted to schedule a visit by the schedulers. -[facility] providers notified to assist with the consult request for services. -Request sent to Eligibility to update veterans address. /apolonia/ ANGE ROSENBERG REGISTERED NURSE, HOME TELEHEALTH COORDINATOR Signed: 02/13/2024 13:02 02/19/2024 ADDENDUM STATUS: COMPLETED PT STATED WHEN HE MOVES TO THE [facility] AREA FROM [place] HE WILL GIVE [facility] A CALL BACK TO BE SCHEDULED. /apolonia/ ABDIAS PINEDA LEAD ELECTRIC ORGAN INSPECTOR AND REPAIRER Signed: 02/19/2024 14:16 ANGE ROSENBERG [facility]
--- OUTSIDE RECORDS SUMMARY | 2024-11-07 08:01 | XMS_ITS ---
Author Name [facility] [place] Address [address] [place] [address] Care Team Providers Care Yardage Tufting Machine Operator Name Role Phone BEBETO DURAND [...] Curtis's Name Patient's Relationship to Policy Curtis [facility] (WNR) MEDICARE ADVANTAGE [facility](W NR) Feb 02, 2018 [id number] 56 IVAN FREEMAN HN PATIENT MEDICARE PART D (WNR) MEDICARE (M) PART D May 05, 2016 PART D [id number] 68 IVAN FREEMAN HN PATIENT MEDICARE PART D (WNR) MEDICARE (M) PART D May 05, 2016 PART D [id number] [phone] 4 IVAN FREEMAN HN PATIENT [facility] (WNR) MEDICARE ADVANTAGE [facility] (WNR) May 05, 2016 [id number] 56 IVAN FREEMAN HN PATIENT [facility] (WNR) MEDICARE ADVANTAGE [facility] (WNR) May 05, 2016 [id number] 56 IVAN FREEMAN HN PATIENT [facility] MCR (WNR) MEDICARE ADVANTAGE MCR (WNR) May 05, 2016 [id number] 56 IVAN FREEMAN HN PATIENT Selected Encounter This section includes the information on record at [place] for the Encounter. Date/Time Encounter Type Encounter Description Reason Provider Source May 04, 2024 09:30 AM OFF/OP CNSLTJ NEW/EST MOD 40 PODIATRY ICD-10-CM M79.671 [facility] in [facility] Encounter Template Text not used by [place] Assessments - Encounter Diagnoses This section includes the primary and secondary diagnoses documented for the Encounter. Date/Time Primary/Secondary Diagnosis Diagnosis Name Provider Source May 04, 2024 10:56 AM PRIMARY Pain in right foot [facility] May 04, 2024 10:56 AM SECONDARY Edema, unspecified [facility] May 04, 2024 10:56 AM SECONDARY Hereditary and idiopathic neuropathy, unspecified [facility] May 04, 2024 10:56 AM SECONDARY Other hammer toe(s) (acquired), left foot [facility] May 04, 2024 10:56 AM SECONDARY Other hammer toe(s) (acquired), right foot [facility] May 04, 2024 10:56 AM SECONDARY Pain in left foot [facility] May 04, 2024 10:56 AM SECONDARY Peripheral vascular disease, unspecified [facility] May 04, 2024 10:56 AM SECONDARY Tinea unguium [facility] Plan of Treatment: Future Appointments (+ 6 months) and Future Tests (+/- 45 days) The Plan of Treatment section includes future care activities for the patient from all [place] treatmentfacilities. This section includes future appointments and future orders which are active, pending or scheduled. Future Appointments This section includes appointments that were scheduled to occur 6 months from the date of the Encounter, up to a maximum of 20 appointments. The data comes from all [facility]. Appointment Date/Time Appointment Type Appointme nt Facility Name May 18, 2024 10:00 AM AMBULATORY - SURGERY [facility] Jun 02, 2024 11:00 AM AMBULATORY - NEUROLOGY [facility] Jun 09, 2024 09:30 AM AMBULATORY - SURGERY [facility] Jul 13, 2024 11:30 AM AMBULATORY - NONE . [facility] Jul 14, 2024 02:15 PM AMBULATORY - MEDICINE [facility] Active, Pending, and Scheduled Orders This section includes a listing of several types of active, pending, and scheduled orders, including clinic medications orders, diagnostic test orders, procedure orders and consult orders; where the start date of the order is 45 days before the date of the Encounter or 45 days after the date of theEncounter. The data comes from all [facility]. Test Date/Time Test Type Test Details Facility Name Mar 24, 2024 12:00 AM Laboratory - Chemistry Order PHOSPHOROUS GREEN LI/HEP BLD/PLAS PLASMA SP [facility] Mar 24, 2024 12:00 AM Laboratory - Chemistry Order MAGNESIUM GREEN LI/HEP BLD/PLAS PLASMA [facility] Mar 24, 2024 12:00 AM Laboratory - Chemistry Order LIPID PANEL (STL) GREEN LI/HEP BLD/PLAS PLASMA [facility] Mar 24, 2024 12:00 AM Laboratory - Chemistry Order CPK GREEN LI/HEP BLD/PLAS PLASMA [facility] Mar 24, 2024 12:00 AM Laboratory - Chemistry Order TSH W/ REFLEX FT4 (STL) GREEN LI-HEP PLASMA [facility] Mar 24, 2024 12:00 AM Laboratory - Chemistry Order CBC BLOOD [facility] Mar 24, 2024 12:00 AM Laboratory - Chemistry Order COMPREHENSIVE METABOLIC PANEL GREEN LI/HEP BLD/PLAS PLASMA [facility] Mar 25, 2024 12:00 AM Laboratory - Chemistry Order VITAMIN D, 25-HYDROXY GOLD/RED SST SERUM SP [facility] Social History: Smoking Status (Most current) and Tobacco Use (All prior to encounter date) This section includes the most current, and the historical, smoking and tobacco- related health factors from the [facility] where the Encounter took place. Current Smoking Status This section includes the most current smoking, or tobacco-related health factor, from the [place] facility where the Encounter took place. Date/Time Current Smoking Status Comment Facil ity Mar 24, 2024 01:15 PM VA-TOBACCO NEVER U SED CIGARETTES [facility] Tobacco Use History This section includes a history of the smoking, or tobacco-related health factors, that were collected on or before the date of the Encounter. The data comes from the [place] facility where the Encounter took place. Date/Time Smoking Status/Tobacco Use Comment F acility Mar 24, 2024 01:15 PM [place]-TOBACCO NEVER U SED OTHER TYPE [facility] Encounter Notes: All associated encounter notes This section contains the clinical notes associated to the Encounter. Date/Time Encounter Note(s) Provider Source May 04, 2024 09:28 AM PODIATRY CONSULT: LOCAL TITLE: PODIATRY CONSULT [facility] STANDARD TITLE: PODIATRY CONSULT DATE OF NOTE: MAY 04, 2024@09:28 ENTRY DATE: MAY 04, 2024@09:28:58 AUTHOR: KIARRA EMERY EXP COSIGNER: URGENCY: STATUS: COMPLETED PODIATRY CONSULT [facility] Has ADDENDA S: PT PRESENTS TO CLINIC TODAY WITH CHIEF COMPLAINT OF NEEDING HIGH RISK FOOT EXAM DUE TO LOSS OF SENSATOIN PER PCP. PT DENIES ANY SYSTEMIC SIGNS OF INFECTION RECENT TRAUMA. PT IS FOLLOWED BY HIS PCP FOR HIS GENERAL HEALTH ISSUES. PT IS COOPERATIVE AND PLEASANT UPON EXAM. HE COMPLAINS OF COLD PAIN ON BOTH FEET. HE WAS FOLLOWED BY BACKUP OPERATOR IN [place] WITH SAME COMPLAINT. HE HAS KEHINDE SCHEDULED. SYMPTOMS WORSENDED BY: NO DEBRIDEMENT AND NOTHING. SYMTOMS IMPROVED BY: DEBRIDEMENT AND NOTHING PAIN SCALE: 10/10. HEIGHT:72 in [182.9 cm] (04/12/2024 10:05) WEIGHT: 240 lb [108.86 kg] (04/12/2024 10:05) FAMILY HISTORY: HE DENIES ANY FAMILY HX OF DM, LIMB LOSS, LUPUS, OR RH. HGA1C:HGA1C 5.7 % 03/24/2024 11:52 ROS: CARDIAC: HE DENIES ANY HEART PROBLEMS OR ISSUES. VASCULAR: HE DENIES ANY PROBLEMS WITH BLOOD FLOW TO THE FEET OR LEGS. MUS/SK: PT DENIES ANY PROBLEMS WITH MUSCLES OR BONE PAIN. KIDNEY: PT DENIES ANY KIDNEY ISSUES. SKIN: PT DENIES ANY SLOW OR NON-HEALLING WOUNDS. ALLERGIES:Patient has answered NKA SOCIAL HISTORY: PT DENIES DRUG AND MARIJUANA USE. PT DENIES ANY TOBOACCO USE. HE WAS SMOKING 27 YEARS AGO AT 1 PACK DAILY FOR 20 YEARS. PT ADMITS TO OCCASSIONAL ETOH USE. PT IS LIVING AT HOME WITH FAMILY. PT IS NO LONGER WORKING. RELEVANT PAST SURGICAL HISTORY: PT GIVES HX OF NEUROMA SURGERY ON THE LEFT FOOT 20 YEARS PRIOR. LEFT KNEE SURGERY. OSTOMY BAG AND BLADDER COLLAPSED. PAST MEDICAL HISTORY: 1) Skin Lesion ([facility] [id number]) 2) Hypothyroidism ([facility] [id number]) 3) HTN - Hypertension ([facility] [id number]) 4) Hyperlipidemia ([facility] [id number]) 5) Bilateral cataracts 6) Exposure to potentially hazardous substance CURRENT MEDICATIONS: Active Outpatient Medications (including Supplies): Active Outpatient Medications Status 1) LEVOTHYROXINE NA (SYNTHROID) 25MCG TAB TAKE ONE TABLET BY HOLD MOUTH EVERY MORNING BEFORE A MEAL TAKE 30 MINUTES BEFORE FOOD. TAKE SEPARATELY FROM ALL OTHER MEDICATIONS. Indication: FOR HYPOTHYROIDISM 2) LOSARTAN 100MG TAB TAKE ONE-HALF TABLET BY MOUTH ONCE A DAY HOLD Indication: FOR HIGH BLOOD PRESSURE 3) ROSUVASTATIN CA 40MG TAB TAKE ONE-HALF TABLET BY MOUTH EVERY HOLD EVENING Indication: FOR HIGH CHOLESTEROL O: PT IS ALERT AND ORIENTED X 3 AND IN NAD. HE IS AMBULATING WITH THE ASSISTANCE OF A WHEELCHAIR AND WALKER. HE IS WEARING HIS PERSONAL SHOES ON EXAM. VASC: STRONG PALPABLE DP PULSES AND DECREASED PT HOWEVER +2 PITTING EDEMA AT THE ANKLE. FEET ARE COOL AND CAPP REFILL SLUGGISH AT 3 SECONDS. NO ISCHEMIC CHANGES NOTED ON EXAM. NO DIGITAL HAIR GROWTH NOTED. NEURO: GROSSLY INTACT, PROTECTIVE LIGHT SENSATION LOST PER SEMMES TRESA 5.07 MONOFILAMENT TO MOST ALL SITES TESTED B/L. DERM: NAILS ELONGATED THICKENED, DYSTROPHIC AND MYCOTIC X 10 WITH SIGNFICANT SUBUNGAL DEBRIES. NO ASCENDING CELLULITIS. NO ERYTHAMA, NO DRAINAGE, AND NO OPEN WOUNDS NOTED ON EXAM. PLANTAR SKIN IS DRY AND FLAKING. UNABLE TO DEBRIDE LEFT HALLUX NAIL DUE TO ADHERANCE OF NAIL HOWEVER NO SIGNIFICANT LENGTH NOTED ON EXAM. MUS/SK: FAIR MUSCLE STRENGTH IN ALL 4 QUADRANTS. NO DELL NOTED IN THE ACHILLES. ROM AT THE ANKLE WITHIN NORMAL LIMITS. UPON STANCE SPLAYING OF THE DIGITS WITH THE 2ND DIGITS HAMMERED AND ELONGATED WITH DORSIFLEXION B/L. A/P 1 ONYCHOMYCOSIS/ MANUALLY DEBRIDED X 9 IN ORDER TO PREVENT POSSIBLE SECONDARY INFECTION. BETADINE APPLIED ROUTINELY. 2 IDEOPATHIC NEUROPATHY/ PT EDUCATION. PT TO F/U WITH PCP. PT SENT FOR RX SHOES AND INSERTS WITH PRECAUTIONS. PT HAS F/U WITH NEUROLOGY AND TESTING. 3 PVD WITH COLD FEET AND PAIN COMPLAINTS/ MOST LIKELY SECONDARY TO NEUROPATHY HOWEVER PT HAS KEHINDE TEST PENDING THAT WAS NOT SCHEDULED. WILL ORDER AN KEHINDE STUDY. PT SENT FOR RX SHOES AND INSERTS WITH PRECAUTIONS. 4 HAMMER TOES B/L/ PT SENT FOR RX SHOES AND CUSTOM MADE INSERTS WITH PRECAUTIONS. 5 EDEMA/ PT TO F/U WITH PCP. PT SENT FOR RX SHOES AND CUSTOM MADE INSERTS WITH PRECAUTIONS. TIME SPENT: 45 MIN. PT TO RTC FOR F/U IN 3 MONTHS. DISCUSSED TREATMENT OPTIONS WITH PATIENT AND PATIENT ADVISED TO GO TO THE ER IF ANY INCREASE IN PAIN REDNESS OR ERYTHEMA IS NOTED. PT STATES UNDERSTANDING. MEDICATION/RECONCILLIATION : REVIEWED AND RECONCILLED ALL PODIATRIC GENERATED MEDICATIONS. PER [facility] PODIDATRY DIRECTIVE 1122 PT IS CONSIDERED TO BE HIGH RISK. PAVE FOOT EXAM A foot risk level was completed. The following risk level was identified for this patient: ===== +POD RISK SCORE+ *--LEVEL 2 - (MODERATE RISK)* DECREASED sensation No severe obstructive peripheral arterial disease (Foot deformity and/or minor foot infection may be present or absent) No ulceration, nor history of ulceration, osteomyelitis, or amputation No Charcot joint disease with foot deformity No chronic kidney disease, or less than CKD 4 LEVEL 2 FOOT EDUCATION: 1. Advised patient that therapeutic footwear and orthosis are required to accommodate foot deformities, to compensate for soft tissue atrophy, and to evenly distribute plantar foot pressures. 2. Advised patient not to walk barefoot. Instructed the patient to pay close attention to the style and fit of shoes. 3. Explained the importance of daily foot checks. Explained that loss of sensation leads to callouses. Callouses break down, which result in ulcers that may lead to gangrene and amputation. 4. Stressed the importance of daily foot hygiene. Warm (not hot) bathing of the feet, complete drying and thorough inspection for changes in the condition of the skin constitute daily foot care. Demonstrated how to do a thorough foot check. 5. Emphasized the use of clean, non-restrictive socks/stockings and well fitting shoes. 6. Stressed the importance of immediate follow-up of any foot injuries or ulcers. Explained that he/she should be non-weight bearing whenever there are lesions on the foot, to prevent cellular damage. Level of Understanding: Good Patient/Family Response to Foot Care Teaching Patient walks barefoot: A few times per month Patient/caregiver able to clean feet at least once daily: Yes Patient/caregiver has difficulty examining feet: No /apolonia/ KIARRA EMERY Staff Physician, Podiatry Signed: 05/04/2024 10:59 05/25/2024 ADDENDUM STATUS: COMPLETED MAY 18, 2024 KEHINDE EXAMINATION RIGHT LEFT KEHINDE: 1.3 KEHINDE: 1.3 TOE PRESSURES (mm Hg) RIGHT: 135 LEFT: 145 PER VASCULAR PROVIDER: IMPRESSION:normal resting kehinde's and toe pressures bilaterally WILL CONTINUE CURRENT PLAN OF CARE DISCUSSED WITH PATIENT. /apolonia/ KIARRA EMERY Staff Physician, Podiatry Signed: 05/25/2024 15:42 KIARRA EMERY [facility]
== END 2024-11-07 07:57 | disposition home or self-care (01) ==
PROVIDERS: PCP Nurse Practitioner Family; Visit Provider Nurse Practitioner Adult Health
DX: M47.816 Spondylosis without myelopathy or radiculopathy, lumbar region (principal); M53.82 Other specified dorsopathies, cervical region; M47.812 Spondylosis without myelopathy or radiculopathy, cervical region; R20.2 Paresthesia of skin; R29.898 Other symptoms and signs involving the musculoskeletal system; R26.9 Unspecified abnormalities of gait and mobility
CPT/HCPCS: 72125; 72131

== ENCOUNTER 2025-02-09 10:30 | Outpatient (CLI) | payer MEDICARE, SELFPAY ==
--- NOTE | ~2025-02-09 | CT_ITS ---
EXAMINATION: CTA brain carotid DATE: 02/09/2025 11:08 INDICATION: Other spondylosis with myelopathy. TECHNIQUE: Computed tomographic angiography (CTA) of the head was performed with 100 mL Omnipaque-350 intravenous contrast. CTA of the neck was performed with intravenous contrast. Automated exposure control and iterative reconstruction technique were employed. The dose-length product was 1000.56 mGy-cm. Maximum intensity projection and volume rendered 3D-reconstructions were created by the technologist on a separate workstation. COMPARISON: None. FINDINGS: HEAD CTA: There are scattered areas of low attenuation in the cerebral white matter, which is within normal limits for the patient's age. There is no intracranial hemorrhage, acute infarction, or abnormal intracranial mass lesion. The ventricles are normal in size. There are likely changes of ocular lens replacement surgeries. There is an old blowout fracture of medial wall of left orbit. There is mild mucosal thickening in the paranasal sinuses. The mastoid air cells are normal. Left vertebral artery is dominant. There is no significant stenosis of basilar artery or the posterior cerebral arteries. There is no significant stenosis of the intracranial internal carotid arteries or anterior or middle cerebral arteries. Anterior communicating artery is normal. The posterior communicating arteries are normal. There is no aneurysm. NECK CTA: There is mild emphysema. There are no pathologically enlarged lymph nodes. There is no significant stenosis of the vertebral arteries. There is plaque in the proximal internal carotid arteries. There is 0% stenosis of the proximal right internal carotid artery relative to normal distal artery lumen diameter (NASCET criteria). There is 0% stenosis of the proximal left internal carotid artery relative to normal distal artery lumen diameter. There is mild cervical spondylosis. IMPRESSION: 1. Normal aging brain. 2. No aneurysm or significant intracranial arterial stenosis. 3. 0% stenosis of the proximal internal carotid arteries relative to normal distal artery lumen diameters (NASCET criteria). Reviewed, dictated and finalized at location E. IMPRESSION: 1. Normal aging brain. 2. No aneurysm or significant intracranial arterial stenosis. 3. 0% stenosis of the proximal internal carotid arteries relative to normal dis sylvia artery lumen diameters (NASCET criteria).
[2025-02-09 10:51] LABS: Estimated Glomerular Filt Rate 59
== END 2025-02-09 10:31 | disposition home or self-care (01) ==
LOC: MICIMG 10:30
PROVIDERS: PCP Nurse Practitioner Family; Visit Provider Neurological Surgery
DX: M47.14 Other spondylosis with myelopathy, thoracic region (principal); R29.898 Other symptoms and signs involving the musculoskeletal system
CPT/HCPCS: 70496; 70498; Q9967